=== PATIENT | female | born 1965 | race Caucasian/White ===

== ENCOUNTER 2021-05-04 19:02 | Inpatient (IN) | payer BC, MEDICARE ==
[2021-05-04] MEDS ORDERED: cefTRIAXone IN SWFI 1,000 MG/10 ML SYRINGE IVP STA (19:27)
[2021-05-04] MEDS ORDERED: ACETAMINOPHEN TAB 500 MG TAB PO STA (19:27)
--- NOTE | 2021-05-04 20:07 | ED ---
General Adult HPI - General Chief complaint: Extremity Injury, Lower Stated complaint: Left ankle pain Time Seen by Provider: 05/04/21 19:12 Source: patient, RN notes reviewed Mode of arrival: ambulatory Limitations: no limitations - History of Present Illness Initial comments: 55-year-old female presents to the emergency room for a chief complaint of left ankle pain. Patient states she has had left ankle pain for the past week or so. States it hurts when she presses on the ankle. Patient denies any injuries. Patient does states she had a blister on the great toe for the past 6 months that popped. Patient states she has not had anyone look at this and the past 6 months. Denies fevers.Patient has no other complaints at this time including s hortness of breath, chest pain, abdominal pain, nausea or vomiting, headache, or visual changes. - Related Data Allergies Allergy/AdvReac Type Severity Reaction Status Date / Time No Known Allergies Allergy Verified 05/04/21 22:26 Review of Systems ROS Statement: Those systems with pertinent positive or pertinent negative responses have been documented in the HPI. ROS Other: All systems not noted in ROS Statement are negative. Past Medical History Past Medical History: No Reported History History of Any Multi-Drug Resistant Organisms: None Reported Past Surgical History: No Surgical Hx Reported Smoking Status: Current every day smoker Past Alcohol Use History: None Reported Past Drug Use History: None Reported General Exam Limitations: no limitations General appearance: alert, in no apparent distress Head exam: Present: atraumatic Eye exam: Present: normal appearance, PERRL, EOMI ENT exam: Absent: normal exam, mucous membranes moist Neck exam: Present: normal inspection, full ROM. Absent: tenderness, meningismus Respiratory exam: Present: normal lung sounds bilaterally. Absent: respiratory distress, wheezes Cardiovascular Exam: Present: regular rate, normal rhythm, normal heart sounds Extremities exam: Present: full ROM (Range motion of the L foot and ankle), tenderness (Tenderness noted to the distal L lower leg as well as the L foot), normal capillary refill (cap refill < 2 seconds in the L lower extremity), other (Left great toe appears gangrenous. Cellulitis of the dorsal left forefoot) Course Vital Signs 05/04/21 05/04/21 05/04/21 19:04 19:27 21:09 Temperature 98.3 F 100.6 F H 97.7 F Pulse Rate 79 115 H 108 H Respiratory 16 18 18 Rate Blood Pressure 159/90 140/80 100/62 O2 Sat by Pulse 94 L 98 98 Oximetry Medical Decision Making - Medical Decision Making Vitals are stable however patient does present febrile. She has a gangrenous right great toe with cellulitis of the forefoot and pain extending into the ankle. CBC does show leukocytosis of 11.6. Lactic acid 2.2. Patient given fluids and antibiotics. Not currently requiring 30 mL/kg of fluid. Patient is diabetic as well which is undiagnosed as she does not see primary care. 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 Ultrasound results are difficult to exclude acute DVT given abnormal compressibility however no obvious thrombosis on exam. Case was discussed with Dr. Cao who does accept the patient. Requested d-dimer be added which she will follow-up on before starting blood thinners. Agrees for vascular consult. - Lab Data Result diagrams: 05/04/21 20:03 05/04/21 20:03 Lab Results 05/04/21 05/04/21 05/04/21 Range/Units 20:03 20:03 20:03 WBC 11.6 H (3.8-10.6) k/uL RBC 4.98 (3.80-5.40) m/uL Hgb 14.3 (11.4-16.0) gm/dL Hct 42.1 (34.0-46.0) % MCV 84.5 (80.0-100.0) fL MCH 28.7 (25.0-35.0) pg MCHC 34.0 (31.0-37.0) g/dL RDW 13.6 (11.5-15.5) % Plt Count 376 (150-450) k/uL MPV 7.4 Neutrophils % 64 % Lymphocytes % 29 % Monocytes % 4 % Eosinophils % 1 % Basophils % 1 % Neutrophils # 7.4 (1.3-7.7) k/uL Lymphocytes # 3.3 (1.0-4.8) k/uL Monocytes # 0.4 (0-1.0) k/uL Eosinophils # 0.2 (0-0.7) k/uL Basophils # 0.1 (0-0.2) k/uL Sodium 130 L (137-145) mmol/L Potassium 4.3 (3.5-5.1) mmol/L Chloride 93 L (98-107) mmol/L Carbon Dioxide 27 (22-30) mmol/L Anion Gap 10 mmol/L BUN 18 H (7-17) mg/dL Creatinine 0.48 L (0.52-1.04) mg/dL Est GFR (CKD-EPI)AfAm >90 (>60 ml/min/1.73 sqM) Est GFR (CKD-EPI)NonAf >90 (>60 ml/min/1.73 sqM) Glucose 311 H (74-99) mg/dL Plasma Lactic Acid Zackary 2.2 H* (0.7-2.0) mmol/L Calcium 9.6 (8.4-10.2) mg/dL Total Bilirubin 0.6 (0.2-1.3) mg/dL AST 29 (14-36) U/L ALT 25 (4-34) U/L Alkaline Phosphatase 188 H (38-126) U/L Total Protein 7.9 (6.3-8.2) g/dL Albumin 4.2 (3.5-5.0) g/dL Disposition Clinical Impression: Hyperglycemia, Cellulitis, Gangrene of toe, Fever Disposition: ADMITTED IP TO THIS HOSP Is patient prescribed a controlled substance at d/c from ED?: No Referrals: None,Stated [Primary Care Provider] - 1-2 days Time of Disposition: 22:30
[2021-05-04 20:32] LABS: ALT 25 U/L (4-34); AST 29 U/L (14-36); African American GFR (CKD) >90 (>60 ml/min/1.73 sqM); Albumin 4.2 g/dL (3.5-5.0); Alkaline Phosphatase 188 U/L (38-126); Anion Gap 10 mmol/L; Blood Urea Nitrogen 18 mg/dL (7-17); Calcium 9.6 mg/dL (8.4-10.2); Carbon Dioxide 27 mmol/L (22-30); Chloride 93 mmol/L (98-107); Glucose 311 mg/dL (74-99); Non-African American GFR(CKD) >90 (>60 ml/min/1.73 sqM); Sodium 130 mmol/L (137-145); Total Bilirubin 0.6 mg/dL (0.2-1.3); Total Protein 7.9 g/dL (6.3-8.2)
[2021-05-04 20:42] LABS: HCT 42.1 % (34.0-46.0); HGB 14.3 gm/dL (11.4-16.0); RBC 4.98 m/uL (3.80-5.40); WBC 11.6 k/uL (3.8-10.6)
[2021-05-04 20:43] LABS: Basophils # (A) 0.1 k/uL (0-0.2); Basophils % (A) 1 %; Eosinophils # (A) 0.2 k/uL (0-0.7); Eosinophils % (A) 1 %; Lymphocytes # (A) 3.3 k/uL (1.0-4.8); Lymphocytes % (A) 29 %; MCH 28.7 pg (25.0-35.0); MCV 84.5 fL (80.0-100.0); Mean Platelet Volume 7.4; Monocytes # (A) 0.4 k/uL (0-1.0); Monocytes % (A) 4 %; Neutrophils # (A) 7.4 k/uL (1.3-7.7); Neutrophils % (A) 64 %; Platelet Count 376 k/uL (150-450); RDW 13.6 % (11.5-15.5)
[2021-05-04 20:48] LABS: Potassium 4.3 mmol/L (3.5-5.1)
--- NOTE | 2021-05-04 21:23 | US ---
EXAMINATION TYPE: US venous doppler duplex LE LT DATE OF EXAM: 05/04/2021 8:36 PM COMPARISON: NONE CLINICAL HISTORY: Pain. No hx of DVT. Patient does not take blood thinners. SIDE PERFORMED: Left TECHNIQUE: The lower extremity deep venous system is examined utilizing real time linear array sonog andreia with graded compression, doppler sonography and color-flow sonography. VESSELS IMAGED: Common Femoral Vein Deep Femoral Vein Greater Saphenous Vein * Femoral Vein Popliteal Vein Small Saphenous Vein * Proximal Calf Veins (* superficial vessels) Left Leg: CFV and GSV appear to compress incompletely-possible thickened collier versus chronic internal echoes a long vessel wall. Color flow seen in all veins imaged at this time. Two hypoechoic areas with hyperechoic centers and vascularity seen within the left groin. Larger are a measures 1.9 x 2.2 x 1.4 cm. IMPRESSION: 1. It is difficult to exclude acute deep vein thrombosis of the common femoral vein (superficial thro mbosis of the great saphenous vein) due to abnormal compressibility (incomplete compression report by microfilm technician) despite the normal appearance on color flow images and non visualized thrombu s within the lumen. Clinical correlation is recommended. 2. Left inguinal prominent enlarged lymph nodes (1.4 x 1.9 x 2.2 cm) likely reactive to findings seen on the foot radiograph, refer to separate report for detail. Dr. White discussed above findings with Vincent MORRISON in addition to findings on the ankle and f oot radiographs performed on the same day @ 9:18 pm. Communication was acknowledged.
--- NOTE | 2021-05-04 21:26 | XR ---
EXAMINATION TYPE: XR ankle complete LT, XR foot complete LT DATE OF EXAM: 05/04/2021 COMPARISON: NONE HISTORY: 55 years Female. STUDY INDICATION GIVEN: gangrene of great toe, cellulitis . TECHNIQUE: Left ankle 3 views. Left foot 3 views IMPRESSION: Ankle: Normal ankle mortise. No acute fracture or dislocation. Small joint effusion mild soft tissue swellin g anterior to the ankle joint. Mild degenerative changes. Foot: There is soft tissue swelling over the distal phalanx of the first great toe. There are erosive moon es involving the proximal aspect of the distal phalanx distal aspect of the proximal phalanx. There a re lucencies in the region of the first toe interphalangeal joint. There is also mild diffuse soft ti ssue swelling the foot. Findings are concerning for soft tissue swelling, osteomyelitis and possible septic arthritis.
[2021-05-04] MEDS ORDERED: VANCOMYCIN IV PER PHARMACY 1 EACH MISC MISCELLANE PRN (21:50)
[2021-05-04] MEDS ORDERED: ONDANSETRON 4 MG/2 ML VIAL IVP PRN (22:30)
[2021-05-04] MEDS ORDERED: NALOXONE 0.4 MG/ML 1 ML VIAL IV PRN (22:30)
[2021-05-04] MEDS ORDERED: VANCOMYCIN 1,000 MG in SODIUM CHLORIDE 0.9% 250 ML IVPB ONE (23:00)
[2021-05-04] MEDS: SODIUM CHLORIDE 0.9% 1,000 ML IV SCH (23:20)
[2021-05-04 23:26] LABS: Glucose,Whole Blood 271 mg/dL (75-99)
[2021-05-05] MEDS ORDERED: ACETAMINOPHEN TAB 325 MG TAB PO PRN (01:21)
[2021-05-05] MEDS: ENOXAPARIN 60 MG/0.6 ML SYRINGE SQ SCH ×3 (01:49→21:09)
--- NOTE | 2021-05-05 01:49 | P.HPIM ---
History of Present Illness H&P Date: 05/04/21 Chief Complaint: Pain in the left ankle 55-year-old female with peripheral neuropathy Patient seems to have poor insight of her overall condition. Patient seems to be unconcerned of her left great toe gangrene situation as compared to the pain in her left ankle that has brought her in here today. She reports that she was feeling fine walked back from the kitchen after doing some chores sat down on her couch to watch TV for about 15 minutes and as she tried to get up she felt extreme pain in her leg that she couldn't walk initially, this was about 5 days ago and since then it has been getting worse for which today she decided to come in for evaluation as it became very difficult for her to stand up on her leg or even touch her ankle without experiencing pain. She denies any recent traveling or hospitalizations she denies any trauma falling or twisting her ankle. She denies any fevers or chills however she was found to be febrile when she presented. She reports a blister that she has noticed about 9 months ago over her left great toe that has popped recently it hasn't bothered her however she does admit to having some peripheral neuropathy for unknown reason that she was diagnosed with years ago. She reports that few months ago she had a right eye blurry vision that since has improved and then she adds that she's been having some runny nose and coughing for over a month Otherwise she denies any chest pain or trouble breathing denies any GI bleeding denies history of blood clots denies history of diabetes she does admit to heavy tobacco smoking In the ED she was noticed to have dry gangrene of her left great toe with swelling of the left foot and erythema extending to the ankle. Venous duplex ultrasound was done was suspicious for possible acute DVT D-dimer slightly elevated X-rays showed no acute fractures however did show soft tissue swelling suggestive of cellulitis with underlying osteomyelitis in the left foot. Review of Systems Pertinent positives as noted in HPI. All other systems were reviewed and are negative Past Medical History Additional Past Medical History / Comment(s): Peripheral neuropathy History of Any Multi-Drug Resistant Organisms: None Reported Past Surgical History: No Surgical Hx Reported Smoking Status: Current every day smoker Past Alcohol Use History: None Reported Past Drug Use History: None Reported - Past Family History Family Family Medical History: No Reported History Medications and Allergies Home Medications Medication Instructions Recorded Confirmed Type traMADol HCL [Ultram] 50 mg PO BID PRN 05/04/21 05/04/21 History Allergies Allergy/AdvReac Type Severity Reaction Status Date / Time No Known Allergies Allergy Verified 05/04/21 22:26 Physical Exam Vitals: Vital Signs Temp Pulse Resp BP Pulse Ox 05/05/21 00:15 97.8 F 92 18 104/71 98 05/04/21 23:20 97 18 135/84 97 05/04/21 21:09 97.7 F 108 H 18 100/62 98 05/04/21 19:27 100.6 F H 115 H 18 140/80 98 05/04/21 19:04 98.3 F 79 16 159/90 94 L Intake and Output 05/04/21 05/04/21 05/05/21 14:59 22:59 06:59 Other: Weight 63.049 kg Constitutional: No acute distress, conversant, pleasant Eyes: Anicteric sclerae, moist conjunctiva, Pupils equal round reactive to light ENMT: NC/AT Oropharynx clear, no erythema, or exudates Neck: Supple, FROM, no masses, or JVD No carotid bruits No thyromegaly Lungs: Clear to auscultation Clear to percussion Normal respiratory effort, no accessory muscle use Cardiovascular: Heart regular in rate and rhythm, No murmurs, gallops, or rubs No peripheral edema Abdominal: Soft Nontender, no guarding, rebound or rigidity Abdomen moving with respiration Normoactive bowel sounds No hepatomegaly, No splenomegaly No palpable mass No abdominal wall hernia noted Skin: Patient has dry gangrene of the left great toe with areas of skin sloughing proximal portion of the left great toe erythema and swelling of the left foot no tenderness to palpation left foot, warm to the touch Extremities: No digital cyanosis No clubbing Pedal pulses not palpable bilateral feet, capillary refill is immediate Radial pulses intact and symmetrical tenderness to palpation of the left calf muscle, edema of the left foot Psychiatric: Alert and oriented to person, place and time Appropriate affect Neuro Muscles Strength 4/5 in all 4 extremities Decreased sensation to light touch over the left foot Cranial nerves II-XII grossly intact Lymphatics: no palpable cervical or supraclavicular , or inguinal lymph nodes Results CBC & Chem 7: 05/04/21 20:03 05/04/21 20:03 Labs: Abnormal Lab Results - Last 24 Hours (Table) 05/04/21 05/04/21 05/04/21 Range/Units 20:03 20:03 20:03 WBC 11.6 H (3.8-10.6) k/uL D-Dimer (<0.60) mg/L FEU Sodium 130 L (137-145) mmol/L Chloride 93 L (98-107) mmol/L BUN 18 H (7-17) mg/dL Creatinine 0.48 L (0.52-1.04) mg/dL Glucose 311 H (74-99) mg/dL POC Glucose (mg/dL) (75-99) mg/dL Plasma Lactic Acid Zackary 2.2 H* (0.7-2.0) mmol/L Alkaline Phosphatase 188 H (38-126) U/L 05/04/21 05/04/21 Range/Units 23:25 23:26 WBC (3.8-10.6) k/uL D-Dimer 0.87 H (<0.60) mg/L FEU Sodium (137-145) mmol/L Chloride (98-107) mmol/L BUN (7-17) mg/dL Creatinine (0.52-1.04) mg/dL Glucose (74-99) mg/dL POC Glucose (mg/dL) 271 H (75-99) mg/dL Plasma Lactic Acid Zackary (0.7-2.0) mmol/L Alkaline Phosphatase (38-126) U/L Assessment and Plan Assessment: Sepsis secondary to underlying osteomyelitis and cellulitis of the left foot Follow-up cultures Empiric antibiotic with vancomycin and Rocephin IV fluid hydration with normal saline Monitor vital signs Tylenol for fever Pain control with opiates Consultation to vascular surgery X-rays reviewed Suspicion of diabetes mellitus with a random blood sugar higher than 200 Check A1c Insulin sliding scale Follow-up labs check lipid profile CBC and BMP in the morning Suspicion of DVT in the left lower extremity D-dimer elevated Patient initiated on Lovenox full dose subcu Venous Doppler ultrasound was inconclusive Patient is full code DVT prophylaxis currently on full dose anticoagulation due to suspicion of underlying DVT Anticipated length of stay more than 2 midnights
[2021-05-05 05:46] LABS: Basophils # (A) 0.1 k/uL (0-0.2); Basophils % (A) 1 %; Eosinophils # (A) 0.1 k/uL (0-0.7); Eosinophils % (A) 1 %; HCT 35.5 % (34.0-46.0); Lymphocytes # (A) 3.4 k/uL (1.0-4.8); Lymphocytes % (A) 33 %; MCH 28.7 pg (25.0-35.0); MCHC 33.8 g/dL (31.0-37.0); MCV 85.1 fL (80.0-100.0); Mean Platelet Volume 7.5; Monocytes # (A) 0.4 k/uL (0-1.0); Monocytes % (A) 4 %; Neutrophils # (A) 6.1 k/uL (1.3-7.7); Neutrophils % (A) 59 %; Platelet Count 318 k/uL (150-450); RBC 4.17 m/uL (3.80-5.40); RDW 13.5 % (11.5-15.5); WBC 10.3 k/uL (3.8-10.6)
[2021-05-05] MEDS: MORPHINE SULFATE 4 MG/ML SYRINGE IV PRN ×2 (05:54→13:13)
[2021-05-05] MEDS ORDERED: VANCOMYCIN 1,000 MG in SODIUM CHLORIDE 0.9% 250 ML IVPB SCH (07:00)
[2021-05-05] MEDS: SODIUM CHLORIDE 0.9% 1,000 ML IV SCH ×3 (07:18→21:09)
[2021-05-05] MEDS ORDERED: INSULIN ASPART (NovoLOG) 100 UNIT/ML VIAL SQ SCH (07:30)
[2021-05-05 08:30] LABS: Glucose,Whole Blood 256 mg/dL (75-99)
[2021-05-05] MEDS ORDERED: cefTRIAXone IN SWFI 1,000 MG/10 ML SYRINGE IVP SCH (09:00)
[2021-05-05 09:42] LABS: INR 1.01 (0.90-1.11); Prothrombin Time 11.1 sec (9.9-11.9)
[2021-05-05] MEDS: INSULIN ASPART (NovoLOG) 100 UNIT/ML VIAL SQ SCH ×4 (09:44→21:07)
--- NOTE | 2021-05-05 09:44 | P.GSCN ---
History of Present Illness Consult date: 05/05/21 Reason for Consult: Gangrene right great toe Requesting physician: Miriam Cuevas History of present illness: This 55-year-old woman states that she developed a blister about 6 months ago. The great toe became progressively worse and about a week ago it became blackened. She has very minimal pain. She is a long-standing smoker. She did not know she was a diabetic until this admission. Review of Systems All systems: negative - Constitutional Denies fever, Denies weight loss - EENT Eyes: denies blurred vision Ears, nose, mouth and throat: Denies dysphagia - Cardiovascular Denies chest pain, Denies shortness of breath - Respiratory Denies cough, Denies 7 - Gastrointestinal Reports as per HPI - Genitourinary Genitourinary: Denies dysuria, Denies hematuria - Integumentary Denies rash, Denies unusual bruising - Neurological Denies headaches, Denies syncope - Hematologic/Lymphatic Denies easy bleeding, Denies easy bruising Past Medical History Past Medical History: No Reported History Additional Past Medical History / Comment(s): Peripheral neuropathy History of Any Multi-Drug Resistant Organisms: None Reported Past Surgical History: No Surgical Hx Reported Smoking Status: Current every day smoker Past Alcohol Use History: None Reported Past Drug Use History: None Reported - Past Family History Family Family Medical History: No Reported History Medications and Allergies Home Medications Medication Instructions Recorded Confirmed Type traMADol HCL [Ultram] 50 mg PO BID PRN 05/04/21 05/04/21 History Allergies Allergy/AdvReac Type Severity Reaction Status Date / Time No Known Allergies Allergy Verified 05/04/21 22:26 Surgical - Exam Osteopathic Statement: *. No significant issues noted on an osteopathic structural exam other than those noted in the History and Physical/Consult. Vital Signs Temp Pulse Resp BP Pulse Ox 98.3 F 79 16 159/90 94 L 05/04/21 19:04 05/04/21 19:04 05/04/21 19:04 05/04/21 19:04 05/04/21 19:04 - General well developed, well nourished, no distress - Eyes normal ocular movement, no icteric - ENT no hearing loss, no congestion - Neck no masses, trachea midline - Respiratory normal respiratory effort, clear to auscultation - Abdomen Abdomen: soft, non tender, no guarding, no rigid, no rebound - Integumentary no rash, no abnormal pigmentation - Neurologic no disoriented, no combative - Psychiatric oriented to time, oriented to person, oriented to place, speech is normal, memory intact The patient has no pulses below the femoral pulses. She has a mummified left g reat toe. Results - Labs 05/05/21 05:33 05/04/21 20:03 Abnormal Lab Results - Last 24 Hours (Table) 05/04/21 05/04/21 05/04/21 Range/Units 20:03 20:03 20:03 WBC 11.6 H (3.8-10.6) k/uL D-Dimer (<0.60) mg/L FEU Sodium 130 L (137-145) mmol/L Chloride 93 L (98-107) mmol/L BUN 18 H (7-17) mg/dL Creatinine 0.48 L (0.52-1.04) mg/dL Glucose 311 H (74-99) mg/dL POC Glucose (mg/dL) (75-99) mg/dL Plasma Lactic Acid Zackary 2.2 H* (0.7-2.0) mmol/L Alkaline Phosphatase 188 H (38-126) U/L 05/04/21 05/04/21 05/05/21 Range/Units 23:25 23:26 01:00 WBC (3.8-10.6) k/uL D-Dimer 0.87 H (<0.60) mg/L FEU Sodium (137-145) mmol/L Chloride (98-107) mmol/L BUN (7-17) mg/dL Creatinine (0.52-1.04) mg/dL Glucose (74-99) mg/dL POC Glucose (mg/dL) 271 H (75-99) mg/dL Plasma Lactic Acid Zackary 2.6 H* (0.7-2.0) mmol/L Alkaline Phosphatase (38-126) U/L 05/05/21 Range/Units 08:28 WBC (3.8-10.6) k/uL D-Dimer (<0.60) mg/L FEU Sodium (137-145) mmol/L Chloride (98-107) mmol/L BUN (7-17) mg/dL Creatinine (0.52-1.04) mg/dL Glucose (74-99) mg/dL POC Glucose (mg/dL) 256 H (75-99) mg/dL Plasma Lactic Acid Zackary (0.7-2.0) mmol/L Alkaline Phosphatase (38-126) U/L Diabetes panel 05/04/21 Range/Units 20:03 Sodium 130 L (137-145) mmol/L Potassium 4.3 (3.5-5.1) mmol/L Chloride 93 L (98-107) mmol/L Carbon Dioxide 27 (22-30) mmol/L BUN 18 H (7-17) mg/dL Creatinine 0.48 L (0.52-1.04) mg/dL Glucose 311 H (74-99) mg/dL Calcium 9.6 (8.4-10.2) mg/dL AST 29 (14-36) U/L ALT 25 (4-34) U/L Alkaline Phosphatase 188 H (38-126) U/L Total Protein 7.9 (6.3-8.2) g/dL Albumin 4.2 (3.5-5.0) g/dL Calcium panel 05/04/21 Range/Units 20:03 Calcium 9.6 (8.4-10.2) mg/dL Albumin 4.2 (3.5-5.0) g/dL Pituitary panel 05/04/21 Range/Units 20:03 Sodium 130 L (137-145) mmol/L Potassium 4.3 (3.5-5.1) mmol/L Chloride 93 L (98-107) mmol/L Carbon Dioxide 27 (22-30) mmol/L BUN 18 H (7-17) mg/dL Creatinine 0.48 L (0.52-1.04) mg/dL Glucose 311 H (74-99) mg/dL Calcium 9.6 (8.4-10.2) mg/dL Adrenal panel 05/04/21 Range/Units 20:03 Sodium 130 L (137-145) mmol/L Potassium 4.3 (3.5-5.1) mmol/L Chloride 93 L (98-107) mmol/L Carbon Dioxide 27 (22-30) mmol/L BUN 18 H (7-17) mg/dL Creatinine 0.48 L (0.52-1.04) mg/dL Glucose 311 H (74-99) mg/dL Calcium 9.6 (8.4-10.2) mg/dL Total Bilirubin 0.6 (0.2-1.3) mg/dL AST 29 (14-36) U/L ALT 25 (4-34) U/L Alkaline Phosphatase 188 H (38-126) U/L Total Protein 7.9 (6.3-8.2) g/dL Albumin 4.2 (3.5-5.0) g/dL Assessment and Plan (1) Atherosclerosis of rincon arteries of left leg with ulceration of other part of foot Current Visit: Yes Status: Acute Code(s): I70.245 - ATHSCL KWIGILLINGOK ARTERIES OF LEFT LEG W ULCERATION OT PRT FOOT SNOMED Code(s): 131341078 (2) 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 I discussed both of these risk factors with her in detail. I discussed with her the need for smoking cessation. We will start with a lower extremity arterial Doppler study. If that suggest that circulation is adequate for healing we would simply proceed with great toe amputation. If it suggests significant compromise of the circulation at the distal aspect of the foot we would proceed with an angiogram. In view of the dry gangrene nature of the toe, for the time being, simple dry protective dressings are all that is necessary. The patient verbalizes an understanding of the factors that we discussed. She verbalizes in agreement with our current plan.
[2021-05-05 12:10] LABS: Glucose,Whole Blood 200 mg/dL (75-99)
[2021-05-05 12:35] LABS: Erythrocyte Sedimentation Rate 99 mm/hr (0-20)
[2021-05-05] MEDS: VANCOMYCIN 1,000 MG in SODIUM CHLORIDE 0.9% 250 ML IVPB SCH ×2 (13:14→21:09)
[2021-05-05] MEDS ORDERED: NICOTINE GUM (POLACRILEX) 2 MG GUM BUCCAL PRN (13:36)
--- NOTE | 2021-05-05 13:36 | P.PN ---
Subjective Progress Note Date: 05/05/21 Patient is a 55-year-old female with osteoarthritis, chronic low back pain, and tobacco abuse who presented secondary to left ankle pain. She underwent an x- ray of the foot which showed osteomyelitis of the great toe. She was febrile to 100.6 and had a heart rate of 1:15. Laboratory analysis showed a white blood cell count of 11.6. She was also found to have a sodium of 1:30 and a glucose of 311. Blood lactic acid was slightly elevated at 2.2. Found to have gangrene of the right great toe with sepsis. She was started on Vanco on Rocephin and arrangements were made for admission. Vascular surgery was consulted and plans are for arterial Doppler of the lower extremities. Patient seen and examined at bedside. Her left ankle pain has resolved she has been walking on it without problems. She denies any nausea, vomiting, or diarrhea. She states that her right toe first began about 6 months ago. She had been soaking with peroxide the last week large chunk of skin came off. She was smoking prior to admission but states she plans on quitting. She was not aware of a history of diabetes in the past we discussed that her blood sugar was quite elevated on arrival at that she likely has underlying diabetes but we are waiting for hemoglobin A1c. General: Ill appearing, no distress, appears older than stated age Derm: Right great toe black with visualization of fat, skin necrosis, area of erythema tracking to the right forefoot. Head: atraumatic, normocephalic, symmetric Eyes: EOMI, no lid lag, anicteric sclera Mouth: no lip lesion, mucus membranes moist Cardiovascular: S1S2 reg, no murmur, positive posterior tibial pulse bilateral, Lungs: CTA bilateral, no rhonchi, no rales , no accessory muscle use Abdominal: soft, nontender to palpation, no guarding, no appreciable organo megaly Ext: no gross muscle atrophy, no edema, no contractures Neuro: CN II-XI grossly intact, no focal neuro deficits Psych: Alert, oriented, appropriate affect Dry gangrene of the right great toe with sepsis -Vascular surgery recommendations appreciated: Arterial Dopplers today likely will need amputation early next week. - Continue with vancomycin, concerns for possible anaerobic component and will broaden Rocephin 2 Unasyn. Low possibility of pseudomonal infection but patient is likely diabetic at risk for polymicrobial infection. -Await blood cultures -Pain control -Keep toe clean and dry with 4 x 4 and Kerlix Hyperglycemia suspect diabetes mellitus type 2 -Sliding-scale insulin -Await A1c -Follow blood sugars Tobacco abuse -Cessation -Nicotine replacement Hyponatremia -Suspect secondary to insensible losses with fever in conjunction with pseudohyponatremia secondary to hyperglycemia -IV fluids -Repeat in a.m. Lactic acidosis, resolved DVT prophylaxis: lovenox Discussed with: salvatore cohen Anticipated discharge: undetermined Anticipated discharge place: undetermined A total of 45 minutes was spent on the care of this complex patient more than 50% of the time was spent in counseling and care coordination. Objective - Vital Signs Vital signs: Vital Signs Temp 98.0 F 05/05/21 07:29 Pulse 90 05/05/21 07:29 Resp 16 05/05/21 08:00 BP 110/71 05/05/21 07:29 Pulse Ox 97 05/05/21 07:29 Intake & Output 05/04/21 05/05/21 05/05/21 18:59 06:59 18:59 Weight 63.049 kg 63.049 kg Other: Voiding Method Toilet Bedside Commode - Labs CBC & Chem 7: 05/05/21 05:33 05/04/21 20:03 Labs: Abnormal Lab Results - Last 24 Hours (Table) 05/04/21 05/04/21 05/04/21 Range/Units 20:03 20:03 20:03 WBC 11.6 H (3.8-10.6) k/uL ESR (0-20) mm/hr D-Dimer (<0.60) mg/L FEU Sodium 130 L (137-145) mmol/L Chloride 93 L (98-107) mmol/L BUN 18 H (7-17) mg/dL Creatinine 0.48 L (0.52-1.04) mg/dL Glucose 311 H (74-99) mg/dL POC Glucose (mg/dL) (75-99) mg/dL Plasma Lactic Acid Zackary 2.2 H* (0.7-2.0) mmol/L Alkaline Phosphatase 188 H (38-126) U/L 05/04/21 05/04/21 05/05/21 Range/Units 23:25 23:26 01:00 WBC (3.8-10.6) k/uL ESR (0-20) mm/hr D-Dimer 0.87 H (<0.60) mg/L FEU Sodium (137-145) mmol/L Chloride (98-107) mmol/L BUN (7-17) mg/dL Creatinine (0.52-1.04) mg/dL Glucose (74-99) mg/dL POC Glucose (mg/dL) 271 H (75-99) mg/dL Plasma Lactic Acid Zackary 2.6 H* (0.7-2.0) mmol/L Alkaline Phosphatase (38-126) U/L 05/05/21 05/05/21 05/05/21 Range/Units 05:33 08:28 12:08 WBC (3.8-10.6) k/uL ESR 99 H (0-20) mm/hr D-Dimer (<0.60) mg/L FEU Sodium (137-145) mmol/L Chloride (98-107) mmol/L BUN (7-17) mg/dL Creatinine (0.52-1.04) mg/dL Glucose (74-99) mg/dL POC Glucose (mg/dL) 256 H 200 H (75-99) mg/dL Plasma Lactic Acid Zackary (0.7-2.0) mmol/L Alkaline Phosphatase (38-126) U/L
[2021-05-05 17:35] LABS: Glucose,Whole Blood 203 mg/dL (75-99)
[2021-05-05 21:01] LABS: Glucose,Whole Blood 244 mg/dL (75-99)
[2021-05-05 23:13] LABS: ALT 20 U/L (8-44); AST 19 U/L (13-35); African American GFR (CKD) 124.6 (60.0-200.0); Albumin 3.6 g/dL (3.8-4.9); Albumin/Globulin Ratio 1.25 (1.60-3.17); Alkaline Phosphatase 153 U/L (41-126); BUN/Creat Ratio 22.07 Ratio (12.00-20.00); Blood Urea Nitrogen 11.5 mg/dL (9.0-27.0); Calcium 8.7 mg/dL (8.7-10.3); Carbon Dioxide 20.9 mmol/L (20.0-27.5); Chloride 102 mmol/L (96-109); Chol/HDL Ratio 6.47 Ratio; Globulin 2.9 g/dL (1.6-3.3); Glucose 261 mg/dL (70-110); LDL Cholesterol,Calculated 148.1 mg/dL (0.0-131.0); Non-African American GFR(CKD) 107.5 (60.0-200.0); Potassium 3.9 mmol/L (3.5-5.5); Sodium 140 mmol/L (135-145); Total Protein 6.5 g/dL (6.2-8.2)
[2021-05-06] MEDS: MORPHINE SULFATE 4 MG/ML SYRINGE IV PRN ×3 (01:31→21:16)
[2021-05-06] MEDS: VANCOMYCIN 1,000 MG in SODIUM CHLORIDE 0.9% 250 ML IVPB SCH ×3 (04:01→21:10)
[2021-05-06 06:28] LABS: Glucose,Whole Blood 196 mg/dL (75-99)
[2021-05-06] MEDS: INSULIN ASPART (NovoLOG) 100 UNIT/ML VIAL SQ SCH ×4 (06:32→21:11)
[2021-05-06] MEDS: SODIUM CHLORIDE 0.9% 1,000 ML IV SCH (07:24)
[2021-05-06 07:59] LABS: HCT 31.8 % (34.0-46.0); HGB 11.2 gm/dL (11.4-16.0); MCH 29.7 pg (25.0-35.0); MCHC 35.3 g/dL (31.0-37.0); MCV 84.2 fL (80.0-100.0); Platelet Count 334 k/uL (150-450); RBC 3.78 m/uL (3.80-5.40); RDW 13.9 % (11.5-15.5); WBC 7.9 k/uL (3.8-10.6)
[2021-05-06] MEDS: ENOXAPARIN 60 MG/0.6 ML SYRINGE SQ SCH ×2 (08:03→21:11)
[2021-05-06 08:16] LABS: ALT 17 U/L (4-34); AST 17 U/L (14-36); African American GFR (CKD) >90 (>60 ml/min/1.73 sqM); Albumin 2.9 g/dL (3.5-5.0); Alkaline Phosphatase 145 U/L (38-126); Anion Gap 4 mmol/L; Blood Urea Nitrogen 11 mg/dL (7-17); Carbon Dioxide 27 mmol/L (22-30); Chloride 105 mmol/L (98-107); Glucose 192 mg/dL (74-99); Magnesium 1.8 mg/dL (1.6-2.3); Non-African American GFR(CKD) >90 (>60 ml/min/1.73 sqM); Phosphorus 3.3 mg/dL (2.5-4.5); Potassium 3.8 mmol/L (3.5-5.1); Sodium 136 mmol/L (137-145); Total Bilirubin 0.2 mg/dL (0.2-1.3); Total Protein 5.8 g/dL (6.3-8.2)
--- NOTE | 2021-05-06 09:05 | P.PN ---
Subjective Progress Note Date: 05/06/21 Principal diagnosis: Gangrene left great toe, newly diagnosed diabetes. History of current tobacco dependence The patient was seen and examined this morning sitting up in bed in no acute distress. Denies pain or shortness of breath. Denies pain to left foot, does have feeling all way down to the toes without pain, skin to left foot is warm and pink except left toe which is black. ABIs reviewed, REX on the right 0.93, on the left 0.74 Objective - Vital Signs Vital signs: Vital Signs Temp 98.0 F 05/06/21 08:21 Pulse 90 05/06/21 08:21 Resp 18 05/06/21 08:21 BP 123/80 05/06/21 08:21 Pulse Ox 98 05/06/21 08:21 Intake & Output 05/05/21 05/06/21 05/06/21 18:59 06:59 18:59 Intake Total 592 90 Balance 592 90 Weight 63.049 kg Intake: Intake, IV Titration 130 Amount Sodium Chloride 0.9% 1, 130 000 ml @ 130 mls/hr IV . Q7H42M [facility] Rx#:[id number] Oral 462 90 Other: Voiding Method Bedside Commode # Voids 1 1 - Exam CONSTITUTIONAL: Appears comfortable, cooperative, no acute distress RESPIRATORY: Lungs sounds diminished bilaterally. Respirations even, nonlabo red. Currently on room air with oxygen saturation 98%. Strong loose cough. CARDIOVASCULAR: S1, S2 present. Regular rate and rhythm. No edema present. No calf pain or tenderness noted. GASTROINTESTINAL: Abdomen soft, nontender, nondistended. Active bowel sounds present 4 quadrants. Tolerating diet. GENITOURINARY: Continues to void INTEGUMENTARY: Skin is warm and dry. Left great toe wrapped for protection NEUROLOGIC: Cranial nerves II through XII intact MUSKULOSKELETAL: Able to move all extremities, strength equal bilaterally, gait normal PSYCHIATRIC: Alert and oriented to person place and time, appropriate affect, intact judgment and insight - Allied health notes Allied health notes reviewed: nursing - Labs CBC & Chem 7: 05/06/21 06:55 05/06/21 06:55 Labs: Abnormal Lab Results - Last 24 Hours (Table) 05/05/21 05/05/21 05/05/21 Range/Units 05:33 05:33 05:33 RBC (3.80-5.40) m/uL Hgb (11.4-16.0) gm/dL Hct (34.0-46.0) % ESR 99 H (0-20) mm/hr Sodium (137-145) mmol/L Creatinine 0.5 L (0.6-1.5) mg/dL BUN/Creatinine Ratio 22.07 H (12.00-20.00) Ratio Glucose 261 H (70-110) mg/dL POC Glucose (mg/dL) (75-99) mg/dL Hemoglobin A1c 10.1 H (4.0-6.0) % Calcium (8.4-10.2) mg/dL Alkaline Phosphatase 153 H (41-126) U/L C-Reactive Protein 7.00 H (0.00-0.80) mg/dL Total Protein (6.3-8.2) g/dL Albumin 3.6 L (3.8-4.9) g/dL Albumin/Globulin Ratio 1.25 L (1.60-3.17) g/dL Triglycerides 181.00 H (0.00-149.00) mg/dL Cholesterol 218.00 H (0.00-200.00) mg/dL LDL Cholesterol, Calc 148.1 H (0.0-131.0) mg/dL HDL Cholesterol 33.70 L (40.00-60.00) mg/dL 05/05/21 05/05/21 05/05/21 Range/Units 12:08 17:34 20:59 RBC (3.80-5.40) m/uL Hgb (11.4-16.0) gm/dL Hct (34.0-46.0) % ESR (0-20) mm/hr Sodium (137-145) mmol/L Creatinine (0.6-1.5) mg/dL BUN/Creatinine Ratio (12.00-20.00) Ratio Glucose (70-110) mg/dL POC Glucose (mg/dL) 200 H 203 H 244 H (75-99) mg/dL Hemoglobin A1c (4.0-6.0) % Calcium (8.4-10.2) mg/dL Alkaline Phosphatase (41-126) U/L C-Reactive Protein (0.00-0.80) mg/dL Total Protein (6.3-8.2) g/dL Albumin (3.8-4.9) g/dL Albumin/Globulin Ratio (1.60-3.17) g/dL Triglycerides (0.00-149.00) mg/dL Cholesterol (0.00-200.00) mg/dL LDL Cholesterol, Calc (0.0-131.0) mg/dL HDL Cholesterol (40.00-60.00) mg/dL 05/06/21 05/06/21 05/06/21 Range/Units 06:26 06:55 06:55 RBC 3.78 L (3.80-5.40) m/uL Hgb 11.2 L (11.4-16.0) gm/dL Hct 31.8 L (34.0-46.0) % ESR (0-20) mm/hr Sodium 136 L (137-145) mmol/L Creatinine 0.46 L (0.6-1.5) mg/dL BUN/Creatinine Ratio (12.00-20.00) Ratio Glucose 192 H (70-110) mg/dL POC Glucose (mg/dL) 196 H (75-99) mg/dL Hemoglobin A1c (4.0-6.0) % Calcium 8.0 L (8.4-10.2) mg/dL Alkaline Phosphatase 145 H (41-126) U/L C-Reactive Protein (0.00-0.80) mg/dL Total Protein 5.8 L (6.3-8.2) g/dL Albumin 2.9 L (3.8-4.9) g/dL Albumin/Globulin Ratio (1.60-3.17) g/dL Triglycerides (0.00-149.00) mg/dL Cholesterol (0.00-200.00) mg/dL LDL Cholesterol, Calc (0.0-131.0) mg/dL HDL Cholesterol (40.00-60.00) mg/dL Microbiology - Last 24 Hours (Table) 05/04/21 20:03 Blood Culture Gram Stain - Preliminary Blood Blood Culture - Preliminary Coagulase Negative Staph 05/04/21 20:03 Blood Culture - Preliminary Blood No Growth after 24 hours 05/04/21 20:03 Blood Culture - Final Blood - Imaging and Cardiology ABIs reviewed Assessment and Plan Assessment: 1. Gangrene left great toe 2. Newly diagnosed diabetes 3. Current tobacco dependence Plan: 1. Once Dr. Noriega has had the opportunity to review the patient's ABIs he will make decision on left great toe amputation versus left foot angiogram 2. Continue simple dry protective dressing to left great toe 3. Smoking cessation counseling again offered 4. The need to control blood sugars was discussed with the patient, blood sugars currently running 192-244 which is uncontrolled 5. Medical management of other comorbidities per primary care service 6. More recommendations to follow Time with Patient: Greater than 30
[2021-05-06 09:47] VITALS: BMI 23.8
--- NOTE | 2021-05-06 10:01 | P.PN ---
Subjective Progress Note Date: 05/06/21 Principal diagnosis: left ankle pain Patient is a 55-year-old female with osteoarthritis, chronic low back pain, and tobacco abuse who presented secondary to left ankle pain. She underwent an x- ray of the foot which showed osteomyelitis of the great toe. She was febrile to 100.6 and had a heart rate of 1:15. Laboratory analysis showed a white blood cell count of 11.6. She was also found to have a sodium of 1:30 and a glucose of 311. Blood lactic acid was slightly elevated at 2.2. Found to have gangrene of the right great toe with sepsis. She was started on Vanco on Rocephin and arrangements were made for admission. Vascular surgery was consulted and arterial Doppler of the lower extremities was completed. Patient seen and examined at bedside. We discussed A1C 10 and high cholesterol. She thinks that she wants to follow with [facility] but has been unable to get a new patient appointment. Family hx of DM 2. She denies pain, no chest pain or nausea. doing well. General: Ill appearing, no distress, appears older than stated age Derm: Right great toe black with visualization of fat, skin necrosis, area of erythema tracking to the right forefoot, malodorus Head: atraumatic, normocephalic, symmetric Eyes: EOMI, no lid lag, anicteric sclera Mouth: no lip lesion, mucus membranes moist Cardiovascular: S1S2 reg, no murmur, positive posterior tibial pulse bilateral, Lungs: CTA bilateral, no rhonchi, no rales , no accessory muscle use Abdominal: soft, nontender to palpation, no guarding, no appreciable organomegaly Ext: no gross muscle atrophy, no edema, no contractures Neuro: CN II-XI grossly intact, no focal neuro deficits Psych: Alert, oriented, appropriate affect Dry gangrene of the Left great toe with sepsis -Vascular surgery recommendations appreciated: await determination of amputation vs angiogram - Continue with vancomycin, unasyn -1/2 BC with coag negative staph suspect contaminant -Pain control -Keep toe clean and dry with 4 x 4 and Kerlix - IVF completed Hyperglycemia suspect diabetes mellitus type 2 -Sliding-scale insulin - A1c 10 - add tradjenta and levemir - will need diabetic supplies to test once daily on discharge -Follow blood sugars Tobacco abuse -Cessation -Nicotine replacement Hyponatremia, improved Lactic acidosis, resolved DVT prophylaxis: lovenox Discussed with: salvatore cohen Anticipated discharge: undetermined Anticipated discharge place: undetermined A total of 35 minutes was spent on the care of this complex patient more than 50% of the time was spent in counseling and care coordination. Objective - Vital Signs Vital signs: Vital Signs Temp 98.0 F 05/06/21 08:21 Pulse 90 05/06/21 08:21 Resp 18 05/06/21 08:21 BP 123/80 05/06/21 08:21 Pulse Ox 98 05/06/21 08:21 Intake & Output 05/05/21 05/06/21 05/06/21 18:59 06:59 18:59 Intake Total 592 90 Balance 592 90 Weight 63.049 kg 63.049 kg Intake: Intake, IV Titration 130 Amount Sodium Chloride 0.9% 1, 130 000 ml @ 130 mls/hr IV . Q7H42M [facility] Rx#:[id number] Oral 462 90 Other: Voiding Method Bedside Commode # Voids 1 1 - Labs CBC & Chem 7: 05/06/21 06:55 05/06/21 06:55 Labs: Abnormal Lab Results - Last 24 Hours (Table) 05/05/21 05/05/21 05/05/21 Range/Units 05:33 05:33 05:33 RBC (3.80-5.40) m/uL Hgb (11.4-16.0) gm/dL Hct (34.0-46.0) % ESR 99 H (0-20) mm/hr Sodium (137-145) mmol/L Creatinine 0.5 L (0.6-1.5) mg/dL BUN/Creatinine Ratio 22.07 H (12.00-20.00) Ratio Glucose 261 H (70-110) mg/dL POC Glucose (mg/dL) (75-99) mg/dL Hemoglobin A1c 10.1 H (4.0-6.0) % Calcium (8.4-10.2) mg/dL Alkaline Phosphatase 153 H (41-126) U/L C-Reactive Protein 7.00 H (0.00-0.80) mg/dL Total Protein (6.3-8.2) g/dL Albumin 3.6 L (3.8-4.9) g/dL Albumin/Globulin Ratio 1.25 L (1.60-3.17) g/dL Triglycerides 181.00 H (0.00-149.00) mg/dL Cholesterol 218.00 H (0.00-200.00) mg/dL LDL Cholesterol, Calc 148.1 H (0.0-131.0) mg/dL HDL Cholesterol 33.70 L (40.00-60.00) mg/dL 05/05/21 05/05/21 05/05/21 Range/Units 12:08 17:34 20:59 RBC (3.80-5.40) m/uL Hgb (11.4-16.0) gm/dL Hct (34.0-46.0) % ESR (0-20) mm/hr Sodium (137-145) mmol/L Creatinine (0.6-1.5) mg/dL BUN/Creatinine Ratio (12.00-20.00) Ratio Glucose (70-110) mg/dL POC Glucose (mg/dL) 200 H 203 H 244 H (75-99) mg/dL Hemoglobin A1c (4.0-6.0) % Calcium (8.4-10.2) mg/dL Alkaline Phosphatase (41-126) U/L C-Reactive Protein (0.00-0.80) mg/dL Total Protein (6.3-8.2) g/dL Albumin (3.8-4.9) g/dL Albumin/Globulin Ratio (1.60-3.17) g/dL Triglycerides (0.00-149.00) mg/dL Cholesterol (0.00-200.00) mg/dL LDL Cholesterol, Calc (0.0-131.0) mg/dL HDL Cholesterol (40.00-60.00) mg/dL 05/06/21 05/06/21 05/06/21 Range/Units 06:26 06:55 06:55 RBC 3.78 L (3.80-5.40) m/uL Hgb 11.2 L (11.4-16.0) gm/dL Hct 31.8 L (34.0-46.0) % ESR (0-20) mm/hr Sodium 136 L (137-145) mmol/L Creatinine 0.46 L (0.6-1.5) mg/dL BUN/Creatinine Ratio (12.00-20.00) Ratio Glucose 192 H (70-110) mg/dL POC Glucose (mg/dL) 196 H (75-99) mg/dL Hemoglobin A1c (4.0-6.0) % Calcium 8.0 L (8.4-10.2) mg/dL Alkaline Phosphatase 145 H (41-126) U/L C-Reactive Protein (0.00-0.80) mg/dL Total Protein 5.8 L (6.3-8.2) g/dL Albumin 2.9 L (3.8-4.9) g/dL Albumin/Globulin Ratio (1.60-3.17) g/dL Triglycerides (0.00-149.00) mg/dL Cholesterol (0.00-200.00) mg/dL LDL Cholesterol, Calc (0.0-131.0) mg/dL HDL Cholesterol (40.00-60.00) mg/dL Microbiology - Last 24 Hours (Table) 05/04/21 20:03 Blood Culture Gram Stain - Preliminary Blood Blood Culture - Preliminary Coagulase Negative Staph 05/04/21 20:03 Blood Culture - Preliminary Blood No Growth after 24 hours 05/04/21 20:03 Blood Culture - Final Blood
[2021-05-06] MEDS: ATORVASTATIN 40 MG TAB PO SCH (10:19)
[2021-05-06] MEDS: LINAGLIPTIN 5 MG TABLET PO SCH (10:19)
[2021-05-06] MEDS: AMPICILLIN-SULBACTAM 3 GM in SODIUM CHLORIDE 0.9% 100 ML IVPB SCH ×3 (11:26→23:30)
[2021-05-06] MEDS ORDERED: VANCOMYCIN TROUGH DUE 1 EACH MISC MISCELLANE ONE (12:00)
[2021-05-06 12:49] LABS: Glucose,Whole Blood 193 mg/dL (75-99)
[2021-05-06] MEDS: traMADol 50 MG TAB PO PRN (12:57)
[2021-05-06 17:36] LABS: Glucose,Whole Blood 141 mg/dL (75-99)
[2021-05-06 21:04] LABS: Glucose,Whole Blood 226 mg/dL (75-99)
[2021-05-06] MEDS: INSULIN DETEMIR (LEVEMIR) 100 UNIT/ML SYR SQ SCH (21:11)
[2021-05-07] MEDS: VANCOMYCIN 1,000 MG in SODIUM CHLORIDE 0.9% 250 ML IVPB SCH ×3 (04:14→20:22)
[2021-05-07] MEDS: traMADol 50 MG TAB PO PRN (05:46)
[2021-05-07 06:24] LABS: Glucose,Whole Blood 152 mg/dL (75-99)
[2021-05-07] MEDS: INSULIN ASPART (NovoLOG) 100 UNIT/ML VIAL SQ SCH ×4 (06:26→20:29)
[2021-05-07] MEDS: AMPICILLIN-SULBACTAM 3 GM in SODIUM CHLORIDE 0.9% 100 ML IVPB SCH ×4 (06:27→23:19)
[2021-05-07] MEDS: LINAGLIPTIN 5 MG TABLET PO SCH (08:37)
[2021-05-07] MEDS: ATORVASTATIN 40 MG TAB PO SCH (08:37)
[2021-05-07] MEDS: ENOXAPARIN 60 MG/0.6 ML SYRINGE SQ SCH ×2 (08:37→20:22)
[2021-05-07 13:11] LABS: Glucose,Whole Blood 142 mg/dL (75-99)
[2021-05-07] MEDS: MORPHINE SULFATE 4 MG/ML SYRINGE IV PRN ×2 (15:43→20:22)
[2021-05-07 17:32] LABS: Glucose,Whole Blood 179 mg/dL (75-99)
--- NOTE | 2021-05-07 18:53 | P.PN ---
Subjective Progress Note Date: 05/07/21 (delayed charting seen at 1140) Principal diagnosis: left ankle pain Patient is a 55-year-old female with osteoarthritis, chronic low back pain, and tobacco abuse who presented secondary to left ankle pain. She underwent an x- ray of the foot which showed osteomyelitis of the great toe. She was febrile to 100.6 and had a heart rate of 1:15. Laboratory analysis showed a white blood cell count of 11.6. She was also found to have a sodium of 1:30 and a glucose of 311. Blood lactic acid was slightly elevated at 2.2. Found to have gangrene of the right great toe with sepsis. She was started on Vanco on Rocephin and arrangements were made for admission. Vascular surgery was consulted and arterial Doppler of the lower extremities was completed. Patient seen and examined at bedside. No chest pain, no SOB, no nausea, no vomiting. General:no toxic, no distress, appears older than stated age Derm: Right great toe black with visualization of fat, skin necrosis, area of erythema tracking to the right forefoot Head: atraumatic, normocephalic, symmetric Eyes: EOMI, no lid lag, anicteric sclera Mouth: no lip lesion, mucus membranes moist Cardiovascular: S1S2 reg, no murmur, positive posterior tibial pulse bilateral, Lungs: CTA bilateral, no rhonchi, no rales , no accessory muscle use Abdominal: soft, nontender to palpation, no guarding, no appreciable organomegaly Ext: no gross muscle atrophy, no edema, no contractures Neuro: CN II-XI grossly intact, no focal neuro deficits Psych: Alert, oriented, appropriate affect Dry gangrene of the Left great toe with sepsis -Vascular surgery recommendations appreciated: await determination of amputation vs angiogram - Continue with vancomycin, unasyn -1/2 BC with coag negative staph suspect contaminant -Pain control -Keep toe clean and dry with 4 x 4 and Kerlix - IVF completed DM 2 with hyperglycemia -Sliding-scale insulin - A1c 10 - tradjenta and levemir - will need diabetic supplies to test once daily on discharge -Follow blood sugars Tobacco abuse -Cessation -Nicotine replacement Hyponatremia, improved Lactic acidosis, resolved DVT prophylaxis: lovenox Discussed with: salvatore cohen Anticipated discharge: undetermined Anticipated discharge place: undetermined A total of 35 minutes was spent on the care of this complex patient more than 50% of the time was spent in counseling and care coordination. Objective - Vital Signs Vital signs: Vital Signs Temp 97.9 F 05/07/21 14:14 Pulse 70 05/07/21 14:14 Resp 18 05/07/21 14:14 BP 116/71 05/07/21 14:14 Pulse Ox 99 05/07/21 14:14 Intake & Output 05/06/21 05/07/21 05/07/21 18:59 06:59 18:59 Intake Total 2355 Balance 2355 Weight 63.049 kg Intake: Intake, IV Titration 855 Amount Ampicillin-Sulbactam 3 gm 100 In Sodium Chloride 0.9% 100 ml @ 200 mls/hr IVPB Q6HR [facility] Rx#:[id number] Sodium Chloride 0.9% 1, 455 000 ml @ 130 mls/hr IV . Q7H42M [facility] Rx#:[id number] Vancomycin 1,000 mg In 250 Sodium Chloride 0.9% 250 ml @ 125 mls/hr IVPB Q8H [facility] Rx#:[id number] cefTRIAXone 2 gm In 50 Sodium Chloride 0.9% 50 ml @ 100 mls/hr IVPB DAILY [facility] Rx#:[id number] Oral 1500 Other: # Voids 1 1 3 - Labs CBC & Chem 7: 05/06/21 06:55 05/06/21 06:55 Labs: Abnormal Lab Results - Last 24 Hours (Table) 05/06/21 05/07/21 05/07/21 Range/Units 21:02 06:23 13:10 POC Glucose (mg/dL) 226 H 152 H 142 H (75-99) mg/dL 05/07/21 Range/Units 17:29 POC Glucose (mg/dL) 179 H (75-99) mg/dL Microbiology - Last 24 Hours (Table) 05/04/21 20:03 Blood Culture - Preliminary Blood No Growth after 48 hours
[2021-05-07 20:18] LABS: Glucose,Whole Blood 140 mg/dL (75-99)
[2021-05-07] MEDS: INSULIN DETEMIR (LEVEMIR) 100 UNIT/ML SYR SQ SCH (20:22)
[2021-05-08] MEDS: AMPICILLIN-SULBACTAM 3 GM in SODIUM CHLORIDE 0.9% 100 ML IVPB SCH ×4 (04:51→23:13)
[2021-05-08 05:19] LABS: HCT 30.4 % (34.0-46.0); HGB 10.6 gm/dL (11.4-16.0); MCH 28.6 pg (25.0-35.0); MCHC 34.8 g/dL (31.0-37.0); MCV 82.2 fL (80.0-100.0); Mean Platelet Volume 7.4; Platelet Count 301 k/uL (150-450); RDW 13.5 % (11.5-15.5); WBC 7.4 k/uL (3.8-10.6)
[2021-05-08] MEDS: VANCOMYCIN 1,000 MG in SODIUM CHLORIDE 0.9% 250 ML IVPB SCH ×3 (05:25→20:13)
[2021-05-08] MEDS: MORPHINE SULFATE 4 MG/ML SYRINGE IV PRN ×2 (05:28→18:52)
[2021-05-08 06:23] LABS: Glucose,Whole Blood 129 mg/dL (75-99)
[2021-05-08 06:34] LABS: African American GFR (CKD) >90 (>60 ml/min/1.73 sqM); Anion Gap 5 mmol/L; Blood Urea Nitrogen 8 mg/dL (7-17); Calcium 8.6 mg/dL (8.4-10.2); Carbon Dioxide 28 mmol/L (22-30); Chloride 106 mmol/L (98-107); Glucose 124 mg/dL (74-99); Non-African American GFR(CKD) >90 (>60 ml/min/1.73 sqM); Potassium 3.4 mmol/L (3.5-5.1); Sodium 139 mmol/L (137-145)
[2021-05-08] MEDS: INSULIN ASPART (NovoLOG) 100 UNIT/ML VIAL SQ SCH ×4 (06:38→20:14)
[2021-05-08] MEDS: LINAGLIPTIN 5 MG TABLET PO SCH (09:08)
[2021-05-08] MEDS: ATORVASTATIN 40 MG TAB PO SCH (09:08)
[2021-05-08] MEDS: ENOXAPARIN 60 MG/0.6 ML SYRINGE SQ SCH (09:08)
--- NOTE | 2021-05-08 11:17 | P.GSCN ---
History of Present Illness Consult date: 05/08/21 Reason for Consult: Left Gangrene toe Requesting physician: Phil Noriega History of present illness: This 55-year-old female who presented to the emergency department with complaints of left ankle pain. She was seen and evaluated she was noted to have black left great toe. Vascular surgery was consulted for dry gangrene. The patient states he had a blister on her left great toe that started a few months back which then she started noticing her toe getting black. She had not seen anybody regarding the black toe. She denies any previous history of vascular disorder. She states it progressively has gotten worse over the last 1-2 weeks. She has a long history of smoking half a pack to 1 pack a day for the last 12- 13 years. On this admission she was diagnosed with diabetes mellitus. Patient states she hasn't had feeling in her feet for some time and was told she had neuropathy related to her lower back. She denies any fevers or chills. She was initially seen by Dr. Velez, who ordered an REX of the bilateral lower extremities. REX on the left lower extremity 0.74, right lower extremity 0.93, surgery was asked to see the patient regarding possible amputation versus revascularization. Patient had an x-ray of the left foot that showed soft tissue swelling over the distal phalanx of the first great toe. There are erosive changes involving the proximal aspect of the distal phalanx distal aspect of the proximal phalanx there are lucencies in the region of the first toe interphalangeal joint. There is also diffuse soft tissue swelling of the foot. Findings are concerning for soft tissue swelling, osteomyelitis and possible septic arthritis. Review of Systems My 14 point review systems was completed all pertinent positives and negatives as stated in the HPI. Past Medical History Past Medical History: Osteoarthritis (OA) Additional Past Medical History / Comment(s): Peripheral neuropathy, DJD lower back and neck with O-A. new Diabetes this admission History of Any Multi-Drug Resistant Organisms: None Reported Past Surgical History: Tubal Ligation Additional Past Surgical History / Comment(s): Tubal ligation 1990 Past Anesthesia/Blood Transfusion Reactions: No Reported Reaction Past Psychological History: No Psychological Hx Reported Smoking Status: Current every day smoker Past Alcohol Use History: None Reported Past Drug Use History: None Reported - Past Family History Mother Additional Family Medical History / Comment(s): during childbirth Father Family Medical History: Cancer Additional Family Medical History / Comment(s): throat cancer Family Family Medical History: No Reported History Medications and Allergies Home Medications Medication Instructions Recorded Confirmed Type traMADol HCL [Ultram] 50 mg PO BID PRN 05/04/21 05/04/21 History Allergies Allergy/AdvReac Type Severity Reaction Status Date / Time No Known Allergies Allergy Verified 05/04/21 22:26 Surgical - Exam Vital Signs Temp Pulse Resp BP Pulse Ox 98.3 F 79 16 159/90 94 L 05/04/21 19:04 05/04/21 19:04 05/04/21 19:04 05/04/21 19:04 05/04/21 19:04 General appearance: The patient is alert, oriented, in no acute distress. HET: Head is normocephalic and atraumatic. Neck: Supple without lymphadenopathy. Trachea midline. Heart: S1 S2. Regular rate and rhythm. Lungs: Clear to auscultation. Abdomen: Soft, nontender, nondistended. Extremities: Left foot with edema, erythema. Left great toe with dry gangrene. Palpable femoral, popliteal, and DP pulse with good capillary refill. Right lower extremity without any swelling, palpable DP and PT pulse. Neurologic: No focal deficits. Strength and sensation are grossly intact. Results - Labs 05/08/21 04:49 05/08/21 04:49 Abnormal Lab Results - Last 24 Hours (Table) 05/07/21 05/07/21 05/07/21 Range/Units 13:10 17:29 20:16 RBC (3.80-5.40) m/uL Hgb (11.4-16.0) gm/dL Hct (34.0-46.0) % Potassium (3.5-5.1) mmol/L Creatinine (0.52-1.04) mg/dL Glucose (74-99) mg/dL POC Glucose (mg/dL) 142 H 179 H 140 H (75-99) mg/dL 05/08/21 05/08/21 05/08/21 Range/Units 04:49 04:49 06:21 RBC 3.70 L (3.80-5.40) m/uL Hgb 10.6 L (11.4-16.0) gm/dL Hct 30.4 L (34.0-46.0) % Potassium 3.4 L (3.5-5.1) mmol/L Creatinine 0.49 L (0.52-1.04) mg/dL Glucose 124 H (74-99) mg/dL POC Glucose (mg/dL) 129 H (75-99) mg/dL Microbiology - Last 24 Hours (Table) 05/04/21 20:03 Blood Culture - Preliminary Blood No Growth after 72 hours Diabetes panel 05/08/21 Range/Units 04:49 Sodium 139 (137-145) mmol/L Potassium 3.4 L (3.5-5.1) mmol/L Chloride 106 (98-107) mmol/L Carbon Dioxide 28 (22-30) mmol/L BUN 8 (7-17) mg/dL Creatinine 0.49 L (0.52-1.04) mg/dL Glucose 124 H (74-99) mg/dL Calcium 8.6 (8.4-10.2) mg/dL Calcium panel 05/08/21 Range/Units 04:49 Calcium 8.6 (8.4-10.2) mg/dL Pituitary panel 05/08/21 Range/Units 04:49 Sodium 139 (137-145) mmol/L Potassium 3.4 L (3.5-5.1) mmol/L Chloride 106 (98-107) mmol/L Carbon Dioxide 28 (22-30) mmol/L BUN 8 (7-17) mg/dL Creatinine 0.49 L (0.52-1.04) mg/dL Glucose 124 H (74-99) mg/dL Calcium 8.6 (8.4-10.2) mg/dL Adrenal panel 05/08/21 Range/Units 04:49 Sodium 139 (137-145) mmol/L Potassium 3.4 L (3.5-5.1) mmol/L Chloride 106 (98-107) mmol/L Carbon Dioxide 28 (22-30) mmol/L BUN 8 (7-17) mg/dL Creatinine 0.49 L (0.52-1.04) mg/dL Glucose 124 H (74-99) mg/dL Calcium 8.6 (8.4-10.2) mg/dL - Imaging Comments: X-rays reviewed as stated in HPI. Assessment and Plan Assessment: 1. Dry gangrene left great toe 2. New onset diabetes mellitus 3. Tobacco abuse Plan: 1. Discussed with Dr. Cleveland, will plan for left great toe amputation tomorrow 2. Nothing by mouth after midnight 3. Procedure discussed with patient, she is agreeable to proceed 4. Smoking cessation 5. Continue with antibiotics as ordered The impression and plan of care has been dictated as directed. Dr. Cleveland I performed a history and examination of this patient, discussed the same with the dictator. I agree with the dictator's note ,documented as a scribe. Any additional findings or plans will be noted.
[2021-05-08] MEDS ORDERED: VANCOMYCIN TROUGH DUE 1 EACH MISC MISCELLANE ONE (12:00)
[2021-05-08 13:08] LABS: Glucose,Whole Blood 128 mg/dL (75-99)
--- NOTE | 2021-05-08 13:37 | P.PN ---
Subjective Progress Note Date: 05/08/21 Principal diagnosis: left ankle pain Patient is a 55-year-old female with osteoarthritis, chronic low back pain, and tobacco abuse who presented secondary to left ankle pain. She underwent an x- ray of the foot which showed osteomyelitis of the great toe. She was febrile to 100.6 and had a heart rate of 115. Laboratory analysis showed a white blood cell count of 11.6. She was also found to have a sodium of 1:30 and a glucose of 311. Blood lactic acid was slightly elevated at 2.2. Found to have gangrene of the right great toe with sepsis. She was started on Vanco on Rocephin and arrangements were made for admission. Vascular surgery was consulted and arter ial Doppler of the lower extremities was completed. She was found to have diabetes. Patient seen and examined at bedside. Doing Well. No complaints currently. No diarrhea. General:no toxic, no distress, appears older than stated age Derm: Dressing in place over left foot. Head: atraumatic, normocephalic, symmetric Eyes: EOMI, no lid lag, anicteric sclera Mouth: no lip lesion, mucus membranes moist Cardiovascular: S1S2 reg, no murmur, positive posterior tibial pulse bilateral, Lungs: CTA bilateral, no rhonchi, no rales , no accessory muscle use Abdominal: soft, nontender to palpation, no guarding, no appreciable organomegaly Ext: no gross muscle atrophy, no edema, no contractures Neuro: CN II-XI grossly intact, no focal neuro deficits Psych: Alert, oriented, appropriate affect Dry gangrene of the Left great toe with sepsis -Vascular surgery recommendations appreciated: left great toe amputation in AM - Continue with vancomycin, unasyn -1/2 BC with coag negative staph suspect contaminant -Pain control -Keep toe clean and dry with 4 x 4 and Kerlix - IVF completed DM 2 with hyperglycemia -Sliding-scale insulin - A1c 10 - tradjenta and levemir: plan home on tradject/januiva, metformin - will need diabetic supplies to test once daily on discharge- order written -Follow blood sugars Tobacco abuse -Cessation -Nicotine replacement Hyponatremia, improved Lactic acidosis, resolved DVT prophylaxis: lovenox Discussed with: salvatore cohen Anticipated discharge: [address]: home A total of 35 minutes was spent on the care of this complex patient more than 50% of the time was spent in counseling and care coordination. Objective - Vital Signs Vital signs: Vital Signs Temp 97.9 F 05/08/21 08:11 Pulse 72 05/08/21 08:11 Resp 16 05/08/21 08:11 BP 134/84 05/08/21 08:11 Pulse Ox 98 05/08/21 08:11 Intake & Output 05/07/21 05/08/21 05/08/21 18:59 06:59 18:59 Intake Total 450 Balance 450 Intake: Intake, IV Titration 450 Amount Ampicillin-Sulbactam 3 gm 200 In Sodium Chloride 0.9% 100 ml @ 200 mls/hr IVPB Q6HR [facility] Rx#:[id number] Vancomycin 1,000 mg In 250 Sodium Chloride 0.9% 250 ml @ 125 mls/hr IVPB Q8H [facility] Rx#:[id number] Other: # Voids 3 2 - Labs CBC & Chem 7: 05/08/21 04:49 05/08/21 04:49 Labs: Abnormal Lab Results - Last 24 Hours (Table) 05/07/21 05/07/21 05/08/21 Range/Units 17:29 20:16 04:49 RBC 3.70 L (3.80-5.40) m/uL Hgb 10.6 L (11.4-16.0) gm/dL Hct 30.4 L (34.0-46.0) % Potassium (3.5-5.1) mmol/L Creatinine (0.52-1.04) mg/dL Glucose (74-99) mg/dL POC Glucose (mg/dL) 179 H 140 H (75-99) mg/dL 05/08/21 05/08/21 05/08/21 Range/Units 04:49 06:21 13:07 RBC (3.80-5.40) m/uL Hgb (11.4-16.0) gm/dL Hct (34.0-46.0) % Potassium 3.4 L (3.5-5.1) mmol/L Creatinine 0.49 L (0.52-1.04) mg/dL Glucose 124 H (74-99) mg/dL POC Glucose (mg/dL) 129 H 128 H (75-99) mg/dL Microbiology - Last 24 Hours (Table) 05/04/21 20:03 Blood Culture - Preliminary Blood No Growth after 72 hours
[2021-05-08 17:39] LABS: Glucose,Whole Blood 176 mg/dL (75-99)
[2021-05-08 20:11] LABS: Glucose,Whole Blood 173 mg/dL (75-99)
[2021-05-08] MEDS: INSULIN DETEMIR (LEVEMIR) 100 UNIT/ML SYR SQ SCH (20:14)
[2021-05-09] MEDS: VANCOMYCIN 1,000 MG in SODIUM CHLORIDE 0.9% 250 ML IVPB SCH ×3 (04:08→21:09)
[2021-05-09 06:30] LABS: Glucose,Whole Blood 146 mg/dL (75-99)
[2021-05-09] MEDS: AMPICILLIN-SULBACTAM 3 GM in SODIUM CHLORIDE 0.9% 100 ML IVPB SCH ×4 (06:30→23:55)
[2021-05-09] MEDS: INSULIN ASPART (NovoLOG) 100 UNIT/ML VIAL SQ SCH ×4 (06:30→21:09)
[2021-05-09] MEDS ORDERED: ENOXAPARIN 40 MG/0.4 ML SYRINGE SQ SCH (09:00)
[2021-05-09 09:02] LABS: HCT 33.6 % (34.0-46.0); HGB 11.7 gm/dL (11.4-16.0); MCH 28.7 pg (25.0-35.0); MCHC 34.8 g/dL (31.0-37.0); MCV 82.5 fL (80.0-100.0); Mean Platelet Volume 7.3; Platelet Count 346 k/uL (150-450); RBC 4.07 m/uL (3.80-5.40); RDW 13.5 % (11.5-15.5); WBC 7.6 k/uL (3.8-10.6)
[2021-05-09 09:18] LABS: African American GFR (CKD) >90 (>60 ml/min/1.73 sqM); Anion Gap 5 mmol/L; Blood Urea Nitrogen 7 mg/dL (7-17); Calcium 8.8 mg/dL (8.4-10.2); Carbon Dioxide 30 mmol/L (22-30); Chloride 104 mmol/L (98-107); Glucose 127 mg/dL (74-99); Non-African American GFR(CKD) >90 (>60 ml/min/1.73 sqM); Potassium 3.8 mmol/L (3.5-5.1); Sodium 139 mmol/L (137-145)
--- NOTE | 2021-05-09 10:40 | P.PN ---
Subjective Progress Note Date: 05/09/21 Principal diagnosis: left ankle pain Patient is a 55-year-old female with osteoarthritis, chronic low back pain, and tobacco abuse who presented secondary to left ankle pain. She underwent an x- ray of the foot which showed osteomyelitis of the great toe. She was febrile to 100.6 and had a heart rate of 115. Laboratory analysis showed a white blood cell count of 11.6. She was also found to have a sodium of 1:30 and a glucose of 311. Blood lactic acid was slightly elevated at 2.2. Found to have gangrene of the right great toe with sepsis. She was started on Vanco on Rocephin and arrangements were made for admission. Vascular surgery was consulted and arter ial Doppler of the lower extremities was completed. She was found to have diabetes. Plan is for OR on 05/09 with amputation of the left great toe. Patient seen and examined at bedside. Doing Well. No complaints currently. No diarrhea. General:no toxic, no distress, appears older than stated age Derm: Dressing in place over left foot. Head: atraumatic, normocephalic, symmetric Eyes: EOMI, no lid lag, anicteric sclera Mouth: no lip lesion, mucus membranes moist Cardiovascular: S1S2 reg, no murmur, positive posterior tibial pulse bilateral, Lungs: CTA bilateral, no rhonchi, no rales , no accessory muscle use Abdominal: soft, nontender to palpation, no guarding, no appreciable organomega ly Ext: no gross muscle atrophy, no edema, no contractures Neuro: CN II-XI grossly intact, no focal neuro deficits Psych: Alert, oriented, appropriate affect Dry gangrene of the Left great toe with sepsis -Vascular surgery recommendations appreciated: left great toe amputation today if able - Continue with vancomycin, unasyn -1/2 BC with coag negative staph suspect contaminant -Pain control -Keep toe clean and dry with 4 x 4 and Kerlix - consult ID - IVF completed DM 2 with hyperglycemia -Sliding-scale insulin - A1c 10 - tradjenta and levemir: plan home on tradject/januiva, metformin - will need diabetic supplies to test once daily on discharge- order written -Follow blood sugars Tobacco abuse -Cessation -Nicotine replacement Hyponatremia, improved Lactic acidosis, resolved DVT prophylaxis: lovenox Discussed with: salvatore cohen Anticipated discharge: [address]: home A total of 35 minutes was spent on the care of this complex patient more than 50 % of the time was spent in counseling and care coordination. Objective - Vital Signs Vital signs: Vital Signs Temp 97.8 F 05/09/21 09:53 Pulse 77 05/09/21 09:53 Resp 16 05/09/21 09:53 BP 96/71 05/09/21 09:53 Pulse Ox 99 05/09/21 09:53 Intake & Output 05/08/21 05/09/21 05/09/21 18:59 06:59 18:59 Intake Total 250 Balance 250 Intake: Intake, IV Titration 250 Amount Vancomycin 1,000 mg In 250 Sodium Chloride 0.9% 250 ml @ 125 mls/hr IVPB Q8H [facility] Rx#:[id number] Other: # Voids 1 1 - Labs CBC & Chem 7: 05/09/21 08:34 05/09/21 08:34 Labs: Abnormal Lab Results - Last 24 Hours (Table) 05/08/21 05/08/21 05/08/21 Range/Units 13:07 17:37 20:10 Hct (34.0-46.0) % Creatinine (0.52-1.04) mg/dL Glucose (74-99) mg/dL POC Glucose (mg/dL) 128 H 176 H 173 H (75-99) mg/dL 05/09/21 05/09/21 05/09/21 Range/Units 06:28 08:34 08:34 Hct 33.6 L (34.0-46.0) % Creatinine 0.47 L (0.52-1.04) mg/dL Glucose 127 H (74-99) mg/dL POC Glucose (mg/dL) 146 H (75-99) mg/dL Microbiology - Last 24 Hours (Table) 05/04/21 20:03 Blood Culture - Preliminary Blood No Growth after 96 hours
[2021-05-09] MEDS: ATORVASTATIN 40 MG TAB PO SCH (11:56)
[2021-05-09] MEDS ORDERED: IV FLUID CONTINUATION 1,000 ML IV ONE ×2 (11:59)
[2021-05-09] MEDS ORDERED: DEXAMETHASONE SOD PHOSPHATE 4 MG/ML 1 ML VIAL IVP ONE (12:16)
[2021-05-09 12:17] LABS: Glucose,Whole Blood 127 mg/dL (75-99)
[2021-05-09] MEDS ORDERED: ONDANSETRON 4 MG/2 ML VIAL IVP ONE (12:17)
[2021-05-09] MEDS ORDERED: PHENYLEPHRINE-0.9% NACL SYG 1,000 MCG/10 ML SYRINGE ONE (12:25)
[2021-05-09] MEDS ORDERED: PROPOFOL 10 MG/ML 20 ML VIAL IV ONE (12:25)
[2021-05-09] MEDS ORDERED: MIDAZOLAM 2 MG/2 ML VIAL ONE (12:25)
[2021-05-09] MEDS ORDERED: LIDOCAINE 1% INJ 10MG/ML (20 ML MDV) ONE (12:25)
[2021-05-09] MEDS ORDERED: SODIUM CHLORIDE 0.9% 500 ML 500 ML IV ONE (12:49)
[2021-05-09 13:36] LABS: Glucose,Whole Blood 124 mg/dL (75-99)
[2021-05-09] MEDS: LINAGLIPTIN 5 MG TABLET PO SCH (15:13)
[2021-05-09] MEDS: traMADol 50 MG TAB PO PRN (15:15)
[2021-05-09 18:22] LABS: Glucose,Whole Blood 205 mg/dL (75-99)
[2021-05-09 20:29] LABS: Glucose,Whole Blood 239 mg/dL (75-99)
[2021-05-09] MEDS: INSULIN DETEMIR (LEVEMIR) 100 UNIT/ML SYR SQ SCH (21:08)
[2021-05-09] MEDS: MORPHINE SULFATE 4 MG/ML SYRINGE IV PRN (21:17)
[2021-05-10] MEDS: VANCOMYCIN 1,000 MG in SODIUM CHLORIDE 0.9% 250 ML IVPB SCH ×3 (05:05→21:11)
[2021-05-10] MEDS: AMPICILLIN-SULBACTAM 3 GM in SODIUM CHLORIDE 0.9% 100 ML IVPB SCH ×3 (06:18→18:07)
--- NOTE | 2021-05-10 06:52 | P.OP ---
Date of Procedure: 05/09/21 Preoperative Diagnosis: Left great toe gangrene with osteomyelitis Postoperative Diagnosis: Same Procedure(s) Performed: Left great toe amputation Anesthesia: CONNOR Surgeon: Trent Cleveland Estimated Blood Loss (ml): 10 Pathology: other (left great toe) Condition: stable Disposition: PACU Indications for Procedure: 55-year-old female with history of left great toe wound who was previously seen in the wound care center presented to the hospital secondary to worsening wound and exposed bone. She underwent arterial Doppler which demonstrated slight decrease in ABIs on the left but otherwise considered mild atherosclerotic and peripheral arterial disease. She presents today for amputation of the left great toe. Description of Procedure: After written and informed consent was obtained for the patient and all risks, benefits and complications were described the patient was brought to the operative suite and laid in a supine position. The area of the left foot was prepped and draped in usual sterile fashion after appropriate anesthetic was performed per the anesthesiologist. A timeout was performed in normal fashion and antibiotics were already being given. A racquet incision was then created on the lateral aspect of the great toe with a 15 blade scalpel and dissection was carried down to the metatarsal joint and around the first toe. Meticulous dissection with electrocautery was then performed and the great toe was removed at the joint. This was sent off for pathology at that time. There was no purulent drainage noted or other infected tissue except for the toe. Utilizing a rongeur the cartilaginous aspect of the metatarsal bone was then removed to allow for healing. The area was then copiously irrigated with antibiotic solution and closed once hemostatic with nylon suture in a vertical mattress fashion. The area was then cleansed and dressings were placed. The patient tolerated seizure well and was sent to PACU for recovery.
[2021-05-10 07:02] LABS: Glucose,Whole Blood 177 mg/dL (75-99)
[2021-05-10] MEDS: traMADol 50 MG TAB PO PRN ×2 (07:04→15:09)
[2021-05-10] MEDS: INSULIN ASPART (NovoLOG) 100 UNIT/ML VIAL SQ SCH ×4 (07:05→21:11)
[2021-05-10] MEDS: LINAGLIPTIN 5 MG TABLET PO SCH (08:14)
[2021-05-10] MEDS: ATORVASTATIN 40 MG TAB PO SCH (08:14)
[2021-05-10] MEDS: MORPHINE SULFATE 4 MG/ML SYRINGE IV PRN (10:13)
[2021-05-10] MEDS ORDERED: VANCOMYCIN TROUGH DUE 1 EACH MISC MISCELLANE ONE (12:00)
[2021-05-10 13:08] LABS: Glucose,Whole Blood 197 mg/dL (75-99)
[2021-05-10 13:13] LABS: HCT 32.4 % (34.0-46.0); MCH 28.8 pg (25.0-35.0); MCV 84.6 fL (80.0-100.0); Mean Platelet Volume 7.6; Platelet Count 349 k/uL (150-450); RBC 3.83 m/uL (3.80-5.40); RDW 14.1 % (11.5-15.5); WBC 10.6 k/uL (3.8-10.6)
--- NOTE | 2021-05-10 13:22 | P.PN ---
Subjective Progress Note Date: 05/10/21 Principal diagnosis: Gangrene left toe, osteomyelitis The patient seen and examined sitting up in bed. She is postop day #1 for left great toe amputation for dry gangrene and osteomyelitis. She states her pain is well controlled. Dressing is clean, dry, and intact. She has been afebrile. No Leukocytosis. Objective - Vital Signs Vital signs: Vital Signs Temp 98.0 F 05/10/21 07:38 Pulse 71 05/10/21 07:38 Resp 14 05/10/21 07:38 BP 121/73 05/10/21 08:53 Pulse Ox 98 05/10/21 07:38 Intake & Output 05/09/21 05/10/21 05/10/21 18:59 06:59 18:59 Intake Total 925 Output Total 10 Balance 915 Intake: IV 725 Oral 200 Output: Estimated Blood Loss 10 Other: Voiding Method Bedside Commode # Voids 1 1 - Exam General appearance: The patient is alert, oriented, in no acute distress. HET: Head is normocephalic and atraumatic. Pupils are equal and reactive. Oropharynx is clear without lesions. Neck: Supple without lymphadenopathy. Trachea midline. Extremities: Left foot with some pedal edema, amputation site well approximated with sutures with minimal bleeding. Good capillary refill and palpable DP pulse. Neurological: No focal deficits. Strength and sensation are grossly intact. - Labs CBC & Chem 7: 05/09/21 08:34 05/09/21 08:34 Labs: Abnormal Lab Results - Last 24 Hours (Table) 05/09/21 05/09/21 05/09/21 Range/Units 08:34 12:16 13:35 Creatinine 0.47 L (0.52-1.04) mg/dL Glucose 127 H (74-99) mg/dL POC Glucose (mg/dL) 127 H 124 H (75-99) mg/dL 05/09/21 05/09/21 05/10/21 Range/Units 18:20 20:24 07:00 Creatinine (0.52-1.04) mg/dL Glucose (74-99) mg/dL POC Glucose (mg/dL) 205 H 239 H 177 H (75-99) mg/dL Microbiology - Last 24 Hours (Table) 05/04/21 20:03 Blood Culture - Preliminary Blood No Growth after 120 hours Assessment and Plan Assessment: 1. Postop day #1 left great toe amputation 2. Gangrene left great toe and osteomyelitis 2. New onset diabetes mellitus 3. Tobacco abuse Plan: 1. Recommend smoking cessation 2. Daily dressing change with Adaptic, and nonstick adhesive and Kerlix 3. Patient is cleared for discharge from vascular surgery once otherwise medically cleared from infectious disease 4. Patient to follow-up with Dr. Cleveland in 7-10 days. The impression and plan of care has been dictated as directed. Dr. Siegel I performed a history and examination of this patient, discussed the same with the dictator. I agree with the dictator's note ,documented as a scribe. Any additional findings or plans will be noted.
[2021-05-10 13:33] LABS: ALT 32 U/L (4-34); AST 32 U/L (14-36); African American GFR (CKD) >90 (>60 ml/min/1.73 sqM); Albumin 3.3 g/dL (3.5-5.0); Alkaline Phosphatase 140 U/L (38-126); Anion Gap 9 mmol/L; Blood Urea Nitrogen 15 mg/dL (7-17); Calcium 8.7 mg/dL (8.4-10.2); Carbon Dioxide 25 mmol/L (22-30); Chloride 103 mmol/L (98-107); Glucose 193 mg/dL (74-99); Non-African American GFR(CKD) >90 (>60 ml/min/1.73 sqM); Potassium 3.8 mmol/L (3.5-5.1); Sodium 137 mmol/L (137-145); Total Bilirubin 0.3 mg/dL (0.2-1.3); Total Protein 6.4 g/dL (6.3-8.2)
--- NOTE | 2021-05-10 15:16 | P.ARTDOP ---
Arterial Doppler LOWER EXTREMITY ARTERIAL DOPPLER: DATE OF SERVICE: 05/05/2021 Reason for study: Gangrene left great toe. Doppler waveforms: Multiphasic throughout on the right with good digital waveforms. Multiphasic at the left femoral atypical at the left popliteal and below. Toe waveforms are flat line.. Pulse volume recording: []. Pressure gradients: Gradient at low thigh on the left and mild gradient below the knee on the right.. Ankle-brachial indices: Right 0.93 and left 0.74. Toe brachial indices: 0.79 on the right, [] on the left Impression: The right side shows possibly mild infrapopliteal disease. On the left we have moderate fem-pop disease. Clinical correlation and possible vascular specialty consultation a consideration..
--- NOTE | 2021-05-10 15:23 | PN ---
PROGRESS NOTE DATE OF SERVICE: 05/10/2021 REASON FOR FOLLOWUP: Left big toe gangrene infection and cellulitis. INTERVAL HISTORY: The patient is afebrile. The patient is status post left big toe amputation completed by Vascular Surgery. The patient tolerated the procedure. Pain is currently controlled. No chest pain, shortness of breath or cough. No abdominal pain or diarrhea. PHYSICAL EXAMINATION: Blood pressure 121/73 with a pulse of 71, temperature 98. She is 98% on room air. General description is a middle-aged female lying in bed in no distress. Respiratory system: Unlabored breathing, clear to auscultation anteriorly. Heart S1, S2. Regular rate and rhythm. Abdomen soft, no tenderness. Left foot is currently dressed. No obvious drainage on the dressing. LABS: Blood culture with coag-negative Staphylococcus, likely contaminant. No CBC was done today. DIAGNOSTIC IMPRESSION AND PLAN: Patient with left big toe gangrene, status post amputation. Unfortunately no OR cultures were done. Patient to continue with Unasyn and vancomycin while inpatient and then transition to oral antibiotic for a short course on discharge. Continue with supportive care. MMODL / IJN: [id number] /
[2021-05-10 18:03] LABS: Glucose,Whole Blood 179 mg/dL (75-99)
--- NOTE | 2021-05-10 18:50 | P.PN ---
Subjective Progress Note Date: 05/10/21 Hospital course: Patient is a 55-year-old female with a past medical history including type II [id number] diabetes mellitus, osteoarthritis, chronic low back pain, and tobacco abuse who presented to the hospital on 05/04/21 secondary to left ankle pain. She underwent an x-ray of the foot which showed osteomyelitis of her left great toe. Patient was also noted to be febrile with temperature of 100.6F and tachycardic with heart rate of 115. Laboratory analysis showed a white blood cell count of 11.6. She was also found to have a sodium of 130 and a glucose of 311. Blood lactic acid was slightly elevated at 2.2. Patient was diagnosed with sepsis secondary to gangrene of the her left great toe. She was started on vancomycin and Unasyn and arrangements were made for admission. Vascular surgery was consulted and arterial Doppler of the lower extremities was completed. Patient underwent amputation of left great toe yesterday with Dr. Karen yepez. Physical examination: Patient seen and examined at bedside. She reports postoperative pain is managed. Postsurgical Dressing to left foot remains clean, dry and intact to left foot and was changed this morning by vascular surgeon. Patient denies any postoperative nausea, vomiting, or any other complaints at this time. General:no toxic, no distress, appears older than stated age Derm: Postsurgical Dressing in place over left foot. Head: atraumatic, normocephalic, symmetric Eyes: EOMI, no lid lag, anicteric sclera Mouth: no lip lesion, mucus membranes moist Cardiovascular: S1S2 reg, no murmur, positive posterior tibial pulse bilateral, Lungs: CTA bilateral, no rhonchi, no rales , no accessory muscle use Abdominal: soft, nontender to palpation, no guarding, no appreciable organomegaly Ext: no gross muscle atrophy, no edema, no contractures Neuro: CN II-XI grossly intact, no focal neuro deficits Psych: Alert, oriented, appropriate affect Assessment and plan of care: Dry gangrene of the Left great toe with sepsis -Vascular surgery recommendations appreciated: left great toe amputation completed 05/09/21 -Continue with vancomycin, unasyn -1 out of 2 blood cultures were positive for coag negative staph, suspect contaminant -Pain control -Wound care and dressing changes -Infectious disease following - IVF completed Type II [id number]-[id number] diabetes mellitus with hyperglycemia -Glycemic protocol with Sliding-scale insulin - A1c 10% -Tradjenta and levemir: plan home on discharging home on tradject/januiva, metformin -Will need diabetic supplies to test once daily on discharge- order written -Follow blood sugars Tobacco abuse -Continue to encourage smoking Cessation -Nicotine replacement Hyponatremia, resolved Lactic acidosis, resolved DVT prophylaxis: lovenox Discussed with: salvatore cohen Anticipated discharge: Possibly tomorrow Anticipated discharge place: Home with home care A total of 40 minutes was spent on the care of this complex patient more than 50% of the time was spent in counseling and care coordination. Objective - Vital Signs Vital signs: Vital Signs Temp 98.0 F 05/10/21 07:38 Pulse 71 05/10/21 07:38 Resp 14 05/10/21 07:38 BP 121/73 05/10/21 08:53 Pulse Ox 98 05/10/21 07:38 Intake & Output 05/09/21 05/10/21 05/10/21 18:59 06:59 18:59 Intake Total 925 Output Total 10 Balance 915 Intake: IV 725 Oral 200 Output: Estimated Blood Loss 10 Other: Voiding Method Bedside Commode # Voids 1 1 - Labs CBC & Chem 7: 05/10/21 12:57 05/10/21 12:57 Labs: Abnormal Lab Results - Last 24 Hours (Table) 05/09/21 05/09/21 05/09/21 Range/Units 08:34 08:34 12:16 Hct 33.6 L (34.0-46.0) % Creatinine 0.47 L (0.52-1.04) mg/dL Glucose 127 H (74-99) mg/dL POC Glucose (mg/dL) 127 H (75-99) mg/dL 05/09/21 05/09/21 05/09/21 Range/Units 13:35 18:20 20:24 Hct (34.0-46.0) % Creatinine (0.52-1.04) mg/dL Glucose (74-99) mg/dL POC Glucose (mg/dL) 124 H 205 H 239 H (75-99) mg/dL 05/10/21 Range/Units 07:00 Hct (34.0-46.0) % Creatinine (0.52-1.04) mg/dL Glucose (74-99) mg/dL POC Glucose (mg/dL) 177 H (75-99) mg/dL Microbiology - Last 24 Hours (Table) 05/04/21 20:03 Blood Culture - Preliminary Blood No Growth after 120 hours
[2021-05-10 21:09] LABS: Glucose,Whole Blood 208 mg/dL (75-99)
[2021-05-10] MEDS: INSULIN DETEMIR (LEVEMIR) 100 UNIT/ML SYR SQ SCH (21:12)
[2021-05-11] MEDS: AMPICILLIN-SULBACTAM 3 GM in SODIUM CHLORIDE 0.9% 100 ML IVPB SCH ×3 (00:46→12:34)
[2021-05-11] MEDS: VANCOMYCIN 1,000 MG in SODIUM CHLORIDE 0.9% 250 ML IVPB SCH ×2 (05:40→14:41)
[2021-05-11 06:48] LABS: Glucose,Whole Blood 147 mg/dL (75-99)
[2021-05-11] MEDS: INSULIN ASPART (NovoLOG) 100 UNIT/ML VIAL SQ SCH ×2 (06:52→12:57)
[2021-05-11 08:06] VITALS: RESP 18
[2021-05-11] MEDS: ATORVASTATIN 40 MG TAB PO SCH (09:17)
[2021-05-11] MEDS: LINAGLIPTIN 5 MG TABLET PO SCH (09:17)
[2021-05-11] MEDS: traMADol 50 MG TAB PO PRN (09:20)
--- NOTE | 2021-05-11 10:23 | P.PN ---
Subjective Progress Note Date: 05/11/21 Patient feels okay no chest pain no shortness of breath Constitutional: No acute distress, conversant, pleasant Eyes: Anicteric sclerae, moist conjunctiva, no lid-lag PERRLA ENMT: NC/AT Oropharynx clear, no erythema, exudates Neck: Supple, FROM, no masses, or JVD No carotid bruits No thyromegaly Lungs: Clear to auscultation Clear to percussion Normal respiratory effort, no accessory muscle use Cardiovascular: Heart regular in rate and rhythm, No murmurs, gallops, or rubs No peripheral edema Abdominal: Soft Nontender, no guarding, rebound or rigidity Abdomen moving with respiration Normoactive bowel sounds No hepatomegaly, No splenomegaly No palpable mass No abdominal wall hernia noted Skin: Normal temperature, tone, texture, turgor No induration No subcutaneous nodules No rash, lesions No ulcers Extremities: No digital cyanosis No clubbing Pedal pulses intact and symmetrical Radial pulses intact and symmetrical Normal gait and station No calf tenderness Psychiatric:Alert and oriented to person, place and time Appropriate affect Intact judgement Neuro: Muscles Strength 5/5 in all 4 extremities Sensation to light touch grossly present throughout Cranial nerves II-XII grossly intact No focal sensory deficits Dry gangrene of the Left great toe with sepsis -Vascular surgery recommendations appreciated: left great toe amputation completed 05/09/21 -Continue with vancomycin, unasyn -1 out of 2 blood cultures were positive for coag negative staph, suspect contam inant -Pain control -Wound care and dressing changes -Infectious disease following - IVF completed Type II dth-gajvbpn-mpnrchvxg diabetes mellitus with hyperglycemia -Glycemic protocol with Sliding-scale insulin - A1c 10% -Aristeo and levemir: plan home on discharging home on tradject/john mars etformin -Will need diabetic supplies to test once daily on discharge- order written -Follow blood sugars Tobacco abuse -Continue to encourage smoking Cessation -Nicotine replacement Hyponatremia, resolved Lactic acidosis, resolved DVT prophylaxis: lovenox Discussed with: salvatore cohen Anticipated discharge: Possibly tomorrow Anticipated discharge place: Home with home care A total of 40 minutes was spent on the care of this complex patient more than 50% of the time was spent in counseling and care coordination. Patient feels okay no chest pain no shortness of breath We'll continue current antibiotics pending final cultures continue to observe overnight Objective - Vital Signs Vital signs: Vital Signs Temp 97.8 F 05/11/21 08:00 Pulse 73 05/11/21 08:00 Resp 18 05/11/21 08:00 BP 129/80 05/11/21 08:00 Pulse Ox 95 05/11/21 08:00 Intake & Output 05/10/21 05/11/21 05/11/21 18:59 06:59 18:59 Intake Total 1130 Balance 1130 Weight 63.049 kg Intake: Intake, IV Titration 350 Amount Ampicillin-Sulbactam 3 gm 100 In Sodium Chloride 0.9% 100 ml @ 200 mls/hr IVPB Q6HR BETSY Rx#:[id number] Vancomycin 1,000 mg In 250 Sodium Chloride 0.9% 250 ml @ 125 mls/hr IVPB Q8H BETSY Rx#:[id number] Oral 780 Other: # Voids 2 - Labs CBC & Chem 7: 05/10/21 12:57 05/10/21 12:57 Labs: Abnormal Lab Results - Last 24 Hours (Table) 05/10/21 05/10/21 05/10/21 Range/Units 12:57 12:57 13:07 Hgb 11.0 L (11.4-16.0) gm/dL Hct 32.4 L (34.0-46.0) % Glucose 193 H (74-99) mg/dL POC Glucose (mg/dL) 197 H (75-99) mg/dL Alkaline Phosphatase 140 H (38-126) U/L Albumin 3.3 L (3.5-5.0) g/dL 05/10/21 05/10/21 05/11/21 Range/Units 18:01 21:07 06:46 Hgb (11.4-16.0) gm/dL Hct (34.0-46.0) % Glucose (74-99) mg/dL POC Glucose (mg/dL) 179 H 208 H 147 H (75-99) mg/dL Alkaline Phosphatase (38-126) U/L Albumin (3.5-5.0) g/dL Microbiology - Last 24 Hours (Table) 05/04/21 20:03 Blood Culture - Final Blood No Growth after 144 hours
[2021-05-11 12:52] LABS: Glucose,Whole Blood 131 mg/dL (75-99)
--- NOTE | 2021-05-11 13:46 | P.PN ---
Subjective Progress Note Date: 05/11/21 Principal diagnosis: Gangrene left toe, osteomyelitis The patient seen and examined sitting up in bed. She is postop day #2 for left great toe amputation for dry gangrene and osteomyelitis. She states her pain is well controlled. She has been afebrile. She's been up and ambulating and instructed on the heel pressure only on that left foot. She has had just a small amount of bleeding from the amputation site. Objective - Vital Signs Vital signs: Vital Signs Temp 97.8 F 05/11/21 08:00 Pulse 73 05/11/21 08:00 Resp 18 05/11/21 08:00 BP 129/80 05/11/21 08:00 Pulse Ox 95 05/11/21 08:00 Intake & Output 05/10/21 05/11/21 05/11/21 18:59 06:59 18:59 Intake Total 1130 Balance 1130 Weight 63.049 kg Intake: Intake, IV Titration 350 Amount Ampicillin-Sulbactam 3 gm 100 In Sodium Chloride 0.9% 100 ml @ 200 mls/hr IVPB Q6HR BETSY Rx#:[id number] Vancomycin 1,000 mg In 250 Sodium Chloride 0.9% 250 ml @ 125 mls/hr IVPB Q8H BETSY Rx#:[id number] Oral 780 Other: # Voids 2 - Exam General appearance: The patient is alert, oriented, in no acute distress. HET: Head is normocephalic and atraumatic. Pupils are equal and reactive. Oropharynx is clear without lesions. Neck: Supple without lymphadenopathy. Trachea midline. Extremities: Left foot with some pedal edema, amputation site well approximated with sutures well approximated. Good capillary refill. Neurological: No focal deficits. Strength and sensation are grossly intact. - Labs CBC & Chem 7: 05/10/21 12:57 05/10/21 12:57 Labs: Abnormal Lab Results - Last 24 Hours (Table) 05/10/21 05/10/21 05/10/21 Range/Units 12:57 12:57 13:07 Hgb 11.0 L (11.4-16.0) gm/dL Hct 32.4 L (34.0-46.0) % Glucose 193 H (74-99) mg/dL POC Glucose (mg/dL) 197 H (75-99) mg/dL Alkaline Phosphatase 140 H (38-126) U/L Albumin 3.3 L (3.5-5.0) g/dL 05/10/21 05/10/21 05/11/21 Range/Units 18:01 21:07 06:46 Hgb (11.4-16.0) gm/dL Hct (34.0-46.0) % Glucose (74-99) mg/dL POC Glucose (mg/dL) 179 H 208 H 147 H (75-99) mg/dL Alkaline Phosphatase (38-126) U/L Albumin (3.5-5.0) g/dL Microbiology - Last 24 Hours (Table) 05/04/21 20:03 Blood Culture - Final Blood No Growth after 144 hours Assessment and Plan Assessment: 1. Postop day #2 left great toe amputation 2. Gangrene left great toe and osteomyelitis 2. New onset diabetes mellitus 3. Tobacco abuse Plan: 1. Recommend smoking cessation 2. Daily dressing change with Adaptic, and nonstick adhesive and Kerlix 3. Patient is cleared for discharge from vascular surgery once otherwise medically cleared from infectious disease 4. Patient to follow-up with Dr. Cleveland in 7-10 days. The impression and plan of care has been dictated as directed. Dr. Ren I performed a history and examination of this patient, discussed the same with the dictator. I agree with the dictator's note ,documented as a scribe. Any additional findings or plans will be noted.
--- NOTE | 2021-05-11 14:37 | P.DS ---
Providers Date of admission: 05/05/21 00:00 Attending physician: Miriam Cuevas MD Consults: 05/05/21 01:27 Consult Physician Routine Consulting Provider: Phil Noriega Consult Reason/Comments: left foot gangrene with osteomyelitis Do you want consulting provider notified?: Yes, Notify in am 05/08/21 08:12 Consult Physician Routine Consulting Provider: Trent Cleveland Consult Reason/Comments: left great toe revascularization Do you want consulting provider notified?: Already Contacted 05/09/21 10:40 Consult Physician Routine Consulting Provider: Carley Bray Consult Reason/Comments: left great toe dry gangrene Do you want consulting provider notified?: Yes Primary care physician: Stated None Hospital Course: Patient feels okay no chest pain no shortness of breath Constitutional: No acute distress, conversant, pleasant Eyes: Anicteric sclerae, moist conjunctiva, no lid-lag PERRLA ENMT: NC/AT Oropharynx clear, no erythema, exudates Neck: Supple, FROM, no masses, or JVD No carotid bruits No thyromegaly Lungs: Clear to auscultation Clear to percussion Normal respiratory effort, no accessory muscle use Cardiovascular: Heart regular in rate and rhythm, No murmurs, gallops, or rubs No peripheral edema Abdominal: Soft Nontender, no guarding, rebound or rigidity Abdomen moving with respiration Normoactive bowel sounds No hepatomegaly, No splenomegaly No palpable mass No abdominal wall hernia noted Skin: Normal temperature, tone, texture, turgor No induration No subcutaneous nodules No rash, lesions No ulcers Extremities: No digital cyanosis No clubbing Pedal pulses intact and symmetrical Radial pulses intact and symmetrical Normal gait and station No calf tenderness Psychiatric:Alert and oriented to person, place and time Appropriate affect Intact judgement Neuro: Muscles Strength 5/5 in all 4 extremities Sensation to light touch grossly present throughout Cranial nerves II-XII grossly intact No focal sensory deficits Dry gangrene of the Left great toe with sepsis - Type II fpv-[id number] diabetes mellitus with hyperglycemia -Glycemic protocol with Sliding-scale insulin - A1c 10% -Tradjenta and levemir: plan home on discharging home on tradject/januiva, metformin -Will need diabetic supplies to test once daily on discharge- order written -Follow blood sugars Tobacco abuse -Continue to encourage smoking Cessation -Nicotine replacement Hyponatremia, resolved Lactic acidosis, resolved DVT prophylaxis: lovenox Discussed with: salvatore cohen Anticipated discharge: Possibly tomorrow Anticipated discharge place: Home with home care A total of 40 minutes was spent on the care of this complex patient more than 50% of the time was spent in counseling and care coordination. Patient feels okay no chest pain no shortness of breath Patient underwent on patient of the left great toe feeling much better today no chest pain no shortness of breath since clear to be discharged from infectious disease and vascular to be discharged home on Augmentin Constitutional: No acute distress, conversant, pleasant Eyes: Anicteric sclerae, moist conjunctiva, no lid-lag PERRLA ENMT: NC/AT Oropharynx clear, no erythema, exudates Neck: Supple, FROM, no masses, or JVD No carotid bruits No thyromegaly Lungs: Clear to auscultation Clear to percussion Normal respiratory effort, no accessory muscle use Cardiovascular: Heart regular in rate and rhythm, No murmurs, gallops, or rubs No peripheral edema Abdominal: Soft Nontender, no guarding, rebound or rigidity Abdomen moving with respiration Normoactive bowel sounds No hepatomegaly, No splenomegaly No palpable mass No abdominal wall hernia noted Skin: Normal temperature, tone, texture, turgor No induration No subcutaneous nodules No rash, lesions No ulcers Extremities: No digital cyanosis No clubbing Pedal pulses intact and symmetrical Radial pulses intact and symmetrical Normal gait and station No calf tenderness Psychiatric:Alert and oriented to person, place and time Appropriate affect Intact judgement Neuro: Muscles Strength 5/5 in all 4 extremities Sensation to light touch grossly present throughout Cranial nerves II-XII grossly intact No focal sensory deficits Discharge plan Dry gangrene of the left great toe status post amputation Diabetes Patient follow-up with vascular and infectious disease Plan - Discharge Summary New Discharge Prescriptions: New Amoxicillin/Potassium Clav [Augmentin 875-125 Tablet] 1 tab PO Q12HR 1 Days #14 tab No Action traMADol HCL [Ultram] 50 mg PO BID PRN PRN Reason: Pain Discharge Medication List traMADol HCL [Ultram] 50 mg PO BID PRN 05/04/21 [History] Amoxicillin/Potassium Clav [Augmentin 875-125 Tablet] 1 tab PO Q12HR 1 Days #14 tab 05/11/21 [Rx] Follow up Appointment(s)/Referral(s): Trent Cleveland DO [STAFF PHYSICIAN] - 05/16/21 1:45 pm (Please arrive to appointment at 1:30 pm) [facility], [NON-STAFF] - 1-2 Days Liv Richardson NPC [REFERRING] - 1-2 Days Patient Instructions/Handouts: How to Stop Smoking (DC) Activity/Diet/Wound Care/Special Instructions: Glucometer ordered through [employer] and they can be contacted at [phone]. Daily dressing change with adaptic, nonstick dressing and kerlix Discharge Disposition: HOME WITH HOME HEALTH SERVICES
[2021-05-11 14:39] VITALS: BP 162/79; PULSE 70; TEMP 98.2
--- NOTE | 2021-05-11 15:18 | PN ---
PROGRESS NOTE DATE OF SERVICE: 05/11/2021 REASON FOR FOLLOWUP: Left big toe gangrene. INTERVAL COURSE: The patient is afebrile. The patient is currently breathing comfortably. The patient denies any chest pain, shortness of breath or cough. No abdominal pain or any worsening pain to the left big right operation site. PHYSICAL EXAMINATION: Blood pressure 129/80 with a pulse of 73, temperature is 97.8. She is 95% on room air. General the patient is a middle-aged female lying in bed in no distress. Respiratory system: Unlabored breathing, clear to auscultation anteriorly. Heart S1, S2. Regular rate and rhythm. Abdomen soft, no tenderness. Left big toe ( ) wound is currently dressed. Per the patient when the dressing was changed this morning, the wound is looking clean. There was minimal drainage on the dressing. LABS: No cultures were done. Blood culture with coag-negative staph likely contaminant. DIAGNOSTIC IMPRESSION AND PLAN: Patient with left big toe gangrene status post amputation with dry gangrene. No significant cellulitis. Patient did not have any fever or any elevated white count. Will recommend short course of oral Augmentin on discharge and close outpatient followup. MMODL / IJN: [id number] /
[2021-05-12] MEDS ORDERED: VANCOMYCIN TROUGH DUE 1 EACH MISC MISCELLANE ONE (12:00)
== END 2021-05-11 18:01 | disposition home health service (06) | DRG 854 ==
LOC: EC 19:02 → 5NMEDONC 05-05 → 6NMEDSUR 05-05 05:17 → 6PED 05-05 17:36
PROVIDERS: ADMIT Internal Medicine; ATTEND Internal Medicine
PROC: 0Y6Q0Z0 Detachment at Left 1st Toe, Complete, Open Approach (ICD-10-PCS; principal; 2021-05-09 12:20)
DX: A41.9 Sepsis, unspecified organism (principal); E11.52 Type 2 diabetes mellitus with diabetic peripheral angiopathy with gangrene; E87.1 Hypo-osmolality and hyponatremia; E87.2 Acidosis; I70.262 Atherosclerosis of native arteries of extremities with gangrene, left leg; M86.9 Osteomyelitis, unspecified; Z20.822 Contact with and (suspected) exposure to COVID-19; E11.621 Type 2 diabetes mellitus with foot ulcer; E11.65 Type 2 diabetes mellitus with hyperglycemia; E11.69 Type 2 diabetes mellitus with other specified complication; F17.200 Nicotine dependence, unspecified, uncomplicated; Z71.6 Tobacco abuse counseling; G62.9 Polyneuropathy, unspecified; G89.29 Other chronic pain; E11.628 Type 2 diabetes mellitus with other skin complications; L03.032 Cellulitis of left toe; Z79.4 Long term (current) use of insulin; Z83.3 Family history of diabetes mellitus; Z80.8 Family history of malignant neoplasm of other organs or systems; M19.071 Primary osteoarthritis, right ankle and foot; S90.423A Blister (nonthermal), unspecified great toe, initial encounter; L97.524 Non-pressure chronic ulcer of other part of left foot with necrosis of bone
CPT/HCPCS: 36415; 80048; 80053; 80061; 80202; 83036; 83605; 83735; 84100; 85025; 85027; 85379; 85610; 85652; 86140; 87040; 87635; 88305; 93923; 96374; 99285

== ENCOUNTER 2023-07-10 05:47 | Day surgery (SDC) | payer BC, MEDICARE ==
[2023-07-10] MEDS ORDERED: SODIUM CHLORIDE 0.9% 1,000 ML in EMPTY BAG 1 BAG IV SCH (06:09)
[2023-07-10] MEDS ORDERED: ALPRAZolam 0.5 MG TAB PO PRN (06:09)
[2023-07-10] MEDS ORDERED: NITROGLYCERIN SL TABS 0.4 MG TAB SUBLINGUAL PRN (06:09)
[2023-07-10] MEDS ORDERED: ALPRAZolam 0.25 MG TAB PO PRN (06:09)
[2023-07-10] MEDS: SODIUM CHLORIDE 0.9% 1,000 ML IV ONE (06:16)
[2023-07-10 06:45] LABS: Glucose,Whole Blood 173 mg/dL (70-110)
[2023-07-10] MEDS ORDERED: ASPIRIN 325 MG TAB PO ONE (07:00)
[2023-07-10 07:06] VITALS: RESP 16; TEMP 98
[2023-07-10] MEDS ORDERED: fentaNYL (PF) 50 MCG/ML 2 ML AMP ONE (07:43)
[2023-07-10] MEDS ORDERED: VERAPAMIL 2.5 MG/ML 2 ML AMP ONE (07:43)
[2023-07-10] MEDS ORDERED: HEPARIN SODIUM 1,000 UN/ML (10ML VL) ONE (07:43)
[2023-07-10] MEDS ORDERED: LIDOCAINE 1% INJ 10MG/ML (20 ML MDV) ONE (07:44)
[2023-07-10] MEDS: MIDAZOLAM 2 MG/2 ML VIAL IVP ONE (07:46)
[2023-07-10] MEDS: LIDOCAINE 1% INJ 10MG/ML (20 ML MDV) SQ ONE (07:46)
[2023-07-10] MEDS: fentaNYL (PF) 50 MCG/ML 2 ML AMP IVP ONE (07:46)
[2023-07-10] MEDS: VERAPAMIL SYRINGE (5 MG/10 ML) INTRAARTER ONE (07:49)
[2023-07-10] MEDS: HEPARIN SODIUM 1,000 UN/ML (10ML VL) IVP ONE (07:51)
[2023-07-10] MEDS: IOPAMIDOL-370 100ML BTL INJ ONE (08:09)
[2023-07-10] MEDS ORDERED: RX INFO: IV CONTRAST WAS GIVEN 1 EACH MISC MISCELLANE PRN (08:49)
--- NOTE | 2023-07-10 08:58 | CC ---
CARDIAC CATHETERIZATION REPORT INDICATIONS: Ischemic cardiomyopathy. This is a 57-year-old lady, who presented to us because of an abnormal EKG, underwent workup in the form of an echocardiogram, stress test, carotid duplex study, and peripheral arterial study, and was found to have evidence of prior inferior wall myocardial infarction with an ejection fraction of 35%. She also has severe carotid stenosis involving left internal carotid artery and evidence of peripheral arterial disease. She was advised to undergo cardiac catheterization first, and then, pursue the other workup. PROCEDURE NOTE: After obtaining informed consent, left heart catheterization and coronary angiogram were performed via the right radial artery using standard August catheters. The patient tolerated the procedure well without any obvious immediate complications, received moderate conscious sedation. Total sedation time was 20 minutes. A TR band was used for hemostasis. The right radial artery access was obtained using Seldinger technique. A 6-St Lucian sheath was placed. Catheters and wires were floated into the ascending aorta under fluoroscopic guidance. The patient received verapamil and heparin per protocol. 3000 units of heparin was given. FINDINGS: 1. Hemodynamics: Left ventricular end-diastolic pressure is 8 mm to 9 mm. There is no significant gradient across the aortic valve. 2. Left ventriculogram: Left ventriculogram is not performed. 3. Angiographic data: a.Right coronary artery is a large dominant vessel. There is a long segment of narrowing involving the proximal right coronary artery, which at its worst seems to be 60% to 70% stenosed. Left main coronary artery is calcified, but is free of significant stenosis. Divides into left anterior descending coronary artery and circumflex coronary artery. Circumflex coronary artery shows 80% to 90% stenosis distally. Mid LAD shows a focal 70% to 80% stenosis. CONCLUSION: 1. Severe three-vessel coronary artery disease. 2. Ischemic cardiomyopathy. PLAN: The patient is a diabetic, has cardiomyopathy and three-vessel coronary artery disease, and would benefit from surgical revascularization based on the guidelines. I am going to refer the patient to Dr. Aguero, the cardiothoracic surgeon. I will also obtain a CT angiogram of the carotid arteries on Saturday, and if she has critical carotid stenosis, we might have to stent it prior to surgery. MMODL / IJN: [id number] /
[2023-07-10] MEDS ORDERED: SODIUM CHLORIDE 0.9% 1,000 ML IV SCH (09:00)
--- NOTE | 2023-07-10 17:22 | CA ---
Transthoracic Echo Report Name: Alejandro Vaughan Age: 57 Gender: F : 1965 Exam Date: 07/10/2023 13:40 Exam Location: [facility] Ht (in): 64 Wt (lb): 140 Ordering Physician: Albin Cabrera Attending/Referring Phys: Rick NÚÑEZ [employer] Shanna Shannon RDCS Procedure CPT: Indications: evalute valves and LV function pre cardiac surgery Cardiac Hx: Technical Quality: Fair Contrast 1: Total Dose (mL): Contrast 2: Total Dose (mL): MEASUREMENTS (Male / Female) Normal Values 2D ECHO LV Diastolic Diameter PLAX 4.1 cm 4.2 - 5.9 / 3.9 - 5.3 cm LV Systolic Diameter PLAX 3.0 cm IVS Diastolic Thickness 1.1 cm 0.6 - 1.0 / 0.6 - 0.9 cm LVPW Diastolic Thickness 0.9 cm 0.6 - 1.0 / 0.6 - 0.9 cm LV Relative Wall Thickness 0.5 RV Internal Dim ED PLAX 2.3 cm LA Volume 29.2 cm??? 18 - 58 / 22 - 52 cm??? LA Volume Index 17.2 cm???/m??? 16 - 28 cm???/m??? M-MODE Aortic Root Diameter MM 2.1 cm LA Systolic Diameter MM 3.4 cm LA Ao Ratio MM 1.6 DOPPLER AV Peak Velocity 112.5 cm/s AV Peak Gradient 5.1 mmHg AV Mean Velocity 80.9 cm/s AV Mean Gradient 2.8 mmHg AV Velocity Time Integral 24.0 cm LVOT Peak Velocity 57.0 cm/s LVOT Peak Gradient 1.3 mmHg LVOT Velocity Time Integral 10.8 cm MV Area PHT 4.0 cm??? Mitral E Point Velocity 100.6 cm/s Mitral A Point Velocity 54.3 cm/s Mitral E to A Ratio 1.9 MV Deceleration Time 191.2 ms MV E' Velocity 8.1 cm/s Mitral E to MV E' Ratio 12.4 TR Peak Velocity 203.2 cm/s TR Peak Gradient 16.5 mmHg Right Ventricular Systolic Press 21.5 mmHg FINDINGS Left Ventricle Mildly increased septal wall thickness. Left ventricular cavity size normal. Hypokinetic lateral wall. Hypokinetic inferior wall. Left ventricular ejection fraction is estimated at 35-40 %. Right Ventricle Normal right ventricular size and function. Right ventricular systolic pressure within normal limits. Right Atrium Normal right atrial size. Left Atrium Normal left atrial size. Mitral Valve Structurally normal mitral valve. No mitral stenosis, regurgitation or prolapse. Aortic Valve No aortic valve stenosis or regurgitation. Tricuspid Valve Structurally normal tricuspid valve. Mild tricuspid regurgitation. Pulmonic Valve Structurally normal pulmonic valve. Pericardium No pericardial effusion. Aorta Normal size aortic root and proximal ascending aorta. CONCLUSIONS Left ventricular ejection fraction is estimated at 35-40 %. Akinetic inferior and inferolateral wall Normal right ventricular size and function. No significant valvular dysfunction No pericardial effusion No prior echo to compare with in database Previewed by: Dr Tomás Raymond (Electronically Signed) Final Date: 10 July 2023 17:21
[2023-07-10 18:23] VITALS: BP 148/72; PULSE 76
== END 2023-07-10 14:00 | disposition home or self-care (01) ==
LOC: CATHCVL 05:47
PROVIDERS: ATTEND Internal Medicine Cardiovascular Disease
DX: I08.1 Rheumatic disorders of both mitral and tricuspid valves (principal); I25.5 Ischemic cardiomyopathy; I25.2 Old myocardial infarction; I25.10 Atherosclerotic heart disease of native coronary artery without angina pectoris; E11.51 Type 2 diabetes mellitus with diabetic peripheral angiopathy without gangrene; I73.9 Peripheral vascular disease, unspecified; I65.22 Occlusion and stenosis of left carotid artery; E78.5 Hyperlipidemia, unspecified; F12.90 Cannabis use, unspecified, uncomplicated; M19.90 Unspecified osteoarthritis, unspecified site; Z79.899 Other long term (current) drug therapy; Z88.8 Allergy status to other drugs, medicaments and biological substances; Z79.82 Long term (current) use of aspirin
CPT/HCPCS: 93306; 93458; C1769; C1894; J2250; J2001; J3010; J1644; Q9967

== ENCOUNTER → 2023-07-11 | Outpatient (CLI) | payer BC ==
[2023-07-11 15:28] LABS: Blood Urea Nitrogen 14.8 mg/dL (9.0-27.0); Chloride 101 mmol/L (96-109); Potassium 4.7 mmol/L (3.5-5.5); Sodium 138 mmol/L (135-145)
== END | disposition home or self-care (01) ==
LOC: LABWHC1 09:58
PROVIDERS: ATTEND Internal Medicine Cardiovascular Disease
DX: E11.51 Type 2 diabetes mellitus with diabetic peripheral angiopathy without gangrene (principal); R94.31 Abnormal electrocardiogram [ECG] [EKG]
CPT/HCPCS: 36415; 80051; 82565; 84520

== ENCOUNTER → 2023-07-12 | Outpatient (CLI) | payer BC ==
--- NOTE | 2023-07-12 16:14 | CT ---
EXAMINATION TYPE: CT angio neck DATE OF EXAM: 07/12/2023 COMPARISON: None HISTORY: 57-year-old female left sided carotid stenosis TECHNIQUE: Contiguous axial scanning of the neck performed with IV Contrast, patient injected with 65 mL of Isovue 370. Coronal and sagittal reconstructions performed. 3-D reconstructions generated on a dedicated independent workstation. CT DLP: 228.2 mGycm Automated exposure control for dose reduction was used. FINDINGS: Underlying moderate to advanced emphysema in the visualized lower lungs. Left subclavian artery shows a 1.8 cm segment of occlusion 7 mm beyond its origin. Correlate for any potential symptoms of subclavian steal on the left. The right vertebral artery slightly more dominant. Both vertebral arteries otherwise patent throughou t their course. There is conventional arch vessel branching anatomy but with moderate to severe focal stenosis brachi ocephalic artery, axial image 31. The right common carotid artery is patent. Mild atherosclerotic calcification at the carotid bulb with only mild, 15% proximal right ICA stenosi s by NASCET criteria. The remainder of the right ICA is patent. The left common carotid artery is patent. Moderate atherosclerotic calcification and plaque left carotid bifurcation. This results in a mild stenosis at the origin of the ICA. However, more severe plaque upper left angel tid bulb resulting in a severe, 70% focal stenosis by NASCET criteria. IMPRESSION: 1. MODERATE TO SEVERE FOCAL STENOSIS BRACHIOCEPHALIC ARTERY. 2. A NEARLY 2 CM SEGMENT OF OCCLUSION PROXIMAL LEFT SUBCLAVIAN ARTERY. CORRELATE FOR ANY POTENTIAL SY MPTOMS OF SUBCLAVIAN STEAL ON THE LEFT. 3. PROMINENT ATHEROSCLEROTIC CHANGES AT THE LEFT CAROTID BIFURCATION. THIS RESULTS IN A MILD, LESS TH AN 50% STENOSIS AT THE LEFT ICA ORIGIN BUT WITH A MORE SEVERE, 70% STENOSIS IN THE UPPER CAROTID BULB . 4. MODERATE TO ADVANCED EMPHYSEMA IN THE VISUALIZED UPPER LUNGS.
== END | disposition home or self-care (01) ==
LOC: RADCTMAIN 13:24
PROVIDERS: ATTEND Internal Medicine Cardiovascular Disease
DX: I65.22 Occlusion and stenosis of left carotid artery (principal); I70.8 Atherosclerosis of other arteries; J43.9 Emphysema, unspecified
CPT/HCPCS: 70498; Q9967

== ENCOUNTER → 2023-07-26 | Outpatient (CLI) | payer BC ==
--- NOTE | 2023-07-26 11:22 | CT ---
Exam: CT Chest without contrast. Date: 07/26/2023. Comparison: None History: Operative evaluation. Technique: CT examination of the chest was performed without contrast. Coronal and sagittal reformats were performed. CT dose lowering techniques were used, to include: automated exposure control, adjus tment for patient size, and/or use of iterative reconstruction. FINDINGS: Mediastinum and Camila: There is no axillary, mediastinal or hilar lymphadenopathy. Pleural and Pericardial spaces: There are no pleural or pericardial effusions. Upper Abdomen: Multiple calcified granulomas are seen in the spleen. Cardiovascular: There is mild vascular calcification within the thoracic aorta without evidence of an eurysmal dilation. There is some mild calcification along the aortic root and aortic valve. Moderate cortical calcium is seen within the left anterior descending. Lung Parenchyma and Airways: There is severe diffuse centrilobular emphysema. 0.6 mm nodule in the ri ght middle lobe on series 4 image 44. No additional pulmonary nodules are seen. Bones: No fracture or aggressive osseous lesion. IMPRESSION: 1. Vascular calcification as above. 2. Severe emphysema. 3. Small right middle lobe pulmonary nodule. Follow-up in one year is recommended.
--- NOTE | 2023-07-26 16:05 | XR ---
EXAMINATION TYPE: XR chest 2V DATE OF EXAM: 07/26/2023 COMPARISON: None HISTORY: 57-year-old female I 25.10, CAD, presurgical evaluation TECHNIQUE: Frontal and lateral views FINDINGS: The cardiomediastinal silhouette, aorta, and pulmonary vasculature are within normal limits. Hyperinf lation. No consolidation or pleural effusion. IMPRESSION: COPD. No acute cardiopulmonary process.
--- NOTE | 2023-07-27 07:48 | US ---
EXAMINATION TYPE: US vein mapping BILAT DATE OF EXAM: 07/26/2023 10:06 AM COMPARISON: NONE CLINICAL INDICATION: Female, 57 years old with history of I25.10 ATHSCL HEART DISEASE OF [place]; Pres urgical evaluation SIDE PERFORMED: Bilateral TECHNIQUE: Lower extremity saphenous vein is examined and measured utilizing real time linear array sonography. Patient History: Smoker: Yes Heart Disease: Yes Previous DVT: No Vascular Surgery: No Discoloration: No Hypertension: No Diabetes: Yes Paralysis: No Varicosities: No Edema: No DUPLEX FINDINGS: Greater Saphenous: Color flow seen Lesser Saphenous: Color flow seen Measurements in mm: Right Greater Saphenous: Groin: 6.7 x 7.4 mm High Thigh: 3.8 x 4.4 mm Mid Thigh: 4.0 x 4.7 mm Above Knee: 4.7 x 4.9 mm Knee: 4.1 x 4.4 mm Below Knee: 3.5 x 4.7 mm Mid Calf: 2.7 x 3.0 mm At Ankle: 2.4 x 2.5 mm Right Lesser Saphenous: Knee: mm Below Knee: 2.0 x 2.0 mm Mid Calf: 2.3 x 2.6 mm At Ankle: 2.1 x 2.5 mm Left Greater Saphenous: Groin: 6.6 x 8.2 mm High Thigh: 3.7 x 4.7 mm Mid Thigh: 4.4 x 5.6 mm Above Knee: 3.8 x 5.1 mm Knee: 4.2 x 4.5 mm Below Knee: 3.9 x 4.3 mm Mid Calf: 2.6 x 2.6 mm At Ankle: 2.5 x 3.1 mm Left Lesser Saphenous: Knee: 1.9 x 2.1 mm Below Knee: Unable to follow mm Mid Calf: Unable to follow mm At Ankle: Unable to follow mm IMPRESSION: 1. Bilateral GSV and LSV measurements listed above. 2. Performing surgeon to determine viability as conduit.
--- NOTE | 2023-07-27 07:49 | US ---
EXAMINATION TYPE: Pre-Operative Non-Invasive Evaluation of the hand for Potential Radial Artery Robin brian, Measurements only DATE OF EXAM: 07/26/2023 10:19 AM CLINICAL INDICATION: Female, 57 years old with history of I25.10 ATHSCL HEART DISEASE OF [place]; [place]ce nt [place]; Presurgical evaluation SIDE PERFORMED: Left TECHNIQUE: Radial artery is measured utilizing real time linear array sonography. Dominant hand: Right Duplex Findings: Radial Artery: Color flow seen Measurements in mm, transverse view: Left Radial: mm Proximal: 2.2 x 1.6 mm Mid: 2.4 x 2.4 mm Distal: 2.5 x 2.6 mm IMPRESSION: 1. Left radial artery measurements listed above. 2. Performing surgeon to determine viability as conduit.
--- NOTE | 2023-07-27 13:34 | US ---
EXAMINATION TYPE: US arterial LE single level DATE OF EXAM: 07/26/2023 9:45 AM CLINICAL INDICATION: Female, 57 years old with history of I25.10 ATHSCL HEART DISEASE OF [place]; Rece nt [place]; Presurgical evaluation; Left big toe removed History of: Smoker: Yes Hypertension: No Diabetic: Yes Hyperlipidemia: Yes TIA/CVA: No Previous Vascular Surgery: No CAD: Yes IN: Yes Vascular Ulcers: No Claudication: Yes Gangrene: No Doppler Waveforms: Right: Monophasic Left: Monophasic Pulse Volume Recording: NA Pressure Gradients: NA Right Brachial Pressure: 80 Left Brachial Pressure: 68 Ankle-Brachial Indices: Right: 1.13 Left: 1.03 Toe Brachial Indices: Right: 0.91 Left: Not able to obtain IMPRESSION: Ankle-brachial indices within normal limits on the bilaterally.
== END | disposition home or self-care (01) ==
LOC: RADUSWWP 09:03
PROVIDERS: ATTEND Surgery
DX: Z01.818 Encounter for other preprocedural examination (principal); I25.10 Atherosclerotic heart disease of native coronary artery without angina pectoris; J43.9 Emphysema, unspecified; R91.1 Solitary pulmonary nodule; I25.2 Old myocardial infarction
CPT/HCPCS: 71046; 71250; 93922; 93970

== ENCOUNTER → 2023-07-29 | Outpatient (CLI) | payer BC ==
[2023-07-29 10:52] LABS: INR 0.9 (<1.2); Partial Thromboplastin Time 26.9 sec (22.0-30.0)
[2023-07-29 14:57] LABS: Basophils # (A) 0.05 X 10*3/uL (0.00-0.10); Basophils % (A) 0.6 %; Eosinophils # (A) 0.37 X 10*3/uL (0.04-0.35); Eosinophils % (A) 4.2 %; HCT 39.9 % (37.2-46.3); HGB 12.9 g/dL (12.0-15.0); Lymphocytes # (A) 2.68 X 10*3/uL (0.90-5.00); Lymphocytes % (A) 30.3 %; MCH 27.8 pg (27.0-32.0); MCHC 32.3 g/dL (32.0-37.0); Mean Platelet Volume 10.6 FL (9.5-12.2); Monocytes # (A) 0.41 X 10*3/uL (0.20-1.00); Monocytes % (A) 4.6 %; NRBC Per 100 WBC 0 X 10*3/uL (0.00-0.01); Platelet Count 240 X 10*3/uL (140-440); RBC 4.64 X 10*6/uL (4.10-5.20); RDW 14.3 % (11.5-14.5); WBC 8.84 X 10*3/uL (4.50-10.00)
[2023-07-29 15:34] LABS: Appearance,Urine Turbid (Clear); Bilirubin,Urine Negative (Negative); Blood,Urine Negative (Negative); Color,Urine Dark Yellow (Yellow); Ketones,Urine Trace (Negative); Nitrite,Urine Negative (Negative); Specific Gravity,Urine 1.027 (1.001-1.030); Urobilinogen,Urine 0.2 E.U./DL
[2023-07-29 15:40] LABS: ALT 15 U/L (8-44); AST 16 U/L (13-35); Albumin 4.6 g/dL (3.8-4.9); Albumin/Globulin Ratio 1.59 Ratio (1.60-3.17); Alkaline Phosphatase 104 U/L (41-126); BUN/Creat Ratio 31.43 Ratio (12.00-20.00); Calcium 10.1 mg/dL (8.7-10.3); Carbon Dioxide 23.6 mmol/L (21.6-31.8); Chloride 102 mmol/L (96-109); Chol/HDL Ratio 3.72 Ratio; Globulin 2.9 g/dL (1.6-3.3); Glucose 135 mg/dL (70-110); LDL Cholesterol,Calculated 108.2 mg/dL (0.0-131.0); Potassium 4.3 mmol/L (3.5-5.5); Sodium 138 mmol/L (135-145); Total Bilirubin 0.2 mg/dL (0.3-1.2); Total Protein 7.5 g/dL (6.2-8.2)
[2023-07-29 16:25] LABS: Bacteria,Urine 3+ (None Seen); Calcium Oxalate Crystals,Urine Present (None Seen)
== END | disposition home or self-care (01) ==
LOC: LABWHC1 09:30
PROVIDERS: ATTEND Thoracic Surgery (Cardiothoracic Vascular Surgery)
DX: I25.10 Atherosclerotic heart disease of native coronary artery without angina pectoris (principal)
CPT/HCPCS: 36415; 80053; 80061; 81001; 85025; 85610; 85730; 87070

== ENCOUNTER 2023-08-07 05:49 | Day surgery (SDC) | payer BC ==
[2023-08-07] MEDS ORDERED: ALPRAZolam 0.25 MG TAB PO PRN (06:09)
[2023-08-07] MEDS ORDERED: ASPIRIN 325 MG TAB PO PRN (06:09)
[2023-08-07 06:53] LABS: Glucose,Whole Blood 132 mg/dL (70-110)
[2023-08-07] MEDS: SODIUM CHLORIDE 0.9% 1,000 ML in EMPTY BAG 1 BAG IV ONE (06:58)
[2023-08-07] MEDS ORDERED: LIDOCAINE 1% INJ 10MG/ML (20 ML MDV) ONE ×2 (07:24→09:24)
[2023-08-07] MEDS: MIDAZOLAM 2 MG/2 ML VIAL IVP ONE (08:09)
[2023-08-07] MEDS: LIDOCAINE 1% INJ 10MG/ML (20 ML MDV) SQ ONE (08:18)
[2023-08-07] MEDS ORDERED: CLOPIDOGREL 75 MG TAB ONE (08:24)
[2023-08-07] MEDS ORDERED: HEPARIN SODIUM 1,000 UN/ML (10ML VL) ONE (08:26)
[2023-08-07] MEDS: HEPARIN SODIUM 1,000 UN/ML (10ML VL) IV ONE (08:29)
[2023-08-07] MEDS: CLOPIDOGREL 75 MG TAB PO ONE (08:32)
[2023-08-07] MEDS: HYDROmorphone 0.5 MG/0.5 ML SYRINGE IVP ONE (09:11)
[2023-08-07] MEDS: IOPAMIDOL-370 100ML BTL INJ ONE (09:48)
[2023-08-07] MEDS ORDERED: NALOXONE 0.4 MG/ML 1 ML VIAL IVP PRN (09:53)
--- NOTE | 2023-08-07 10:26 | PTCA ---
PERCUTANEOUSTRANS CORORONARY ANGIOGRAPHY PERFORMING PHYSICIAN: Tomas Montero MD. PROCEDURES PERFORMED: 1. Successful stenting of occluded left subclavian using 6.0 x 39 mm balloon expandable stent and reduction of stenosis from 100% to 0%. 2. Left subclavian angiogram and aortic arch angiogram. 3. Intravascular ultrasound of the left subclavian artery. 4. Selective right common femoral artery angiogram and ultrasound-guided access of the right common femoral artery. INDICATIONS: This is a 57-year-old female patient, who was diagnosed recently with severe triple- vessel coronary artery disease and going to undergo open-heart using a ALVAREZ and she was found to have occluded left subclavian. APPROACH: Right common femoral artery. COMPLICATIONS: None. LEVEL OF SEDATION: Moderate, with sedation length of 92 minutes. PROCEDURE DESCRIPTION: After obtaining informed consent, the patient was brought to the cardiac laborer [facility]. The right common femoral artery was cannulated using micropuncture technique. Under ultrasound guidance, the micropuncture wire passed easily. Then, I placed a 6-[place]ah[place] 11 cm sheath at the femoral artery. After that, subsequently, I did an aortic arch angiogram using 6-[place]ah[place]i pigtail catheter. That revealed occluded left subclavian by the ostium. After that, I did exchange my short sheath into long sheath and that was 70 cm sheath using 0.035 stiff Glidewire. After that, I was able to cross the lesion in the left subclavian artery using 0.035 wire, but I felt I was in subintimal space. That was documented using intravascular imaging. After that, I was able to cross again using 0.035 wire and I did intravascular ultrasound again and that showed that I was in the true lumen. I did balloon angioplasty using 5 mm balloon before I deployed 6.0 x 39 mm stent, where the stent was positioned under fluoroscopy. After that, I deployed 6.0 x 39 mm stent, where the stent was positioned under fluoroscopic guidance and deployed under fluoroscopic guidance. Then, I flared the ostium. Final angiogram showed good angiographic results. I did exchange my long sheath into short sheath using 0.035 stiff Glidewire before I did selective right common femoral artery angiogram. The procedure was completed with no complication. POSTPROCEDURE MANAGEMENT: 1. Dual anti-platelet therapy. 2. Risk factor modifications. 3. Follow up with Dr. Cisneros. MMODL / IJN: [id number] /
[2023-08-07] MEDS: ONDANSETRON 4 MG/2 ML VIAL IVP PRN (11:10)
[2023-08-07] MEDS: ALBUTEROL NEBULIZED 2.5 MG/3 ML INHALATION SCH (12:59)
[2023-08-07 13:14] VITALS: BMI 24.1
[2023-08-07 14:18] VITALS: RESP 16
[2023-08-07] MEDS: traMADol 50 MG TAB PO PRN (20:27)
[2023-08-07] MEDS: GABAPENTIN 300 MG CAP PO PRN (20:27)
[2023-08-07] MEDS: INSULIN DETEMIR (LEVEMIR) 100 UNIT/ML SYR SQ SCH (20:27)
[2023-08-08] MEDS: SYMBICORT 160-4.5 MCG INHALER INHALATION SCH (07:33)
[2023-08-08] MEDS: IPRATROPIUM 0.5 MG/2.5 ML NEBU INHALATION SCH (07:43)
[2023-08-08] MEDS: ASPIRIN 81 MG PO SCH (08:47)
[2023-08-08] MEDS: CLOPIDOGREL 75 MG TAB PO SCH (08:48)
[2023-08-08] MEDS: METOPROLOL SUCCINATE (ER) 25 MG TAB.ER.24H PO SCH (08:48)
[2023-08-08] MEDS: ISOSORBIDE MONONITRATE ER 30 MG TAB.ER.24H PO SCH (08:48)
[2023-08-08] MEDS: LOSARTAN 25 MG TAB PO SCH (08:48)
[2023-08-08 09:21] LABS: Basophils % (A) 0 %; Eosinophils # (A) 0.3 k/uL (0-0.7); Eosinophils % (A) 4 %; HGB 11.2 gm/dL (11.4-16.0); Lymphocytes # (A) 3.1 k/uL (1.0-4.8); Lymphocytes % (A) 39 %; MCH 29.2 pg (25.0-35.0); MCHC 33.1 g/dL (31.0-37.0); MCV 88.3 fL (80.0-100.0); Mean Platelet Volume 7.3; Monocytes # (A) 0.3 k/uL (0-1.0); Monocytes % (A) 4 %; Neutrophils # (A) 4.1 k/uL (1.3-7.7); Neutrophils % (A) 51 %; Platelet Count 200 k/uL (150-450); RBC 3.85 m/uL (3.80-5.40); RDW 14.5 % (11.5-15.5); WBC 8.1 k/uL (3.8-10.6)
[2023-08-08 09:22] LABS: African American GFR (CKD) >90 (>60 ml/min/1.73 sqM); Anion Gap 7 mmol/L; Blood Urea Nitrogen 13 mg/dL (7-17); Calcium 8.9 mg/dL (8.4-10.2); Carbon Dioxide 27 mmol/L (22-30); Chloride 105 mmol/L (98-107); Glucose 174 mg/dL (74-99); Non-African American GFR(CKD) >90 (>60 ml/min/1.73 sqM); Potassium 4.2 mmol/L (3.5-5.1); Sodium 139 mmol/L (137-145)
[2023-08-08 11:04] VITALS: BP 106/51; PULSE 96; TEMP 97.4
--- NOTE | 2023-08-09 07:55 | P.DS ---
Providers Attending physician: Tomas Montero Primary care physician: [facility] Course: The patient is a pleasant 57-year-old female patient who underwent successful stenting of the left subclavian with an excellent angiographic results and with no complication from right groin approach. The patient was seen and evaluated the following day. She was completely asymptomatic. The right groin is soft and nontender with no bruises. The left radial pulse was palpable. From a ca rdiovascular standpoint of view, the patient is going to be discharged home on dual antiplatelet therapy and she will be seen by Dr. Pastor in the office. Dr. Aguero is aware and he was updated that the patient will be scheduled to undergo an open heart surgery in the next few weeks after stopping dual antiplatelet therapy for a week. Plan - Discharge Summary Discharge Rx Participant: No New Discharge Prescriptions: New Clopidogrel [Plavix] 75 mg PO DAILY #90 tab Continue traMADol HCL [Ultram] 50 mg PO BID PRN PRN Reason: Pain Metoprolol Succinate (ER) [Toprol XL] 25 mg PO DAILY Gabapentin 600 mg PO TID PRN PRN Reason: neuropathy Insulin Detemir (Levemir) [Levemir] 16 unit SQ HS Vit D3 (Un) 50 mcg PO DAILY Isosorbide Mononitrate ER [Imdur] 30 mg PO DAILY Losartan [Cozaar] 25 mg PO DAILY metFORMIN HCL 1,000 mg PO BID #0 Tirzepatide [Mounjaro] 5 mg SQ PICKETT Evolocumab [Repatha Sureclick] 140 mg SQ Q14D Aspirin [Adult Low Dose Aspirin EC] 81 mg PO DAILY Albuterol Inhaler [Ventolin Hfa Inhaler] 2 puff INHALATION TID Fluticasone/Umeclidin/Vilanter [Trelegy Ellipta 200-62.5-25] 1 puff INHALATION DAILY Discharge Medication List traMADol HCL [Ultram] 50 mg PO BID PRN 05/04/21 [History] Aspirin [Adult Low Dose Aspirin EC] 81 mg PO DAILY 07/05/23 [History] Evolocumab [Repatha Sureclick] 140 mg SQ Q14D 07/05/23 [History] Gabapentin 600 mg PO TID PRN 07/05/23 [History] Insulin Detemir (Levemir) [Levemir] 16 unit SQ HS 07/05/23 [History] Isosorbide Mononitrate ER [Imdur] 30 mg PO DAILY 07/05/23 [History] Metoprolol Succinate (ER) [Toprol XL] 25 mg PO DAILY 07/05/23 [History] Tirzepatide [Mounjaro] 5 mg SQ PICKETT 07/05/23 [History] Vit D3 (Un) 50 mcg PO DAILY 07/05/23 [History] Albuterol Inhaler [Ventolin Hfa Inhaler] 2 puff INHALATION TID 08/05/23 [History] Fluticasone/Umeclidin/Vilanter [Trelegy Ellipta 200-62.5-25] 1 puff INHALATION DAILY 08/05/23 [History] Losartan [Cozaar] 25 mg PO DAILY 08/05/23 [History] Clopidogrel [Plavix] 75 mg PO DAILY #90 tab 08/08/23 [Rx] metFORMIN HCL 1,000 mg PO BID #0 08/08/23 [Rx] Follow up Appointment(s)/Referral(s): Zeke Cisneros MD [STAFF PHYSICIAN] - 08/19/23 2:15 pm Patient Instructions/Handouts: After Radial Heart Catheterization (GEN) Activity/Diet/Wound Care/Special Instructions: *NO LIFTING, PUSHING, OR PULLING ANYTHING OVER 5 POUNDS FOR 5 DAYS *NO DRIVING FOR 3 DAYS *YOU CAN REMOVE YOUR DRESSING TOMORROW BUT DO NOT SUBMERSE YOUR PUNCTURE SITE IN WATER FOR A FEW DAYS TO PREVENT INFECTION - SO NO TUB BATHS, POOLS, HOT TUBS, DISHES...ETC *ANY SIGNS OF BLEEDING (HARDNESS, SWELLING, OR EXCESSIVE BRUISING) HOLD DIRECT PRESSURE ON YOUR PUNCTURE SITE AND COME TO THE NEAREST EMERGENCY ROOM TO GET YOUR PUNCTURE SITE LOOKED AT - DO NOT DRIVE YOURSELF! EITHER CALL EMS OR HAVE SOMEONE DRIVE YOU! Discharge Disposition: HOME SELF-CARE
[2023-08-11] MEDS ORDERED: NON FORMULARY DRUG (Tirzepatide [Mounjaro] 5 MG/0.5 ML Pen.Injctr) SQ SCH (09:00)
[2023-08-21] MEDS ORDERED: NON FORMULARY DRUG (Evolocumab [Repatha Sureclick] 140 MG/ML Each) SQ SCH (09:00)
== END 2023-08-08 11:07 | disposition home or self-care (01) ==
LOC: CATHCVL 05:49 → 3SCARD 09:50 → CATHCVL 08-08 11:07
PROVIDERS: ATTEND Internal Medicine Interventional Cardiology
DX: I25.10 Atherosclerotic heart disease of native coronary artery without angina pectoris (principal); E11.9 Type 2 diabetes mellitus without complications; Z82.49 Family history of ischemic heart disease and other diseases of the circulatory system; I65.23 Occlusion and stenosis of bilateral carotid arteries; I25.5 Ischemic cardiomyopathy; I73.9 Peripheral vascular disease, unspecified; Z79.899 Other long term (current) drug therapy; Z79.82 Long term (current) use of aspirin
CPT/HCPCS: 94640 ×3; 37236; 37252; 80048; 85025; C1769 ×6; C1887 ×2; C1894 ×2; C1725; C1876; C1753; J2250; J2405; J2001; J1644; J1170; Q9967

== ENCOUNTER → 2023-10-03 | Outpatient (CLI) | payer BC ==
[2023-10-03 11:42] LABS: INR 0.9 (<1.2); Partial Thromboplastin Time 25.9 sec (22.0-30.0); Prothrombin Time 9.8 sec (10.0-12.5)
[2023-10-03 15:36] LABS: HCT 40.2 % (37.2-46.3); HGB 12.7 g/dL (12.0-15.0); MCHC 31.6 g/dL (32.0-37.0); MCV 88.7 FL (80.0-97.0); Mean Platelet Volume 10.2 FL (9.5-12.2); NRBC Per 100 WBC 0 X 10*3/uL (0.00-0.01); Platelet Count 264 X 10*3/uL (140-440); RBC 4.53 X 10*6/uL (4.10-5.20); RDW 14.3 % (11.5-14.5)
[2023-10-03 15:38] LABS: Appearance,Urine Clear (Clear); Bilirubin,Urine Negative (Negative); Blood,Urine Negative (Negative); Color,Urine Yellow (Yellow); Ketones,Urine Trace (Negative); Nitrite,Urine Negative (Negative); PH, Urine 5.5; Specific Gravity,Urine 1.025 (1.001-1.030)
[2023-10-03 15:51] LABS: Bacteria,Urine None Seen (None Seen)
[2023-10-03 17:42] LABS: Hepatitis A Antibody IgM Nonreactive (Nonreactive); Hepatitis B Core IgM Nonreactive (Nonreactive); Hepatitis B Surface Antigen Nonreactive (Nonreactive); Hepatitis C IgG Antibody Nonreactive (Nonreactive)
[2023-10-03 17:43] LABS: ALT 16 U/L (8-44); AST 18 U/L (13-35); Albumin 4.5 g/dL (3.8-4.9); Albumin/Globulin Ratio 1.55 Ratio (1.60-3.17); Alkaline Phosphatase 108 U/L (41-126); BUN/Creat Ratio 19.83 Ratio (12.00-20.00); Blood Urea Nitrogen 11.9 mg/dL (9.0-27.0); Calcium 9.8 mg/dL (8.7-10.3); Carbon Dioxide 25.9 mmol/L (21.6-31.8); Chloride 100 mmol/L (96-109); Globulin 2.9 g/dL (1.6-3.3); Glucose 209 mg/dL (70-110); Magnesium 1.8 mg/dL (1.5-2.4); Potassium 4.8 mmol/L (3.5-5.5); Sodium 141 mmol/L (135-145); Total Bilirubin <0.2 mg/dL (0.3-1.2); Total Protein 7.4 g/dL (6.2-8.2)
== END | disposition home or self-care (01) ==
LOC: LABWHC1 10:16
PROVIDERS: ATTEND Surgery
DX: I25.10 Atherosclerotic heart disease of native coronary artery without angina pectoris (principal); I49.8 Other specified cardiac arrhythmias; R94.31 Abnormal electrocardiogram [ECG] [EKG]
CPT/HCPCS: 36415; 80053; 80074; 81001; 83036; 83735; 84443; 85027; 85610; 85730; 86850; 86900; 86901; 86920; 87086; 93005

== ENCOUNTER 2023-10-11 05:37 | Inpatient (IN) | payer BC, MEDICARE ==
--- NOTE | 2023-10-10 15:07 | P.PN ---
Progress Note - Text Progress Note Date: 10/03/23 5 meter walk test was completed 10/03/23: #1 7.35 sec #2 7.10 sec #3 6.84 sec Patient tolerated well. STS risk score calculated and discussed with the patient.
[~2023-10-11 05:37] MED LIST: ALBUMIN HUMAN 25% 50 ML IV ONE; ALBUMIN HUMAN 5% 500 ML IVPB ONE; ASPIRIN 325 MG TAB PO ONE; CALCIUM CHLORIDE 100 MG/ML 10 ML SYRINGE IV ONE; CLEVIDIPINE BUTYRATE 25 MG in EMPTY BAG 1 BAG IV ONE; ELECTROLYTE-A SOLUTION 1,000 ML with POTASSIUM CHLORIDE 100 MEQ, MAGNESIUM SULFATE 16 M... IV ONE; ELECTROLYTE-A SOLUTION 1,000 ML with POTASSIUM CHLORIDE 40 MEQ, MAGNESIUM SULFATE 16 ME... IV ONE; HEPARIN SODIUM 1,000 UN/ML (10ML VL) IV ONE; HEPARIN SODIUM,PORCINE (1 ML) 5,000 UNIT in SODIUM CHLORIDE 0.9% 500 ML 500 ML IV ONE; INSULIN REGULAR 100 UNIT in SODIUM CHLORIDE 0.9% 100 ML IV ONE; LACTATED RINGERS 1,000 ML IV ONE; MAGNESIUM SULFATE 16.24 MEQ in EMPTY SYRINGE 1 SYR IV ONE; MANNITOL 25% 12.5 GM/50 ML VIAL IV ONE; NITROGLYCERIN SL TABS 0.4 MG TAB SUBLINGUAL ONE; NITROGLYCERIN-D5W PMX 25 MG/250 ML BTL IV ONE; NITROGLYCERIN-D5W PMX 50 MG in DEXTROSE/WATER 1 250ML.BAG IV ONE; NOREPINEPHRINE 4 MG in SODIUM CHLORIDE 0.9% 250 ML IV ONE; PAPAVERINE 360 MG in SODIUM CHLORIDE 0.9% 90 ML IV ONE; PHENYLEPHRINE 10 MG/ML VIAL IV ONE; PHENYLEPHRINE 40 MG in SODIUM CHLORIDE 0.9% 250 ML IV ONE; PROTAMINE SULFATE 10 MG/ML 25 ML VIAL IV ONE; PROTAMINE SULFATE 250 MG in EMPTY BAG 1 BAG IV ONE; SODIUM BICARB 8.4% 50 ML SYR (1 MEQ/ML) IV ONE; SODIUM CHLORIDE 0.9% 1,000 ML IV ONE; TRANEXAMIC ACID 2,000 MG in SODIUM CHLORIDE 0.9% 80 ML IV ONE; ceFAZolin 1,000 MG in SODIUM CHLORIDE 0.9% IRRIGATIO 1,000 ML IRRIGATION ONE; propofoL 1,000 MG/100 ML VIAL IV ONE
[2023-10-11 06:14] LABS: Glucose,Whole Blood 237 mg/dL (70-110)
[2023-10-11] MEDS: LACTATED RINGERS 1,000 ML IV ONE (06:17)
[2023-10-11] MEDS: METOPROLOL TARTRATE 12.5 MG TAB PO ONE (06:28)
[2023-10-11] MEDS: ATORVASTATIN 10 MG TAB PO ONE (06:28)
[2023-10-11] MEDS: CHLORHEXIDINE GLUCONATE 15 ML CUP MUCOUS MEM ONE (06:30)
[2023-10-11] MEDS ORDERED: LIDOCAINE 2% SYG (PF) 100 MG/5 ML ONE (07:43)
[2023-10-11] MEDS ORDERED: HEPARIN SODIUM,PORCINE 5,000 UNIT/ML 1 ML VIAL ONE (07:43)
[2023-10-11] MEDS ORDERED: fentaNYL (PF) 50 MCG/ML 50 ML VIAL ONE (07:43)
[2023-10-11] MEDS ORDERED: SUCCINYLCHOLINE CHLORIDE 200 MG/10 ML VIAL IV ONE (07:43)
[2023-10-11] MEDS ORDERED: PROTAMINE SULFATE 10 MG/ML 5 ML VIAL ONE (07:43)
[2023-10-11] MEDS ORDERED: ELECTROLYTE-R (PH 7.4) 1,000 ML IV.SOLN IV ONE (07:43)
[2023-10-11] MEDS ORDERED: SODIUM CHLORIDE 0.9% IRRIG 1,000 ML BTL IRRIGATION ONE (07:43)
[2023-10-11] MEDS ORDERED: TRANEXAMIC 1,000 MG/100ML-NACL PREMIX BAG ONE (07:43)
[2023-10-11] MEDS ORDERED: MIDAZOLAM HCL 10 MG/10 ML VIAL ONE (07:43)
[2023-10-11] MEDS ORDERED: HEPARIN SODIUM,PORCINE 10,000 UNIT/ML 1 ML VIAL ONE (07:43)
[2023-10-11] MEDS ORDERED: VECURONIUM 10 MG VIAL IV ONE (07:43)
[2023-10-11] MEDS ORDERED: ePHEDrine 50 MG/ML 1 ML VIAL ONE (07:43)
[2023-10-11] MEDS ORDERED: PROPOFOL 10 MG/ML 20 ML VIAL IV ONE (07:43)
--- NOTE | 2023-10-11 07:51 | P.ANPRN ---
Procedure Note - Anesthesia - Invasive Line Right Arterial Line Time Out Performed: Yes Date of Procedure: 10/11/23 Time of Procedure: 07:15 Location of Patient: PreOp Preparation: Sterile Prep, Sterile Dressing Arterial Line Location: Radial Ultrasound Used: Yes Purpose - Visualization and Identification of Vasculature: Yes Image Stored and Saved: Yes Narrative: Invasive line placement per sterile protocol utilized.
--- NOTE | 2023-10-11 07:52 | P.ANPRN ---
Procedure Note - Anesthesia - Invasive Line Right Central Line Time Out Performed: Yes Date of Procedure: 10/11/23 Time of Procedure: 07:25 Location of Patient: PreOp Preparation: Sterile Prep, Sterile Dressing Central Line Location: Internal Jugular [place] Ajit Line Location: Internal Jugular Ultrasound Used: Yes Purpose - Visualization and Identification of Vasculature: Yes Image Stored and Saved: Yes (guidwire traced and confirmed in R IJ; Sheath traced and confirmed in R IJ) Narrative: Invasive line placement per sterile protocol utilized.
[2023-10-11 08:31] LABS: ABG Base Excess -0.2 mmol/L; ABG Glucose Whole Blood 195 mg/dL (75-99); ABG HCO3 25 mmol/L (21-25); ABG Hematocrit 33 % (34.0-46.0); ABG Ionized Calcium 4.8 mg/dL (4.5-5.3); ABG Oxygen Saturation 97.5 % (94-97); ABG PCO2 43 mmHg (35-45); ABG PH 7.38 (7.35-7.45); ABG PO2 360 mmHg (83-108); ABG Potassium Whole Blood 4.7 mmol/L (3.4-4.5); ABG Sodium Whole Blood 139 mmol/L (135-146); Allen Test Performed? Yes
[2023-10-11] MEDS: DILTIAZEM 125 MG in SODIUM CHLORIDE 0.9% 100 ML IV SCH ×2 (08:59→15:17)
[2023-10-11] MEDS: SODIUM CHLORIDE 0.9% 500 ML 500 ML with HEPARIN SODIUM,PORCINE (1 ML) 5,000 UNIT IV ONE (08:59)
[2023-10-11] MEDS: PAPAVERINE 360 MG in SODIUM CHLORIDE 0.9% 90 ML IV ONE (09:00)
[2023-10-11] MEDS: ceFAZolin 1,000 MG in SODIUM CHLORIDE 0.9% 1,000 ML IRRIGATION ONE (09:00)
[2023-10-11 09:34] LABS: ABG Base Excess -3.2 mmol/L; ABG Glucose Whole Blood 160 mg/dL (75-99); ABG HCO3 24 mmol/L (21-25); ABG Hematocrit 33 % (34.0-46.0); ABG Ionized Calcium 4.9 mg/dL (4.5-5.3); ABG Lactic Acid Whole Blood 1.9 mmol/L (0.5-1.6); ABG Oxygen Saturation 97.4 % (94-97); ABG PCO2 52 mmHg (35-45); ABG PH 7.28 (7.35-7.45); ABG PO2 222 mmHg (83-108); ABG Potassium Whole Blood 3.7 mmol/L (3.4-4.5); ABG Sodium Whole Blood 141 mmol/L (135-146); Allen Test Performed? Yes
[2023-10-11 11:53] LABS: ABG Base Excess -0.1 mmol/L; ABG Glucose Whole Blood 135 mg/dL (75-99); ABG HCO3 25 mmol/L (21-25); ABG Ionized Calcium 3.9 mg/dL (4.5-5.3); ABG Oxygen Saturation 99.3 % (94-97); ABG PCO2 45 mmHg (35-45); ABG PH 7.36 (7.35-7.45); ABG PO2 316 mmHg (83-108); ABG Potassium Whole Blood 4.2 mmol/L (3.4-4.5); ABG Sodium Whole Blood 141 mmol/L (135-146); Allen Test Performed? Yes
[2023-10-11 11:58] LABS: ABG Lactic Acid Whole Blood 2.3 mmol/L (0.5-1.6)
[2023-10-11 12:09] LABS: ABG Hematocrit 22 % (34.0-46.0); ABG Lactic Acid Whole Blood 2.5 mmol/L (0.5-1.6)
[2023-10-11 12:32] LABS: ABG Base Excess -1.3 mmol/L; ABG Glucose Whole Blood 145 mg/dL (75-99); ABG HCO3 25 mmol/L (21-25); ABG Ionized Calcium 3.9 mg/dL (4.5-5.3); ABG Oxygen Saturation 98.6 % (94-97); ABG PCO2 51 mmHg (35-45); ABG PO2 237 mmHg (83-108); ABG Potassium Whole Blood 4.4 mmol/L (3.4-4.5); ABG Sodium Whole Blood 143 mmol/L (135-146); Allen Test Performed? Yes
[2023-10-11 13:43] LABS: ABG Hematocrit 20 % (34.0-46.0); ABG Lactic Acid Whole Blood 2.4 mmol/L (0.5-1.6)
[2023-10-11] MEDS ORDERED: IPRATROPIUM-ALBUTEROL 3 ML NEB INHALATION PRN (14:58)
[2023-10-11] MEDS ORDERED: Potassium Replacement Protocol 1 EACH MISC MISCELLANE PRN (14:58)
[2023-10-11] MEDS ORDERED: traMADol 50 MG TAB PO PRN (14:58)
[2023-10-11] MEDS ORDERED: hydrALAZINE HCL 20 MG/ML 1 ML VIAL IVP PRN (14:58)
[2023-10-11] MEDS ORDERED: BENZOCAINE/MENTHOL LOZENG 1 EACH LOZENGE MUCOUS MEM PRN (14:58)
[2023-10-11] MEDS ORDERED: DEXTROSE 50% SYRINGE 50 ML IVP PRN ×2 (14:58)
[2023-10-11] MEDS ORDERED: METOCLOPRAMIDE 5 MG/ML 2 ML VIAL IVP PRN (14:58)
[2023-10-11] MEDS ORDERED: Magnesium Replacement Protocol 1 EACH MISC MISCELLANE PRN (14:58)
[2023-10-11] MEDS ORDERED: DEXTROSE 5% IN WATER 100 ML with AMIODARONE 150 MG IV PRN (14:58)
[2023-10-11] MEDS ORDERED: ONDANSETRON 4 MG/2 ML VIAL IVP PRN (14:58)
[2023-10-11 15:01] LABS: Glucose,Whole Blood 110 mg/dL (70-110)
[2023-10-11] MEDS: LACTATED RINGERS 1,000 ML IV SCH (15:13)
[2023-10-11] MEDS: NITROGLYCERIN-D5W PMX 50 MG in DEXTROSE/WATER 1 250ML.BAG IV SCH (15:16)
[2023-10-11 15:20] LABS: INR 1.2 (<1.2); Ionized Calcium 4.2 mg/dL (4.5-5.3); Partial Thromboplastin Time 26.9 sec (22.0-30.0); Prothrombin Time 12.7 sec (10.0-12.5)
[2023-10-11 15:27] LABS: Basophils % (A) 0 %; Eosinophils # (A) 0.1 k/uL (0-0.7); Eosinophils % (A) 1 %; HCT 25.9 % (34.0-46.0); Lymphocytes # (A) 1.3 k/uL (1.0-4.8); Lymphocytes % (A) 24 %; MCH 28.5 pg (25.0-35.0); MCHC 32.6 g/dL (31.0-37.0); MCV 87.5 fL (80.0-100.0); Mean Platelet Volume 7.2; Monocytes # (A) 0.2 k/uL (0-1.0); Monocytes % (A) 4 %; Neutrophils # (A) 3.7 k/uL (1.3-7.7); Neutrophils % (A) 70 %; Platelet Count 101 k/uL (150-450); RBC 2.96 m/uL (3.80-5.40); RDW 14.5 % (11.5-15.5); WBC 5.3 k/uL (3.8-10.6)
[2023-10-11 15:28] LABS: HGB 8.4 gm/dL (11.4-16.0)
[2023-10-11 15:30] LABS: ABG Base Excess -1.5 mmol/L; ABG HCO3 26 mmol/L (21-25); ABG Oxygen Saturation 99.4 % (94-97); ABG PCO2 56 mmHg (35-45); ABG PH 7.26 (7.35-7.45); ABG PO2 >400 mmHg (83-108); ABG TCO2 27 mmol/L (19-24)
[2023-10-11 15:30] LABS: ALT 16 U/L (4-34); AST 46 U/L (14-36); African American GFR (CKD) >90 (>60 ml/min/1.73 sqM); Alkaline Phosphatase 51 U/L (38-126); Anion Gap 3 mmol/L; Blood Urea Nitrogen 12 mg/dL (7-17); Calcium 6.7 mg/dL (8.4-10.2); Carbon Dioxide 25 mmol/L (22-30); Chloride 114 mmol/L (98-107); Glucose 103 mg/dL (74-99); Magnesium 2.6 mg/dL (1.6-2.3); Non-African American GFR(CKD) >90 (>60 ml/min/1.73 sqM); Sodium 142 mmol/L (137-145); Total Bilirubin 0.7 mg/dL (0.2-1.3); Total Protein 4.9 g/dL (6.3-8.2)
[2023-10-11] MEDS ORDERED: AMIODARONE 360 MG in DEXTROSE 5% IN WATER 200 ML IV ONE (15:30)
[2023-10-11 15:32] LABS: Allen Test Performed? no
[2023-10-11 15:35] LABS: Potassium 4.6 mmol/L (3.5-5.1)
--- NOTE | 2023-10-11 15:45 | XR ---
EXAMINATION TYPE: XR chest 1V portable DATE OF EXAM: 10/11/2023 COMPARISON: 07/26/2023 INDICATION: Postop cardiac surgery TECHNIQUE: Single frontal view of the chest is obtained. FINDINGS: The heart size is normal. The pulmonary vasculature is normal. There is increased lung markings in the left lung. Left chest tube is present. Right-sided chest tube is present directed towards the apex. No pneumothorax is present. Endotracheal tube tip is 3.3 cm above the cam. Nasogastric tube transverses the thorax tip at the gastroesophageal junction. This should be advanced 10 to 15 cm for better positioning. There is a right central venous catheter present, tip is in the main pulmonary artery region. Sternot henrik wires are in the midline. Mediastinal tube is present. Epicardial lead is evident. IMPRESSION: 1. Mild diffuse increased lung markings left lung. Correlate for atelectasis. 2. Lines and catheters discussed above. 3. Nasogastric tube should be advanced 10 to 15 cm for better positioning.
[2023-10-11] MEDS: WATER IV ONE (15:52)
[2023-10-11] MEDS: DEXTROSE ISO OSM IV ONE (15:52)
[2023-10-11] MEDS: DEXTROSE IV ONE (15:52)
[2023-10-11] MEDS: AMIODARONE IV ONE (15:52)
[2023-10-11 16:03] LABS: Glucose,Whole Blood 153 mg/dL (70-110)
--- NOTE | 2023-10-11 16:04 | P.CNPUL ---
History of Present Illness Consult date: 10/11/23 Chief complaint: CABG History of present illness: This is a 57-year-old female patient underwent four-vessel bypass surgery and the patient underwent ALAVREZ to diagonal, right radial to LAD, saphenous vein graft to OM and RCA. The patient is currently postop, intubated on mechanical ventilator in the intensive care unit. She is on propofol which is running at 20 mcg/kg/min. She is adequately sedated for now. The patient is on a mechanical ventilator assist-control mode with a tidal volume of 400, rate of 14, FiO2 was 100% with a PEEP of 5. Show a pH of 7.26 with a pCO2 of 56 and pO2 of more than 400. FiO2 was dropped down to 40% and the patient's rate is brought up to 24. She is hemodynamically stable. She is chronic and pulmonary artery pressure of 33/20 and her cardiac output is had 4.4 with an index of 2.4. She is currently on amiodarone drip running at 1 mg/min and she is also on nitroglycerin drip at 5 mcg/min. No other inotropes at this point. Urine output is in order 45 cc an hour. The patient has 2 mediastinal chest tubes, and right in the left lower chest tube. Output from the left lower chest tube is 0. Output from the mediastinal chest tubes is 50 and output from the right pleural chest tube is 0. No evidence of any air leak. Chest x-ray that was done postop showed adequate positioning of the lines and tubes. The NG tube was advanced. No evidence of any pneumothorax. All of the chest tubes are in good location. Blood work showed a hemoglobin of 8.4, normal coagulation profile, BUN 12 with a creatinine of 0.36 and a sodium level of 142, the calcium level was at 6.7 and the patient was given IV calcium. LFTs are normal. Blood sugars are adequate at 145. The patient is currently on sliding scale insulin coverage. Her current temperature is 35.8 and the patient is receiving external warming. In terms of her history, the patient is known to have coronary artery disease. 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 She did have a dry gangrene of the left great toe with secondary sepsis earlier hospitalization that was amputated. She also has had a previous history of left subclavian stenosis requiring stenting. She is a chronic smoker and she is also known to have COPD. Her preoperative LV function was an ejection fraction of 35 to 40%. She did have segmental wall motion abnormalities related to her underlying coronary artery disease. Review of Systems ROS unobtainable: due to endotracheal tube Past Medical History Past Medical History: Coronary Artery Disease (CAD), COPD, Diabetes Mellitus, Hyperlipidemia, Hypertension, Myocardial Infarction (MO), Osteoarthritis (OA) Additional Past Medical History / Comment(s): Peripheral neuropathy, DJD lower back and neck,MO per EKG,lt subclavian blockage,pt states "has blockage in heart,neck, and legs",tendonitis left foot,covid infection 2022 Last Myocardial Infarction Date:: unk History of Any Multi-Drug Resistant Organisms: None Reported Past Surgical History: Heart Catheterization, Orthopedic Surgery, Tubal Ligation Additional Past Surgical History / Comment(s): 2020 left great toe amputation, cataract antonio, stenting left subclavian,rt femoral angiogram Past Anesthesia/Blood Transfusion Reactions: No Reported Reaction Additional Past Anesthesia/Blood Transfusion Reaction / Comment(s): no hx blood transfusion Smoking Status: Former smoker - Past Family History Mother Additional Family Medical History / Comment(s): during childbirth Father Family Medical History: Cancer Additional Family Medical History / Comment(s): throat cancer Family Family Medical History: No Reported History Medications and Allergies Home Medications Medication Instructions Recorded Confirmed Type traMADol HCL [Ultram] 50 mg PO BID PRN 05/04/21 10/11/23 History Aspirin [Adult Low Dose Aspirin EC] 81 mg PO DAILY 07/05/23 10/11/23 History Cholecalciferol [Vitamin D3 (25 50 mcg PO DAILY #0 07/05/23 10/11/23 History Mcg = 1000 Iu)] Evolocumab [Repatha Sureclick] 140 mg SQ Q14D 07/05/23 10/11/23 History Gabapentin 600 mg PO BID 07/05/23 10/11/23 History Insulin Detemir (Levemir) [Levemir] 16 unit SQ HS 07/05/23 10/11/23 History Isosorbide Mononitrate ER [Imdur] 30 mg PO DAILY 07/05/23 10/11/23 History Metoprolol Succinate (ER) [Toprol 25 mg PO DAILY 07/05/23 10/11/23 History XL] Tirzepatide [Mounjaro] 5 mg SQ PICKETT 07/05/23 10/11/23 History Albuterol Inhaler [Ventolin Hfa 2 puff INHALATION BID 08/05/23 10/11/23 History Inhaler] Fluticasone/Umeclidin/Vilanter 1 puff INHALATION DAILY 08/05/23 10/11/23 History [Trelegy Ellipta 200-62.5-25] Losartan [Cozaar] 25 mg PO DAILY 08/05/23 10/11/23 History Clopidogrel [Plavix] 75 mg PO DAILY #90 tab 08/08/23 10/11/23 Rx metFORMIN HCL 1,000 mg PO BID #0 08/08/23 10/11/23 Rx Allergies Allergy/AdvReac Type Severity Reaction Status Date / Time bee venom protein (honey bee) Allergy Swelling Verified 10/08/23 08:25 Pvrpavt-NOQ-TvU Reductase Allergy calfs feel Verified 10/08/23 08:25 Inhibitor heavy and ache Physical Exam Vitals: Vital Signs Temp Pulse Resp BP BP Pulse Ox FiO2 10/11/23 15:32 40 10/11/23 14:54 100 10/11/23 14:53 100 10/11/23 06:15 96.9 F L 99 16 127/69 126/76 98 Intake and Output 10/11/23 10/11/23 10/11/23 06:59 14:59 22:59 Intake Total 200 314 Output Total 1300 Balance 200 -986 Intake: IV 200 4 Blood Product 310 Rc As-1 Unit 310 [id number] Output: Urine 700 Estimated Blood Loss 600 Other: Weight 68.8 kg General appearance the patient is calm and comfortable, no acute respiratory distress, currently sedated intubated on mechanical ventilator. Orogastric and orotracheal tube are both in place. Head exam was generally normal. There was no scleral icterus or corneal arcus. Mucous membranes were moist. Neck was supple and without jugular venous distension, thyromegaly, or carotid bruits. Carotids were easily palpable bilaterally. There was no adenopathy. The patient has a right IJ Con[place]-Ajit catheter in place. Cardiac exam revealed the PMI to be normally situated and sized. The rhythm was regular and no extrasystoles were noted during several minutes of auscultation. The first and second heart sounds were normal and physiologic splitting of the second heart sound was noted. There were no murmurs, rubs, clicks, or gallops. Thoracotomy scar is dry clean and intact and the patient has a right pleural, left pleural and 2 mediastinal chest tubes. Lungs were clear to auscultation and percussion, and with normal diaphragmatic excursion. No wheezes or rales were noted. Abdominal exam revealed normal bowel sounds. The abdomen was soft, non-tender, and without masses, organomegaly, or appreciable enlargement of the abdominal aorta. Examination of the extremities revealed easily palpable radial, femoral and pedal pulses. There was no cyanosis, clubbing or edema. Examination of the skin revealed no evidence of significant rashes, suspicious appearing nevi or other concerning lesions. Neurologically the patient is sedated. Results - Laboratory Findings CBC and BMP: 10/11/23 14:58 10/11/23 14:58 ABG ABG pH 7.26 (7.35-7.45) L 10/11/23 15:28 ABG pCO2 56 mmHg (35-45) H 10/11/23 15:28 ABG pO2 >400 mmHg (83-108) H 10/11/23 15:28 ABG O2 Saturation 99.4 % (94-97) H 10/11/23 15:28 PT/INR, D-dimer PT 12.7 sec (10.0-12.5) H 10/11/23 14:58 INR 1.2 (<1.2) H 10/11/23 14:58 Abnormal lab findings: Abnormal Labs 10/03/23 10/11/23 10/11/23 10:30 06:13 08:32 RBC Hgb Hct Plt Count PT INR ABG pH ABG pCO2 ABG pO2 360 H ABG HCO3 ABG Total CO2 ABG O2 Saturation 97.5 H ABG Hematocrit 33 L ABG Potassium 4.7 H ABG Ionized Calcium ABG Glucose 195 H ABG Lactic Acid 2.3 H* Hemoglobin 10.8 L Chloride Creatinine Glucose POC Glucose (mg/dL) 237 H Calcium Ionized Calcium Lisa Magnesium AST Total Protein Albumin Arterial Blood Potassium 4.7 H Arterial Blood Glucose 195 H Crossmatch See Detail 10/11/23 10/11/23 10/11/23 09:35 11:52 12:32 RBC Hgb Hct Plt Count PT INR ABG pH 7.28 L 7.30 L ABG pCO2 52 H 51 H ABG pO2 222 H 316 H 237 H ABG HCO3 ABG Total CO2 ABG O2 Saturation 97.4 H 99.3 H 98.6 H ABG Hematocrit 33 L 22 L 20 L* ABG Potassium ABG Ionized Calcium 3.9 L 3.9 L ABG Glucose 160 H 135 H 145 H ABG Lactic Acid 1.9 H 2.5 H* 2.4 H* Hemoglobin 10.6 L 7.0 L* 6.6 L* Chloride Creatinine Glucose POC Glucose (mg/dL) Calcium Ionized Calcium Lisa Magnesium AST Total Protein Albumin Arterial Blood Potassium Arterial Blood Glucose 160 H 135 H 145 H Crossmatch 10/11/23 10/11/23 10/11/23 14:58 14:58 14:58 RBC 2.96 L Hgb 8.4 L D Hct 25.9 L Plt Count 101 L PT 12.7 H INR 1.2 H ABG pH ABG pCO2 ABG pO2 ABG HCO3 ABG Total CO2 ABG O2 Saturation ABG Hematocrit ABG Potassium ABG Ionized Calcium ABG Glucose ABG Lactic Acid Hemoglobin Chloride 114 H Creatinine 0.36 L Glucose 103 H POC Glucose (mg/dL) Calcium 6.7 L Ionized Calcium Lisa 4.2 L Magnesium 2.6 H AST 46 H Total Protein 4.9 L Albumin 3.0 L Arterial Blood Potassium Arterial Blood Glucose Crossmatch 10/11/23 15:28 RBC Hgb Hct Plt Count PT INR ABG pH 7.26 L ABG pCO2 56 H ABG pO2 >400 H ABG HCO3 26 H ABG Total CO2 27 H ABG O2 Saturation 99.4 H ABG Hematocrit ABG Potassium ABG Ionized Calcium ABG Glucose ABG Lactic Acid Hemoglobin Chloride Creatinine Glucose POC Glucose (mg/dL) Calcium Ionized Calcium Lisa Magnesium AST Total Protein Albumin Arterial Blood Potassium Arterial Blood Glucose Crossmatch - Diagnostic Findings Chest x-ray: image reviewed Assessment and Plan Plan: Multivessel coronary artery disease and the patient underwent four-vessel bypass surgery, and elective surgery and the patient is currently postop day #0. Intubated on mechanical ventilator. Hemodynamically stable. Currently on nitroglycerin drip. She is also on amiodarone drip. Cardiac rhythm is sinus. Hemodynamically stable. Adequate urine output. The patient has adequate cardiac output and index. Postthoracotomy, currently intubated on mechanical ventilator the patient has a right pleural left pleural and mediastinal chest tubes with minimal output CHF with impaired LV function with a preop left ventricle ejection fraction of 35 to 40% along with segmental wall motion abnormalities. Diabetes mellitus type 2 Diabetic neuropathy Diabetic gangrenous toe with previous amputation of the great toe on the right COPD, maintained on Trelegy Ellipta on outpatient basis Hypertension History of subclavian stenosis, post stenting Degenerative arthritis Previous history of COVID-19 infection back in 2022, recovered Plan Clinically and hemodynamically stable. Chest x-ray was reviewed. Blood gas was reviewed. Necessary ventilator changes were done Will keep the nitroglycerin drip for now Continue amiodarone drip FiO2 has been weaned down to 40% and output from the chest tubes are minimal Anticipate extubation within the next few hours based on the level or progress. Sliding scale insulin coverage Adequate hemodynamics Will follow
[2023-10-11] MEDS: INSULIN REGULAR 100 UNIT in SODIUM CHLORIDE 0.9% 100 ML IV SCH (16:06)
[2023-10-11] MEDS: CALCIUM GLUCONATE IN NACL 1 GM in SALINE 1 100ML.BAG IVPB ONE (16:20)
--- NOTE | 2023-10-11 16:29 | P.ANPRN ---
Procedure Note - Anesthesia - AFSHAN Intraop Pre Bypass AFSHAN Intraop - Anesthesia Indication: CABG x 3 Date of Procedure: 10/11/23 Pre-operative Diagnosis: Coronary Artery Disease, Ischemic Cardiomyopathy Post-operative Diagnosis: Coronary Artery Disease, Ischemic Cardiomyopathy Surgeon: Harry Aguero Left Ventricle: Left Ventricular Hypertrophy with reduced systolic function of 40% Ejection Fraction: Other (40%) Regional Wall Motion Abnormalities: Other (RCA distrubution appeared hypokenetic. LCx was mildly Hypokinetic) Left Ventricle Hypertrophy: Yes R. Ventricle Function: Normal Anatomy: Trileaflet Aortic Stenosis: None Aortic Regurgitation: None Mitral Stenosis: None Mitral Regurgitation: None Tricuspid Stenosis: None Tricuspid Regurgitation: None Pulmonic Stenosis: None Pulmonic Regurgitation: None R. Atrial PFO: No (negative bubble study ) Left Atrium: TED was negative for thrombus L. Atrial Dilation: Yes (moderately dilated ) Aortic Dissection: No Aortic Calcification: Mild Plural Effusion: None - AFSHAN Intraop Post Bypass AFSHAN Intraop Post Bypass Procedure Performed: Myocardial Revascularization Ejection Fraction: Other (Improved 45-50%) Regional Wall Motion Abnormalities: Other (Significantly improved RCA/Posterior and septal wall and lateral wall myocardial contractility) R. Ventricle Function: Normal Aortic Valve: Unchanged Mitral Valve: Unchanged Tricuspid: Unchanged Pulmonic: Unchanged Aortic Dissection: No
[2023-10-11 17:04] LABS: Glucose,Whole Blood 176 mg/dL (70-110)
[2023-10-11] MEDS: IPRATROPIUM-ALBUTEROL 3 ML NEB INHALATION SCH (17:15)
[2023-10-11] MEDS: traMADol 50 MG TAB PO PRN (17:31)
[2023-10-11] MEDS: HEPARIN SODIUM,PORCINE 5,000 UNIT/ML 1 ML VIAL SQ SCH (17:43)
[2023-10-11] MEDS: DEXMEDETOMIDINE/0.9% NACL(PMX) 400 MCG in EMPTY BAG 1 BAG IV SCH (18:04)
--- NOTE | 2023-10-11 18:15 | P.CRDCN ---
History of Present Illness Consult date: 10/11/23 History of present illness: History of Present Illness: The patient is a 57-year-old female who is seen post CABG. She is followed on a regular basis by Dr. Cisneros and underwent cardiac catheterization that revealed a severely impaired low ventricle systolic function and her echocardiogram preoperatively showed an ejection fraction of 35 to 40%. She was also found to have left subclavian stenosis and underwent stenting of that vessel by Dr. Montero. She received a ALVAREZ to the diagonal, right radial to the LAD and SVG to the OM and RCA. The follow-up AFSHAN postoperatively showed an improvement in the systolic function. She is intubated and sedated, on no vasopressors and in sinus mechanism with good urinary output and no significant drainage from her mediastinal or chest tube. She has a history of peripheral neuropathy and diabetes with prior toe amputation. Her current risk factors are positive for hypertension, hyperlipidemia and diabetes mellitus. Medications: As outpatient aspirin, metformin 1 g twice a day, metoprolol succinate 25 mg daily, losartan 25 mg daily, isosorbide mononitrate 30 mg daily, insulin, Repatha, Mounjaro. Review of Systems: Could not be obtained, the patient is intubated and sedated Physical Examination: 57-year-old female, intubated and sedated, [place]-Ajit noted,Blood pressure 121/60, Heart rate 80 Head: Normocephalic. Eyes: Sclerae nonicteric. Neck: Good carotid upstroke, no bruit, no jugular venous distention. [place]-Ajit in place Lungs: Clear to auscultation anteriorly. Heart: Regular rate and rhythm, S1-S2, no S3, no rub. No murmur. Abdomen: Soft , positive bowel sounds no organomegaly. Extremities: No edema, intact distal pulses. Labs: Hemoglobin 8.4, potassium 4.6, BUN 12, creatinine 0.36. Chest x-ray with mild atelectasis but no pneumothorax EKG: Pending Impression: 1. Status post CABG, stable 2. Known history of ischemic cardiomyopathy preoperatively with some improvement coming off pump 3. History of diabetes 4. History of hyperlipidemia on Repatha 5. History of peripheral disease status post stenting of the left subclavian 6. History of hypertension 7. History of neuropathy and amputation of the toe Plan: 1. Continue routine postoperative care 2. Wean and extubate when awake 3. Reinitiate beta-franky if blood pressure stable losartan 4. Reinitiate Plavix and Repatha 5. Depending on her progress further recommendations will be made, thank you for this consult we will follow with you Past Medical History Past Medical History: Coronary Artery Disease (CAD), COPD, Diabetes Mellitus, Hyperlipidemia, Hypertension, Myocardial Infarction (MS), Osteoarthritis (OA) Additional Past Medical History / Comment(s): Peripheral neuropathy, DJD lower back and neck,MS per EKG,lt subclavian blockage,pt states "has blockage in heart,neck, and legs",tendonitis left foot,covid infection 2022 Last Myocardial Infarction Date:: unk History of Any Multi-Drug Resistant Organisms: None Reported Past Surgical History: Heart Catheterization, Orthopedic Surgery, Tubal Ligation Additional Past Surgical History / Comment(s): 2020 left great toe amputation, cataract antonio, stenting left subclavian,rt femoral angiogram Past Anesthesia/Blood Transfusion Reactions: No Reported Reaction Additional Past Anesthesia/Blood Transfusion Reaction / Comment(s): no hx blood transfusion Smoking Status: Former smoker - Past Family History Mother Additional Family Medical History / Comment(s): during childbirth Father Family Medical History: Cancer Additional Family Medical History / Comment(s): throat cancer Family Family Medical History: No Reported History Medications and Allergies Home Medications Medication Instructions Recorded Confirmed Type traMADol HCL [Ultram] 50 mg PO BID PRN 05/04/21 10/11/23 History Aspirin [Adult Low Dose Aspirin EC] 81 mg PO DAILY 07/05/23 10/11/23 History Cholecalciferol [Vitamin D3 (25 50 mcg PO DAILY #0 07/05/23 10/11/23 History Mcg = 1000 Iu)] Evolocumab [Repatha Sureclick] 140 mg SQ Q14D 07/05/23 10/11/23 History Gabapentin 600 mg PO BID 07/05/23 10/11/23 History Insulin Detemir (Levemir) [Levemir] 16 unit SQ HS 07/05/23 10/11/23 History Isosorbide Mononitrate ER [Imdur] 30 mg PO DAILY 07/05/23 10/11/23 History Metoprolol Succinate (ER) [Toprol 25 mg PO DAILY 07/05/23 10/11/23 History XL] Tirzepatide [Mounjaro] 5 mg SQ PICKETT 07/05/23 10/11/23 History Albuterol Inhaler [Ventolin Hfa 2 puff INHALATION BID 08/05/23 10/11/23 History Inhaler] Fluticasone/Umeclidin/Vilanter 1 puff INHALATION DAILY 08/05/23 10/11/23 History [Trelegy Ellipta 200-62.5-25] Losartan [Cozaar] 25 mg PO DAILY 08/05/23 10/11/23 History Clopidogrel [Plavix] 75 mg PO DAILY #90 tab 08/08/23 10/11/23 Rx metFORMIN HCL 1,000 mg PO BID #0 08/08/23 10/11/23 Rx Allergies Allergy/AdvReac Type Severity Reaction Status Date / Time bee venom protein (honey bee) Allergy Swelling Verified 10/08/23 08:25 [id number] Reductase Allergy calfs feel Verified 10/08/23 08:25 Inhibitor heavy and ache Physical Exam Vitals: Vital Signs Temp Pulse Pulse Resp BP BP Pulse Ox 10/11/23 18:00 10/11/23 17:30 90 10/11/23 17:16 88 10/11/23 17:15 88 24 100 10/11/23 17:00 98.1 F 89 24 100 10/11/23 16:45 89 24 100 10/11/23 16:30 98.1 F 88 24 100 10/11/23 16:20 89 24 100 10/11/23 16:10 91 24 100 10/11/23 16:00 97.2 F L 91 24 100 10/11/23 15:50 94 24 100 10/11/23 15:40 93 24 100 10/11/23 15:32 10/11/23 15:30 97.2 F L 91 24 100 10/11/23 15:20 91 24 10/11/23 15:10 92 24 10/11/23 15:00 92 17 100 10/11/23 14:54 10/11/23 14:53 10/11/23 14:50 17 10/11/23 06:15 96.9 F L 99 16 127/69 126/76 98 FiO2 10/11/23 18:00 40 10/11/23 17:30 10/11/23 17:16 10/11/23 17:15 10/11/23 17:00 10/11/23 16:45 10/11/23 16:30 10/11/23 16:20 10/11/23 16:10 10/11/23 16:00 40 10/11/23 15:50 10/11/23 15:40 10/11/23 15:32 40 10/11/23 15:30 40 10/11/23 15:20 10/11/23 15:10 10/11/23 15:00 60 10/11/23 14:54 100 10/11/23 14:53 100 10/11/23 14:50 10/11/23 06:15 Intake and Output 10/11/23 10/11/23 10/11/23 06:59 14:59 22:59 Intake Total 200 314 263.238 Output Total 1300 523 Balance 200 986 -259.762 Intake: IV 200 4 237 Calcium Gluconate in NaCl 100 1 gm In Saline 1 100ml. bag @ 100 mls/hr IVPB ONCE ONE Rx#:[id number] Co/CI 60 Pressure Bags 27 ceFAZolin 2 gm In Sodium 50 Chloride 0.9% 50 ml @ 100 mls/hr IVPB Q8HR [facility] Rx# :[id number] Intake, IV Titration 26.238 Amount Diltiazem 125 mg In 4.5 Sodium Chloride 0.9% 100 ml @ 5 MG/HR 5 mls/hr IV .Q24H [facility] Rx#:[id number] Insulin Regular 100 unit 1.717 In Sodium Chloride 0.9% 100 ml @ Per Protocol IV .Q0M [facility] Rx#:[id number] propofoL 1,000 mg In 20.021 Empty Bag 1 bag @ Titrate IV .Q0M [facility] Rx#: [id number] Blood Product 310 Rc As-1 Unit 310 [id number] Output: Chest Tube Drainage 128 Chest Tube Left 9 Mediastinal Chest Tube x2 119 Urine 700 395 Estimated Blood Loss 600 Other: Weight 68.8 kg ABP, PAP, CO, CI - Last 8 Hours Arterial Blood Pressure 121/67 Arterial Blood Pressure 126/63 Arterial Blood Pressure 120/66 Arterial Blood Pressure 109/60 Arterial Blood Pressure 110/61 Arterial Blood Pressure 113/64 Arterial Blood Pressure 101/58 Arterial Blood Pressure 95/53 Arterial Blood Pressure 99/55 Arterial Blood Pressure 100/55 Arterial Blood Pressure 107/58 Pulmonary Artery Pressure 36/22 Pulmonary Artery Pressure 36/22 Pulmonary Artery Pressure 36/22 Pulmonary Artery Pressure 34/21 Pulmonary Artery Pressure 34/21 Pulmonary Artery Pressure 32/21 Pulmonary Artery Pressure 32/20 Pulmonary Artery Pressure 32/20 Pulmonary Artery Pressure 35/23 Pulmonary Artery Pressure 32/22 Pulmonary Artery Pressure 35/20 Pulmonary Artery Pressure 38/22 Pulmonary Artery Pressure 35/13 Cardiac Output 3.4 Cardiac Output 3.4 Cardiac Output 3.4 Cardiac Output 4.1 Cardiac Output 3.7 Cardiac Index 2 Cardiac Index 2 Cardiac Index 2.0 Cardiac Index 2.4 Cardiac Index 2.2 Results 10/11/23 14:58 10/11/23 14:58 Cardiac Enzymes 10/11/23 Range/Units 14:58 AST 46 H (14-36) U/L Coagulation 10/11/23 Range/Units 14:58 PT 12.7 H (10.0-12.5) sec APTT 26.9 (22.0-30.0) sec CBC 10/11/23 Range/Units 14:58 WBC 5.3 (3.8-10.6) k/uL RBC 2.96 L (3.80-5.40) m/uL Hgb 8.4 L D (11.4-16.0) gm/dL Hct 25.9 L (34.0-46.0) % Plt Count 101 L (150-450) k/uL Comprehensive Metabolic Panel 10/11/23 Range/Units 14:58 Sodium 142 (137-145) mmol/L Potassium 4.6 (3.5-5.1) mmol/L Chloride 114 H (98-107) mmol/L Carbon Dioxide 25 (22-30) mmol/L BUN 12 (7-17) mg/dL Creatinine 0.36 L (0.52-1.04) mg/dL Glucose 103 H (74-99) mg/dL Calcium 6.7 L (8.4-10.2) mg/dL AST 46 H (14-36) U/L ALT 16 (4-34) U/L Alkaline Phosphatase 51 (38-126) U/L Total Protein 4.9 L (6.3-8.2) g/dL Albumin 3.0 L (3.5-5.0) g/dL Current Medications Generic Name Dose Route Start Last Admin Trade Name Freq PRN Reason Stop Dose Admin Albuterol/Ipratropium 3 ml 10/11/23 14:58 Ipratropium-Albuterol 3 Ml Neb INHALATION RT-Q2H PRN Shortness Of Breath Or Wheezing Albuterol/Ipratropium 3 ml 10/11/23 16:00 10/11/23 17:15 Ipratropium-Albuterol 3 Ml Neb INHALATION 10/11/23 20:48 3 ml RT-Q4H [facility] Administration Albuterol/Ipratropium 3 ml 10/12/23 08:00 Ipratropium-Albuterol 3 Ml Neb INHALATION RT-QID [facility] Aspirin 325 mg 10/12/23 09:00 Aspirin 325 Mg Tab PO DAILY [facility] Atorvastatin Calcium 20 mg 10/12/23 21:00 Atorvastatin 40 Mg Tab PO HS [facility] Benzocaine/Menthol 1 each 10/11/23 14:58 Benzocaine/Menthol Lozeng 1 Each Lozenge MUCOUS MEM Q2H PRN Sore Throat Bisacodyl 10 mg 10/12/23 09:00 Bisacodyl 10 Mg Supp RECTAL DAILY PRN Constipation Budesonide/Formoterol Fumarate 2 puff 10/12/23 08:00 Symbicort 160-4.5 Mcg Inhaler INHALATION RT-BID [facility] Cholecalciferol 50 mcg 10/12/23 09:00 Cholecalciferol 25 Mcg (1000 Iu) Tablet PO DAILY [facility] Clopidogrel Bisulfate 75 mg 10/12/23 09:00 Clopidogrel 75 Mg Tab PO DAILY [facility] Dextrose/Water 25 ml 10/11/23 14:58 Dextrose 50% Syringe 50 Ml IVP PER PROTOCOL PRN Hypoglycemia Protocol Dextrose/Water 50 ml 10/11/23 14:58 Dextrose 50% Syringe 50 Ml IVP PER PROTOCOL PRN Hypoglycemia Protocol Heparin Sodium (Porcine) 5,000 unit 10/11/23 16:00 10/11/23 17:43 Heparin Sodium,Porcine 5,000 Unit/Ml 1 Ml Vial SQ Not Given Q8HR [facility] Hydralazine HCl 10 mg 10/11/23 14:58 Hydralazine Hcl 20 Mg/Ml 1 Ml Vial IVP Q1H PRN Blood Pressure - High Amiodarone HCl 450 mg/ 250 mls @ 16.667 mls/hr 10/11/23 21:30 Dextrose/Water IV 10/12/23 15:29 .Q15H [facility] Protocol 0.5 MG/MIN Amiodarone HCl 150 mg/ 103 mls @ 618 mls/hr 10/11/23 14:58 Dextrose/Water IV .Q10M PRN A.FIB/FLUTTER Albumin Human 250 ml/ IV 250 mls @ 250 mls/hr 10/11/23 14:58 Solution IVPB 10/13/23 14:59 Q1HR PRN For Volume Protocol Acetaminophen 1,000 mg/ IV 100 mls @ 400 mls/hr 10/11/23 18:00 Solution IVPB 10/12/23 00:14 Q6HR [facility] Clevidipine 25 mg/ IV Solution 50 mls @ 2 mls/hr 10/11/23 14:58 IV .Q24H [facility] Protocol 1 MG/HR Nitroglycerin/Dextrose 50 mg/ 250 mls @ 1.5 mls/hr 10/11/23 14:58 10/11/23 15:16 IV Solution IV 5 mcg/min .Q24H [facility] 1.5 mls/hr Administration 5 MCG/MIN Lactated Ringer's 1,000 mls @ 50 mls/hr 10/11/23 14:58 10/11/23 15:13 Lactated Ringers IV 50 mls/hr .Q20H [facility] Administration Propofol 1,000 mg/ IV Solution 100 mls @ 0 mls/hr 10/11/23 14:58 10/11/23 18:00 IV 0 mcg/kg/min .Q0M [facility] 0 mls/hr Titration Protocol Titrate Dexmedetomidine HCl 400 mcg/ 100 mls @ 0 mls/hr 10/11/23 14:58 10/11/23 18:04 IV Solution IV 10/12/23 14:59 0.2 mcg/kg/hr .Q0M [facility] 3.44 mls/hr Administration Protocol Titrate Cefazolin Sodium 2 gm/ Sodium 50 mls @ 100 mls/hr 10/11/23 16:00 10/11/23 16:13 Chloride IVPB 10/12/23 08:29 100 mls/hr Q8HR [facility] Administration Protocol Insulin Human Regular 100 unit 101 mls @ 0 mls/hr 10/11/23 15:30 10/11/23 17:14 / Sodium Chloride IV 2.5 units/hr .Q0M [facility] 2.525 mls/hr Titration Protocol Per Protocol AMIODARONE IN DEXTROSE,ISO-OSM 200 mls @ 33.333 mls/hr 10/11/23 15:30 10/11/23 15:52 360 mg/ IV Solution IV 10/11/23 21:29 1 mg/min .Q6H ONE 33.333 mls/hr Administration Protocol 1 MG/MIN Magnesium Hydroxide 2,400 mg 10/12/23 09:00 Magnesium Hydroxide 2,400 Mg/30 Ml Cup PO BID PRN Constipation Metoclopramide HCl 10 mg 10/11/23 14:58 Metoclopramide 5 Mg/Ml 2 Ml Vial IVP Q4H PRN Nausea And Vomiting Metoprolol Tartrate 12.5 mg 10/12/23 09:00 Metoprolol Tartrate 12.5 Mg Tab PO BID [facility] Miscellaneous Information 1 each 10/11/23 14:58 Potassium Replacement Protocol 1 Each Misc MISCELLANE DAILY PRN Per Protocol Protocol Miscellaneous Information 1 each 10/11/23 14:58 Magnesium Replacement Protocol 1 Each Misc MISCELLANE DAILY PRN Per Protocol Protocol Non-Formulary Medication 140 mg 10/12/23 09:00 Evolocumab [Repatha Sureclick] SQ Q14D [facility] Ondansetron HCl 4 mg 10/11/23 14:58 Ondansetron 4 Mg/2 Ml Vial IVP Q6HR PRN Nausea And Vomiting Pantoprazole Sodium 40 mg 10/12/23 09:00 Pantoprazole 40 Mg/10 Ml Vial IVP DAILY [facility] Senna/Docusate Sodium 2 each 10/12/23 21:00 Sennosides-Docusate Sodium 1 Each Tab PO HS [facility] Sodium Chloride 10 ml 10/11/23 21:00 Sodium Chloride 0.9% Flush 10 Ml Syringe IV BID [facility] Tramadol HCl 50 mg 10/11/23 14:58 Tramadol 50 Mg Tab PO Q4HR PRN Moderate Pain (Scale 4 to 6) Tramadol HCl 100 mg 10/11/23 14:58 10/11/23 17:31 Tramadol 50 Mg Tab PO 100 mg QID PRN Administration Severe Pain (Scale 7 to 10) Intake and Output 10/11/23 10/11/23 10/11/23 06:59 14:59 22:59 Intake Total 200 314 263.238 Output Total 1300 523 Balance 200 -986 -259.762 Intake: IV 200 4 237 Calcium Gluconate in NaCl 100 1 gm In Saline 1 100ml. bag @ 100 mls/hr IVPB ONCE ONE Rx#:[id number] Co/CI 60 Pressure Bags 27 ceFAZolin 2 gm In Sodium 50 Chloride 0.9% 50 ml @ 100 mls/hr IVPB Q8HR [facility] Rx# :[id number] Intake, IV Titration 26.238 Amount Diltiazem 125 mg In 4.5 Sodium Chloride 0.9% 100 ml @ 5 MG/HR 5 mls/hr IV .Q24H [facility] Rx#:[id number] Insulin Regular 100 unit 1.717 In Sodium Chloride 0.9% 100 ml @ Per Protocol IV .Q0M [facility] Rx#:[id number] propofoL 1,000 mg In 20.021 Empty Bag 1 bag @ Titrate IV .Q0M [facility] Rx#: [id number] Blood Product 310 Rc As-1 Unit 310 [id number] Output: Chest Tube Drainage 128 Chest Tube Left 9 Mediastinal Chest Tube x2 119 Urine 700 395 Estimated Blood Loss 600 Other: Weight 68.8 kg 10/11/23 14:58 10/11/23 14:58
[2023-10-11 18:19] LABS: Glucose,Whole Blood 232 mg/dL (70-110)
[2023-10-11 18:30] LABS: Basophils % (A) 0 %; Eosinophils # (A) 0.1 k/uL (0-0.7); Eosinophils % (A) 1 %; HCT 29.6 % (34.0-46.0); HGB 9.6 gm/dL (11.4-16.0); Lymphocytes # (A) 1.2 k/uL (1.0-4.8); Lymphocytes % (A) 15 %; MCH 29.1 pg (25.0-35.0); MCHC 32.4 g/dL (31.0-37.0); MCV 89.8 fL (80.0-100.0); Mean Platelet Volume 8.4; Monocytes # (A) 0.3 k/uL (0-1.0); Monocytes % (A) 4 %; Neutrophils # (A) 6.1 k/uL (1.3-7.7); Neutrophils % (A) 79 %; Platelet Count 118 k/uL (150-450); RBC 3.29 m/uL (3.80-5.40); RDW 14.7 % (11.5-15.5); WBC 7.7 k/uL (3.8-10.6)
--- NOTE | 2023-10-11 18:34 | P.CONS ---
History of Present Illness - Reason for Consult Consult date: 10/11/23 Medical management Requesting physician: Harry Aguero - Chief Complaint Coronary bypass - History of Present Illness This is a 57-year-old patient, follows with Dr. Dewitt. Chronic medical conditions include COPD, diabetes, hyperlipidemia, hypertension, osteoarthritis, peripheral neuropathy, subclavian blockage, prior COVID infection in 2022 left great toe amputation. August 07, 2023: Underwent cardiac catheterization by Dr. Montero. Underwent stenting of occluded subclavian with stent. Also has known severe triple-vessel coronary artery disease. Today patient underwent coronary bypass. Four-vessel. LA clip. Postprocedure in the ICU. Intubated. FiO2 40 and PEEP of 5. Patient has 3 mediastinal 1 left and 1 right chest tube. Drips include Precedex 0.4 mics, IV amiodarone, insulin drip at 2.5. Units an hour. Patient sedated Review of systems: Patient intubated Social history: Patient stopped smoking in 2020. . Physical examination: VITAL SIGNS: 98.1, 89, 24, 121 x 67, 100% on ventilator GENERAL: BMI 26, laying in bed intubated. EYES: Pupils equal. Conjunctiva tamika l. HEENT: External appearance of nose and ears normal, oral cavity grossly normal. Endotracheal tube NECK: JVD unable to assess; masses not palpable. HEART: First and second heart sounds are normal; no edema. LUNGS: Respiratory rate increased, decreased breath sounds. ABDOMEN: Soft, nontender, liver spleen not palpable, no masses palpable. The catheter PSYCH: Unable to assess l. MUSCULOSKELETAL:No Clubbing/cyanosis;muscles-grossly intact NEUROLOGICAL: Cranial nerves grossly intact; no facial asymmetry, power and sensation grossly intact. LYMPHATICS: No lymph nodes palpable in the axilla and neck INVESTIGATIONS, reviewed in the clinical context: October 11, 2023: White count 5.3 hemoglobin 8.4 platelets 101 sodium 142 potassium 4.6 BUN 12 creatinine 0.36 albumin 3.0 October 03, 2023: White count 6.7 hemoglobin 12.7 platelets 264 sodium 141 po tassium 4.8 creatinine 0.6 Chest x-ray film personally reviewed by me-no infiltrate. ET tube. Telemetry: Sinus rhythm Assessment plan: -Four-vessel coronary bypass. Left atrial clip. By Dr. Harry Aguero -Acute postprocedure blood loss anemia expected from surgery Hemoglobin down to 8.4 -Dilutional thrombocytopenia Follow platelets -Diabetes mellitus type 2, chronically on insulin Currently on insulin drip. Switch to oral hypoglycemic when patient able to tolerate diet -COPD in a previous smoker DuoNeb. Symbicort. -Essential hypertension Follow blood pressure closely. Lopressor 12.5 twice daily. -Hyperlipidemia On Repatha -Primary osteoarthritis Pain medications as needed -Peripheral neuropathy likely secondary to diabetes Neurontin No family at the bedside. Thank you Dr. Aguero Past Medical History Past Medical History: Coronary Artery Disease (CAD), COPD, Diabetes Mellitus, Hyperlipidemia, Hypertension, Myocardial Infarction (TX), Osteoarthritis (OA) Additional Past Medical History / Comment(s): Peripheral neuropathy, DJD lower back and neck,TX per EKG,lt subclavian blockage,pt states "has blockage in heart,neck, and legs",tendonitis left foot,covid infection 2022 Last Myocardial Infarction Date:: unk History of Any Multi-Drug Resistant Organisms: None Reported Past Surgical History: Heart Catheterization, Orthopedic Surgery, Tubal Ligation Additional Past Surgical History / Comment(s): 2020 left great toe amputation, cataract antonio, stenting left subclavian,rt femoral angiogram Past Anesthesia/Blood Transfusion Reactions: No Reported Reaction Additional Past Anesthesia/Blood Transfusion Reaction / Comm: no hx blood transfusion Smoking Status: Former smoker - Past Family History Mother Additional Family Medical History / Comment(s): during childbirth Father Family Medical History: Cancer Additional Family Medical History / Comment(s): throat cancer Family Family Medical History: No Reported History Medications and Allergies Home Medications Medication Instructions Recorded Confirmed Type traMADol HCL [Ultram] 50 mg PO BID PRN 05/04/21 10/11/23 History Aspirin [Adult Low Dose Aspirin EC] 81 mg PO DAILY 07/05/23 10/11/23 History Cholecalciferol [Vitamin D3 (25 50 mcg PO DAILY #0 07/05/23 10/11/23 History Mcg = 1000 Iu)] Evolocumab [Repatha Sureclick] 140 mg SQ Q14D 07/05/23 10/11/23 History Gabapentin 600 mg PO BID 07/05/23 10/11/23 History Insulin Detemir (Levemir) [Levemir] 16 unit SQ HS 07/05/23 10/11/23 History Isosorbide Mononitrate ER [Imdur] 30 mg PO DAILY 07/05/23 10/11/23 History Metoprolol Succinate (ER) [Toprol 25 mg PO DAILY 07/05/23 10/11/23 History XL] Tirzepatide [Mounjaro] 5 mg SQ PICKETT 07/05/23 10/11/23 History Albuterol Inhaler [Ventolin Hfa 2 puff INHALATION BID 08/05/23 10/11/23 History Inhaler] Fluticasone/Umeclidin/Vilanter 1 puff INHALATION DAILY 08/05/23 10/11/23 History [Tarunlelien Ellipta 200-62.5-25] Losartan [Cozaar] 25 mg PO DAILY 08/05/23 10/11/23 History Clopidogrel [Plavix] 75 mg PO DAILY #90 tab 08/08/23 10/11/23 Rx metFORMIN HCL 1,000 mg PO BID #0 08/08/23 10/11/23 Rx Allergies Allergy/AdvReac Type Severity Reaction Status Date / Time bee venom protein (honey bee) Allergy Swelling Verified 10/08/23 08:25 [id number]-HkU Reductase Allergy calfs feel Verified 10/08/23 08:25 Inhibitor heavy and ache Physical Exam Vitals: Vital Signs Temp Pulse Pulse Resp BP BP Pulse Ox 10/11/23 18:00 10/11/23 17:30 90 10/11/23 17:16 88 10/11/23 17:15 88 24 100 10/11/23 17:00 98.1 F 89 24 100 10/11/23 16:45 89 24 100 10/11/23 16:30 98.1 F 88 24 100 10/11/23 16:20 89 24 100 10/11/23 16:10 91 24 100 10/11/23 16:00 97.2 F L 91 24 100 10/11/23 15:50 94 24 100 10/11/23 15:40 93 24 100 10/11/23 15:32 10/11/23 15:30 97.2 F L 91 24 100 10/11/23 15:20 91 24 10/11/23 15:10 92 24 10/11/23 15:00 92 17 100 10/11/23 14:54 10/11/23 14:53 10/11/23 14:50 17 10/11/23 06:15 96.9 F L 99 16 127/69 126/76 98 FiO2 10/11/23 18:00 40 10/11/23 17:30 10/11/23 17:16 10/11/23 17:15 10/11/23 17:00 10/11/23 16:45 10/11/23 16:30 10/11/23 16:20 10/11/23 16:10 10/11/23 16:00 40 10/11/23 15:50 10/11/23 15:40 10/11/23 15:32 40 10/11/23 15:30 40 10/11/23 15:20 10/11/23 15:10 10/11/23 15:00 60 10/11/23 14:54 100 10/11/23 14:53 100 10/11/23 14:50 10/11/23 06:15 Intake and Output 10/11/23 10/11/23 10/11/23 06:59 14:59 22:59 Intake Total 200 314 263.639 Output Total 1300 523 Balance 200 -986 -259.361 Intake: IV 200 4 237 Calcium Gluconate in NaCl 100 1 gm In Saline 1 100ml. bag @ 100 mls/hr IVPB ONCE ONE Rx#:[id number] Co/CI 60 Pressure Bags 27 ceFAZolin 2 gm In Sodium 50 Chloride 0.9% 50 ml @ 100 mls/hr IVPB Q8HR BETSY Rx# :[id number] Intake, IV Titration 26.639 Amount Dexmedetomidine/0.9% NaCl 0.401 (Pmx) 400 mcg In Empty Bag 1 bag @ Titrate IV . Q0M BETSY Rx#:[id number] Diltiazem 125 mg In 4.5 Sodium Chloride 0.9% 100 ml @ 5 MG/HR 5 mls/hr IV .Q24H BETSY Rx#:[id number] Insulin Regular 100 unit 1.717 In Sodium Chloride 0.9% 100 ml @ Per Protocol IV .Q0M BETSY Rx#:[id number] propofoL 1,000 mg In 20.021 Empty Bag 1 bag @ Titrate IV .Q0M BETSY Rx#: [id number] Blood Product 310 Rc As-1 Unit 310 [id number] Output: Chest Tube Drainage 128 Chest Tube Left 9 Mediastinal Chest Tube x2 119 Urine 700 395 Estimated Blood Loss 600 Other: Weight 68.8 kg ABP, PAP, CO, CI - Last 8 Hours Arterial Blood Pressure 121/67 Arterial Blood Pressure 126/63 Arterial Blood Pressure 120/66 Arterial Blood Pressure 109/60 Arterial Blood Pressure 110/61 Arterial Blood Pressure 113/64 Arterial Blood Pressure 101/58 Arterial Blood Pressure 95/53 Arterial Blood Pressure 99/55 Arterial Blood Pressure 100/55 Arterial Blood Pressure 107/58 Pulmonary Artery Pressure 36/22 Pulmonary Artery Pressure 36/22 Pulmonary Artery Pressure 36/22 Pulmonary Artery Pressure 34/21 Pulmonary Artery Pressure 34/21 Pulmonary Artery Pressure 32/21 Pulmonary Artery Pressure 32/20 Pulmonary Artery Pressure 32/20 Pulmonary Artery Pressure 35/23 Pulmonary Artery Pressure 32/22 Pulmonary Artery Pressure 35/20 Pulmonary Artery Pressure 38/22 Pulmonary Artery Pressure 35/13 Cardiac Output 3.4 Cardiac Output 3.4 Cardiac Output 3.4 Cardiac Output 4.1 Cardiac Output 3.7 Cardiac Index 2 Cardiac Index 2 Cardiac Index 2.0 Cardiac Index 2.4 Cardiac Index 2.2 Results CBC & Chem 7: 10/11/23 14:58 10/11/23 14:58 Labs: Abnormal Lab Results - Last 24 Hours (Table) 10/03/23 10/11/23 10/11/23 Range/Units 10:30 06:13 08:32 RBC (3.80-5.40) m/uL Hgb (11.4-16.0) gm/dL Hct (34.0-46.0) % Plt Count (150-450) k/uL PT (10.0-12.5) sec INR (<1.2) ABG pH (7.35-7.45) ABG pCO2 (35-45) mmHg ABG pO2 360 H (83-108) mmHg ABG HCO3 (21-25) mmol/L ABG Total CO2 (19-24) mmol/L ABG O2 Saturation 97.5 H (94-97) % ABG Hematocrit 33 L (34.0-46.0) % ABG Potassium 4.7 H (3.4-4.5) mmol/L ABG Ionized Calcium (4.5-5.3) mg/dL ABG Glucose 195 H (75-99) mg/dL ABG Lactic Acid 2.3 H* (0.5-1.6) mmol/L Hemoglobin 10.8 L (11.4-16.0) gm/dL Chloride (98-107) mmol/L Creatinine (0.52-1.04) mg/dL Glucose (74-99) mg/dL POC Glucose (mg/dL) 237 H (70-110) mg/dL Calcium (8.4-10.2) mg/dL Ionized Calcium Lisa (4.5-5.3) mg/dL Magnesium (1.6-2.3) mg/dL AST (14-36) U/L Total Protein (6.3-8.2) g/dL Albumin (3.5-5.0) g/dL Arterial Blood Potassium 4.7 H (3.4-4.5) mmol/L Arterial Blood Glucose 195 H (75-99) mg/dL Crossmatch See Detail 10/11/23 10/11/23 10/11/23 Range/Units 09:35 11:52 12:32 RBC (3.80-5.40) m/uL Hgb (11.4-16.0) gm/dL Hct (34.0-46.0) % Plt Count (150-450) k/uL PT (10.0-12.5) sec INR (<1.2) ABG pH 7.28 L 7.30 L (7.35-7.45) ABG pCO2 52 H 51 H (35-45) mmHg ABG pO2 222 H 316 H 237 H (83-108) mmHg ABG HCO3 (21-25) mmol/L ABG Total CO2 (19-24) mmol/L ABG O2 Saturation 97.4 H 99.3 H 98.6 H (94-97) % ABG Hematocrit 33 L 22 L 20 L* (34.0-46.0) % ABG Potassium (3.4-4.5) mmol/L ABG Ionized Calcium 3.9 L 3.9 L (4.5-5.3) mg/dL ABG Glucose 160 H 135 H 145 H (75-99) mg/dL ABG Lactic Acid 1.9 H 2.5 H* 2.4 H* (0.5-1.6) mmol/L Hemoglobin 10.6 L 7.0 L* 6.6 L* (11.4-16.0) gm/dL Chloride (98-107) mmol/L Creatinine (0.52-1.04) mg/dL Glucose (74-99) mg/dL POC Glucose (mg/dL) (70-110) mg/dL Calcium (8.4-10.2) mg/dL Ionized Calcium Lisa (4.5-5.3) mg/dL Magnesium (1.6-2.3) mg/dL AST (14-36) U/L Total Protein (6.3-8.2) g/dL Albumin (3.5-5.0) g/dL Arterial Blood Potassium (3.4-4.5) mmol/L Arterial Blood Glucose 160 H 135 H 145 H (75-99) mg/dL Crossmatch 10/11/23 10/11/23 10/11/23 Range/Units 14:58 14:58 14:58 RBC 2.96 L (3.80-5.40) m/uL Hgb 8.4 L D (11.4-16.0) gm/dL Hct 25.9 L (34.0-46.0) % Plt Count 101 L (150-450) k/uL PT 12.7 H (10.0-12.5) sec INR 1.2 H (<1.2) ABG pH (7.35-7.45) ABG pCO2 (35-45) mmHg ABG pO2 (83-108) mmHg ABG HCO3 (21-25) mmol/L ABG Total CO2 (19-24) mmol/L ABG O2 Saturation (94-97) % ABG Hematocrit (34.0-46.0) % ABG Potassium (3.4-4.5) mmol/L ABG Ionized Calcium (4.5-5.3) mg/dL ABG Glucose (75-99) mg/dL ABG Lactic Acid (0.5-1.6) mmol/L Hemoglobin (11.4-16.0) gm/dL Chloride 114 H (98-107) mmol/L Creatinine 0.36 L (0.52-1.04) mg/dL Glucose 103 H (74-99) mg/dL POC Glucose (mg/dL) (70-110) mg/dL Calcium 6.7 L (8.4-10.2) mg/dL Ionized Calcium Lisa 4.2 L (4.5-5.3) mg/dL Magnesium 2.6 H (1.6-2.3) mg/dL AST 46 H (14-36) U/L Total Protein 4.9 L (6.3-8.2) g/dL Albumin 3.0 L (3.5-5.0) g/dL Arterial Blood Potassium (3.4-4.5) mmol/L Arterial Blood Glucose (75-99) mg/dL Crossmatch 10/11/23 10/11/23 10/11/23 Range/Units 15:28 16:02 17:02 RBC (3.80-5.40) m/uL Hgb (11.4-16.0) gm/dL Hct (34.0-46.0) % Plt Count (150-450) k/uL PT (10.0-12.5) sec INR (<1.2) ABG pH 7.26 L (7.35-7.45) ABG pCO2 56 H (35-45) mmHg ABG pO2 >400 H (83-108) mmHg ABG HCO3 26 H (21-25) mmol/L ABG Total CO2 27 H (19-24) mmol/L ABG O2 Saturation 99.4 H (94-97) % ABG Hematocrit (34.0-46.0) % ABG Potassium (3.4-4.5) mmol/L ABG Ionized Calcium (4.5-5.3) mg/dL ABG Glucose (75-99) mg/dL ABG Lactic Acid (0.5-1.6) mmol/L Hemoglobin (11.4-16.0) gm/dL Chloride (98-107) mmol/L Creatinine (0.52-1.04) mg/dL Glucose (74-99) mg/dL POC Glucose (mg/dL) 153 H 176 H (70-110) mg/dL Calcium (8.4-10.2) mg/dL Ionized Calcium Lisa (4.5-5.3) mg/dL Magnesium (1.6-2.3) mg/dL AST (14-36) U/L Total Protein (6.3-8.2) g/dL Albumin (3.5-5.0) g/dL Arterial Blood Potassium (3.4-4.5) mmol/L Arterial Blood Glucose (75-99) mg/dL Crossmatch 10/11/23 Range/Units 18:09 RBC (3.80-5.40) m/uL Hgb (11.4-16.0) gm/dL Hct (34.0-46.0) % Plt Count (150-450) k/uL PT (10.0-12.5) sec INR (<1.2) ABG pH (7.35-7.45) ABG pCO2 (35-45) mmHg ABG pO2 (83-108) mmHg ABG HCO3 (21-25) mmol/L ABG Total CO2 (19-24) mmol/L ABG O2 Saturation (94-97) % ABG Hematocrit (34.0-46.0) % ABG Potassium (3.4-4.5) mmol/L ABG Ionized Calcium (4.5-5.3) mg/dL ABG Glucose (75-99) mg/dL ABG Lactic Acid (0.5-1.6) mmol/L Hemoglobin (11.4-16.0) gm/dL Chloride (98-107) mmol/L Creatinine (0.52-1.04) mg/dL Glucose (74-99) mg/dL POC Glucose (mg/dL) 232 H (70-110) mg/dL Calcium (8.4-10.2) mg/dL Ionized Calcium Lisa (4.5-5.3) mg/dL Magnesium (1.6-2.3) mg/dL AST (14-36) U/L Total Protein (6.3-8.2) g/dL Albumin (3.5-5.0) g/dL Arterial Blood Potassium (3.4-4.5) mmol/L Arterial Blood Glucose (75-99) mg/dL Crossmatch
[2023-10-11 18:37] LABS: ABG Base Excess -3.6 mmol/L; ABG HCO3 23 mmol/L (21-25); ABG Oxygen Saturation 97.9 % (94-97); ABG PCO2 48 mmHg (35-45); ABG PH 7.29 (7.35-7.45); ABG PO2 99 mmHg (83-108); ABG TCO2 25 mmol/L (19-24)
[2023-10-11 18:38] LABS: Allen Test Performed? no
[2023-10-11] MEDS: ACETAMINOPHEN IV (For NPO) 1,000 MG in EMPTY BAG 1 BAG IVPB SCH (19:11)
[2023-10-11 19:25] LABS: Glucose,Whole Blood 198 mg/dL (70-110)
[2023-10-11] MEDS: ALBUMIN HUMAN 5% 250 ML in EMPTY BAG 1 BAG IVPB PRN (19:32)
[2023-10-11 20:09] LABS: Glucose,Whole Blood 195 mg/dL (70-110)
[2023-10-11 21:08] LABS: Glucose,Whole Blood 187 mg/dL (70-110)
[2023-10-11 21:16] LABS: Basophils % (A) 0 %; Eosinophils # (A) 0.1 k/uL (0-0.7); Eosinophils % (A) 1 %; HCT 25.5 % (34.0-46.0); HGB 8.9 gm/dL (11.4-16.0); Lymphocytes # (A) 0.7 k/uL (1.0-4.8); Lymphocytes % (A) 11 %; MCH 30.5 pg (25.0-35.0); MCHC 34.8 g/dL (31.0-37.0); MCV 87.7 fL (80.0-100.0); Mean Platelet Volume 8.1; Monocytes # (A) 0.3 k/uL (0-1.0); Monocytes % (A) 4 %; Neutrophils # (A) 5.5 k/uL (1.3-7.7); Neutrophils % (A) 83 %; Platelet Count 116 k/uL (150-450); RDW 14.7 % (11.5-15.5); WBC 6.7 k/uL (3.8-10.6)
[2023-10-11] MEDS ORDERED: MUPIROCIN 2% OINT 22 GM TUBE NASAL ONE (21:30)
[2023-10-11] MEDS: CLEVIDIPINE BUTYRATE 25 MG in EMPTY BAG 1 BAG IV SCH (21:59)
[2023-10-11 22:19] LABS: Glucose,Whole Blood 171 mg/dL (70-110)
[2023-10-11] MEDS: AMIODARONE 450 MG in DEXTROSE 5% IN WATER 250 ML IV SCH (22:20)
[2023-10-11] MEDS: KETOROLAC 15 MG/ML 1 ML VIAL IVP SCH (22:34)
[2023-10-11 23:01] LABS: Glucose,Whole Blood 155 mg/dL (70-110)
--- NOTE | 2023-10-11 23:27 | OP ---
OPERATIVE REPORT DATE OF SERVICE : 10/11/2023 PREOPERATIVE DIAGNOSIS: Coronary artery disease. POSTOPERATIVE DIAGNOSIS: Coronary artery disease. PROCEDURE PERFORMED: 1. Coronary artery bypass grafting x4 vessels (left internal mammary artery to diagonal artery, radial artery to left anterior descending artery, saphenous vein graft to obtuse marginal artery, saphenous vein graft to right coronary artery). 2. Endoscopic harvest of left radial artery. 3. Endoscopic harvest of right greater saphenous vein. 4. Ligation of left atrial appendage using 50 mm atrial clip. 5. Epiaortic ultrasound. 6. Transesophageal echocardiogram. 7. Graft flow measurements using [employer] information technology system. ADDITIONAL RAILCAR MECHANIC: Albin Cabrera NP ANESTHESIA: General. SPECIMEN: None. COMPLICATION: None. INDICATION: The patient is a 57-year-old female with a history of multiple medical problems including osteoarthritis, diabetes mellitus, degenerative disk disease, myocardial infarction, and a previous history of tobacco use, who was found to have an abnormal stress test. Cardiac catheterization revealed multivessel coronary artery disease. A coronary artery bypass was recommended. The risks as part of her preoperative workup, a CT scan of the chest was performed which revealed stenosis on the origin of the left subclavian artery. For that reason, she underwent placement of a subclavian stent by the cardiology service prior to presenting for her heart surgery. The risks, benefits, alternatives of procedure were discussed with the patient. All of her questions were answered. Consent obtained was obtained. FINDINGS: The left internal mammary artery was a very small vessel. It did not have brisk flow. The saphenous vein was good conduit. The radial artery was good conduit. The LAD was deep within the myocardial fat and heavily diseased. It measured 1.3 mm. The diagonal artery measured 1.3 mm. The obtuse marginal artery measured 1.3 mm. The distal right coronary artery measured 1.3 mm. PROCEDURE IN DETAIL: The patient was taken to the operating room and placed supine on the operating table. After the induction of general anesthesia, she was prepped and draped in the usual sterile fashion. Preoperative transesophageal echocardiogram confirmed an ejection fraction of about 35% to 40% with no significant valvular pathology. There was no clot noted within the left atrial appendage. A median sternotomy was performed. The left internal mammary artery was palpated and had a weak pulse. It was taken down in standard fashion taking care to clip all branches. It was transected distally revealing weak flow. Despite injecting with papaverine intraluminally and outside the vessel, it never really perked up and did accept a [address] way to its origin. Simultaneously, the radial artery was harvested in the left upper extremity using endoscopic technique. In addition, greater saphenous vein was harvested from the right lower extremity using endoscopic technique. All branches were tied. A pericardial cradle was created. The ascending aorta was palpated. There was no significant calcific plaque noted. Epiaortic ultrasound was then performed on the ascending aorta. Again, no calcific plaque or atheromatous disease was identified. An arterial cannula was placed in the distal ascending aorta. Venous cannula was placed through the right atrial appendage directed into the IVC. Both antegrade and retrograde catheters were placed as well. The patient was then placed on cardiopulmonary bypass with good decompression of heart. The aortic cross-clamp was applied. Cold blood potassium cardioplegia was delivered in both antegrade and retrograde fashion to achieve arrest of the heart. Of note, cardioplegia was delivered every 15-20 minutes while the patient remained under crossclamp. I began by identifying the left atrial appendage. A 35 mm AtriClip was placed across its base to ensure ligation. Next, attention was turned to the inferior wall. The PDA was identified and dissected free. It was extremely small in diameter, not amenable for bypass. The distal right coronary artery was then dissected free. It contained diffuse disease, but a soft spot amenable for bypass noted. A small arteriotomy was created. This vessel accepted a 1.0 mm probe. Using saphenous vein in reverse fashion, an end-to-side anastomosis created. This was performed using running 7-0 Prolene suture. The graft was hemostatic and had great flow. Next, attention was turned to the lateral wall. The distal obtuse marginal artery branches were identified, dissected free. They were extremely small in diameter, not amenable for bypass. The most proximal branch had palpable disease near its origin. The OM1 had palpable calcific disease proximally. A relative soft spot was noted in its mid region. A small arteriotomy was created. Using saphenous vein in a reverse fashion, an end-to-side anastomosis was created. This was performed using running 7-0 Prolene suture. The graft was hemostatic and had great flow. Next, attention was turned to the anterior wall. The diagonal artery was identified and dissected free. It appeared to be amenable for bypass. The remainder of the anterior wall was covered completely with fat. The left anterior descending artery surfaced at the apex and here the vessel was extremely small in diameter. I dissected the diagonal artery back to its origin. The LAD was identified deep within the fat and proximal location. This dissection was extremely challenging. The LAD was dissected free. It contained diffuse calcific disease. A small arteriotomy was created. I chose to use a radial artery instead of the left internal mammary artery for this target since the ALVAREZ did not have brisk flow. Using the radial artery, an end-to-side anastomosis created. This was performed using running 7-0 Prolene suture. The graft was hemostatic and had great flow. Finally, a small arteriotomy was created in the diagonal artery. This vessel accepted a 1.0 mm probe. Using the left internal mammary artery, an end-to-side anastomosis was created. This was performed using running 8-0 Prolene suture. The graft was hemostatic. The mammary pedicle was then tacked on the anterior surface of the heart. Attention was then turned to the proximal anastomoses. These were performed in an end- to-side fashion using running 6-0 Prolene suture. 1 L of warm blood was delivered in retrograde fashion. Both lidocaine and magnesium were administered as well. The aortic cross-clamp was removed. The vein grafts were de-aired in the standard fashion. Distal anastomoses were inspected and appeared to be hemostatic. The surface of the heart where the LAD dissection occurred was raw and had diffuse oozing. Temporary atrial and ventricular pacing wires were placed and brought through the skin. The patient was then weaned off cardiopulmonary bypass. She without difficulty. Followup transesophageal echocardiogram confirmed improvement in the left ventricular ejection fraction with all collier moving well. There was no valvular pathology. The graft flow measurements were performed using the [employer] system. All grafts had good flow noted. Protamine was administered. There were no adverse reactions. The remaining cannulas were then removed. The mediastinum was copiously irrigated with warm saline solution. Again, all surgical sites were inspected, appeared to be hemostatic. Soft tissue was reapproximated over the ascending aorta as well as the majority of heart. Chest tubes were placed in both the left and right pleural spaces as well as the mediastinum. A Hussain drain was placed directly behind the heart. Of note, both lungs were extremely emphysematous in nature. Attention was then turned to closure of the sternum. This was performed using the [place] cable system. The cables were placed in a [id number] fashion. At the completion of closure, the sternum was well aligned. The remainder of the wound was closed in multiple layers. Sterile dressing was applied. The patient appeared to tolerate the procedure well. No immediate complications. She returned to the ICU in critical condition. TRACI / ANTWANN: [id number] /
[2023-10-12 00:04] LABS: Glucose,Whole Blood 156 mg/dL (70-110)
[2023-10-12 00:56] LABS: Glucose,Whole Blood 145 mg/dL (70-110)
[2023-10-12 01:05] LABS: ABG Base Excess -1.7 mmol/L; ABG HCO3 23 mmol/L (21-25); ABG Oxygen Saturation 97.4 % (94-97); ABG PCO2 39 mmHg (35-45); ABG PH 7.39 (7.35-7.45); ABG PO2 103 mmHg (83-108); ABG TCO2 25 mmol/L (19-24); Allen Test Performed? Yes
[2023-10-12 01:20] LABS: Glucose,Whole Blood 150 mg/dL (70-110)
[2023-10-12 02:02] LABS: Glucose,Whole Blood 144 mg/dL (70-110)
--- NOTE | 2023-10-12 02:19 | XR ---
EXAM: XR Chest, 1 View CLINICAL HISTORY: ITS.REASON XR Reason: possible aspiration TECHNIQUE: Frontal view of the chest. COMPARISON: No relevant prior studies available. IMPRESSION: Prominent interstitial markings. Bibasilar opacities
[2023-10-12 03:00] LABS: Glucose,Whole Blood 116 mg/dL (70-110)
[2023-10-12 04:03] LABS: Glucose,Whole Blood 123 mg/dL (70-110)
[2023-10-12 04:18] LABS: Basophils % (A) 0 %; Eosinophils % (A) 0 %; HCT 26.3 % (34.0-46.0); HGB 8.5 gm/dL (11.4-16.0); Lymphocytes # (A) 1.3 k/uL (1.0-4.8); Lymphocytes % (A) 17 %; MCH 27.9 pg (25.0-35.0); MCHC 32.4 g/dL (31.0-37.0); MCV 86.2 fL (80.0-100.0); Mean Platelet Volume 8.1; Monocytes # (A) 0.4 k/uL (0-1.0); Monocytes % (A) 5 %; Neutrophils # (A) 5.9 k/uL (1.3-7.7); Neutrophils % (A) 77 %; Platelet Count 129 k/uL (150-450); RBC 3.05 m/uL (3.80-5.40); RDW 14.7 % (11.5-15.5); WBC 7.7 k/uL (3.8-10.6)
[2023-10-12 04:33] LABS: Ionized Calcium 4.4 mg/dL (4.5-5.3)
[2023-10-12 04:41] LABS: ALT 17 U/L (4-34); AST 52 U/L (14-36); African American GFR (CKD) >90 (>60 ml/min/1.73 sqM); Albumin 3.4 g/dL (3.5-5.0); Alkaline Phosphatase 54 U/L (38-126); Anion Gap 5 mmol/L; Blood Urea Nitrogen 14 mg/dL (7-17); Calcium 7.5 mg/dL (8.4-10.2); Carbon Dioxide 25 mmol/L (22-30); Chloride 109 mmol/L (98-107); Glucose 110 mg/dL (74-99); Magnesium 2.2 mg/dL (1.6-2.3); Non-African American GFR(CKD) >90 (>60 ml/min/1.73 sqM); Sodium 139 mmol/L (137-145); Total Bilirubin 0.3 mg/dL (0.2-1.3); Total Protein 5.3 g/dL (6.3-8.2)
[2023-10-12 05:04] LABS: Glucose,Whole Blood 104 mg/dL (70-110)
[2023-10-12 06:27] LABS: Glucose,Whole Blood 185 mg/dL (70-110)
[2023-10-12] MEDS ORDERED: ACETAMINOPHEN TAB 325 MG TAB PO PRN (06:28)
[2023-10-12] MEDS ORDERED: methocarbamoL 500 MG TAB PO PRN (07:06)
[2023-10-12] MEDS ORDERED: fentaNYL (PF) 50 MCG/ML 2 ML AMP IVP PRN (07:06)
[2023-10-12 07:09] LABS: Glucose,Whole Blood 180 mg/dL (70-110)
--- NOTE | 2023-10-12 07:55 | P.PN ---
Subjective Progress Note Date: 10/12/23 Principal diagnosis: Coronary artery disease. Previous medical history of myocardial infarction, ischemic cardiomyopathy/heart failure with reduced ejection fraction, hypertension, hyperlipidemia, diabetes mellitus with peripheral neuropathy and right great toe amputation, peripheral arterial disease with recent left subclavian stent, left internal carotid artery stenosis, osteoarthritis, previous tobacco dependence, moderate COPD, COVID in 2022 POD #1 coronary artery bypass grafting x 4 vessels, left internal mammary artery to the diagonal artery, radial artery to the left anterior descending artery, reverse saphenous vein graft to the obtuse marginal artery, reverse saphenous vein graft to the right coronary artery, endoscopic harvest of the left radial artery and right greater saphenous vein, ligation of the left atrial appendage using a 35 mm AtriClip, epiaortic ultrasound, intraoperative transesophageal echocardiogram, graft flow measurements using the Symphony system Postoperative acute blood loss anemia and thrombocytopenia, expected given hemodilution and cardiopulmonary bypass pump The patient was seen and examined this morning sitting up in recliner in the intensive care unit in no acute distress. Currently in sinus rhythm, hemodynamically stable on no inotropes or pressors. She is currently on IV nitro for vessel spasm prophylaxis as well as IV amiodarone for atrial fibrillation prophylaxis. Does complain of expected postoperative chest d iscomfort, especially with taking a deep breath and coughing. Currently on 2 L nasal cannula with oxygen saturation in the high 90s. Patient did have an episode last night lasting approximately 5 minutes where she went completely unresponsive to verbal stimuli, was staring off into space. Vital signs remained stable, chest x-ray/labs/ABG were ordered and there was no evidence of significant abnormality. Patient returned to baseline without any intervention. States that she has never had an episode like this before, has no history of seizures or stroke, although she does have known left carotid stenosis which is being watched by vascular surgery with no planned intervention in the near f uture. Labs/chest x-ray reviewed. Right internal jugular [place]/Cordis, right radial arterial line, mediastinal/left/right chest tubes present. No other new concerns. Objective - Vital Signs Vital signs: Vital Signs Temp 98 F 10/12/23 00:00 Pulse 96 10/12/23 07:00 Resp 19 10/12/23 07:00 BP 107/73 10/11/23 22:30 Pulse Ox 97 10/12/23 07:00 FiO2 40 10/11/23 18:45 Intake & Output 10/11/23 10/12/23 10/12/23 18:59 06:59 18:59 Intake Total 531.238 7688.804 79 Output Total 1987 1039 25 Balance -1374.826 315.804 54 Weight 74.1 kg Intake: IV 270 858 79 ACETAMINOPHEN IV (For NPO 100 0 ) 1,000 mg In Empty Bag 1 bag @ 400 mls/hr IVPB Q6HR BETSY Rx#:[id number] Calcium Gluconate in NaCl 100 1 gm In Saline 1 100ml. bag @ 100 mls/hr IVPB ONCE ONE Rx#:[id number] Co/CI 80 200 20 Lactated Ringers 1,000 ml 400 50 @ 20 mls/hr IV .Q24H BETSY Rx#:[id number] Pressure Bags 36 108 9 ceFAZolin 2 gm In Sodium 50 50 0 Chloride 0.9% 50 ml @ 100 mls/hr IVPB Q8HR BETSY Rx# :[id number] Intake, IV Titration 32.174 496.804 Amount Albumin Human 5% 250 ml 250 In Empty Bag 1 bag @ 250 mls/hr IVPB Q1HR PRN Rx#: [id number] Dexmedetomidine/0.9% NaCl 3.411 5.47 (Pmx) 400 mcg In Empty Bag 1 bag @ Titrate IV . Q0M BETSY Rx#:[id number] Diltiazem 125 mg In 4.5 Sodium Chloride 0.9% 100 ml @ 5 MG/HR 5 mls/hr IV .Q24H BETSY Rx#:[id number] Insulin Regular 100 unit 4.242 41.334 In Sodium Chloride 0.9% 100 ml @ Per Protocol IV .Q0M BETSY Rx#:[id number] Lactated Ringers 1,000 ml 200 @ 20 mls/hr IV .Q24H BETSY Rx#:[id number] propofoL 1,000 mg In 20.021 Empty Bag 1 bag @ Titrate IV .Q0M BETSY Rx#: [id number] Blood Product 310 Rc As-1 Unit 310 [id number] Output: Chest Tube Drainage 202 469 0 Chest Tube Left 30 80 0 Chest Tube Right 23 87 0 Mediastinal Chest Tube x2 149 302 0 Urine 1185 570 25 Estimated Blood Loss 600 ABP, PAP, CO, CI - Last Documented Arterial Blood Pressure 96/51 Pulmonary Artery Pressure 29/10 Cardiac Output 4.3 Cardiac Index 2.5 - Exam CONSTITUTIONAL: Appears comfortable, cooperative, no acute distress RESPIRATORY: Lungs sounds diminished bilaterally. Respirations even, nonlabored. Currently on 2 L nasal cannula with oxygen saturation 98%. Barely able to achieve 500 mL on incentive spirometry. Strong productive cough. CARDIOVASCULAR: S1, S2 present. Regular rate and rhythm, sinus rhythm on telemetry. Sternum stable. Palpable peripheral pulses bilaterally. No edema present. No calf pain or tenderness noted. Heart hugger in place with patient demonstrating appropriate use. Antiembolism stockings, SCDs present. GASTROINTESTINAL: Abdomen soft, nontender, nondistended. Hypoactive bowel sounds present 4 quadrants. Tolerating minimal clear liquids. Positive itching, denies flatus GENITOURINARY: Siegel present draining clear, yellow urine. Output overnight 30-50 mL per hour INTEGUMENTARY: Skin is warm and dry with evidence of good perfusion. Anterior chest incision well approximated and covered with dry intact dressing. Left radial artery harvest site as well as right lower extremity EVH site well approximated without redness or drainage. NEUROLOGIC: Cranial nerves II through XII intact MUSKULOSKELETAL: Able to move all extremities, strength equal bilaterally PSYCHIATRIC: Alert and oriented to person place and time, appropriate affect, intact judgment and insight INVASIVE LINES AND TUBES: Mediastinal/left/right pleural chest tubes present and connected to wall suction, no air leaks present. Mediastinal tube with 220 mL serosanguineous drainage overnight, 400 mL since surgery. Left pleural chest tube with 20 mL serosanguineous drainage overnight, 120 mL since surgery. Right pleural chest tube with 60 mL serosanguineous drainage overnight, 110 mL since surgery. A/V epicardial pacemaker wires present, connected to generator, generator off. Right internal jugular [place]/Cordis, right radial arterial line present. Last CO/CI 3.7/2.2, PA 32/13, CVP 5. - Allied health notes Allied health notes reviewed: nursing - Labs CBC & Chem 7: 10/12/23 04:01 10/12/23 04:01 Labs: Abnormal Lab Results - Last 24 Hours (Table) 10/03/23 10/11/23 10/11/23 Range/Units 10:30 08:32 09:35 RBC (3.80-5.40) m/uL Hgb (11.4-16.0) gm/dL Hct (34.0-46.0) % Plt Count (150-450) k/uL Lymphocytes # (1.0-4.8) k/uL PT (10.0-12.5) sec INR (<1.2) ABG pH 7.28 L (7.35-7.45) ABG pCO2 52 H (35-45) mmHg ABG pO2 360 H 222 H (83-108) mmHg ABG HCO3 (21-25) mmol/L ABG Total CO2 (19-24) mmol/L ABG O2 Saturation 97.5 H 97.4 H (94-97) % ABG Hematocrit 33 L 33 L (34.0-46.0) % ABG Potassium 4.7 H (3.4-4.5) mmol/L ABG Ionized Calcium (4.5-5.3) mg/dL ABG Glucose 195 H 160 H (75-99) mg/dL ABG Lactic Acid 2.3 H* 1.9 H (0.5-1.6) mmol/L Hemoglobin 10.8 L 10.6 L (11.4-16.0) gm/dL Chloride (98-107) mmol/L Creatinine (0.52-1.04) mg/dL Glucose (74-99) mg/dL POC Glucose (mg/dL) (70-110) mg/dL Calcium (8.4-10.2) mg/dL Ionized Calcium Lisa (4.5-5.3) mg/dL Magnesium (1.6-2.3) mg/dL AST (14-36) U/L Total Protein (6.3-8.2) g/dL Albumin (3.5-5.0) g/dL Arterial Blood Potassium 4.7 H (3.4-4.5) mmol/L Arterial Blood Glucose 195 H 160 H (75-99) mg/dL Crossmatch See Detail 10/11/23 10/11/23 10/11/23 Range/Units 11:52 12:32 14:58 RBC 2.96 L (3.80-5.40) m/uL Hgb 8.4 L D (11.4-16.0) gm/dL Hct 25.9 L (34.0-46.0) % Plt Count 101 L (150-450) k/uL Lymphocytes # (1.0-4.8) k/uL PT (10.0-12.5) sec INR (<1.2) ABG pH 7.30 L (7.35-7.45) ABG pCO2 51 H (35-45) mmHg ABG pO2 316 H 237 H (83-108) mmHg ABG HCO3 (21-25) mmol/L ABG Total CO2 (19-24) mmol/L ABG O2 Saturation 99.3 H 98.6 H (94-97) % ABG Hematocrit 22 L 20 L* (34.0-46.0) % ABG Potassium (3.4-4.5) mmol/L ABG Ionized Calcium 3.9 L 3.9 L (4.5-5.3) mg/dL ABG Glucose 135 H 145 H (75-99) mg/dL ABG Lactic Acid 2.5 H* 2.4 H* (0.5-1.6) mmol/L Hemoglobin 7.0 L* 6.6 L* (11.4-16.0) gm/dL Chloride (98-107) mmol/L Creatinine (0.52-1.04) mg/dL Glucose (74-99) mg/dL POC Glucose (mg/dL) (70-110) mg/dL Calcium (8.4-10.2) mg/dL Ionized Calcium Lsia (4.5-5.3) mg/dL Magnesium (1.6-2.3) mg/dL AST (14-36) U/L Total Protein (6.3-8.2) g/dL Albumin (3.5-5.0) g/dL Arterial Blood Potassium (3.4-4.5) mmol/L Arterial Blood Glucose 135 H 145 H (75-99) mg/dL Crossmatch 10/11/23 10/11/23 10/11/23 Range/Units 14:58 14:58 15:28 RBC (3.80-5.40) m/uL Hgb (11.4-16.0) gm/dL Hct (34.0-46.0) % Plt Count (150-450) k/uL Lymphocytes # (1.0-4.8) k/uL PT 12.7 H (10.0-12.5) sec INR 1.2 H (<1.2) ABG pH 7.26 L (7.35-7.45) ABG pCO2 56 H (35-45) mmHg ABG pO2 >400 H (83-108) mmHg ABG HCO3 26 H (21-25) mmol/L ABG Total CO2 27 H (19-24) mmol/L ABG O2 Saturation 99.4 H (94-97) % ABG Hematocrit (34.0-46.0) % ABG Potassium (3.4-4.5) mmol/L ABG Ionized Calcium (4.5-5.3) mg/dL ABG Glucose (75-99) mg/dL ABG Lactic Acid (0.5-1.6) mmol/L Hemoglobin (11.4-16.0) gm/dL Chloride 114 H (98-107) mmol/L Creatinine 0.36 L (0.52-1.04) mg/dL Glucose 103 H (74-99) mg/dL POC Glucose (mg/dL) (70-110) mg/dL Calcium 6.7 L (8.4-10.2) mg/dL Ionized Calcium Lisa 4.2 L (4.5-5.3) mg/dL Magnesium 2.6 H (1.6-2.3) mg/dL AST 46 H (14-36) U/L Total Protein 4.9 L (6.3-8.2) g/dL Albumin 3.0 L (3.5-5.0) g/dL Arterial Blood Potassium (3.4-4.5) mmol/L Arterial Blood Glucose (75-99) mg/dL Crossmatch 10/11/23 10/11/23 10/11/23 Range/Units 16:02 17:02 17:48 RBC 3.29 L (3.80-5.40) m/uL Hgb 9.6 L (11.4-16.0) gm/dL Hct 29.6 L (34.0-46.0) % Plt Count 118 L (150-450) k/uL Lymphocytes # (1.0-4.8) k/uL PT (10.0-12.5) sec INR (<1.2) ABG pH (7.35-7.45) ABG pCO2 (35-45) mmHg ABG pO2 (83-108) mmHg ABG HCO3 (21-25) mmol/L ABG Total CO2 (19-24) mmol/L ABG O2 Saturation (94-97) % ABG Hematocrit (34.0-46.0) % ABG Potassium (3.4-4.5) mmol/L ABG Ionized Calcium (4.5-5.3) mg/dL ABG Glucose (75-99) mg/dL ABG Lactic Acid (0.5-1.6) mmol/L Hemoglobin (11.4-16.0) gm/dL Chloride (98-107) mmol/L Creatinine (0.52-1.04) mg/dL Glucose (74-99) mg/dL POC Glucose (mg/dL) 153 H 176 H (70-110) mg/dL Calcium (8.4-10.2) mg/dL Ionized Calcium Lisa (4.5-5.3) mg/dL Magnesium (1.6-2.3) mg/dL AST (14-36) U/L Total Protein (6.3-8.2) g/dL Albumin (3.5-5.0) g/dL Arterial Blood Potassium (3.4-4.5) mmol/L Arterial Blood Glucose (75-99) mg/dL Crossmatch 10/11/23 10/11/23 10/11/23 Range/Units 18:09 18:35 19:22 RBC (3.80-5.40) m/uL Hgb (11.4-16.0) gm/dL Hct (34.0-46.0) % Plt Count (150-450) k/uL Lymphocytes # (1.0-4.8) k/uL PT (10.0-12.5) sec INR (<1.2) ABG pH 7.29 L (7.35-7.45) ABG pCO2 48 H (35-45) mmHg ABG pO2 (83-108) mmHg ABG HCO3 (21-25) mmol/L ABG Total CO2 25 H (19-24) mmol/L ABG O2 Saturation 97.9 H (94-97) % ABG Hematocrit (34.0-46.0) % ABG Potassium (3.4-4.5) mmol/L ABG Ionized Calcium (4.5-5.3) mg/dL ABG Glucose (75-99) mg/dL ABG Lactic Acid (0.5-1.6) mmol/L Hemoglobin (11.4-16.0) gm/dL Chloride (98-107) mmol/L Creatinine (0.52-1.04) mg/dL Glucose (74-99) mg/dL POC Glucose (mg/dL) 232 H 198 H (70-110) mg/dL Calcium (8.4-10.2) mg/dL Ionized Calcium Lisa (4.5-5.3) mg/dL Magnesium (1.6-2.3) mg/dL AST (14-36) U/L Total Protein (6.3-8.2) g/dL Albumin (3.5-5.0) g/dL Arterial Blood Potassium (3.4-4.5) mmol/L Arterial Blood Glucose (75-99) mg/dL Crossmatch 10/11/23 10/11/23 10/11/23 Range/Units 20:08 21:05 21:07 RBC 2.90 L (3.80-5.40) m/uL Hgb 8.9 L (11.4-16.0) gm/dL Hct 25.5 L (34.0-46.0) % Plt Count 116 L (150-450) k/uL Lymphocytes # 0.7 L (1.0-4.8) k/uL PT (10.0-12.5) sec INR (<1.2) ABG pH (7.35-7.45) ABG pCO2 (35-45) mmHg ABG pO2 (83-108) mmHg ABG HCO3 (21-25) mmol/L ABG Total CO2 (19-24) mmol/L ABG O2 Saturation (94-97) % ABG Hematocrit (34.0-46.0) % ABG Potassium (3.4-4.5) mmol/L ABG Ionized Calcium (4.5-5.3) mg/dL ABG Glucose (75-99) mg/dL ABG Lactic Acid (0.5-1.6) mmol/L Hemoglobin (11.4-16.0) gm/dL Chloride (98-107) mmol/L Creatinine (0.52-1.04) mg/dL Glucose (74-99) mg/dL POC Glucose (mg/dL) 195 H 187 H (70-110) mg/dL Calcium (8.4-10.2) mg/dL Ionized Calcium Lisa (4.5-5.3) mg/dL Magnesium (1.6-2.3) mg/dL AST (14-36) U/L Total Protein (6.3-8.2) g/dL Albumin (3.5-5.0) g/dL Arterial Blood Potassium (3.4-4.5) mmol/L Arterial Blood Glucose (75-99) mg/dL Crossmatch 10/11/23 10/11/23 10/12/23 Range/Units 22:18 22:59 00:02 RBC (3.80-5.40) m/uL Hgb (11.4-16.0) gm/dL Hct (34.0-46.0) % Plt Count (150-450) k/uL Lymphocytes # (1.0-4.8) k/uL PT (10.0-12.5) sec INR (<1.2) ABG pH (7.35-7.45) ABG pCO2 (35-45) mmHg ABG pO2 (83-108) mmHg ABG HCO3 (21-25) mmol/L ABG Total CO2 (19-24) mmol/L ABG O2 Saturation (94-97) % ABG Hematocrit (34.0-46.0) % ABG Potassium (3.4-4.5) mmol/L ABG Ionized Calcium (4.5-5.3) mg/dL ABG Glucose (75-99) mg/dL ABG Lactic Acid (0.5-1.6) mmol/L Hemoglobin (11.4-16.0) gm/dL Chloride (98-107) mmol/L Creatinine (0.52-1.04) mg/dL Glucose (74-99) mg/dL POC Glucose (mg/dL) 171 H 155 H 156 H (70-110) mg/dL Calcium (8.4-10.2) mg/dL Ionized Calcium Lisa (4.5-5.3) mg/dL Magnesium (1.6-2.3) mg/dL AST (14-36) U/L Total Protein (6.3-8.2) g/dL Albumin (3.5-5.0) g/dL Arterial Blood Potassium (3.4-4.5) mmol/L Arterial Blood Glucose (75-99) mg/dL Crossmatch 10/12/23 10/12/23 10/12/23 Range/Units 00:55 01:03 01:16 RBC (3.80-5.40) m/uL Hgb (11.4-16.0) gm/dL Hct (34.0-46.0) % Plt Count (150-450) k/uL Lymphocytes # (1.0-4.8) k/uL PT (10.0-12.5) sec INR (<1.2) ABG pH (7.35-7.45) ABG pCO2 (35-45) mmHg ABG pO2 (83-108) mmHg ABG HCO3 (21-25) mmol/L ABG Total CO2 25 H (19-24) mmol/L ABG O2 Saturation 97.4 H (94-97) % ABG Hematocrit (34.0-46.0) % ABG Potassium (3.4-4.5) mmol/L ABG Ionized Calcium (4.5-5.3) mg/dL ABG Glucose (75-99) mg/dL ABG Lactic Acid (0.5-1.6) mmol/L Hemoglobin (11.4-16.0) gm/dL Chloride (98-107) mmol/L Creatinine (0.52-1.04) mg/dL Glucose (74-99) mg/dL POC Glucose (mg/dL) 145 H 150 H (70-110) mg/dL Calcium (8.4-10.2) mg/dL Ionized Calcium Lisa (4.5-5.3) mg/dL Magnesium (1.6-2.3) mg/dL AST (14-36) U/L Total Protein (6.3-8.2) g/dL Albumin (3.5-5.0) g/dL Arterial Blood Potassium (3.4-4.5) mmol/L Arterial Blood Glucose (75-99) mg/dL Crossmatch 10/12/23 10/12/23 10/12/23 Range/Units 02:00 02:58 04:00 RBC (3.80-5.40) m/uL Hgb (11.4-16.0) gm/dL Hct (34.0-46.0) % Plt Count (150-450) k/uL Lymphocytes # (1.0-4.8) k/uL PT (10.0-12.5) sec INR (<1.2) ABG pH (7.35-7.45) ABG pCO2 (35-45) mmHg ABG pO2 (83-108) mmHg ABG HCO3 (21-25) mmol/L ABG Total CO2 (19-24) mmol/L ABG O2 Saturation (94-97) % ABG Hematocrit (34.0-46.0) % ABG Potassium (3.4-4.5) mmol/L ABG Ionized Calcium (4.5-5.3) mg/dL ABG Glucose (75-99) mg/dL ABG Lactic Acid (0.5-1.6) mmol/L Hemoglobin (11.4-16.0) gm/dL Chloride (98-107) mmol/L Creatinine (0.52-1.04) mg/dL Glucose (74-99) mg/dL POC Glucose (mg/dL) 144 H 116 H 123 H (70-110) mg/dL Calcium (8.4-10.2) mg/dL Ionized Calcium Lisa (4.5-5.3) mg/dL Magnesium (1.6-2.3) mg/dL AST (14-36) U/L Total Protein (6.3-8.2) g/dL Albumin (3.5-5.0) g/dL Arterial Blood Potassium (3.4-4.5) mmol/L Arterial Blood Glucose (75-99) mg/dL Crossmatch 10/12/23 10/12/23 10/12/23 Range/Units 04:01 04:01 06:26 RBC 3.05 L (3.80-5.40) m/uL Hgb 8.5 L (11.4-16.0) gm/dL Hct 26.3 L (34.0-46.0) % Plt Count 129 L (150-450) k/uL Lymphocytes # (1.0-4.8) k/uL PT (10.0-12.5) sec INR (<1.2) ABG pH (7.35-7.45) ABG pCO2 (35-45) mmHg ABG pO2 (83-108) mmHg ABG HCO3 (21-25) mmol/L ABG Total CO2 (19-24) mmol/L ABG O2 Saturation (94-97) % ABG Hematocrit (34.0-46.0) % ABG Potassium (3.4-4.5) mmol/L ABG Ionized Calcium (4.5-5.3) mg/dL ABG Glucose (75-99) mg/dL ABG Lactic Acid (0.5-1.6) mmol/L Hemoglobin (11.4-16.0) gm/dL Chloride 109 H (98-107) mmol/L Creatinine 0.38 L (0.52-1.04) mg/dL Glucose 110 H (74-99) mg/dL POC Glucose (mg/dL) 185 H (70-110) mg/dL Calcium 7.5 L (8.4-10.2) mg/dL Ionized Calcium Lisa 4.4 L (4.5-5.3) mg/dL Magnesium (1.6-2.3) mg/dL AST 52 H (14-36) U/L Total Protein 5.3 L (6.3-8.2) g/dL Albumin 3.4 L (3.5-5.0) g/dL Arterial Blood Potassium (3.4-4.5) mmol/L Arterial Blood Glucose (75-99) mg/dL Crossmatch 10/12/23 Range/Units 07:08 RBC (3.80-5.40) m/uL Hgb (11.4-16.0) gm/dL Hct (34.0-46.0) % Plt Count (150-450) k/uL Lymphocytes # (1.0-4.8) k/uL PT (10.0-12.5) sec INR (<1.2) ABG pH (7.35-7.45) ABG pCO2 (35-45) mmHg ABG pO2 (83-108) mmHg ABG HCO3 (21-25) mmol/L ABG Total CO2 (19-24) mmol/L ABG O2 Saturation (94-97) % ABG Hematocrit (34.0-46.0) % ABG Potassium (3.4-4.5) mmol/L ABG Ionized Calcium (4.5-5.3) mg/dL ABG Glucose (75-99) mg/dL ABG Lactic Acid (0.5-1.6) mmol/L Hemoglobin (11.4-16.0) gm/dL Chloride (98-107) mmol/L Creatinine (0.52-1.04) mg/dL Glucose (74-99) mg/dL POC Glucose (mg/dL) 180 H (70-110) mg/dL Calcium (8.4-10.2) mg/dL Ionized Calcium Lisa (4.5-5.3) mg/dL Magnesium (1.6-2.3) mg/dL AST (14-36) U/L Total Protein (6.3-8.2) g/dL Albumin (3.5-5.0) g/dL Arterial Blood Potassium (3.4-4.5) mmol/L Arterial Blood Glucose (75-99) mg/dL Crossmatch - Imaging and Cardiology Chest x-ray: report reviewed, image reviewed Assessment and Plan Assessment: Coronary artery disease with previous myocardial infarction, status post four- vessel CABG Ischemic cardiomyopathy/heart failure with reduced ejection fraction, EF 35-40% preop, improved postoperative Hypertension Hyperlipidemia, treated with Repatha, cholesterol 200, LDL 108, triglycerides 190 Diabetes mellitus with peripheral neuropathy and right great toe amputation, hemoglobin A1c 8.3% Peripheral arterial disease with recent left subclavian stent Left internal carotid artery stenosis, left ICA 80-99% on carotid duplex, 50-70% on neck CTA, being followed by vascular surgery in the outpatient setting Osteoarthritis Previous tobacco dependence Moderate COPD, COVID in 2022 Postoperative acute blood loss anemia and thrombocytopenia, expected Plan: Continue to maximize medical therapy with aspirin, low-dose statin (as long as she is able to tolerate), Plavix, beta-franky. Will increase beta-franky therapy as tolerated Continue amiodarone for A-fib prophylaxis, will transition to oral, patient has had no atrial fibrillation up to this point Will add low-dose calcium channel franky for radial artery spasm prophylaxis with hold parameters in place Wean O2 as tolerated. Encourage incentive spirometry use 10 times every hour while awake, bronchodilators per pulmonology Will monitor daily labs and x-rays. Electrolyte replacement per protocol Increase activity, ambulate as tolerated. PT/OT/cardiac rehab consulted GI/DVT prophylaxis Daily weights Insulin management per internal medicine, patient should remain on continuous IV insulin for 48 hours, then may transition to subcutaneous per protocol Pain control per current medication regimen. Oral medications changed, IV medication added for breakthrough pain Discontinue [place], connect [place] to continuous CVP monitoring Continue chest tubes for another 24 hours, monitor and record output Continue Siegel catheter for another 24 hours, continue to monitor and record strict accurate intake and output Monitor for further episode of unresponsiveness. No brain CT or neuro consult needed at this point More recommendations to follow as patient progresses
[2023-10-12 08:06] LABS: Glucose,Whole Blood 157 mg/dL (70-110)
[2023-10-12] MEDS: ASPIRIN 325 MG TAB PO SCH (08:10)
[2023-10-12] MEDS: PANTOPRAZOLE 40 MG/10 ML VIAL IVP SCH (08:10)
[2023-10-12] MEDS: CLOPIDOGREL 75 MG TAB PO SCH (08:11)
[2023-10-12] MEDS: CHOLECALCIFEROL 25 MCG (1000 IU) TABLET PO SCH (08:11)
[2023-10-12] MEDS: AMIODARONE 200 MG TAB PO SCH (08:11)
[2023-10-12] MEDS: NON FORMULARY DRUG (Evolocumab [Repatha Sureclick] 140 MG/ML Each) SQ SCH (08:32)
--- NOTE | 2023-10-12 08:38 | P.PN ---
Subjective Progress Note Date: 10/12/23 PROGRESS NOTE The patient is a 57-year-old female who is seen post CABG. She is followed on a regular basis by Dr. Cisneros and underwent cardiac catheterization that revealed a severely impaired low ventricle systolic function and her echocardiogram preoperatively showed an ejection fraction of 35 to 40%. She was also found to have left subclavian stenosis and underwent stenting of that vessel by Dr. Montero. She received a ALVAREZ to the diagonal, right radial to the LAD and SVG to the OM and RCA. The follow-up AFSHAN postoperatively showed an improvement in the systolic function. She is intubated and sedated, on no vasopressors and in sinus mechanism with good urinary output and no significant drainage from her mediastinal or chest tube. She has a history of peripheral neuropathy and diabetes with prior toe amputation. Her current risk factors are positive for hypertension, hyperlipidemia and diabetes mellitus. October 11: The patient is extubated, sitting up in the chair, in sinus mechanism. Hemo dynamically stable with no arrhythmia and no vasopressor. She had an episode of unresponsiveness yesterday lasting for about 5 minutes that subsequently resolved. She has a known history of carotid obstructive disease that has been managed conservatively. She feels better today. She denies any dizziness or palpitation. She has no nausea. Her urinary output is stable. Medications: Amlodipine 2.5 mg daily, amiodarone 400 mg twice a day, atorvastatin 20 mg daily, Plavix 75 mg daily, metoprolol tartrate 12.5 mg twice a day PHYSICAL EXAMINATION: Blood pressure 100/58 heart rate 96 LUNGS: Clear to auscultation HEART: Regular rate and rhythm, S1, S2. No S3. Systolic ejection murmur ABDOMEN: Soft, nontender, no organomegaly EXTREMETIES: No edema LAB: Potassium 4.0, BUN 14, creatinine 0.38, hemoglobin 8.5 IMPRESSION: 1. Status post CABG, stable 2. History of peripheral vascular disease 3. Ischemic cardiomyopathy 4. An episode of unresponsiveness, etiology unclear, resolved 5. Hyperlipidemia intolerant to statin on Repatha PLAN: 1. Continue present therapy 2. Increase physical activity 3. Incentive spirometry 4. Observe closely for any recurrent episodes of unresponsiveness Objective - Vital Signs Vital signs: Vital Signs Temp 98 F 10/12/23 00:00 Pulse 96 10/12/23 07:00 Resp 19 05/04/24 07:00 BP 107/73 10/11/23 22:30 Pulse Ox 97 10/12/23 07:00 FiO2 40 10/11/23 18:45 Intake & Output 10/11/23 10/12/23 10/12/23 18:59 06:59 18:59 Intake Total 881.618 5396.804 114.121 Output Total 1987 1039 25 Balance -1374.826 315.804 89.121 Weight 74.1 kg Intake: IV 270 858 79 ACETAMINOPHEN IV (For NPO 100 0 ) 1,000 mg In Empty Bag 1 bag @ 400 mls/hr IVPB Q6HR [facility]SY Rx#:[id number] Calcium Gluconate in NaCl 100 1 gm In Saline 1 100ml. bag @ 100 mls/hr IVPB ONCE ONE Rx#:[id number] Co/CI 80 200 20 Lactated Ringers 1,000 ml 400 50 @ 20 mls/hr IV .Q24H [facility]SY Rx#:[id number] Pressure Bags 36 108 9 ceFAZolin 2 gm In Sodium 50 50 0 Chloride 0.9% 50 ml @ 100 mls/hr IVPB Q8HR [facility] Rx# :[id number] Intake, IV Titration 32.174 496.804 35.121 Amount Albumin Human 5% 250 ml 250 In Empty Bag 1 bag @ 250 mls/hr IVPB Q1HR PRN Rx#: [id number] Dexmedetomidine/0.9% NaCl 3.411 5.47 (Pmx) 400 mcg In Empty Bag 1 bag @ Titrate IV . Q0M [facility] Rx#:[id number] Diltiazem 125 mg In 4.5 Sodium Chloride 0.9% 100 ml @ 5 MG/HR 5 mls/hr IV .Q24H EBTSY Rx#:[id number] Insulin Regular 100 unit 4.242 41.334 10.521 In Sodium Chloride 0.9% 100 ml @ Per Protocol IV .Q0M [facility]SY Rx#:[id number] Lactated Ringers 1,000 ml 200 @ 20 mls/hr IV .Q24H [facility] Rx#:[id number] Nitroglycerin-D5w Pmx 50 24.6 mg In Dextrose/Water 1 250ml.bag @ 5 MCG/MIN 1.5 mls/hr IV .Q24H [facility]SY Rx#: [id number] propofoL 1,000 mg In 20.021 Empty Bag 1 bag @ Titrate IV .Q0M [facility] Rx#: [id number] Blood Product 310 Rc As-1 Unit 310 [id number] Output: Chest Tube Drainage 202 469 0 Chest Tube Left 30 80 0 Chest Tube Right 23 87 0 Mediastinal Chest Tube x2 149 302 0 Urine 1185 570 25 Estimated Blood Loss 600 ABP, PAP, CO, CI - Last Documented Arterial Blood Pressure 96/51 Pulmonary Artery Pressure 29/10 Cardiac Output 4.3 Cardiac Index 2.5 - Labs CBC & Chem 7: 10/12/23 04:01 10/12/23 04:01 Labs: Abnormal Lab Results - Last 24 Hours (Table) 10/03/23 10/11/23 10/11/23 Range/Units 10:30 08:32 09:35 RBC (3.80-5.40) m/uL Hgb (11.4-16.0) gm/dL Hct (34.0-46.0) % Plt Count (150-450) k/uL Lymphocytes # (1.0-4.8) k/uL PT (10.0-12.5) sec INR (<1.2) ABG pH 7.28 L (7.35-7.45) ABG pCO2 52 H (35-45) mmHg ABG pO2 360 H 222 H (83-108) mmHg ABG HCO3 (21-25) mmol/L ABG Total CO2 (19-24) mmol/L ABG O2 Saturation 97.5 H 97.4 H (94-97) % ABG Hematocrit 33 L 33 L (34.0-46.0) % ABG Potassium 4.7 H (3.4-4.5) mmol/L ABG Ionized Calcium (4.5-5.3) mg/dL ABG Glucose 195 H 160 H (75-99) mg/dL ABG Lactic Acid 2.3 H* 1.9 H (0.5-1.6) mmol/L Hemoglobin 10.8 L 10.6 L (11.4-16.0) gm/dL Chloride (98-107) mmol/L Creatinine (0.52-1.04) mg/dL Glucose (74-99) mg/dL POC Glucose (mg/dL) (70-110) mg/dL Calcium (8.4-10.2) mg/dL Ionized Calcium Lisa (4.5-5.3) mg/dL Magnesium (1.6-2.3) mg/dL AST (14-36) U/L Total Protein (6.3-8.2) g/dL Albumin (3.5-5.0) g/dL Arterial Blood Potassium 4.7 H (3.4-4.5) mmol/L Arterial Blood Glucose 195 H 160 H (75-99) mg/dL Crossmatch See Detail 10/11/23 10/11/23 10/11/23 Range/Units 11:52 12:32 14:58 RBC 2.96 L (3.80-5.40) m/uL Hgb 8.4 L D (11.4-16.0) gm/dL Hct 25.9 L (34.0-46.0) % Plt Count 101 L (150-450) k/uL Lymphocytes # (1.0-4.8) k/uL PT (10.0-12.5) sec INR (<1.2) ABG pH 7.30 L (7.35-7.45) ABG pCO2 51 H (35-45) mmHg ABG pO2 316 H 237 H (83-108) mmHg ABG HCO3 (21-25) mmol/L ABG Total CO2 (19-24) mmol/L ABG O2 Saturation 99.3 H 98.6 H (94-97) % ABG Hematocrit 22 L 20 L* (34.0-46.0) % ABG Potassium (3.4-4.5) mmol/L ABG Ionized Calcium 3.9 L 3.9 L (4.5-5.3) mg/dL ABG Glucose 135 H 145 H (75-99) mg/dL ABG Lactic Acid 2.5 H* 2.4 H* (0.5-1.6) mmol/L Hemoglobin 7.0 L* 6.6 L* (11.4-16.0) gm/dL Chloride (98-107) mmol/L Creatinine (0.52-1.04) mg/dL Glucose (74-99) mg/dL POC Glucose (mg/dL) (70-110) mg/dL Calcium (8.4-10.2) mg/dL Ionized Calcium Lisa (4.5-5.3) mg/dL Magnesium (1.6-2.3) mg/dL AST (14-36) U/L Total Protein (6.3-8.2) g/dL Albumin (3.5-5.0) g/dL Arterial Blood Potassium (3.4-4.5) mmol/L Arterial Blood Glucose 135 H 145 H (75-99) mg/dL Crossmatch 10/11/23 10/11/23 10/11/23 Range/Units 14:58 14:58 15:28 RBC (3.80-5.40) m/uL Hgb (11.4-16.0) gm/dL Hct (34.0-46.0) % Plt Count (150-450) k/uL Lymphocytes # (1.0-4.8) k/uL PT 12.7 H (10.0-12.5) sec INR 1.2 H (<1.2) ABG pH 7.26 L (7.35-7.45) ABG pCO2 56 H (35-45) mmHg ABG pO2 >400 H (83-108) mmHg ABG HCO3 26 H (21-25) mmol/L ABG Total CO2 27 H (19-24) mmol/L ABG O2 Saturation 99.4 H (94-97) % ABG Hematocrit (34.0-46.0) % ABG Potassium (3.4-4.5) mmol/L ABG Ionized Calcium (4.5-5.3) mg/dL ABG Glucose (75-99) mg/dL ABG Lactic Acid (0.5-1.6) mmol/L Hemoglobin (11.4-16.0) gm/dL Chloride 114 H (98-107) mmol/L Creatinine 0.36 L (0.52-1.04) mg/dL Glucose 103 H (74-99) mg/dL POC Glucose (mg/dL) (70-110) mg/dL Calcium 6.7 L (8.4-10.2) mg/dL Ionized Calcium Lisa 4.2 L (4.5-5.3) mg/dL Magnesium 2.6 H (1.6-2.3) mg/dL AST 46 H (14-36) U/L Total Protein 4.9 L (6.3-8.2) g/dL Albumin 3.0 L (3.5-5.0) g/dL Arterial Blood Potassium (3.4-4.5) mmol/L Arterial Blood Glucose (75-99) mg/dL Crossmatch 10/11/23 10/11/23 10/11/23 Range/Units 16:02 17:02 17:48 RBC 3.29 L (3.80-5.40) m/uL Hgb 9.6 L (11.4-16.0) gm/dL Hct 29.6 L (34.0-46.0) % Plt Count 118 L (150-450) k/uL Lymphocytes # (1.0-4.8) k/uL PT (10.0-12.5) sec INR (<1.2) ABG pH (7.35-7.45) ABG pCO2 (35-45) mmHg ABG pO2 (83-108) mmHg ABG HCO3 (21-25) mmol/L ABG Total CO2 (19-24) mmol/L ABG O2 Saturation (94-97) % ABG Hematocrit (34.0-46.0) % ABG Potassium (3.4-4.5) mmol/L ABG Ionized Calcium (4.5-5.3) mg/dL ABG Glucose (75-99) mg/dL ABG Lactic Acid (0.5-1.6) mmol/L Hemoglobin (11.4-16.0) gm/dL Chloride (98-107) mmol/L Creatinine (0.52-1.04) mg/dL Glucose (74-99) mg/dL POC Glucose (mg/dL) 153 H 176 H (70-110) mg/dL Calcium (8.4-10.2) mg/dL Ionized Calcium Lisa (4.5-5.3) mg/dL Magnesium (1.6-2.3) mg/dL AST (14-36) U/L Total Protein (6.3-8.2) g/dL Albumin (3.5-5.0) g/dL Arterial Blood Potassium (3.4-4.5) mmol/L Arterial Blood Glucose (75-99) mg/dL Crossmatch 10/11/23 10/11/23 10/11/23 Range/Units 18:09 18:35 19:22 RBC (3.80-5.40) m/uL Hgb (11.4-16.0) gm/dL Hct (34.0-46.0) % Plt Count (150-450) k/uL Lymphocytes # (1.0-4.8) k/uL PT (10.0-12.5) sec INR (<1.2) ABG pH 7.29 L (7.35-7.45) ABG pCO2 48 H (35-45) mmHg ABG pO2 (83-108) mmHg ABG HCO3 (21-25) mmol/L ABG Total CO2 25 H (19-24) mmol/L ABG O2 Saturation 97.9 H (94-97) % ABG Hematocrit (34.0-46.0) % ABG Potassium (3.4-4.5) mmol/L ABG Ionized Calcium (4.5-5.3) mg/dL ABG Glucose (75-99) mg/dL ABG Lactic Acid (0.5-1.6) mmol/L Hemoglobin (11.4-16.0) gm/dL Chloride (98-107) mmol/L Creatinine (0.52-1.04) mg/dL Glucose (74-99) mg/dL POC Glucose (mg/dL) 232 H 198 H (70-110) mg/dL Calcium (8.4-10.2) mg/dL Ionized Calcium Lisa (4.5-5.3) mg/dL Magnesium (1.6-2.3) mg/dL AST (14-36) U/L Total Protein (6.3-8.2) g/dL Albumin (3.5-5.0) g/dL Arterial Blood Potassium (3.4-4.5) mmol/L Arterial Blood Glucose (75-99) mg/dL Crossmatch 10/11/23 10/11/23 10/11/23 Range/Units 20:08 21:05 21:07 RBC 2.90 L (3.80-5.40) m/uL Hgb 8.9 L (11.4-16.0) gm/dL Hct 25.5 L (34.0-46.0) % Plt Count 116 L (150-450) k/uL Lymphocytes # 0.7 L (1.0-4.8) k/uL PT (10.0-12.5) sec INR (<1.2) ABG pH (7.35-7.45) ABG pCO2 (35-45) mmHg ABG pO2 (83-108) mmHg ABG HCO3 (21-25) mmol/L ABG Total CO2 (19-24) mmol/L ABG O2 Saturation (94-97) % ABG Hematocrit (34.0-46.0) % ABG Potassium (3.4-4.5) mmol/L ABG Ionized Calcium (4.5-5.3) mg/dL ABG Glucose (75-99) mg/dL ABG Lactic Acid (0.5-1.6) mmol/L Hemoglobin (11.4-16.0) gm/dL Chloride (98-107) mmol/L Creatinine (0.52-1.04) mg/dL Glucose (74-99) mg/dL POC Glucose (mg/dL) 195 H 187 H (70-110) mg/dL Calcium (8.4-10.2) mg/dL Ionized Calcium Lisa (4.5-5.3) mg/dL Magnesium (1.6-2.3) mg/dL AST (14-36) U/L Total Protein (6.3-8.2) g/dL Albumin (3.5-5.0) g/dL Arterial Blood Potassium (3.4-4.5) mmol/L Arterial Blood Glucose (75-99) mg/dL Crossmatch 10/11/23 10/11/23 10/12/23 Range/Units 22:18 22:59 00:02 RBC (3.80-5.40) m/uL Hgb (11.4-16.0) gm/dL Hct (34.0-46.0) % Plt Count (150-450) k/uL Lymphocytes # (1.0-4.8) k/uL PT (10.0-12.5) sec INR (<1.2) ABG pH (7.35-7.45) ABG pCO2 (35-45) mmHg ABG pO2 (83-108) mmHg ABG HCO3 (21-25) mmol/L ABG Total CO2 (19-24) mmol/L ABG O2 Saturation (94-97) % ABG Hematocrit (34.0-46.0) % ABG Potassium (3.4-4.5) mmol/L ABG Ionized Calcium (4.5-5.3) mg/dL ABG Glucose (75-99) mg/dL ABG Lactic Acid (0.5-1.6) mmol/L Hemoglobin (11.4-16.0) gm/dL Chloride (98-107) mmol/L Creatinine (0.52-1.04) mg/dL Glucose (74-99) mg/dL POC Glucose (mg/dL) 171 H 155 H 156 H (70-110) mg/dL Calcium (8.4-10.2) mg/dL Ionized Calcium Lisa (4.5-5.3) mg/dL Magnesium (1.6-2.3) mg/dL AST (14-36) U/L Total Protein (6.3-8.2) g/dL Albumin (3.5-5.0) g/dL Arterial Blood Potassium (3.4-4.5) mmol/L Arterial Blood Glucose (75-99) mg/dL Crossmatch 10/12/23 10/12/23 10/12/23 Range/Units 00:55 01:03 01:16 RBC (3.80-5.40) m/uL Hgb (11.4-16.0) gm/dL Hct (34.0-46.0) % Plt Count (150-450) k/uL Lymphocytes # (1.0-4.8) k/uL PT (10.0-12.5) sec INR (<1.2) ABG pH (7.35-7.45) ABG pCO2 (35-45) mmHg ABG pO2 (83-108) mmHg ABG HCO3 (21-25) mmol/L ABG Total CO2 25 H (19-24) mmol/L ABG O2 Saturation 97.4 H (94-97) % ABG Hematocrit (34.0-46.0) % ABG Potassium (3.4-4.5) mmol/L ABG Ionized Calcium (4.5-5.3) mg/dL ABG Glucose (75-99) mg/dL ABG Lactic Acid (0.5-1.6) mmol/L Hemoglobin (11.4-16.0) gm/dL Chloride (98-107) mmol/L Creatinine (0.52-1.04) mg/dL Glucose (74-99) mg/dL POC Glucose (mg/dL) 145 H 150 H (70-110) mg/dL Calcium (8.4-10.2) mg/dL Ionized Calcium Lisa (4.5-5.3) mg/dL Magnesium (1.6-2.3) mg/dL AST (14-36) U/L Total Protein (6.3-8.2) g/dL Albumin (3.5-5.0) g/dL Arterial Blood Potassium (3.4-4.5) mmol/L Arterial Blood Glucose (75-99) mg/dL Crossmatch 10/12/23 10/12/23 10/12/23 Range/Units 02:00 02:58 04:00 RBC (3.80-5.40) m/uL Hgb (11.4-16.0) gm/dL Hct (34.0-46.0) % Plt Count (150-450) k/uL Lymphocytes # (1.0-4.8) k/uL PT (10.0-12.5) sec INR (<1.2) ABG pH (7.35-7.45) ABG pCO2 (35-45) mmHg ABG pO2 (83-108) mmHg ABG HCO3 (21-25) mmol/L ABG Total CO2 (19-24) mmol/L ABG O2 Saturation (94-97) % ABG Hematocrit (34.0-46.0) % ABG Potassium (3.4-4.5) mmol/L ABG Ionized Calcium (4.5-5.3) mg/dL ABG Glucose (75-99) mg/dL ABG Lactic Acid (0.5-1.6) mmol/L Hemoglobin (11.4-16.0) gm/dL Chloride (98-107) mmol/L Creatinine (0.52-1.04) mg/dL Glucose (74-99) mg/dL POC Glucose (mg/dL) 144 H 116 H 123 H (70-110) mg/dL Calcium (8.4-10.2) mg/dL Ionized Calcium Lisa (4.5-5.3) mg/dL Magnesium (1.6-2.3) mg/dL AST (14-36) U/L Total Protein (6.3-8.2) g/dL Albumin (3.5-5.0) g/dL Arterial Blood Potassium (3.4-4.5) mmol/L Arterial Blood Glucose (75-99) mg/dL Crossmatch 10/12/23 10/12/23 10/12/23 Range/Units 04:01 04:01 06:26 RBC 3.05 L (3.80-5.40) m/uL Hgb 8.5 L (11.4-16.0) gm/dL Hct 26.3 L (34.0-46.0) % Plt Count 129 L (150-450) k/uL Lymphocytes # (1.0-4.8) k/uL PT (10.0-12.5) sec INR (<1.2) ABG pH (7.35-7.45) ABG pCO2 (35-45) mmHg ABG pO2 (83-108) mmHg ABG HCO3 (21-25) mmol/L ABG Total CO2 (19-24) mmol/L ABG O2 Saturation (94-97) % ABG Hematocrit (34.0-46.0) % ABG Potassium (3.4-4.5) mmol/L ABG Ionized Calcium (4.5-5.3) mg/dL ABG Glucose (75-99) mg/dL ABG Lactic Acid (0.5-1.6) mmol/L Hemoglobin (11.4-16.0) gm/dL Chloride 109 H (98-107) mmol/L Creatinine 0.38 L (0.52-1.04) mg/dL Glucose 110 H (74-99) mg/dL POC Glucose (mg/dL) 185 H (70-110) mg/dL Calcium 7.5 L (8.4-10.2) mg/dL Ionized Calcium Lisa 4.4 L (4.5-5.3) mg/dL Magnesium (1.6-2.3) mg/dL AST 52 H (14-36) U/L Total Protein 5.3 L (6.3-8.2) g/dL Albumin 3.4 L (3.5-5.0) g/dL Arterial Blood Potassium (3.4-4.5) mmol/L Arterial Blood Glucose (75-99) mg/dL Crossmatch 10/12/23 10/12/23 Range/Units 07:08 08:04 RBC (3.80-5.40) m/uL Hgb (11.4-16.0) gm/dL Hct (34.0-46.0) % Plt Count (150-450) k/uL Lymphocytes # (1.0-4.8) k/uL PT (10.0-12.5) sec INR (<1.2) ABG pH (7.35-7.45) ABG pCO2 (35-45) mmHg ABG pO2 (83-108) mmHg ABG HCO3 (21-25) mmol/L ABG Total CO2 (19-24) mmol/L ABG O2 Saturation (94-97) % ABG Hematocrit (34.0-46.0) % ABG Potassium (3.4-4.5) mmol/L ABG Ionized Calcium (4.5-5.3) mg/dL ABG Glucose (75-99) mg/dL ABG Lactic Acid (0.5-1.6) mmol/L Hemoglobin (11.4-16.0) gm/dL Chloride (98-107) mmol/L Creatinine (0.52-1.04) mg/dL Glucose (74-99) mg/dL POC Glucose (mg/dL) 180 H 157 H (70-110) mg/dL Calcium (8.4-10.2) mg/dL Ionized Calcium Lisa (4.5-5.3) mg/dL Magnesium (1.6-2.3) mg/dL AST (14-36) U/L Total Protein (6.3-8.2) g/dL Albumin (3.5-5.0) g/dL Arterial Blood Potassium (3.4-4.5) mmol/L Arterial Blood Glucose (75-99) mg/dL Crossmatch
[2023-10-12] MEDS ORDERED: bisacodyL 10 MG SUPP RECTAL PRN (09:00)
[2023-10-12] MEDS: IPRATROPIUM-ALBUTEROL 3 ML NEB INHALATION SCH (09:48)
[2023-10-12] MEDS: SYMBICORT 160-4.5 MCG INHALER INHALATION SCH (09:48)
[2023-10-12 09:57] LABS: Glucose,Whole Blood 119 mg/dL (70-110)
[2023-10-12 11:16] LABS: Glucose,Whole Blood 134 mg/dL (70-110)
[2023-10-12 12:11] LABS: Glucose,Whole Blood 130 mg/dL (70-110)
[2023-10-12] MEDS: MIDODRINE 5 MG TAB PO SCH ×2 (12:14→17:06)
[2023-10-12 13:07] VITALS: BMI 28.0
--- NOTE | 2023-10-12 13:22 | P.PN ---
Subjective Progress Note Date: 10/12/23 This is a 57-year-old female patient underwent four-vessel bypass surgery and the patient underwent ALVAREZ to diagonal, right radial to LAD, saphenous vein graft to OM and RCA. The patient is currently postop, intubated on mechanical ventilator in the intensive care unit. She is on propofol which is running at 20 mcg/kg/min. She is adequately sedated for now. The patient is on a mechanical ventilator assist-control mode with a tidal volume of 400, rate of 14, FiO2 was 100% with a PEEP of 5. Show a pH of 7.26 with a pCO2 of 56 and pO2 of more than 400. FiO2 was dropped down to 40% and the patient's rate is brought up to 24. She is hemodynamically stable. She is chronic and pulmonary artery pressure of 33/20 and her cardiac output is had 4.4 with an index of 2.4. She is currently on amiodarone drip running at 1 mg/min and she is also on nitroglycerin drip at 5 mcg/min. No other inotropes at this point. Urine output is in order 45 cc an hour. The patient has 2 mediastinal chest tubes, and right in the left lower chest tube. Output from the left lower chest tube is 0. Output from the mediastinal chest tubes is 50 and output from the right pleural chest tube is 0. No evidence of any air leak. Chest x-ray that was done postop showed adequate positioning of the lines and tubes. The NG tube was advanced. No evidence of any pneumothorax. All of the chest tubes are in good location. Blood work showed a hemoglobin of 8.4, normal coagulation profile, BUN 12 with a creatinine of 0.36 and a sodium level of 142, the calcium level was at 6.7 and the patient was given IV calcium. LFTs are normal. Blood sugars are adequate at 145. The patient is currently on sliding scale insulin coverage. Her current temperature is 35.8 and the patient is receiving external warming. In terms of her history, the patient is known to have coronary artery disease. 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 She did have a dry gangrene of the left great toe with secondary sepsis earlier hospitalization that was ampu tated. She also has had a previous history of left subclavian stenosis requiring stenting. She is a chronic smoker and she is also known to have COPD. Her preoperative LV function was an ejection fraction of 35 to 40%. She did have segmental wall motion abnormalities related to her underlying coronary artery disease. On 10/12/2023, patient is being seen for a follow-up. The patient is currently postop day #1. The patient was weaned off the mechanical ventilator and the patient was extubated without any major difficulties. This morning, the patient is on 2 L of oxygen by nasal cannula. Chest x-ray findings are essentially stable with consistent with postoperative changes. The patient is using incentive spirometer pulling approximately 500 cc. Cardiac output is 4.4 with an index of 2.6. The patient has a PA pressures of 34/13. The mediastinal chest tube is produced 450 cc overnight in the right lower has produced 110 in the left lower leg produced 10. The patient remains on insulin drip at 2.5 units an hour. The patient was treated with amiodarone drip and this will be switched to oral. Cardiac rhythm remains sinus. Blood work from today shows a WBC count of 7.7 with a hemoglobin 8.5 and a platelet count of 129. Rest of the electrolytes stable. BUN is at 14 with a creatinine of 0.8 and a sodium levels at 139 with a potassium level of 4. LFTs are normal. The patient is currently in normal sinus rhythm. She is ambulating. Objective - Vital Signs Vital signs: Vital Signs Temp 98.1 F 10/12/23 08:00 Pulse 99 10/12/23 10:00 Resp 24 10/12/23 10:00 BP 107/73 10/12/23 08:00 Pulse Ox 98 10/12/23 10:00 FiO2 40 10/11/23 18:45 Intake & Output 10/11/23 10/12/23 10/12/23 18:59 06:59 18:59 Intake Total 034.823 3624.804 357.070 Output Total 1987 1039 158 Balance -1374.826 315.804 199.070 Weight 74.1 kg Intake: IV 270 858 317 ACETAMINOPHEN IV (For NPO 100 0 ) 1,000 mg In Empty Bag 1 bag @ 400 mls/hr IVPB Q6HR [facility] Rx#:[id number] Calcium Gluconate in NaCl 100 1 gm In Saline 1 100ml. bag @ 100 mls/hr IVPB ONCE ONE Rx#:[id number] Co/CI 80 200 40 Lactated Ringers 1,000 ml 400 200 @ 20 mls/hr IV .Q24H [facility] Rx#:[id number] Pressure Bags 36 108 27 ceFAZolin 2 gm In Sodium 50 50 50 Chloride 0.9% 50 ml @ 100 mls/hr IVPB Q8HR [facility] Rx# :[id number] Intake, IV Titration 32.174 496.804 40.070 Amount Albumin Human 5% 250 ml 250 In Empty Bag 1 bag @ 250 mls/hr IVPB Q1HR [facility] Rx#: [id number] Dexmedetomidine/0.9% NaCl 3.411 5.47 (Pmx) 400 mcg In Empty Bag 1 bag @ Titrate IV . Q0M [facility] Rx#:[id number] Diltiazem 125 mg In 4.5 Sodium Chloride 0.9% 100 ml @ 5 MG/HR 5 mls/hr IV .Q24H [facility] Rx#:[id number] Insulin Regular 100 unit 4.242 41.334 15.470 In Sodium Chloride 0.9% 100 ml @ Per Protocol IV .Q0M [facility] Rx#:[id number] Lactated Ringers 1,000 ml 200 @ 20 mls/hr IV .Q24H [facility] Rx#:[id number] Nitroglycerin-D5w Pmx 50 24.6 mg In Dextrose/Water 1 250ml.bag @ 5 MCG/MIN 1.5 mls/hr IV .Q24H [facility] Rx#: [id number] propofoL 1,000 mg In 20.021 Empty Bag 1 bag @ Titrate IV .Q0M [facility] Rx#: [id number] Blood Product 310 Rc As-1 Unit 310 [id number] Output: Chest Tube Drainage 202 469 78 Chest Tube Left 30 80 10 Chest Tube Right 23 87 18 Mediastinal Chest Tube x2 149 302 50 Urine 1185 570 80 Estimated Blood Loss 600 ABP, PAP, CO, CI - Last Documented Arterial Blood Pressure 86/53 Pulmonary Artery Pressure 37/20 Cardiac Output 4.4 Cardiac Index 2.6 - Exam General appearance the patient is calm and comfortable, extubated to 2 L of oxygen by nasal cannula the patient is sitting up on a chair Head exam was generally normal. There was no scleral icterus or corneal arcus. Mucous membranes were moist. Neck was supple and without jugular venous distension, thyromegaly, or carotid bruits. Carotids were easily palpable bilaterally. There was no adenopathy. The patient has a right IJ [place]-Ajit catheter in place. Cardiac exam revealed the PMI to be normally situated and sized. The rhythm was regular and no extrasystoles were noted during several minutes of auscultation. The first and second heart sounds were normal and physiologic splitting of the second heart sound was noted. There were no murmurs, rubs, clicks, or gallops. Thoracotomy scar is dry clean and intact and the patient has a right pleural, left pleural and 2 mediastinal chest tubes. Lungs were clear to auscultation and percussion, and with normal diaphragmatic excursion. No wheezes or rales were noted. Abdominal exam revealed normal bowel sounds. The abdomen was soft, non-tender, and without masses, organomegaly, or appreciable enlargement of the abdominal aorta. Examination of the extremities revealed easily palpable radial, femoral and pedal pulses. There was no cyanosis, clubbing or edema. Examination of the skin revealed no evidence of significant rashes, suspicious appearing nevi or other concerning lesions. Neurologically the patient awake and alert and no focal neurological deficits. - Labs CBC & Chem 7: 10/12/23 04:01 10/12/23 04:01 Labs: Abnormal Lab Results - Last 24 Hours (Table) 10/03/23 10/11/23 10/11/23 Range/Units 10:30 08:32 09:35 RBC (3.80-5.40) m/uL Hgb (11.4-16.0) gm/dL Hct (34.0-46.0) % Plt Count (150-450) k/uL Lymphocytes # (1.0-4.8) k/uL PT (10.0-12.5) sec INR (<1.2) ABG pH 7.28 L (7.35-7.45) ABG pCO2 52 H (35-45) mmHg ABG pO2 360 H 222 H (83-108) mmHg ABG HCO3 (21-25) mmol/L ABG Total CO2 (19-24) mmol/L ABG O2 Saturation 97.5 H 97.4 H (94-97) % ABG Hematocrit 33 L 33 L (34.0-46.0) % ABG Potassium 4.7 H (3.4-4.5) mmol/L ABG Ionized Calcium (4.5-5.3) mg/dL ABG Glucose 195 H 160 H (75-99) mg/dL ABG Lactic Acid 2.3 H* 1.9 H (0.5-1.6) mmol/L Hemoglobin 10.8 L 10.6 L (11.4-16.0) gm/dL Chloride (98-107) mmol/L Creatinine (0.52-1.04) mg/dL Glucose (74-99) mg/dL POC Glucose (mg/dL) (70-110) mg/dL Calcium (8.4-10.2) mg/dL Ionized Calcium Lisa (4.5-5.3) mg/dL Magnesium (1.6-2.3) mg/dL AST (14-36) U/L Total Protein (6.3-8.2) g/dL Albumin (3.5-5.0) g/dL Arterial Blood Potassium 4.7 H (3.4-4.5) mmol/L Arterial Blood Glucose 195 H 160 H (75-99) mg/dL Crossmatch See Detail 10/11/23 10/11/23 10/11/23 Range/Units 11:52 12:32 14:58 RBC 2.96 L (3.80-5.40) m/uL Hgb 8.4 L D (11.4-16.0) gm/dL Hct 25.9 L (34.0-46.0) % Plt Count 101 L (150-450) k/uL Lymphocytes # (1.0-4.8) k/uL PT (10.0-12.5) sec INR (<1.2) ABG pH 7.30 L (7.35-7.45) ABG pCO2 51 H (35-45) mmHg ABG pO2 316 H 237 H (83-108) mmHg ABG HCO3 (21-25) mmol/L ABG Total CO2 (19-24) mmol/L ABG O2 Saturation 99.3 H 98.6 H (94-97) % ABG Hematocrit 22 L 20 L* (34.0-46.0) % ABG Potassium (3.4-4.5) mmol/L ABG Ionized Calcium 3.9 L 3.9 L (4.5-5.3) mg/dL ABG Glucose 135 H 145 H (75-99) mg/dL ABG Lactic Acid 2.5 H* 2.4 H* (0.5-1.6) mmol/L Hemoglobin 7.0 L* 6.6 L* (11.4-16.0) gm/dL Chloride (98-107) mmol/L Creatinine (0.52-1.04) mg/dL Glucose (74-99) mg/dL POC Glucose (mg/dL) (70-110) mg/dL Calcium (8.4-10.2) mg/dL Ionized Calcium Lisa (4.5-5.3) mg/dL Magnesium (1.6-2.3) mg/dL AST (14-36) U/L Total Protein (6.3-8.2) g/dL Albumin (3.5-5.0) g/dL Arterial Blood Potassium (3.4-4.5) mmol/L Arterial Blood Glucose 135 H 145 H (75-99) mg/dL Crossmatch 10/11/23 10/11/23 10/11/23 Range/Units 14:58 14:58 15:28 RBC (3.80-5.40) m/uL Hgb (11.4-16.0) gm/dL Hct (34.0-46.0) % Plt Count (150-450) k/uL Lymphocytes # (1.0-4.8) k/uL PT 12.7 H (10.0-12.5) sec INR 1.2 H (<1.2) ABG pH 7.26 L (7.35-7.45) ABG pCO2 56 H (35-45) mmHg ABG pO2 >400 H (83-108) mmHg ABG HCO3 26 H (21-25) mmol/L ABG Total CO2 27 H (19-24) mmol/L ABG O2 Saturation 99.4 H (94-97) % ABG Hematocrit (34.0-46.0) % ABG Potassium (3.4-4.5) mmol/L ABG Ionized Calcium (4.5-5.3) mg/dL ABG Glucose (75-99) mg/dL ABG Lactic Acid (0.5-1.6) mmol/L Hemoglobin (11.4-16.0) gm/dL Chloride 114 H (98-107) mmol/L Creatinine 0.36 L (0.52-1.04) mg/dL Glucose 103 H (74-99) mg/dL POC Glucose (mg/dL) (70-110) mg/dL Calcium 6.7 L (8.4-10.2) mg/dL Ionized Calcium Lisa 4.2 L (4.5-5.3) mg/dL Magnesium 2.6 H (1.6-2.3) mg/dL AST 46 H (14-36) U/L Total Protein 4.9 L (6.3-8.2) g/dL Albumin 3.0 L (3.5-5.0) g/dL Arterial Blood Potassium (3.4-4.5) mmol/L Arterial Blood Glucose (75-99) mg/dL Crossmatch 10/11/23 10/11/23 10/11/23 Range/Units 16:02 17:02 17:48 RBC 3.29 L (3.80-5.40) m/uL Hgb 9.6 L (11.4-16.0) gm/dL Hct 29.6 L (34.0-46.0) % Plt Count 118 L (150-450) k/uL Lymphocytes # (1.0-4.8) k/uL PT (10.0-12.5) sec INR (<1.2) ABG pH (7.35-7.45) ABG pCO2 (35-45) mmHg ABG pO2 (83-108) mmHg ABG HCO3 (21-25) mmol/L ABG Total CO2 (19-24) mmol/L ABG O2 Saturation (94-97) % ABG Hematocrit (34.0-46.0) % ABG Potassium (3.4-4.5) mmol/L ABG Ionized Calcium (4.5-5.3) mg/dL ABG Glucose (75-99) mg/dL ABG Lactic Acid (0.5-1.6) mmol/L Hemoglobin (11.4-16.0) gm/dL Chloride (98-107) mmol/L Creatinine (0.52-1.04) mg/dL Glucose (74-99) mg/dL POC Glucose (mg/dL) 153 H 176 H (70-110) mg/dL Calcium (8.4-10.2) mg/dL Ionized Calcium Lisa (4.5-5.3) mg/dL Magnesium (1.6-2.3) mg/dL AST (14-36) U/L Total Protein (6.3-8.2) g/dL Albumin (3.5-5.0) g/dL Arterial Blood Potassium (3.4-4.5) mmol/L Arterial Blood Glucose (75-99) mg/dL Crossmatch 10/11/23 10/11/23 10/11/23 Range/Units 18:09 18:35 19:22 RBC (3.80-5.40) m/uL Hgb (11.4-16.0) gm/dL Hct (34.0-46.0) % Plt Count (150-450) k/uL Lymphocytes # (1.0-4.8) k/uL PT (10.0-12.5) sec INR (<1.2) ABG pH 7.29 L (7.35-7.45) ABG pCO2 48 H (35-45) mmHg ABG pO2 (83-108) mmHg ABG HCO3 (21-25) mmol/L ABG Total CO2 25 H (19-24) mmol/L ABG O2 Saturation 97.9 H (94-97) % ABG Hematocrit (34.0-46.0) % ABG Potassium (3.4-4.5) mmol/L ABG Ionized Calcium (4.5-5.3) mg/dL ABG Glucose (75-99) mg/dL ABG Lactic Acid (0.5-1.6) mmol/L Hemoglobin (11.4-16.0) gm/dL Chloride (98-107) mmol/L Creatinine (0.52-1.04) mg/dL Glucose (74-99) mg/dL POC Glucose (mg/dL) 232 H 198 H (70-110) mg/dL Calcium (8.4-10.2) mg/dL Ionized Calcium Lisa (4.5-5.3) mg/dL Magnesium (1.6-2.3) mg/dL AST (14-36) U/L Total Protein (6.3-8.2) g/dL Albumin (3.5-5.0) g/dL Arterial Blood Potassium (3.4-4.5) mmol/L Arterial Blood Glucose (75-99) mg/dL Crossmatch 10/11/23 10/11/23 10/11/23 Range/Units 20:08 21:05 21:07 RBC 2.90 L (3.80-5.40) m/uL Hgb 8.9 L (11.4-16.0) gm/dL Hct 25.5 L (34.0-46.0) % Plt Count 116 L (150-450) k/uL Lymphocytes # 0.7 L (1.0-4.8) k/uL PT (10.0-12.5) sec INR (<1.2) ABG pH (7.35-7.45) ABG pCO2 (35-45) mmHg ABG pO2 (83-108) mmHg ABG HCO3 (21-25) mmol/L ABG Total CO2 (19-24) mmol/L ABG O2 Saturation (94-97) % ABG Hematocrit (34.0-46.0) % ABG Potassium (3.4-4.5) mmol/L ABG Ionized Calcium (4.5-5.3) mg/dL ABG Glucose (75-99) mg/dL ABG Lactic Acid (0.5-1.6) mmol/L Hemoglobin (11.4-16.0) gm/dL Chloride (98-107) mmol/L Creatinine (0.52-1.04) mg/dL Glucose (74-99) mg/dL POC Glucose (mg/dL) 195 H 187 H (70-110) mg/dL Calcium (8.4-10.2) mg/dL Ionized Calcium Lisa (4.5-5.3) mg/dL Magnesium (1.6-2.3) mg/dL AST (14-36) U/L Total Protein (6.3-8.2) g/dL Albumin (3.5-5.0) g/dL Arterial Blood Potassium (3.4-4.5) mmol/L Arterial Blood Glucose (75-99) mg/dL Crossmatch 10/11/23 10/11/23 10/12/23 Range/Units 22:18 22:59 00:02 RBC (3.80-5.40) m/uL Hgb (11.4-16.0) gm/dL Hct (34.0-46.0) % Plt Count (150-450) k/uL Lymphocytes # (1.0-4.8) k/uL PT (10.0-12.5) sec INR (<1.2) ABG pH (7.35-7.45) ABG pCO2 (35-45) mmHg ABG pO2 (83-108) mmHg ABG HCO3 (21-25) mmol/L ABG Total CO2 (19-24) mmol/L ABG O2 Saturation (94-97) % ABG Hematocrit (34.0-46.0) % ABG Potassium (3.4-4.5) mmol/L ABG Ionized Calcium (4.5-5.3) mg/dL ABG Glucose (75-99) mg/dL ABG Lactic Acid (0.5-1.6) mmol/L Hemoglobin (11.4-16.0) gm/dL Chloride (98-107) mmol/L Creatinine (0.52-1.04) mg/dL Glucose (74-99) mg/dL POC Glucose (mg/dL) 171 H 155 H 156 H (70-110) mg/dL Calcium (8.4-10.2) mg/dL Ionized Calcium Lisa (4.5-5.3) mg/dL Magnesium (1.6-2.3) mg/dL AST (14-36) U/L Total Protein (6.3-8.2) g/dL Albumin (3.5-5.0) g/dL Arterial Blood Potassium (3.4-4.5) mmol/L Arterial Blood Glucose (75-99) mg/dL Crossmatch 10/12/23 10/12/23 10/12/23 Range/Units 00:55 01:03 01:16 RBC (3.80-5.40) m/uL Hgb (11.4-16.0) gm/dL Hct (34.0-46.0) % Plt Count (150-450) k/uL Lymphocytes # (1.0-4.8) k/uL PT (10.0-12.5) sec INR (<1.2) ABG pH (7.35-7.45) ABG pCO2 (35-45) mmHg ABG pO2 (83-108) mmHg ABG HCO3 (21-25) mmol/L ABG Total CO2 25 H (19-24) mmol/L ABG O2 Saturation 97.4 H (94-97) % ABG Hematocrit (34.0-46.0) % ABG Potassium (3.4-4.5) mmol/L ABG Ionized Calcium (4.5-5.3) mg/dL ABG Glucose (75-99) mg/dL ABG Lactic Acid (0.5-1.6) mmol/L Hemoglobin (11.4-16.0) gm/dL Chloride (98-107) mmol/L Creatinine (0.52-1.04) mg/dL Glucose (74-99) mg/dL POC Glucose (mg/dL) 145 H 150 H (70-110) mg/dL Calcium (8.4-10.2) mg/dL Ionized Calcium Lisa (4.5-5.3) mg/dL Magnesium (1.6-2.3) mg/dL AST (14-36) U/L Total Protein (6.3-8.2) g/dL Albumin (3.5-5.0) g/dL Arterial Blood Potassium (3.4-4.5) mmol/L Arterial Blood Glucose (75-99) mg/dL Crossmatch 10/12/23 10/12/23 10/12/23 Range/Units 02:00 02:58 04:00 RBC (3.80-5.40) m/uL Hgb (11.4-16.0) gm/dL Hct (34.0-46.0) % Plt Count (150-450) k/uL Lymphocytes # (1.0-4.8) k/uL PT (10.0-12.5) sec INR (<1.2) ABG pH (7.35-7.45) ABG pCO2 (35-45) mmHg ABG pO2 (83-108) mmHg ABG HCO3 (21-25) mmol/L ABG Total CO2 (19-24) mmol/L ABG O2 Saturation (94-97) % ABG Hematocrit (34.0-46.0) % ABG Potassium (3.4-4.5) mmol/L ABG Ionized Calcium (4.5-5.3) mg/dL ABG Glucose (75-99) mg/dL ABG Lactic Acid (0.5-1.6) mmol/L Hemoglobin (11.4-16.0) gm/dL Chloride (98-107) mmol/L Creatinine (0.52-1.04) mg/dL Glucose (74-99) mg/dL POC Glucose (mg/dL) 144 H 116 H 123 H (70-110) mg/dL Calcium (8.4-10.2) mg/dL Ionized Calcium Lisa (4.5-5.3) mg/dL Magnesium (1.6-2.3) mg/dL AST (14-36) U/L Total Protein (6.3-8.2) g/dL Albumin (3.5-5.0) g/dL Arterial Blood Potassium (3.4-4.5) mmol/L Arterial Blood Glucose (75-99) mg/dL Crossmatch 10/12/23 10/12/23 10/12/23 Range/Units 04:01 04:01 06:26 RBC 3.05 L (3.80-5.40) m/uL Hgb 8.5 L (11.4-16.0) gm/dL Hct 26.3 L (34.0-46.0) % Plt Count 129 L (150-450) k/uL Lymphocytes # (1.0-4.8) k/uL PT (10.0-12.5) sec INR (<1.2) ABG pH (7.35-7.45) ABG pCO2 (35-45) mmHg ABG pO2 (83-108) mmHg ABG HCO3 (21-25) mmol/L ABG Total CO2 (19-24) mmol/L ABG O2 Saturation (94-97) % ABG Hematocrit (34.0-46.0) % ABG Potassium (3.4-4.5) mmol/L ABG Ionized Calcium (4.5-5.3) mg/dL ABG Glucose (75-99) mg/dL ABG Lactic Acid (0.5-1.6) mmol/L Hemoglobin (11.4-16.0) gm/dL Chloride 109 H (98-107) mmol/L Creatinine 0.38 L (0.52-1.04) mg/dL Glucose 110 H (74-99) mg/dL POC Glucose (mg/dL) 185 H (70-110) mg/dL Calcium 7.5 L (8.4-10.2) mg/dL Ionized Calcium Lisa 4.4 L (4.5-5.3) mg/dL Magnesium (1.6-2.3) mg/dL AST 52 H (14-36) U/L Total Protein 5.3 L (6.3-8.2) g/dL Albumin 3.4 L (3.5-5.0) g/dL Arterial Blood Potassium (3.4-4.5) mmol/L Arterial Blood Glucose (75-99) mg/dL Crossmatch 10/12/23 10/12/23 10/12/23 Range/Units 07:08 08:04 09:56 RBC (3.80-5.40) m/uL Hgb (11.4-16.0) gm/dL Hct (34.0-46.0) % Plt Count (150-450) k/uL Lymphocytes # (1.0-4.8) k/uL PT (10.0-12.5) sec INR (<1.2) ABG pH (7.35-7.45) ABG pCO2 (35-45) mmHg ABG pO2 (83-108) mmHg ABG HCO3 (21-25) mmol/L ABG Total CO2 (19-24) mmol/L ABG O2 Saturation (94-97) % ABG Hematocrit (34.0-46.0) % ABG Potassium (3.4-4.5) mmol/L ABG Ionized Calcium (4.5-5.3) mg/dL ABG Glucose (75-99) mg/dL ABG Lactic Acid (0.5-1.6) mmol/L Hemoglobin (11.4-16.0) gm/dL Chloride (98-107) mmol/L Creatinine (0.52-1.04) mg/dL Glucose (74-99) mg/dL POC Glucose (mg/dL) 180 H 157 H 119 H (70-110) mg/dL Calcium (8.4-10.2) mg/dL Ionized Calcium Lisa (4.5-5.3) mg/dL Magnesium (1.6-2.3) mg/dL AST (14-36) U/L Total Protein (6.3-8.2) g/dL Albumin (3.5-5.0) g/dL Arterial Blood Potassium (3.4-4.5) mmol/L Arterial Blood Glucose (75-99) mg/dL Crossmatch Assessment and Plan Plan: Multivessel coronary artery disease and the patient underwent four-vessel bypass surgery, and elective surgery and the patient is currently postop day # 1. Hemodynamically stable, cardiac rhythm is sinus Postthoracotomy, currently extubated to 2 L of oxygen by nasal cannula, has a ri ght pleural left pleural and mediastinal chest tubes with minimal output CHF with impaired LV function with a preop left ventricle ejection fraction of 35 to 40% along with segmental wall motion abnormalities. 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 Continue using the incentive spirometer and remove the [place]-Ajit catheter Hemodynamically stable and clinically stable and the patient is ambulating Discontinue the amiodarone drip and switch this patient to oral amiodarone FiO2 has been weaned down to 40% and output from the chest tubes are minimal Anticipate extubation within the next few hours based on the level or progress. Continue insulin drip Aspirin Plavix and metoprolol has been initiated Will follow
[2023-10-12 13:48] LABS: Glucose,Whole Blood 154 mg/dL (70-110)
--- NOTE | 2023-10-12 14:16 | P.PN ---
Subjective Progress Note Date: 10/12/23 This is a 57-year-old patient, follows with Dr. Dewitt. Chronic medical conditions include COPD, diabetes, hyperlipidemia, hypertension, osteoarthritis, peripheral neuropathy, subclavian blockage, prior COVID infection in 2022 left great toe amputation. August 07, 2023: Underwent cardiac catheterization by Dr. Montero. Underwent stenting of occluded subclavian with stent. Also has known severe triple-vessel coronary artery disease. Today patient underwent coronary bypass. Four-vessel. LA clip. Postprocedure in the ICU. Intubated. FiO2 40 and PEEP of 5. Patient has 3 mediastinal 1 left and 1 right chest tube. Drips include Precedex 0.4 mics, IV amiodarone, insulin drip at 2.5. Units an hour. Patient sedated 10/11. Patient seen and examined. Currently sitting upright in the chair, chest tubes are in place. REVIEW OF SYSTEMS: CONSTITUTIONAL: No fever, no malaise,. CARDIOVASCULAR: No chest pain, no palpitations, no syncope. PULMONARY: No shortness of breath, no cough, GASTROINTESTINAL: No diarrhea, no nausea, no vomiting, no abdominal pain. NEUROLOGICAL: No headaches, no weakness, PHYSICAL EXAMINATION: GENERAL: The patient is alert and oriented x3, not in any acute distress. Well developed, well nourished. HEENT: Pupils are round and equally reacting to light. EOMI. No scleral icterus. No conjunctival pallor. Normocephalic, atraumatic. No pharyngeal erythema. No thyromegaly. CARDIOVASCULAR: S1 and S2 present. No murmurs, rubs, or gallops. PULMONARY: Diminished breath sound the bases bilaterally, sternotomy surgical incision seen, bilateral chest tube seen ABDOMEN: Soft, nontender, nondistended, normoactive bowel sounds. No palpable o rganomegaly. MUSCULOSKELETAL: No joint swelling or deformity. EXTREMITIES: No cyanosis, clubbing, or pedal edema. NEUROLOGICAL: Gross neurological examination did not reveal any focal deficits. SKIN: No rashes. Assessment and plan Multivessel coronary artery disease status post four-vessel bypass surgery Post thoracotomy, currently extubated to 2 L of oxygen by nasal cannula CHF with impaired LV function with a preop left ventricle ejection fraction of 35 to 40% along with segmental wall motion abnormalities. 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 Continue same treatment. Continue with symptomatic treatment. Resume home medication. Monitor labs and vitals. DVT and GI prophylaxis. Further recommendations as per clinical course of the patient Dictation was produced using [employer] dictation software. please excuse any grammatical, word or spelling errors. Objective - Vital Signs Vital signs: Vital Signs Temp 98.1 F 10/12/23 08:00 Pulse 90 10/12/23 13:41 Resp 21 10/12/23 13:00 BP 99/61 10/12/23 13:00 Pulse Ox 96 10/12/23 13:00 FiO2 40 10/11/23 18:45 Intake & Output 10/11/23 10/12/23 10/12/23 18:59 06:59 18:59 Intake Total 053.646 8256.804 746.029 Output Total 1987 1039 323 Balance -1374.826 315.804 423.029 Weight 74.1 kg 74.1 kg Intake: IV 270 858 455 ACETAMINOPHEN IV (For NPO 100 0 ) 1,000 mg In Empty Bag 1 bag @ 400 mls/hr IVPB Q6HR BETSY Rx#:[id number] Calcium Gluconate in NaCl 100 1 gm In Saline 1 100ml. bag @ 100 mls/hr IVPB ONCE ONE Rx#:[id number] Co/CI 80 200 40 Lactated Ringers 1,000 ml 400 320 @ 20 mls/hr IV .Q24H BETSY Rx#:[id number] Pressure Bags 36 108 45 ceFAZolin 2 gm In Sodium 50 50 50 Chloride 0.9% 50 ml @ 100 mls/hr IVPB Q8HR BETSY Rx# :[id number] Intake, IV Titration 32.174 496.804 51.029 Amount Albumin Human 5% 250 ml 250 In Empty Bag 1 bag @ 250 mls/hr IVPB Q1HR PRN Rx#: [id number] Dexmedetomidine/0.9% NaCl 3.411 5.47 (Pmx) 400 mcg In Empty Bag 1 bag @ Titrate IV . Q0M BETSY Rx#:[id number] Diltiazem 125 mg In 4.5 Sodium Chloride 0.9% 100 ml @ 5 MG/HR 5 mls/hr IV .Q24H BETSY Rx#:[id number] Insulin Regular 100 unit 4.242 41.334 26.429 In Sodium Chloride 0.9% 100 ml @ Per Protocol IV .Q0M BETSY Rx#:[id number] Lactated Ringers 1,000 ml 200 @ 20 mls/hr IV .Q24H BETSY Rx#:[id number] Nitroglycerin-D5w Pmx 50 24.6 mg In Dextrose/Water 1 250ml.bag @ 5 MCG/MIN 1.5 mls/hr IV .Q24H BETSY Rx#: [id number] propofoL 1,000 mg In 20.021 Empty Bag 1 bag @ Titrate IV .Q0M BETSY Rx#: [id number] Oral 240 Blood Product 310 Rc As-1 Unit 310 [id number] Output: Chest Tube Drainage 202 469 168 Chest Tube Left 30 80 20 Chest Tube Right 23 87 38 Mediastinal Chest Tube x2 149 302 110 Urine 1185 570 155 Estimated Blood Loss 600 Other: Voiding Method Indwelling Catheter ABP, PAP, CO, CI - Last Documented Arterial Blood Pressure 83/48 Pulmonary Artery Pressure 41/41 Cardiac Output 4.4 Cardiac Index 2.6 - Labs CBC & Chem 7: 10/12/23 04:01 10/12/23 04:01 Labs: Abnormal Lab Results - Last 24 Hours (Table) 10/03/23 10/11/23 10/11/23 Range/Units 10:30 14:58 14:58 RBC 2.96 L (3.80-5.40) m/uL Hgb 8.4 L D (11.4-16.0) gm/dL Hct 25.9 L (34.0-46.0) % Plt Count 101 L (150-450) k/uL Lymphocytes # (1.0-4.8) k/uL PT 12.7 H (10.0-12.5) sec INR 1.2 H (<1.2) ABG pH (7.35-7.45) ABG pCO2 (35-45) mmHg ABG pO2 (83-108) mmHg ABG HCO3 (21-25) mmol/L ABG Total CO2 (19-24) mmol/L ABG O2 Saturation (94-97) % Chloride (98-107) mmol/L Creatinine (0.52-1.04) mg/dL Glucose (74-99) mg/dL POC Glucose (mg/dL) (70-110) mg/dL Calcium (8.4-10.2) mg/dL Ionized Calcium Lisa (4.5-5.3) mg/dL Magnesium (1.6-2.3) mg/dL AST (14-36) U/L Total Protein (6.3-8.2) g/dL Albumin (3.5-5.0) g/dL Crossmatch See Detail 10/11/23 10/11/23 10/11/23 Range/Units 14:58 15:28 16:02 RBC (3.80-5.40) m/uL Hgb (11.4-16.0) gm/dL Hct (34.0-46.0) % Plt Count (150-450) k/uL Lymphocytes # (1.0-4.8) k/uL PT (10.0-12.5) sec INR (<1.2) ABG pH 7.26 L (7.35-7.45) ABG pCO2 56 H (35-45) mmHg ABG pO2 >400 H (83-108) mmHg ABG HCO3 26 H (21-25) mmol/L ABG Total CO2 27 H (19-24) mmol/L ABG O2 Saturation 99.4 H (94-97) % Chloride 114 H (98-107) mmol/L Creatinine 0.36 L (0.52-1.04) mg/dL Glucose 103 H (74-99) mg/dL POC Glucose (mg/dL) 153 H (70-110) mg/dL Calcium 6.7 L (8.4-10.2) mg/dL Ionized Calcium Lisa 4.2 L (4.5-5.3) mg/dL Magnesium 2.6 H (1.6-2.3) mg/dL AST 46 H (14-36) U/L Total Protein 4.9 L (6.3-8.2) g/dL Albumin 3.0 L (3.5-5.0) g/dL Crossmatch 10/11/23 10/11/23 10/11/23 Range/Units 17:02 17:48 18:09 RBC 3.29 L (3.80-5.40) m/uL Hgb 9.6 L (11.4-16.0) gm/dL Hct 29.6 L (34.0-46.0) % Plt Count 118 L (150-450) k/uL Lymphocytes # (1.0-4.8) k/uL PT (10.0-12.5) sec INR (<1.2) ABG pH (7.35-7.45) ABG pCO2 (35-45) mmHg ABG pO2 (83-108) mmHg ABG HCO3 (21-25) mmol/L ABG Total CO2 (19-24) mmol/L ABG O2 Saturation (94-97) % Chloride (98-107) mmol/L Creatinine (0.52-1.04) mg/dL Glucose (74-99) mg/dL POC Glucose (mg/dL) 176 H 232 H (70-110) mg/dL Calcium (8.4-10.2) mg/dL Ionized Calcium Lisa (4.5-5.3) mg/dL Magnesium (1.6-2.3) mg/dL AST (14-36) U/L Total Protein (6.3-8.2) g/dL Albumin (3.5-5.0) g/dL Crossmatch 10/11/23 10/11/23 10/11/23 Range/Units 18:35 19:22 20:08 RBC (3.80-5.40) m/uL Hgb (11.4-16.0) gm/dL Hct (34.0-46.0) % Plt Count (150-450) k/uL Lymphocytes # (1.0-4.8) k/uL PT (10.0-12.5) sec INR (<1.2) ABG pH 7.29 L (7.35-7.45) ABG pCO2 48 H (35-45) mmHg ABG pO2 (83-108) mmHg ABG HCO3 (21-25) mmol/L ABG Total CO2 25 H (19-24) mmol/L ABG O2 Saturation 97.9 H (94-97) % Chloride (98-107) mmol/L Creatinine (0.52-1.04) mg/dL Glucose (74-99) mg/dL POC Glucose (mg/dL) 198 H 195 H (70-110) mg/dL Calcium (8.4-10.2) mg/dL Ionized Calcium Lisa (4.5-5.3) mg/dL Magnesium (1.6-2.3) mg/dL AST (14-36) U/L Total Protein (6.3-8.2) g/dL Albumin (3.5-5.0) g/dL Crossmatch 10/11/23 10/11/23 10/11/23 Range/Units 21:05 21:07 22:18 RBC 2.90 L (3.80-5.40) m/uL Hgb 8.9 L (11.4-16.0) gm/dL Hct 25.5 L (34.0-46.0) % Plt Count 116 L (150-450) k/uL Lymphocytes # 0.7 L (1.0-4.8) k/uL PT (10.0-12.5) sec INR (<1.2) ABG pH (7.35-7.45) ABG pCO2 (35-45) mmHg ABG pO2 (83-108) mmHg ABG HCO3 (21-25) mmol/L ABG Total CO2 (19-24) mmol/L ABG O2 Saturation (94-97) % Chloride (98-107) mmol/L Creatinine (0.52-1.04) mg/dL Glucose (74-99) mg/dL POC Glucose (mg/dL) 187 H 171 H (70-110) mg/dL Calcium (8.4-10.2) mg/dL Ionized Calcium Lisa (4.5-5.3) mg/dL Magnesium (1.6-2.3) mg/dL AST (14-36) U/L Total Protein (6.3-8.2) g/dL Albumin (3.5-5.0) g/dL Crossmatch 10/11/23 10/12/23 10/12/23 Range/Units 22:59 00:02 00:55 RBC (3.80-5.40) m/uL Hgb (11.4-16.0) gm/dL Hct (34.0-46.0) % Plt Count (150-450) k/uL Lymphocytes # (1.0-4.8) k/uL PT (10.0-12.5) sec INR (<1.2) ABG pH (7.35-7.45) ABG pCO2 (35-45) mmHg ABG pO2 (83-108) mmHg ABG HCO3 (21-25) mmol/L ABG Total CO2 (19-24) mmol/L ABG O2 Saturation (94-97) % Chloride (98-107) mmol/L Creatinine (0.52-1.04) mg/dL Glucose (74-99) mg/dL POC Glucose (mg/dL) 155 H 156 H 145 H (70-110) mg/dL Calcium (8.4-10.2) mg/dL Ionized Calcium Lisa (4.5-5.3) mg/dL Magnesium (1.6-2.3) mg/dL AST (14-36) U/L Total Protein (6.3-8.2) g/dL Albumin (3.5-5.0) g/dL Crossmatch 10/12/23 10/12/23 10/12/23 Range/Units 01:03 01:16 02:00 RBC (3.80-5.40) m/uL Hgb (11.4-16.0) gm/dL Hct (34.0-46.0) % Plt Count (150-450) k/uL Lymphocytes # (1.0-4.8) k/uL PT (10.0-12.5) sec INR (<1.2) ABG pH (7.35-7.45) ABG pCO2 (35-45) mmHg ABG pO2 (83-108) mmHg ABG HCO3 (21-25) mmol/L ABG Total CO2 25 H (19-24) mmol/L ABG O2 Saturation 97.4 H (94-97) % Chloride (98-107) mmol/L Creatinine (0.52-1.04) mg/dL Glucose (74-99) mg/dL POC Glucose (mg/dL) 150 H 144 H (70-110) mg/dL Calcium (8.4-10.2) mg/dL Ionized Calcium Lisa (4.5-5.3) mg/dL Magnesium (1.6-2.3) mg/dL AST (14-36) U/L Total Protein (6.3-8.2) g/dL Albumin (3.5-5.0) g/dL Crossmatch 10/12/23 10/12/23 10/12/23 Range/Units 02:58 04:00 04:01 RBC 3.05 L (3.80-5.40) m/uL Hgb 8.5 L (11.4-16.0) gm/dL Hct 26.3 L (34.0-46.0) % Plt Count 129 L (150-450) k/uL Lymphocytes # (1.0-4.8) k/uL PT (10.0-12.5) sec INR (<1.2) ABG pH (7.35-7.45) ABG pCO2 (35-45) mmHg ABG pO2 (83-108) mmHg ABG HCO3 (21-25) mmol/L ABG Total CO2 (19-24) mmol/L ABG O2 Saturation (94-97) % Chloride (98-107) mmol/L Creatinine (0.52-1.04) mg/dL Glucose (74-99) mg/dL POC Glucose (mg/dL) 116 H 123 H (70-110) mg/dL Calcium (8.4-10.2) mg/dL Ionized Calcium Lisa (4.5-5.3) mg/dL Magnesium (1.6-2.3) mg/dL AST (14-36) U/L Total Protein (6.3-8.2) g/dL Albumin (3.5-5.0) g/dL Crossmatch 10/12/23 10/12/23 10/12/23 Range/Units 04:01 06:26 07:08 RBC (3.80-5.40) m/uL Hgb (11.4-16.0) gm/dL Hct (34.0-46.0) % Plt Count (150-450) k/uL Lymphocytes # (1.0-4.8) k/uL PT (10.0-12.5) sec INR (<1.2) ABG pH (7.35-7.45) ABG pCO2 (35-45) mmHg ABG pO2 (83-108) mmHg ABG HCO3 (21-25) mmol/L ABG Total CO2 (19-24) mmol/L ABG O2 Saturation (94-97) % Chloride 109 H (98-107) mmol/L Creatinine 0.38 L (0.52-1.04) mg/dL Glucose 110 H (74-99) mg/dL POC Glucose (mg/dL) 185 H 180 H (70-110) mg/dL Calcium 7.5 L (8.4-10.2) mg/dL Ionized Calcium Lisa 4.4 L (4.5-5.3) mg/dL Magnesium (1.6-2.3) mg/dL AST 52 H (14-36) U/L Total Protein 5.3 L (6.3-8.2) g/dL Albumin 3.4 L (3.5-5.0) g/dL Crossmatch 10/12/23 10/12/23 10/12/23 Range/Units 08:04 09:56 11:15 RBC (3.80-5.40) m/uL Hgb (11.4-16.0) gm/dL Hct (34.0-46.0) % Plt Count (150-450) k/uL Lymphocytes # (1.0-4.8) k/uL PT (10.0-12.5) sec INR (<1.2) ABG pH (7.35-7.45) ABG pCO2 (35-45) mmHg ABG pO2 (83-108) mmHg ABG HCO3 (21-25) mmol/L ABG Total CO2 (19-24) mmol/L ABG O2 Saturation (94-97) % Chloride (98-107) mmol/L Creatinine (0.52-1.04) mg/dL Glucose (74-99) mg/dL POC Glucose (mg/dL) 157 H 119 H 134 H (70-110) mg/dL Calcium (8.4-10.2) mg/dL Ionized Calcium Lisa (4.5-5.3) mg/dL Magnesium (1.6-2.3) mg/dL AST (14-36) U/L Total Protein (6.3-8.2) g/dL Albumin (3.5-5.0) g/dL Crossmatch 10/12/23 10/12/23 Range/Units 12:09 13:47 RBC (3.80-5.40) m/uL Hgb (11.4-16.0) gm/dL Hct (34.0-46.0) % Plt Count (150-450) k/uL Lymphocytes # (1.0-4.8) k/uL PT (10.0-12.5) sec INR (<1.2) ABG pH (7.35-7.45) ABG pCO2 (35-45) mmHg ABG pO2 (83-108) mmHg ABG HCO3 (21-25) mmol/L ABG Total CO2 (19-24) mmol/L ABG O2 Saturation (94-97) % Chloride (98-107) mmol/L Creatinine (0.52-1.04) mg/dL Glucose (74-99) mg/dL POC Glucose (mg/dL) 130 H 154 H (70-110) mg/dL Calcium (8.4-10.2) mg/dL Ionized Calcium Lisa (4.5-5.3) mg/dL Magnesium (1.6-2.3) mg/dL AST (14-36) U/L Total Protein (6.3-8.2) g/dL Albumin (3.5-5.0) g/dL Crossmatch
[2023-10-12 14:56] LABS: Glucose,Whole Blood 159 mg/dL (70-110)
[2023-10-12] MEDS: MIDODRINE 5 MG TAB PO ONE (14:57)
[2023-10-12 15:06] LABS: HCT 24.5 % (34.0-46.0); HGB 8.1 gm/dL (11.4-16.0); MCH 28.9 pg (25.0-35.0); MCHC 33.1 g/dL (31.0-37.0); MCV 87.4 fL (80.0-100.0); Mean Platelet Volume 9.1; Platelet Count 107 k/uL (150-450); RDW 14.7 % (11.5-15.5); WBC 7.7 k/uL (3.8-10.6)
[2023-10-12] MEDS: VASOPRESSIN 20 UNIT in SODIUM CHLORIDE 0.9% 50 ML IV SCH (15:44)
[2023-10-12 16:45] LABS: Glucose,Whole Blood 141 mg/dL (70-110)
[2023-10-12] MEDS: METOPROLOL TARTRATE 12.5 MG TAB PO SCH (16:52)
[2023-10-12 18:05] LABS: Allen Test Performed? Yes
[2023-10-12] MEDS: amLODIPine 2.5 MG TAB PO SCH (18:09)
[2023-10-12 18:10] LABS: Glucose,Whole Blood 141 mg/dL (70-110)
[2023-10-12 18:27] LABS: ABG Base Excess -1.3 mmol/L; ABG Glucose Whole Blood 139 mg/dL (75-99); ABG HCO3 25 mmol/L (21-25); ABG Oxygen Saturation 99.2 % (94-97); ABG PCO2 51 mmHg (35-45); ABG PO2 >420 mmHg (83-108); ABG Potassium Whole Blood 4.6 mmol/L (3.4-4.5); ABG Sodium Whole Blood 143 mmol/L (135-146)
[2023-10-12 18:28] LABS: ABG Hematocrit 19 % (34.0-46.0); ABG Lactic Acid Whole Blood 2.2 mmol/L (0.5-1.6)
[2023-10-12 19:00] LABS: Glucose,Whole Blood 141 mg/dL (70-110)
[2023-10-12] MEDS: ALBUMIN HUMAN 25% 50 ML in EMPTY BAG 1 BAG IVPB ONE (19:08)
[2023-10-12] MEDS: ATORVASTATIN 40 MG TAB PO SCH (19:51)
[2023-10-12] MEDS: SENNOSIDES-DOCUSATE SODIUM 1 EACH TAB PO SCH (19:51)
[2023-10-12 19:58] LABS: Glucose,Whole Blood 115 mg/dL (70-110)
[2023-10-12 21:09] LABS: Glucose,Whole Blood 126 mg/dL (70-110)
[2023-10-12 22:12] LABS: Glucose,Whole Blood 125 mg/dL (70-110)
[2023-10-12 23:52] LABS: Glucose,Whole Blood 130 mg/dL (70-110)
[2023-10-13 02:02] LABS: Glucose,Whole Blood 108 mg/dL (70-110)
[2023-10-13 04:05] LABS: Glucose,Whole Blood 173 mg/dL (70-110)
[2023-10-13 04:14] LABS: Basophils % (A) 0 %; Eosinophils # (A) 0.1 k/uL (0-0.7); Eosinophils % (A) 1 %; HCT 23.6 % (34.0-46.0); HGB 7.7 gm/dL (11.4-16.0); Lymphocytes # (A) 1.8 k/uL (1.0-4.8); Lymphocytes % (A) 24 %; MCH 28.3 pg (25.0-35.0); MCHC 32.7 g/dL (31.0-37.0); MCV 86.7 fL (80.0-100.0); Mean Platelet Volume 9.4; Monocytes # (A) 0.3 k/uL (0-1.0); Monocytes % (A) 4 %; Neutrophils # (A) 5.4 k/uL (1.3-7.7); Neutrophils % (A) 70 %; Platelet Count 110 k/uL (150-450); RBC 2.72 m/uL (3.80-5.40); WBC 7.8 k/uL (3.8-10.6)
[2023-10-13 04:24] LABS: Ionized Calcium 4.4 mg/dL (4.5-5.3)
[2023-10-13 04:33] LABS: ALT 25 U/L (4-34); AST 58 U/L (14-36); African American GFR (CKD) >90 (>60 ml/min/1.73 sqM); Albumin 3.6 g/dL (3.5-5.0); Alkaline Phosphatase 61 U/L (38-126); Anion Gap 8 mmol/L; Blood Urea Nitrogen 18 mg/dL (7-17); Calcium 7.7 mg/dL (8.4-10.2); Carbon Dioxide 22 mmol/L (22-30); Chloride 107 mmol/L (98-107); Glucose 152 mg/dL (74-99); Non-African American GFR(CKD) >90 (>60 ml/min/1.73 sqM); Potassium 4.1 mmol/L (3.5-5.1); Sodium 137 mmol/L (137-145); Total Bilirubin 0.5 mg/dL (0.2-1.3); Total Protein 5.5 g/dL (6.3-8.2)
[2023-10-13 05:54] LABS: Glucose,Whole Blood 143 mg/dL (70-110)
[2023-10-13] MEDS: PANTOPRAZOLE 40 MG TABLET PO SCH (06:00)
--- NOTE | 2023-10-13 06:35 | XR ---
EXAMINATION TYPE: XR chest 1V portable DATE OF EXAM: 10/13/2023 COMPARISON: 10/12/2023 HISTORY: Postcardiac surgery TECHNIQUE: Single frontal view of the chest is obtained. FINDINGS: There has been median sternotomy. There are bilateral chest tubes unchanged in position and no pneumothorax. The heart size is normal. There is no pleural effusion. There are persistent mild prominent interstitial markings likely reflecting mild vascular congestion. IMPRESSION: 1. No change in the bilateral chest tubes with no pneumothorax or large pleural effusion. 2. No change in the prominent interstitial opacities likely reflecting mild vascular congestion.
[2023-10-13 06:51] LABS: Glucose,Whole Blood 107 mg/dL (70-110)
--- NOTE | 2023-10-13 08:05 | P.PN ---
Subjective Progress Note Date: 10/13/23 Principal diagnosis: Coronary artery disease. Previous medical history of myocardial infarction, ischemic cardiomyopathy/heart failure with reduced ejection fraction, hypertension, hyperlipidemia, diabetes mellitus with peripheral neuropathy and right great toe amputation, peripheral arterial disease with recent left subclavian stent, left internal carotid artery stenosis, osteoarthritis, previous tobacco dependence, moderate COPD, COVID in 2022 POD #2 coronary artery bypass grafting x 4 vessels, left internal mammary artery to the diagonal artery, radial artery to the left anterior descending artery, reverse saphenous vein graft to the obtuse marginal artery, reverse saphenous vein graft to the right coronary artery, endoscopic harvest of the left radial artery and right greater saphenous vein, ligation of the left atrial appendage using a 35 mm AtriClip, epiaortic ultrasound, intraoperative transesophageal echocardiogram, graft flow measurements using the [employer] system Postoperative acute blood loss anemia and thrombocytopenia, expected given hemodilution and cardiopulmonary bypass pump The patient was seen and examined this morning sitting up in recliner in the intensive care unit in no acute distress. Currently in sinus rhythm, blood pressure remains soft, midodrine started yesterday, last night IV vasopressin was also initiated. Does complain of expected postoperative chest discomfort, especially with taking a deep breath and coughing, better with change in pain medication. Currently on room air with oxygen saturation in the mid 90s. Patisue graf did have an episode again last night lasting approximately 3-5 minutes where she went unresponsive to verbal stimuli, was staring off into space, became hypertensive/tachycardic/diaphoretic. Patient again returned to baseline without any intervention. States that she has never had an episode like this before, has no history of seizures or stroke, although she does have known left carotid stenosis which is being watched by vascular surgery with no planned intervention in the near future. Labs/chest x-ray reviewed. Right internal jugular cordis, right radial arterial line, mediastinal/left/right chest tubes present. No other new concerns. Objective - Vital Signs Vital signs: Vital Signs Temp 98 F 10/13/23 00:00 Pulse 80 10/13/23 07:00 Resp 13 10/13/23 07:00 BP 98/59 10/13/23 06:15 Pulse Ox 93 L 10/13/23 07:00 FiO2 40 10/11/23 18:45 Intake & Output 10/12/23 10/13/23 10/13/23 18:59 06:59 18:59 Intake Total 1818.687 596.399 Output Total 536 541 Balance 1282.687 55.399 Weight 74.1 kg 75.4 kg Intake: IV 1145 518 ACETAMINOPHEN IV (For NPO 0 ) 1,000 mg In Empty Bag 1 bag @ 400 mls/hr IVPB Q6HR BETSY Rx#:[id number] Albumin Human 25% 50 ml 50 In Empty Bag 1 bag @ 50 mls/hr IVPB ONCE ONE Rx#: [id number] Albumin Human 5% 250 ml 500 In Empty Bag 1 bag @ 250 mls/hr IVPB Q1HR PRN Rx#: [id number] Co/CI 40 Lactated Ringers 1,000 ml 480 390 @ 20 mls/hr IV .Q24H BETSY Rx#:[id number] Pressure Bags 75 78 ceFAZolin 2 gm In Sodium 50 Chloride 0.9% 50 ml @ 100 mls/hr IVPB Q8HR BETSY Rx# :[id number] Intake, IV Titration 313.687 78.399 Amount Amiodarone 450 mg In 250 Dextrose 5% in Water 250 ml @ 0.5 MG/MIN 16.667 mls/hr IV .Q15H BETSY Rx#: [id number] Insulin Regular 100 unit 39.087 38.389 In Sodium Chloride 0.9% 100 ml @ Per Protocol IV .Q0M BETSY Rx#:[id number] Nitroglycerin-D5w Pmx 50 24.6 mg In Dextrose/Water 1 250ml.bag @ 5 MCG/MIN 1.5 mls/hr IV .Q24H BETSY Rx#: [id number] Vasopressin 20 unit In 40.010 Sodium Chloride 0.9% 50 ml @ 0.04 UNITS/MIN 6.12 mls/hr IV .Q8H20M BETSY Rx# :[id number] Oral 360 Output: Chest Tube Drainage 268 326 Chest Tube Left 30 26 Chest Tube Right 58 140 Mediastinal Chest Tube x2 180 160 Urine 268 215 Other: Voiding Method Indwelling Catheter Indwelling Catheter ABP, PAP, CO, CI - Last Documented Arterial Blood Pressure 96/50 Pulmonary Artery Pressure 41/41 Cardiac Output 4.4 Cardiac Index 2.6 - Exam CONSTITUTIONAL: Appears comfortable, cooperative, no acute distress RESPIRATORY: Lungs sounds diminished bilaterally. Respirations even, nonlabored. Currently on room air with oxygen saturation 93%. Able to achieve 1000 mL on incentive spirometry. Strong productive cough. CARDIOVASCULAR: S1, S2 present. Regular rate and rhythm, sinus rhythm on telemetry. Sternum stable. Palpable peripheral pulses bilaterally. No edema present. No calf pain or tenderness noted. Heart hugger in place with patient demonstrating appropriate use. Antiembolism stockings, SCDs present. GASTROINTESTINAL: Abdomen soft, nontender, nondistended. Active bowel sounds present 4 quadrants. Tolerating diet. Positive belching, denies flatus GENITOURINARY: Siegel present draining clear, yellow urine. Output overnight 15-25 mL per hour, 468 mL in the last 24 hours INTEGUMENTARY: Skin is warm and dry with evidence of good perfusion. Anterior chest incision well approximated and covered with dry intact dressing. Left radial artery harvest site as well as right lower extremity EVH site well approximated without redness or drainage. NEUROLOGIC: Cranial nerves II through XII intact MUSKULOSKELETAL: Able to move all extremities, strength equal bilaterally PSYCHIATRIC: Alert and oriented to person place and time, appropriate affect, intact judgment and insight INVASIVE LINES AND TUBES: Mediastinal/left/right pleural chest tubes present and connected to wall suction, no air leaks present. Mediastinal tube with 90 mL serosanguineous drainage overnight, 350 mL in the last 24 hours. Left pleura l chest tube with 10 mL serosanguineous drainage overnight, 40 mL in the last 24 hours. Right pleural chest tube with 120 mL serosanguineous drainage overnight, 190 mL in the last 24 hours. A/V epicardial pacemaker wires present, connected to generator, generator off. Right internal jugular cordis, right radial arterial line present - Allied health notes Allied health notes reviewed: nursing - Labs CBC & Chem 7: 10/13/23 04:06 10/13/23 04:06 Labs: Abnormal Lab Results - Last 24 Hours (Table) 10/11/23 10/12/23 10/12/23 Range/Units 13:03 08:04 09:56 RBC (3.80-5.40) m/uL Hgb (11.4-16.0) gm/dL Hct (34.0-46.0) % Plt Count (150-450) k/uL ABG pH 7.30 L (7.35-7.45) ABG pCO2 51 H (35-45) mmHg ABG pO2 >420 H (83-108) mmHg ABG O2 Saturation 99.2 H (94-97) % ABG Hematocrit 19 L* (34.0-46.0) % ABG Potassium 4.6 H (3.4-4.5) mmol/L ABG Ionized Calcium 4.0 L (4.5-5.3) mg/dL ABG Glucose 139 H (75-99) mg/dL ABG Lactic Acid 2.2 H* (0.5-1.6) mmol/L Hemoglobin 6.3 L* (11.4-16.0) gm/dL BUN (7-17) mg/dL Creatinine (0.52-1.04) mg/dL Glucose (74-99) mg/dL POC Glucose (mg/dL) 157 H 119 H (70-110) mg/dL Calcium (8.4-10.2) mg/dL Ionized Calcium Lisa (4.5-5.3) mg/dL AST (14-36) U/L Total Protein (6.3-8.2) g/dL Arterial Blood Potassium 4.6 H (3.4-4.5) mmol/L Arterial Blood Glucose 139 H (75-99) mg/dL 10/12/23 10/12/23 10/12/23 Range/Units 11:15 12:09 13:47 RBC (3.80-5.40) m/uL Hgb (11.4-16.0) gm/dL Hct (34.0-46.0) % Plt Count (150-450) k/uL ABG pH (7.35-7.45) ABG pCO2 (35-45) mmHg ABG pO2 (83-108) mmHg ABG O2 Saturation (94-97) % ABG Hematocrit (34.0-46.0) % ABG Potassium (3.4-4.5) mmol/L ABG Ionized Calcium (4.5-5.3) mg/dL ABG Glucose (75-99) mg/dL ABG Lactic Acid (0.5-1.6) mmol/L Hemoglobin (11.4-16.0) gm/dL BUN (7-17) mg/dL Creatinine (0.52-1.04) mg/dL Glucose (74-99) mg/dL POC Glucose (mg/dL) 134 H 130 H 154 H (70-110) mg/dL Calcium (8.4-10.2) mg/dL Ionized Calcium Lisa (4.5-5.3) mg/dL AST (14-36) U/L Total Protein (6.3-8.2) g/dL Arterial Blood Potassium (3.4-4.5) mmol/L Arterial Blood Glucose (75-99) mg/dL 10/12/23 10/12/23 10/12/23 Range/Units 14:50 14:54 16:43 RBC 2.80 L (3.80-5.40) m/uL Hgb 8.1 L (11.4-16.0) gm/dL Hct 24.5 L (34.0-46.0) % Plt Count 107 L (150-450) k/uL ABG pH (7.35-7.45) ABG pCO2 (35-45) mmHg ABG pO2 (83-108) mmHg ABG O2 Saturation (94-97) % ABG Hematocrit (34.0-46.0) % ABG Potassium (3.4-4.5) mmol/L ABG Ionized Calcium (4.5-5.3) mg/dL ABG Glucose (75-99) mg/dL ABG Lactic Acid (0.5-1.6) mmol/L Hemoglobin (11.4-16.0) gm/dL BUN (7-17) mg/dL Creatinine (0.52-1.04) mg/dL Glucose (74-99) mg/dL POC Glucose (mg/dL) 159 H 141 H (70-110) mg/dL Calcium (8.4-10.2) mg/dL Ionized Calcium Lisa (4.5-5.3) mg/dL AST (14-36) U/L Total Protein (6.3-8.2) g/dL Arterial Blood Potassium (3.4-4.5) mmol/L Arterial Blood Glucose (75-99) mg/dL 10/12/23 10/12/23 10/12/23 Range/Units 18:08 18:59 19:57 RBC (3.80-5.40) m/uL Hgb (11.4-16.0) gm/dL Hct (34.0-46.0) % Plt Count (150-450) k/uL ABG pH (7.35-7.45) ABG pCO2 (35-45) mmHg ABG pO2 (83-108) mmHg ABG O2 Saturation (94-97) % ABG Hematocrit (34.0-46.0) % ABG Potassium (3.4-4.5) mmol/L ABG Ionized Calcium (4.5-5.3) mg/dL ABG Glucose (75-99) mg/dL ABG Lactic Acid (0.5-1.6) mmol/L Hemoglobin (11.4-16.0) gm/dL BUN (7-17) mg/dL Creatinine (0.52-1.04) mg/dL Glucose (74-99) mg/dL POC Glucose (mg/dL) 141 H 141 H 115 H (70-110) mg/dL Calcium (8.4-10.2) mg/dL Ionized Calcium Lisa (4.5-5.3) mg/dL AST (14-36) U/L Total Protein (6.3-8.2) g/dL Arterial Blood Potassium (3.4-4.5) mmol/L Arterial Blood Glucose (75-99) mg/dL 10/12/23 10/12/23 10/12/23 Range/Units 21:07 22:11 23:51 RBC (3.80-5.40) m/uL Hgb (11.4-16.0) gm/dL Hct (34.0-46.0) % Plt Count (150-450) k/uL ABG pH (7.35-7.45) ABG pCO2 (35-45) mmHg ABG pO2 (83-108) mmHg ABG O2 Saturation (94-97) % ABG Hematocrit (34.0-46.0) % ABG Potassium (3.4-4.5) mmol/L ABG Ionized Calcium (4.5-5.3) mg/dL ABG Glucose (75-99) mg/dL ABG Lactic Acid (0.5-1.6) mmol/L Hemoglobin (11.4-16.0) gm/dL BUN (7-17) mg/dL Creatinine (0.52-1.04) mg/dL Glucose (74-99) mg/dL POC Glucose (mg/dL) 126 H 125 H 130 H (70-110) mg/dL Calcium (8.4-10.2) mg/dL Ionized Calcium Lisa (4.5-5.3) mg/dL AST (14-36) U/L Total Protein (6.3-8.2) g/dL Arterial Blood Potassium (3.4-4.5) mmol/L Arterial Blood Glucose (75-99) mg/dL 10/13/23 10/13/23 10/13/23 Range/Units 04:03 04:06 04:06 RBC 2.72 L (3.80-5.40) m/uL Hgb 7.7 L (11.4-16.0) gm/dL Hct 23.6 L (34.0-46.0) % Plt Count 110 L (150-450) k/uL ABG pH (7.35-7.45) ABG pCO2 (35-45) mmHg ABG pO2 (83-108) mmHg ABG O2 Saturation (94-97) % ABG Hematocrit (34.0-46.0) % ABG Potassium (3.4-4.5) mmol/L ABG Ionized Calcium (4.5-5.3) mg/dL ABG Glucose (75-99) mg/dL ABG Lactic Acid (0.5-1.6) mmol/L Hemoglobin (11.4-16.0) gm/dL BUN 18 H (7-17) mg/dL Creatinine 0.39 L (0.52-1.04) mg/dL Glucose 152 H (74-99) mg/dL POC Glucose (mg/dL) 173 H (70-110) mg/dL Calcium 7.7 L (8.4-10.2) mg/dL Ionized Calcium Lisa 4.4 L (4.5-5.3) mg/dL AST 58 H (14-36) U/L Total Protein 5.5 L (6.3-8.2) g/dL Arterial Blood Potassium (3.4-4.5) mmol/L Arterial Blood Glucose (75-99) mg/dL 10/13/23 Range/Units 05:52 RBC (3.80-5.40) m/uL Hgb (11.4-16.0) gm/dL Hct (34.0-46.0) % Plt Count (150-450) k/uL ABG pH (7.35-7.45) ABG pCO2 (35-45) mmHg ABG pO2 (83-108) mmHg ABG O2 Saturation (94-97) % ABG Hematocrit (34.0-46.0) % ABG Potassium (3.4-4.5) mmol/L ABG Ionized Calcium (4.5-5.3) mg/dL ABG Glucose (75-99) mg/dL ABG Lactic Acid (0.5-1.6) mmol/L Hemoglobin (11.4-16.0) gm/dL BUN (7-17) mg/dL Creatinine (0.52-1.04) mg/dL Glucose (74-99) mg/dL POC Glucose (mg/dL) 143 H (70-110) mg/dL Calcium (8.4-10.2) mg/dL Ionized Calcium Lisa (4.5-5.3) mg/dL AST (14-36) U/L Total Protein (6.3-8.2) g/dL Arterial Blood Potassium (3.4-4.5) mmol/L Arterial Blood Glucose (75-99) mg/dL - Imaging and Cardiology Chest x-ray: report reviewed, image reviewed Assessment and Plan Assessment: Coronary artery disease with previous myocardial infarction, status post four- vessel CABG Ischemic cardiomyopathy/heart failure with reduced ejection fraction, EF 35-40% preop, improved postoperative Hypertension Hyperlipidemia, treated with Repatha, cholesterol 200, LDL 108, triglycerides 190 Diabetes mellitus with peripheral neuropathy and right great toe amputation, hemoglobin A1c 8.3% Peripheral arterial disease with recent left subclavian stent Left internal carotid artery stenosis, left ICA 80-99% on carotid duplex, 50-70% on neck CTA, being followed by vascular surgery in the outpatient setting Osteoarthritis Previous tobacco dependence Moderate COPD, COVID in 2022 Postoperative acute blood loss anemia and thrombocytopenia, expected Plan: Continue to maximize medical therapy with aspirin, low-dose statin (as long as she is able to tolerate), Plavix, beta-franky. Will increase beta-franky therapy as tolerated Continue amiodarone for A-fib prophylaxis, will decrease to 200 mg twice daily, patient has had no atrial fibrillation up to this point Will add low-dose calcium channel franky for radial artery spasm prophylaxis with hold parameters in place Midodrine and vaso added for blood pressure support, wean vaso as tolerated Encourage incentive spirometry use 10 times every hour while awake, bronchodilators per pulmonology Will monitor daily labs and x-rays. Electrolyte replacement per protocol. Will give 1 unit packed red blood cells followed by 20 mg IV push Lasix today Increase activity, ambulate as tolerated. PT/OT/cardiac rehab consulted GI/DVT prophylaxis Daily weights Insulin management per internal medicine Pain control per current medication regimen Continue Cordis for another 24 hours Will discontinue left pleural chest tube, continue mediastinal and right chest tubes for another 24 hours, monitor and record output Continue Siegel catheter for another 24 hours, continue to monitor and record strict accurate intake and output Monitor for further episode of unresponsiveness. No brain CT or neuro consult needed at this point More recommendations to follow as patient progresses
[2023-10-13] MEDS ORDERED: DEXTROSE 50% SYRINGE 50 ML IVP PRN ×2 (08:47)
[2023-10-13] MEDS: AMIODARONE 200 MG TAB PO SCH (09:14)
[2023-10-13] MEDS ORDERED: FUROSEMIDE 10 MG/ML 10 ML VIAL IV STA (09:59)
[2023-10-13] MEDS: FUROSEMIDE 10 MG/ML 2 ML VIAL IV ONE (11:13)
[2023-10-13 11:21] LABS: Glucose,Whole Blood 244 mg/dL (70-110)
[2023-10-13] MEDS: INSULIN ASPART (NovoLOG) 100 UNIT/ML VIAL SQ SCH (11:25)
--- NOTE | 2023-10-13 11:57 | P.PN ---
Subjective Progress Note Date: 10/13/23 This is a 57-year-old female patient underwent four-vessel bypass surgery and the patient underwent ALVAREZ to diagonal, right radial to LAD, saphenous vein graft to OM and RCA. The patient is currently postop, intubated on mechanical ventilator in the intensive care unit. She is on propofol which is running at 20 mcg/kg/min. She is adequately sedated for now. The patient is on a mechanical ventilator assist-control mode with a tidal volume of 400, rate of 14, FiO2 was 100% with a PEEP of 5. Show a pH of 7.26 with a pCO2 of 56 and pO2 of more than 400. FiO2 was dropped down to 40% and the patient's rate is brought up to 24. She is hemodynamically stable. She is chronic and pulmonary artery pressure of 33/20 and her cardiac output is had 4.4 with an index of 2.4. She is currently on amiodarone drip running at 1 mg/min and she is also on nitroglycerin drip at 5 mcg/min. No other inotropes at this point. Urine output is in order 45 cc an hour. The patient has 2 mediastinal chest tubes, and right in the left lower chest tube. Output from the left lower chest tube is 0. Output from the mediastinal chest tubes is 50 and output from the right pleural chest tube is 0. No evidence of any air leak. Chest x-ray that was done postop showed adequate positioning of the lines and tubes. The NG tube was advanced. No evidence of any pneumothorax. All of the chest tubes are in good location. Blood work showed a hemoglobin of 8.4, normal coagulation profile, BUN 12 with a creatinine of 0.36 and a sodium level of 142, the calcium level was at 6.7 and the patient was given IV calcium. LFTs are normal. Blood sugars are adequate at 145. The patient is currently on sliding scale insulin coverage. Her current temperature is 35.8 and the patient is receiving external warming. In terms of her history, the patient is known to have coronary artery disease. 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 She did have a dry gangrene of the left great toe with secondary sepsis earlier hospitalization that was ampu tated. She also has had a previous history of left subclavian stenosis requiring stenting. She is a chronic smoker and she is also known to have COPD. Her preoperative LV function was an ejection fraction of 35 to 40%. She did have segmental wall motion abnormalities related to her underlying coronary artery disease. On 10/12/2023, patient is being seen for a follow-up. The patient is currently postop day #1. The patient was weaned off the mechanical ventilator and the patient was extubated without any major difficulties. This morning, the patient is on 2 L of oxygen by nasal cannula. Chest x-ray findings are essentially stable with consistent with postoperative changes. The patient is using incentive spirometer pulling approximately 500 cc. Cardiac output is 4.4 with an index of 2.6. The patient has a PA pressures of 34/13. The mediastinal chest tube is produced 450 cc overnight in the right lower has produced 110 in the left lower leg produced 10. The patient remains on insulin drip at 2.5 units an hour. The patient was treated with amiodarone drip and this will be switched to oral. Cardiac rhythm remains sinus. Blood work from today shows a WBC count of 7.7 with a hemoglobin 8.5 and a platelet count of 129. Rest of the electrolytes stable. BUN is at 14 with a creatinine of 0.8 and a sodium levels at 139 with a potassium level of 4. LFTs are normal. The patient is currently in normal sinus rhythm. She is ambulating. 10/13/2023, patient is being seen for a follow-up. Events from yesterday were noted. Noted the patient an episode where she had a brief right-sided weakness and another episode where she she briefly became absent. Suspect TIA in this pa tient note that the patient has a 70% carotid stenosis on the left at the level of the bulb. Meanwhile, the patient is postop day #2. The patient is doing well. No specific complaints. She has been in normal sinus rhythm. She is currently on 2 L of oxygen by nasal cannula. Chest x-ray showing some postsurgical changes some increased interstitial markings bilaterally. Left- sided chest tube has been removed. The mediastinal chest tube x 2 and right upper chest tubes are still in place. She is using incentive spirometer. She was given a dose of Lasix by the cardiothoracic team. No other complaints otherwise. Neurologically intact at this point in time. She is awake and alert. She is on aspirin. She is on Plavix. She was also started on metoprolol 12.5 mg p.o. twice a day. Insulin drip has been discontinued and the patient is currently on sliding scale insulin coverage. Objective - Vital Signs Vital signs: Vital Signs Temp 98.1 F 10/13/23 08:00 Pulse 86 10/13/23 09:00 Resp 20 10/13/23 09:00 BP 105/60 10/13/23 08:45 Pulse Ox 89 L 10/13/23 09:00 FiO2 40 10/11/23 18:45 Intake & Output 10/12/23 10/13/23 10/13/23 18:59 06:59 18:59 Intake Total 1818.687 596.399 192 Output Total 536 541 75 Balance 1282.687 55.399 117 Weight 74.1 kg 75.4 kg Intake: IV 1145 518 72 ACETAMINOPHEN IV (For NPO 0 ) 1,000 mg In Empty Bag 1 bag @ 400 mls/hr IVPB Q6HR BETSY Rx#:[id number] Albumin Human 25% 50 ml 50 In Empty Bag 1 bag @ 50 mls/hr IVPB ONCE ONE Rx#: [id number] Albumin Human 5% 250 ml 500 In Empty Bag 1 bag @ 250 mls/hr IVPB Q1HR PRN Rx#: [id number] Co/CI 40 Lactated Ringers 1,000 ml 480 390 60 @ 20 mls/hr IV .Q24H BETSY Rx#:[id number] Pressure Bags 75 78 12 ceFAZolin 2 gm In Sodium 50 Chloride 0.9% 50 ml @ 100 mls/hr IVPB Q8HR BETSY Rx# :[id number] Intake, IV Titration 313.687 78.399 Amount Amiodarone 450 mg In 250 Dextrose 5% in Water 250 ml @ 0.5 MG/MIN 16.667 mls/hr IV .Q15H BETSY Rx#: [id number] Insulin Regular 100 unit 39.087 38.389 In Sodium Chloride 0.9% 100 ml @ Per Protocol IV .Q0M BETSY Rx#:[id number] Nitroglycerin-D5w Pmx 50 24.6 mg In Dextrose/Water 1 250ml.bag @ 5 MCG/MIN 1.5 mls/hr IV .Q24H BETSY Rx#: [id number] Vasopressin 20 unit In 40.010 Sodium Chloride 0.9% 50 ml @ 0.04 UNITS/MIN 6.12 mls/hr IV .Q8H20M [facility] Rx# :[id number] Oral 360 120 Blood Product 0 Unit 0 Output: Chest Tube Drainage 268 326 50 Chest Tube Left 30 26 10 Chest Tube Right 58 140 20 Mediastinal Chest Tube x2 180 160 20 Urine 268 215 25 Other: Voiding Method Indwelling Catheter Indwelling Catheter ABP, PAP, CO, CI - Last Documented Arterial Blood Pressure 117/59 Pulmonary Artery Pressure 41/41 Cardiac Output 4.4 Cardiac Index 2.6 - Exam CONSTITUTIONAL: Appears comfortable, cooperative, no acute distress RESPIRATORY: Lungs sounds diminished bilaterally. Respirations even, nonlabored. Currently on room air with oxygen saturation 93%. Able to achieve 1000 mL on incentive spirometry. Strong productive cough. CARDIOVASCULAR: S1, S2 present. Regular rate and rhythm, sinus rhythm on telemetry. Sternum stable. Palpable peripheral pulses bilaterally. No edema present. No calf pain or tenderness noted. Heart hugger in place with patient demonstrating appropriate use. Antiembolism stockings, SCDs present. GASTROINTESTINAL: Abdomen soft, nontender, nondistended. Active bowel sounds present 4 quadrants. Tolerating diet. Positive belching, denies flatus GENITOURINARY: Siegel present draining clear, yellow urine. Output overnight 15-25 mL per hour, 468 mL in the last 24 hours INTEGUMENTARY: Skin is warm and dry with evidence of good perfusion. Anterior chest incision well approximated and covered with dry intact dressing. Left radial artery harvest site as well as right lower extremity EVH site well approximated without redness or drainage. NEUROLOGIC: Cranial nerves II through XII intact MUSKULOSKELETAL: Able to move all extremities, strength equal bilaterally PSYCHIATRIC: Alert and oriented to person place and time, appropriate affect, intact judgment and insight INVASIVE LINES AND TUBES: Mediastinal/left/right pleural chest tubes present and connected to wall suction, no air leaks present. Mediastinal tube with 90 mL serosanguineous drainage overnight, 350 mL in the last 24 hours. Left pleural chest tube with 10 mL serosanguineous drainage overnight, 40 mL in the last 24 hours. Right pleural chest tube with 120 mL serosanguineous drainage overnight, 190 mL in the last 24 hours. A/V epicardial pacemaker wires present, connected to generator, generator off. Right internal jugular cordis, right radial arterial line present - Labs CBC & Chem 7: 10/13/23 04:06 10/13/23 04:06 Labs: Abnormal Lab Results - Last 24 Hours (Table) 10/03/23 10/11/23 10/12/23 Range/Units 10:30 13:03 11:15 RBC (3.80-5.40) m/uL Hgb (11.4-16.0) gm/dL Hct (34.0-46.0) % Plt Count (150-450) k/uL ABG pH 7.30 L (7.35-7.45) ABG pCO2 51 H (35-45) mmHg ABG pO2 >420 H (83-108) mmHg ABG O2 Saturation 99.2 H (94-97) % ABG Hematocrit 19 L* (34.0-46.0) % ABG Potassium 4.6 H (3.4-4.5) mmol/L ABG Ionized Calcium 4.0 L (4.5-5.3) mg/dL ABG Glucose 139 H (75-99) mg/dL ABG Lactic Acid 2.2 H* (0.5-1.6) mmol/L Hemoglobin 6.3 L* (11.4-16.0) gm/dL BUN (7-17) mg/dL Creatinine (0.52-1.04) mg/dL Glucose (74-99) mg/dL POC Glucose (mg/dL) 134 H (70-110) mg/dL Calcium (8.4-10.2) mg/dL Ionized Calcium Lisa (4.5-5.3) mg/dL AST (14-36) U/L Total Protein (6.3-8.2) g/dL Arterial Blood Potassium 4.6 H (3.4-4.5) mmol/L Arterial Blood Glucose 139 H (75-99) mg/dL Crossmatch See Detail 10/12/23 10/12/23 10/12/23 Range/Units 12:09 13:47 14:50 RBC 2.80 L (3.80-5.40) m/uL Hgb 8.1 L (11.4-16.0) gm/dL Hct 24.5 L (34.0-46.0) % Plt Count 107 L (150-450) k/uL ABG pH (7.35-7.45) ABG pCO2 (35-45) mmHg ABG pO2 (83-108) mmHg ABG O2 Saturation (94-97) % ABG Hematocrit (34.0-46.0) % ABG Potassium (3.4-4.5) mmol/L ABG Ionized Calcium (4.5-5.3) mg/dL ABG Glucose (75-99) mg/dL ABG Lactic Acid (0.5-1.6) mmol/L Hemoglobin (11.4-16.0) gm/dL BUN (7-17) mg/dL Creatinine (0.52-1.04) mg/dL Glucose (74-99) mg/dL POC Glucose (mg/dL) 130 H 154 H (70-110) mg/dL Calcium (8.4-10.2) mg/dL Ionized Calcium Lisa (4.5-5.3) mg/dL AST (14-36) U/L Total Protein (6.3-8.2) g/dL Arterial Blood Potassium (3.4-4.5) mmol/L Arterial Blood Glucose (75-99) mg/dL Crossmatch 10/12/23 10/12/23 10/12/23 Range/Units 14:54 16:43 18:08 RBC (3.80-5.40) m/uL Hgb (11.4-16.0) gm/dL Hct (34.0-46.0) % Plt Count (150-450) k/uL ABG pH (7.35-7.45) ABG pCO2 (35-45) mmHg ABG pO2 (83-108) mmHg ABG O2 Saturation (94-97) % ABG Hematocrit (34.0-46.0) % ABG Potassium (3.4-4.5) mmol/L ABG Ionized Calcium (4.5-5.3) mg/dL ABG Glucose (75-99) mg/dL ABG Lactic Acid (0.5-1.6) mmol/L Hemoglobin (11.4-16.0) gm/dL BUN (7-17) mg/dL Creatinine (0.52-1.04) mg/dL Glucose (74-99) mg/dL POC Glucose (mg/dL) 159 H 141 H 141 H (70-110) mg/dL Calcium (8.4-10.2) mg/dL Ionized Calcium Lisa (4.5-5.3) mg/dL AST (14-36) U/L Total Protein (6.3-8.2) g/dL Arterial Blood Potassium (3.4-4.5) mmol/L Arterial Blood Glucose (75-99) mg/dL Crossmatch 10/12/23 10/12/23 10/12/23 Range/Units 18:59 19:57 21:07 RBC (3.80-5.40) m/uL Hgb (11.4-16.0) gm/dL Hct (34.0-46.0) % Plt Count (150-450) k/uL ABG pH (7.35-7.45) ABG pCO2 (35-45) mmHg ABG pO2 (83-108) mmHg ABG O2 Saturation (94-97) % ABG Hematocrit (34.0-46.0) % ABG Potassium (3.4-4.5) mmol/L ABG Ionized Calcium (4.5-5.3) mg/dL ABG Glucose (75-99) mg/dL ABG Lactic Acid (0.5-1.6) mmol/L Hemoglobin (11.4-16.0) gm/dL BUN (7-17) mg/dL Creatinine (0.52-1.04) mg/dL Glucose (74-99) mg/dL POC Glucose (mg/dL) 141 H 115 H 126 H (70-110) mg/dL Calcium (8.4-10.2) mg/dL Ionized Calcium Lisa (4.5-5.3) mg/dL AST (14-36) U/L Total Protein (6.3-8.2) g/dL Arterial Blood Potassium (3.4-4.5) mmol/L Arterial Blood Glucose (75-99) mg/dL Crossmatch 10/12/23 10/12/23 10/13/23 Range/Units 22:11 23:51 04:03 RBC (3.80-5.40) m/uL Hgb (11.4-16.0) gm/dL Hct (34.0-46.0) % Plt Count (150-450) k/uL ABG pH (7.35-7.45) ABG pCO2 (35-45) mmHg ABG pO2 (83-108) mmHg ABG O2 Saturation (94-97) % ABG Hematocrit (34.0-46.0) % ABG Potassium (3.4-4.5) mmol/L ABG Ionized Calcium (4.5-5.3) mg/dL ABG Glucose (75-99) mg/dL ABG Lactic Acid (0.5-1.6) mmol/L Hemoglobin (11.4-16.0) gm/dL BUN (7-17) mg/dL Creatinine (0.52-1.04) mg/dL Glucose (74-99) mg/dL POC Glucose (mg/dL) 125 H 130 H 173 H (70-110) mg/dL Calcium (8.4-10.2) mg/dL Ionized Calcium Lisa (4.5-5.3) mg/dL AST (14-36) U/L Total Protein (6.3-8.2) g/dL Arterial Blood Potassium (3.4-4.5) mmol/L Arterial Blood Glucose (75-99) mg/dL Crossmatch 10/13/23 10/13/23 10/13/23 Range/Units 04:06 04:06 05:52 RBC 2.72 L (3.80-5.40) m/uL Hgb 7.7 L (11.4-16.0) gm/dL Hct 23.6 L (34.0-46.0) % Plt Count 110 L (150-450) k/uL ABG pH (7.35-7.45) ABG pCO2 (35-45) mmHg ABG pO2 (83-108) mmHg ABG O2 Saturation (94-97) % ABG Hematocrit (34.0-46.0) % ABG Potassium (3.4-4.5) mmol/L ABG Ionized Calcium (4.5-5.3) mg/dL ABG Glucose (75-99) mg/dL ABG Lactic Acid (0.5-1.6) mmol/L Hemoglobin (11.4-16.0) gm/dL BUN 18 H (7-17) mg/dL Creatinine 0.39 L (0.52-1.04) mg/dL Glucose 152 H (74-99) mg/dL POC Glucose (mg/dL) 143 H (70-110) mg/dL Calcium 7.7 L (8.4-10.2) mg/dL Ionized Calcium Lisa 4.4 L (4.5-5.3) mg/dL AST 58 H (14-36) U/L Total Protein 5.5 L (6.3-8.2) g/dL Arterial Blood Potassium (3.4-4.5) mmol/L Arterial Blood Glucose (75-99) mg/dL Crossmatch Assessment and Plan Plan: Multivessel coronary artery disease and the patient underwent four-vessel bypass surgery, and elective surgery and the patient is currently postop day # 2. Hemodynamically stable, cardiac rhythm is sinus Postthoracotomy, currently extubated to 2 L of oxygen by nasal cannula, has a right pleural and mediastinal chest tubes are in place. Left lower chest tube has been removed. Episode of right upper extremity weakness and absence. Doubt seizure. Suspect TIA specially with her 70% left carotid bulb stenosis. Currently on aspirin and Plavix. Neurologically intact at this point in time. CHF with impaired LV function with a preop left ventricle ejection fraction of 35 to 40% along with segmental wall motion abnormalities. Diabetes mellitus type 2, currently on insulin/scale coverage and insulin drip has been discontinued Diabetic neuropathy Diabetic gangrenous toe with previous amputation of the great toe on the right COPD, maintained on Trelegy Ellipta on outpatient basis Hypertension History of subclavian stenosis, post stenting Degenerative arthritis Previous history of COVID-19 infection back in 2022, recovered Plan Clinically and hemodynamically stable. Left-sided chest that was minimal. Based on that approach is to worsen in place Hemodynamically stable and clinically stable and the patient is ambulating Discontinue the amiodarone drip and switch this patient to oral amiodarone Continue aspirin and Plavix Continue metoprolol 12.5 mg twice a day Currently on 2 L of oxygen by nasal cannula Incentive spirometer IV Lasix Anticipate extubation within the next few hours based on the level or progress. Increase mobility Will follow
[2023-10-13] MEDS: INSULIN DETEMIR (LEVEMIR) 100 UNIT/ML SYR SQ STA (12:54)
--- NOTE | 2023-10-13 13:12 | P.CNNES ---
History of Present Illness Consult date: 10/13/23 Requesting physician: Anna Downing Reason for Consult: periods of unresponsiveness History of Present Illness: Patient is a 57-year-old left-handed female with history of diabetes, hyperlipidemia, ex tobacco use, coronary artery disease came for elective coronary artery bypass grafting x 4 vessel disease. Patient underwent surgery on 10/11/2023. Patient was brought to the ICU. 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 She was tachycardic, diaphoretic, pupils equal and reacting and unresponsive to painful stimuli. Blood pressure 156/84 heart rate 120. Breathing was shallow. Satur ation 94%. Nursing staff contacted the cardiothoracic surgeon, who recommended chest x-ray and watch patient's blood pressure, not to let it get too low. By 1:09 AM, patient was coming back around and responding to questions appropriately. There was a short time patient's pupils were unequal and patient was unable to squeeze right hand or move right foot. That has since resolved. Patient's ABG was pH 7.38, pCO2 39, pO2 103. Patient had a second episode last night at 9 PM. Patient again became unresponsive, no response to painful stimulus, pupils were equal and reacting. As it progressed, patient's right side was weaker than left and there was confusion for about 10 minutes after that episode. It was also noted that patient's left foot twitched the entire time and similar twitching in the left hand. Her blood pressure this time was 175/84 heart rate 106 and patient became diaphoretic and just stared into space and would not respond at all. Patient's blood test shows normal WBC, hemoglobin 7.7 platelets 110. Electrolytes are normal, renal functions normal. AST 58, ALT 25. Recent chest x-ray showed no changes in the bilateral chest tubes with no pneumothorax or large pleural effusion. No change in the prominent interstitial opacities likely reflecting mild vascular congestion. Patient has history of diabetes since 2000. Also has hyperlipidemia. No history of hypertension. No previous history of seizures, strokes or TIA. Patient has smoked 2 packs/day since age 13, quit in 2000. Patient has developed emphysema stage II. Patient's 2D echo from 07/10/2023 showed mildly increased septal wall thickness, hypokinetic lateral wall and inferior wall with EF of 35 to 40%. Normal left atrial size. Normal right ventricular size and function. CTA of head and neck from 07/12/2023 revealed moderate to severe focal stenosis brachiocephalic artery. Nearly 2 cm segment of occlusion proximal left subclavian artery. Correlate for any potential symptoms of subclavian steal on the left. Prominent atherosclerotic changes at the left carotid bifurcation. This results in a mild, less than 50% stenosis of the left ICA origin but with more severe 70% stenosis of the left upper carotid bulb. Patient had undergone stenting in the left vertebral artery afterwards. Patient was taking aspirin 81 mg and Plavix 75 mg daily prior to arrival. This has been continued. Review of Systems Constitutional: Denies chills (hot and cold today, no fever), Denies fever Eyes: denies blurred vision, denies diplopia, denies pain, denies loss of vision Ears: deny: decreased hearing, ear discharge Ears, nose, mouth and throat: Denies headache, Denies sore throat, Denies vertigo Cardiovascular: Reports chest pain, Reports shortness of breath, Denies lightheadedness Respiratory: Reports cough, Reports excessive sputum Gastrointestinal: Denies abdominal pain, Denies diarrhea, Denies nausea, Denies vomiting Genitourinary: Denies dysuria, Denies hematuria, Denies urge incontinence Integumentary: Denies pruritus, Denies rash Neurological: Reports as per HPI Psychiatric: Denies anxiety, Denies depression Past Medical History Past Medical History: Coronary Artery Disease (CAD), COPD, Diabetes Mellitus, Hyperlipidemia, Hypertension, Myocardial Infarction (TN), Osteoarthritis (OA) Additional Past Medical History / Comment(s): Peripheral neuropathy, DJD lower back and neck,TN per EKG,lt subclavian blockage,pt states "has blockage in heart,neck, and legs",tendonitis left foot,covid infection 2022 Last Myocardial Infarction Date:: unk History of Any Multi-Drug Resistant Organisms: None Reported Past Surgical History: Heart Catheterization, Orthopedic Surgery, Tubal Ligation Additional Past Surgical History / Comment(s): 2020 left great toe amputation, cataract antonio, stenting left subclavian,rt femoral angiogram Past Anesthesia/Blood Transfusion Reactions: No Reported Reaction Additional Past Anesthesia/Blood Transfusion Reaction / Comment(s): no hx blood transfusion Smoking Status: Former smoker - Past Family History Mother Additional Family Medical History / Comment(s): during childbirth Father Family Medical History: Cancer Additional Family Medical History / Comment(s): throat cancer Family Family Medical History: No Reported History Medications and Allergies Home Medications Medication Instructions Recorded Confirmed Type traMADol HCL [Ultram] 50 mg PO BID PRN 05/04/21 10/11/23 History Aspirin [Adult Low Dose Aspirin EC] 81 mg PO DAILY 07/05/23 10/11/23 History Cholecalciferol [Vitamin D3 (25 50 mcg PO DAILY #0 07/05/23 10/11/23 History Mcg = 1000 Iu)] Evolocumab [Repatha Sureclick] 140 mg SQ Q14D 07/05/23 10/11/23 History Gabapentin 600 mg PO BID 07/05/23 10/11/23 History Insulin Detemir (Levemir) [Levemir] 16 unit SQ HS 07/05/23 10/11/23 History Isosorbide Mononitrate ER [Imdur] 30 mg PO DAILY 07/05/23 10/11/23 History Metoprolol Succinate (ER) [Toprol 25 mg PO DAILY 07/05/23 10/11/23 History XL] Tirzepatide [Mounjaro] 5 mg SQ PICKETT 07/05/23 10/11/23 History Albuterol Inhaler [Ventolin Hfa 2 puff INHALATION BID 08/05/23 10/11/23 History Inhaler] Fluticasone/Umeclidin/Vilanter 1 puff INHALATION DAILY 08/05/23 10/11/23 History [Trelegy Ellipta 200-62.5-25] Losartan [Cozaar] 25 mg PO DAILY 08/05/23 10/11/23 History Clopidogrel [Plavix] 75 mg PO DAILY #90 tab 08/08/23 10/11/23 Rx metFORMIN HCL 1,000 mg PO BID #0 08/08/23 10/11/23 Rx Allergies Allergy/AdvReac Type Severity Reaction Status Date / Time bee venom protein (honey bee) Allergy Swelling Verified 10/08/23 08:25 [id number] Reductase Allergy calfs feel Verified 10/08/23 08:25 Inhibitor heavy and ache Physical Examination - Vital Signs Vital Signs: Vital Signs Temp Pulse Resp BP Pulse Ox 10/13/23 10:15 80 86 L 10/13/23 10:09 98.5 F 80 16 103/53 93 L 10/13/23 10:00 88 16 120/76 88 L 10/13/23 09:49 98.5 F 87 12 105/60 92 L 10/13/23 09:45 83 91 L 10/13/23 09:30 86 23 87 L 10/13/23 09:15 89 120/76 90 L 10/13/23 09:00 86 20 89 L 10/13/23 08:45 87 12 105/60 92 L 10/13/23 08:30 82 88 L 10/13/23 08:15 76 20 105/60 100 10/13/23 08:08 77 20 89 L 10/13/23 08:00 98.1 F 80 18 88 L 10/13/23 07:45 82 18 91 L 10/13/23 07:30 81 20 90 L 10/13/23 07:15 85 97/78 94 L 10/13/23 07:00 80 13 93 L 10/13/23 06:45 78 15 93 L 10/13/23 06:30 79 13 93 L 10/13/23 06:15 80 14 98/59 92 L 10/13/23 06:00 86 11 L 93 L 10/13/23 05:45 85 10 L 93 L 10/13/23 05:44 89 16 94 L 10/13/23 05:15 92 23 100/57 92 L 10/13/23 04:45 80 20 93 L 10/13/23 04:30 79 17 94 L 10/13/23 04:15 87 25 H 101/63 94 L 10/13/23 04:00 81 17 94 L 10/13/23 03:45 80 18 94 L 10/13/23 03:30 80 18 93 L 10/13/23 03:15 81 18 97/63 95 05 03:00 81 16 97 10/13/23 02:45 81 18 96 10/13/23 02:30 80 20 96 10/13/23 02:15 78 17 94/67 96 05 02:00 82 18 96 10/13/23 01:45 78 16 96 10/13/23 01:30 77 16 95 10/31 01:15 77 17 100/66 95 10/13/23 01:00 77 15 95 10/13/23 00:45 77 15 96 10/13/23 00:30 78 16 96 10/13/23 00:15 80 18 95 10/13/23 00:10 79 18 104/63 95 10/13/23 00:00 98 F 82 17 95 10/12/23 23:45 85 18 95 10/12/23 23:30 85 21 97 10/12/23 23:15 86 19 96 10/12/23 23:00 85 16 95 10/12/23 22:50 87 19 94 L 10/12/23 22:40 85 17 90 L 10/12/23 22:30 86 19 88 L 10/12/23 22:20 85 17 90 L 10/12/23 22:10 86 18 116/71 92 L 10/12/23 22:00 88 17 101/71 92 L 10/12/23 21:50 85 18 91 L 10/12/23 21:40 86 15 91 L 10/12/23 21:30 89 14 91 L 10/12/23 21:20 101 H 17 92 L 10/12/23 21:10 106 H 28 H 95 10/12/23 21:04 94 10/12/23 21:00 81 17 100 10/12/23 20:50 90 23 89 L 10/12/23 20:49 90 10/12/23 20:30 84 19 108/67 90 L 10/12/23 20:00 98.1 F 94 17 92 L 10/12/23 19:30 88 17 102/68 90 L 10/12/23 19:00 86 18 93 L 10/12/23 18:45 86 17 92 L 10/12/23 18:15 94 15 107/67 92 L 10/12/23 18:00 90 21 92 L 10/12/23 17:45 98 93 L 10/12/23 17:30 92 18 92 L 10/12/23 17:15 93 15 98/74 94 L 10/12/23 17:00 102 H 11 L 93 L 10/12/23 16:45 103 H 20 92 L 10/12/23 16:30 90 19 95 10/12/23 16:22 89 10/12/23 16:15 89 13 91/70 94 L 10/12/23 16:13 86 10/12/23 16:00 98.1 F 85 18 92 L 10/12/23 15:45 93 13 92 L 10/12/23 15:30 87 12 92 L 10/12/23 15:15 92 21 83/55 93 L 10/12/23 15:00 90 10 L 92 L 10/12/23 14:45 92 10 L 88/59 92 L 10/12/23 14:30 89 16 103/78 93 L 10/12/23 14:15 103/78 94 L 10/12/23 14:00 98 11 L 93 L 10/12/23 13:45 90 18 99 10/12/23 13:41 90 10/12/23 13:33 86 10/12/23 13:30 84 13 96 10/12/23 13:15 84 15 91/67 96 10/12/23 13:00 85 21 99/61 96 10/12/23 12:00 89 26 H 96 10/12/23 11:30 94 23 110/69 96 10/12/23 11:00 102 H 29 H 88/77 96 Intake and Output 10/12/23 10/13/23 10/13/23 22:59 06:59 14:59 Intake Total 1022.217 346.893 253.806 Output Total 299 390 115 Balance 723.217 -43.107 138.806 Intake: IV 588 324 108 Albumin Human 25% 50 ml 50 In Empty Bag 1 bag @ 50 mls/hr IVPB ONCE ONE Rx#: [id number] Albumin Human 5% 250 ml 250 In Empty Bag 1 bag @ 250 mls/hr IVPB Q1HR PRN Rx#: [id number] Lactated Ringers 1,000 ml 240 270 90 @ 20 mls/hr IV .Q24H [facility] Rx#:[id number] Pressure Bags 48 54 18 Intake, IV Titration 314.217 22.893 25.806 Amount Amiodarone 450 mg In 250 Dextrose 5% in Water 250 ml @ 0.5 MG/MIN 16.667 mls/hr IV .Q15H [facility] Rx#: [id number] Insulin Regular 100 unit 25.048 22.052 In Sodium Chloride 0.9% 100 ml @ Per Protocol IV .Q0M [facility] Rx#:[id number] Vasopressin 20 unit In 39.169 0.841 25.806 Sodium Chloride 0.9% 50 ml @ 0.04 UNITS/MIN 6.12 mls/hr IV .Q8H20M [facility] Rx# :[id number] Oral 120 120 Blood Product 0 Unit 0 Output: Chest Tube Drainage 166 220 70 Chest Tube Left 26 10 10 Chest Tube Right 30 120 30 Mediastinal Chest Tube x2 110 90 30 Urine 133 170 45 Other: Voiding Method Indwelling Catheter Indwelling Catheter Indwelling Catheter Weight 75.4 kg ABP, PAP, CO, CI - Last 8 Hours Arterial Blood Pressure 114/62 Arterial Blood Pressure 115/57 Arterial Blood Pressure 121/57 Arterial Blood Pressure 123/58 Arterial Blood Pressure 104/54 Arterial Blood Pressure 117/59 Arterial Blood Pressure 101/50 Arterial Blood Pressure 106/53 Arterial Blood Pressure 95/56 Arterial Blood Pressure 113/60 Arterial Blood Pressure 90/47 Arterial Blood Pressure 110/56 Arterial Blood Pressure 103/52 Arterial Blood Pressure 96/50 Arterial Blood Pressure 93/50 Arterial Blood Pressure 97/51 Arterial Blood Pressure 89/49 Arterial Blood Pressure 80/42 Arterial Blood Pressure 105/61 Arterial Blood Pressure 94/56 Arterial Blood Pressure 91/53 Arterial Blood Pressure 85/54 Arterial Blood Pressure 85/51 Arterial Blood Pressure 91/52 Arterial Blood Pressure 96/54 Arterial Blood Pressure 98/53 Arterial Blood Pressure 114/62 Arterial Blood Pressure 95/53 Patient is a middle aged female, in no acute distress. Patient is alert awake oriented to time place and person. Speech and language functions are normal. Patient can name and repeat very well. No aphasia or dysarthria. Attention, concentration and fund of knowledge is adequate. On cranial nerve examination, pupils are equal, round and reacting to light, visual soto are full on confrontation, with no neglect on double simultaneous stimulation. Extraocular muscles are intact with no nystagmus. Face is symmetric, tongue protrudes to the midline. Palatal elevation and sensation normal, hearing and shoulder shrug normal, facial sensation normal. On muscle strength testing, there is no pronator drift and the strength is normal in arms and legs distally and proximally. Upper extremities not checked to the max strength because of recent chest surgery. Deep tendon reflexes are symmetric, 1+ in the arms and plantars are flat. Sensory to touch is equal with no neglect on double simultaneous stimulation. Cerebellar function showed no ataxia for [id number] testing. Tone and bulk of muscles normal. Gait deferred.. On general examination, there is no carotid bruit or murmur, S1-S2 audible. Chest is clear on consultation. Abdomen is soft nontender. No organomegaly, bowel sounds present. Peripheral pulses are present. No peripheral edema. Results - Laboratory Findings CBC and BMP: 10/13/23 04:06 10/13/23 04:06 Abnormal Lab Findings: Abnormal Labs 10/03/23 10/11/23 10/11/23 10:30 06:13 08:32 RBC Hgb Hct Plt Count Lymphocytes # PT INR ABG pH ABG pCO2 ABG pO2 360 H ABG HCO3 ABG Total CO2 ABG O2 Saturation 97.5 H ABG Hematocrit 33 L ABG Potassium 4.7 H ABG Ionized Calcium ABG Glucose 195 H ABG Lactic Acid 2.3 H* Hemoglobin 10.8 L Chloride BUN Creatinine Glucose POC Glucose (mg/dL) 237 H Calcium Ionized Calcium Lisa Magnesium AST Total Protein Albumin Arterial Blood Potassium 4.7 H Arterial Blood Glucose 195 H Crossmatch See Detail 10/11/23 10/11/23 10/11/23 09:35 11:52 12:32 RBC Hgb Hct Plt Count Lymphocytes # PT INR ABG pH 7.28 L 7.30 L ABG pCO2 52 H 51 H ABG pO2 222 H 316 H 237 H ABG HCO3 ABG Total CO2 ABG O2 Saturation 97.4 H 99.3 H 98.6 H ABG Hematocrit 33 L 22 L 20 L* ABG Potassium ABG Ionized Calcium 3.9 L 3.9 L ABG Glucose 160 H 135 H 145 H ABG Lactic Acid 1.9 H 2.5 H* 2.4 H* Hemoglobin 10.6 L 7.0 L* 6.6 L* Chloride BUN Creatinine Glucose POC Glucose (mg/dL) Calcium Ionized Calcium Lisa Magnesium AST Total Protein Albumin Arterial Blood Potassium Arterial Blood Glucose 160 H 135 H 145 H Crossmatch 10/11/23 10/11/23 10/11/23 13:03 14:58 14:58 RBC 2.96 L Hgb 8.4 L D Hct 25.9 L Plt Count 101 L Lymphocytes # PT 12.7 H INR 1.2 H ABG pH 7.30 L ABG pCO2 51 H ABG pO2 >420 H ABG HCO3 ABG Total CO2 ABG O2 Saturation 99.2 H ABG Hematocrit 19 L* ABG Potassium 4.6 H ABG Ionized Calcium 4.0 L ABG Glucose 139 H ABG Lactic Acid 2.2 H* Hemoglobin 6.3 L* Chloride BUN Creatinine Glucose POC Glucose (mg/dL) Calcium Ionized Calcium Lisa Magnesium AST Total Protein Albumin Arterial Blood Potassium 4.6 H Arterial Blood Glucose 139 H Crossmatch 10/11/23 10/11/23 10/11/23 14:58 15:28 16:02 RBC Hgb Hct Plt Count Lymphocytes # PT INR ABG pH 7.26 L ABG pCO2 56 H ABG pO2 >400 H ABG HCO3 26 H ABG Total CO2 27 H ABG O2 Saturation 99.4 H ABG Hematocrit ABG Potassium ABG Ionized Calcium ABG Glucose ABG Lactic Acid Hemoglobin Chloride 114 H BUN Creatinine 0.36 L Glucose 103 H POC Glucose (mg/dL) 153 H Calcium 6.7 L Ionized Calcium Lisa 4.2 L Magnesium 2.6 H AST 46 H Total Protein 4.9 L Albumin 3.0 L Arterial Blood Potassium Arterial Blood Glucose Crossmatch 10/11/23 10/11/23 10/11/23 17:02 17:48 18:09 RBC 3.29 L Hgb 9.6 L Hct 29.6 L Plt Count 118 L Lymphocytes # PT INR ABG pH ABG pCO2 ABG pO2 ABG HCO3 ABG Total CO2 ABG O2 Saturation ABG Hematocrit ABG Potassium ABG Ionized Calcium ABG Glucose ABG Lactic Acid Hemoglobin Chloride BUN Creatinine Glucose POC Glucose (mg/dL) 176 H 232 H Calcium Ionized Calcium Lisa Magnesium AST Total Protein Albumin Arterial Blood Potassium Arterial Blood Glucose Crossmatch 10/11/23 10/11/23 10/11/23 18:35 19:22 20:08 RBC Hgb Hct Plt Count Lymphocytes # PT INR ABG pH 7.29 L ABG pCO2 48 H ABG pO2 ABG HCO3 ABG Total CO2 25 H ABG O2 Saturation 97.9 H ABG Hematocrit ABG Potassium ABG Ionized Calcium ABG Glucose ABG Lactic Acid Hemoglobin Chloride BUN Creatinine Glucose POC Glucose (mg/dL) 198 H 195 H Calcium Ionized Calcium Lisa Magnesium AST Total Protein Albumin Arterial Blood Potassium Arterial Blood Glucose Crossmatch 10/11/23 10/11/23 10/11/23 21:05 21:07 22:18 RBC 2.90 L Hgb 8.9 L Hct 25.5 L Plt Count 116 L Lymphocytes # 0.7 L PT INR ABG pH ABG pCO2 ABG pO2 ABG HCO3 ABG Total CO2 ABG O2 Saturation ABG Hematocrit ABG Potassium ABG Ionized Calcium ABG Glucose ABG Lactic Acid Hemoglobin Chloride BUN Creatinine Glucose POC Glucose (mg/dL) 187 H 171 H Calcium Ionized Calcium Lisa Magnesium AST Total Protein Albumin Arterial Blood Potassium Arterial Blood Glucose Crossmatch 10/11/23 10/12/23 10/12/23 22:59 00:02 00:55 RBC Hgb Hct Plt Count Lymphocytes # PT INR ABG pH ABG pCO2 ABG pO2 ABG HCO3 ABG Total CO2 ABG O2 Saturation ABG Hematocrit ABG Potassium ABG Ionized Calcium ABG Glucose ABG Lactic Acid Hemoglobin Chloride BUN Creatinine Glucose POC Glucose (mg/dL) 155 H 156 H 145 H Calcium Ionized Calcium Lisa Magnesium AST Total Protein Albumin Arterial Blood Potassium Arterial Blood Glucose Crossmatch 10/12/23 10/12/23 10/12/23 01:03 01:16 02:00 RBC Hgb Hct Plt Count Lymphocytes # PT INR ABG pH ABG pCO2 ABG pO2 ABG HCO3 ABG Total CO2 25 H ABG O2 Saturation 97.4 H ABG Hematocrit ABG Potassium ABG Ionized Calcium ABG Glucose ABG Lactic Acid Hemoglobin Chloride BUN Creatinine Glucose POC Glucose (mg/dL) 150 H 144 H Calcium Ionized Calcium Lisa Magnesium AST Total Protein Albumin Arterial Blood Potassium Arterial Blood Glucose Crossmatch 10/12/23 10/12/23 10/12/23 02:58 04:00 04:01 RBC 3.05 L Hgb 8.5 L Hct 26.3 L Plt Count 129 L Lymphocytes # PT INR ABG pH ABG pCO2 ABG pO2 ABG HCO3 ABG Total CO2 ABG O2 Saturation ABG Hematocrit ABG Potassium ABG Ionized Calcium ABG Glucose ABG Lactic Acid Hemoglobin Chloride BUN Creatinine Glucose POC Glucose (mg/dL) 116 H 123 H Calcium Ionized Calcium Lisa Magnesium AST Total Protein Albumin Arterial Blood Potassium Arterial Blood Glucose Crossmatch 10/12/23 10/12/23 10/12/23 04:01 06:26 07:08 RBC Hgb Hct Plt Count Lymphocytes # PT INR ABG pH ABG pCO2 ABG pO2 ABG HCO3 ABG Total CO2 ABG O2 Saturation ABG Hematocrit ABG Potassium ABG Ionized Calcium ABG Glucose ABG Lactic Acid Hemoglobin Chloride 109 H BUN Creatinine 0.38 L Glucose 110 H POC Glucose (mg/dL) 185 H 180 H Calcium 7.5 L Ionized Calcium Lisa 4.4 L Magnesium AST 52 H Total Protein 5.3 L Albumin 3.4 L Arterial Blood Potassium Arterial Blood Glucose Crossmatch 10/12/23 10/12/23 10/12/23 08:04 09:56 11:15 RBC Hgb Hct Plt Count Lymphocytes # PT INR ABG pH ABG pCO2 ABG pO2 ABG HCO3 ABG Total CO2 ABG O2 Saturation ABG Hematocrit ABG Potassium ABG Ionized Calcium ABG Glucose ABG Lactic Acid Hemoglobin Chloride BUN Creatinine Glucose POC Glucose (mg/dL) 157 H 119 H 134 H Calcium Ionized Calcium Lisa Magnesium AST Total Protein Albumin Arterial Blood Potassium Arterial Blood Glucose Crossmatch 10/12/23 10/12/23 10/12/23 12:09 13:47 14:50 RBC 2.80 L Hgb 8.1 L Hct 24.5 L Plt Count 107 L Lymphocytes # PT INR ABG pH ABG pCO2 ABG pO2 ABG HCO3 ABG Total CO2 ABG O2 Saturation ABG Hematocrit ABG Potassium ABG Ionized Calcium ABG Glucose ABG Lactic Acid Hemoglobin Chloride BUN Creatinine Glucose POC Glucose (mg/dL) 130 H 154 H Calcium Ionized Calcium Lisa Magnesium AST Total Protein Albumin Arterial Blood Potassium Arterial Blood Glucose Crossmatch 10/12/23 10/12/23 10/12/23 14:54 16:43 18:08 RBC Hgb Hct Plt Count Lymphocytes # PT INR ABG pH ABG pCO2 ABG pO2 ABG HCO3 ABG Total CO2 ABG O2 Saturation ABG Hematocrit ABG Potassium ABG Ionized Calcium ABG Glucose ABG Lactic Acid Hemoglobin Chloride BUN Creatinine Glucose POC Glucose (mg/dL) 159 H 141 H 141 H Calcium Ionized Calcium Lisa Magnesium AST Total Protein Albumin Arterial Blood Potassium Arterial Blood Glucose Crossmatch 10/12/23 10/12/23 10/12/23 18:59 19:57 21:07 RBC Hgb Hct Plt Count Lymphocytes # PT INR ABG pH ABG pCO2 ABG pO2 ABG HCO3 ABG Total CO2 ABG O2 Saturation ABG Hematocrit ABG Potassium ABG Ionized Calcium ABG Glucose ABG Lactic Acid Hemoglobin Chloride BUN Creatinine Glucose POC Glucose (mg/dL) 141 H 115 H 126 H Calcium Ionized Calcium Lisa Magnesium AST Total Protein Albumin Arterial Blood Potassium Arterial Blood Glucose Crossmatch 10/12/23 10/12/2310/12/24 22:11 23:51 04:03 RBC Hgb Hct Plt Count Lymphocytes # PT INR ABG pH ABG pCO2 ABG pO2 ABG HCO3 ABG Total CO2 ABG O2 Saturation ABG Hematocrit ABG Potassium ABG Ionized Calcium ABG Glucose ABG Lactic Acid Hemoglobin Chloride BUN Creatinine Glucose POC Glucose (mg/dL) 125 H 130 H 173 H Calcium Ionized Calcium Lisa Magnesium AST Total Protein Albumin Arterial Blood Potassium Arterial Blood Glucose Crossmatch 10/13/23 10/13/23 10/13/23 04:06 04:06 05:52 RBC 2.72 L Hgb 7.7 L Hct 23.6 L Plt Count 110 L Lymphocytes # PT INR ABG pH ABG pCO2 ABG pO2 ABG HCO3 ABG Total CO2 ABG O2 Saturation ABG Hematocrit ABG Potassium ABG Ionized Calcium ABG Glucose ABG Lactic Acid Hemoglobin Chloride BUN 18 H Creatinine 0.39 L Glucose 152 H POC Glucose (mg/dL) 143 H Calcium 7.7 L Ionized Calcium Lisa 4.4 L Magnesium AST 58 H Total Protein 5.5 L Albumin Arterial Blood Potassium Arterial Blood Glucose Crossmatch Assessment and Plan Assessment: * Probable recurrent TIA, manifesting with loss of responsiveness, and right- sided weakness. Rule out carotid disease. * Coronary artery disease, status post bypass surgery * History of left subclavian steal, with left subclavian stenting * Hypertension * Hyperlipidemia * Diabetes * COPD * Peripheral neuropathy * Peripheral arterial disease * Ex tobacco use Plan: * Patient had 2 episodes of TIA, manifesting with unresponsiveness and right hemiparesis. Symptoms resolved shortly after. At present patient's NIH stroke scale is 0. * Patient is currently on aspirin and Plavix. Suggest switching from Plavix to Brilinta for recurrent TIA. We will defer to cardiothoracic surgery. * Shat carotid Doppler * EEG * CT head, rule out any CVA. * 2D echo from 07/10/2023 showed mildly increased septal wall thickness, hypokinetic lateral wall and inferior wall with EF of 35 to 40%. Normal left atrial size. Normal right ventricular size and function. * Postoperative AFSHAN showed improved ventricular function and no valvular abnormalities. 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 Nearly 2 cm segment of occlusion proximal left subc lavian artery. Correlate for any potential symptoms of subclavian steal on the left. Prominent atherosclerotic changes at the left carotid bifurcation. This results in a mild, less than 50% stenosis of the left ICA origin but with more severe 70% stenosis of the left upper carotid bulb. * Lipid panel with cholesterol 200, LDL 108, HDL 53, triglycerides 190. Patient on Repatha every 14 days. * Hemoglobin A1c 8.3. Recommend optimize control of diabetes to target A1c <7.0. * Dr. Harry Fry to resume neurology service in the morning. You for the consult. Addendum: CT head was performed, which revealed small punctate hyperdensity in the left aspect of the medulla which likely represents benign calcification but acute hemorrhage is not entirely excluded. Short-term follow-up recommended. I personally reviewed CT head, and appears calcification. Check stat MRI of the brain. Carotid ultrasound completed, results pending at this time. Time with Patient: Greater than 30
--- NOTE | 2023-10-13 13:43 | P.PN ---
Subjective Progress Note Date: 10/13/23 PROGRESS NOTE The patient is a 57-year-old female who is seen post CABG. She is followed on a regular basis by Dr. Cisneros and underwent cardiac catheterization that revealed a severely impaired low ventricle systolic function and her echocardiogram preoperatively showed an ejection fraction of 35 to 40%. She was also found to have left subclavian stenosis and underwent stenting of that vessel by Dr. Montero. She received a ALVAREZ to the diagonal, right radial to the LAD and SVG to the OM and RCA. The follow-up AFSHAN postoperatively showed an improvement in the systolic function. She is intubated and sedated, on no vasopressors and in sinus mechanism with good urinary output and no significant drainage from her mediastinal or chest tube. She has a history of peripheral neuropathy and diabetes with prior toe amputation. Her current risk factors are positive for hypertension, hyperlipidemia and diabetes mellitus. October 11: The patient is extubated, sitting up in the chair, in sinus mechanism. Hemo dynamically stable with no arrhythmia and no vasopressor. She had an episode of unresponsiveness yesterday lasting for about 5 minutes that subsequently resolved. She has a known history of carotid obstructive disease that has been managed conservatively. She feels better today. She denies any dizziness or palpitation. She has no nausea. Her urinary output is stable. October 12: The patient is feeling well this morning, she continues to be in sinus mechanism and hemodynamically stable. She had no episodes of atrial fibrillation. Her urinary output has been stable. She had no further episodes of unresponsiveness. She had transient right upper extremities weakness that resolved. She was evaluated by neurology. Medications: Amlodipine 2.5 mg daily, amiodarone 400 mg twice a day, atorvastatin 20 mg daily, Plavix 75 mg daily, metoprolol tartrate 12.5 mg twice a day, midodrine 5 mg 3 times daily PHYSICAL EXAMINATION: Blood pressure 119/60 heart rate 87 LUNGS: Clear to auscultation HEART: Regular rate and rhythm, S1, S2. No S3. Systolic ejection murmur ABDOMEN: Soft, nontender, no organomegaly EXTREMETIES: No edema LAB: Potassium 4.1, BUN 18, creatinine 0.39, hemoglobin 7.7 IMPRESSION: 1. Status post CABG, stable 2. History of peripheral vascular disease 3. Ischemic cardiomyopathy, no evidence of CHF at this point 4. An episode of unresponsiveness, etiology unclear, resolved, probable TIA with known carotid disease 5. Hyperlipidemia intolerant to statin on Repatha PLAN: 1. Continue present therapy 2. Increase physical activity and follow blood pressure to adjust the dose of beta-franky and if stable add LUCIO inhibitor because of the history of cardiomyopathy 3. Incentive spirometry 4. Observe closely for any recurrent episodes of unresponsiveness Objective - Vital Signs Vital signs: Vital Signs Temp 98.6 F 10/13/23 12:00 Pulse 87 10/13/23 12:00 Resp 16 10/13/23 12:00 BP 130/90 10/13/23 11:30 Pulse Ox 95 10/13/23 12:00 FiO2 40 10/11/23 18:45 Intake & Output 10/12/23 10/13/23 10/13/23 18:59 06:59 18:59 Intake Total 1818.687 596.399 590.886 Output Total 536 541 385 Balance 1282.687 55.399 205.886 Weight 74.1 kg 75.4 kg Intake: IV 1145 518 160 ACETAMINOPHEN IV (For NPO 0 ) 1,000 mg In Empty Bag 1 bag @ 400 mls/hr IVPB Q6HR BETSY Rx#:[id number] Albumin Human 25% 50 ml 50 In Empty Bag 1 bag @ 50 mls/hr IVPB ONCE ONE Rx#: [id number] Albumin Human 5% 250 ml 500 In Empty Bag 1 bag @ 250 mls/hr IVPB Q1HR PRN Rx#: [id number] Co/CI 40 Lactated Ringers 1,000 ml 480 390 130 @ 20 mls/hr IV .Q24H BETSY Rx#:[id number] Pressure Bags 75 78 30 ceFAZolin 2 gm In Sodium 50 Chloride 0.9% 50 ml @ 100 mls/hr IVPB Q8HR BETSY Rx# :[id number] Intake, IV Titration 313.687 78.399 29.886 Amount Amiodarone 450 mg In 250 Dextrose 5% in Water 250 ml @ 0.5 MG/MIN 16.667 mls/hr IV .Q15H BETSY Rx#: [id number] Insulin Regular 100 unit 39.087 38.389 In Sodium Chloride 0.9% 100 ml @ Per Protocol IV .Q0M BETSY Rx#:[id number] Nitroglycerin-D5w Pmx 50 24.6 mg In Dextrose/Water 1 250ml.bag @ 5 MCG/MIN 1.5 mls/hr IV .Q24H BETSY Rx#: [id number] Vasopressin 20 unit In 40.010 29.886 Sodium Chloride 0.9% 50 ml @ 0.04 UNITS/MIN 6.12 mls/hr IV .Q8H20M BETSY Rx# :[id number] Oral 360 120 Blood Product 281 Rc Pheresis As-3 Unit 281 [id number] Output: Chest Tube Drainage 268 326 180 Chest Tube Left 30 26 10 Chest Tube Right 58 140 110 Mediastinal Chest Tube x2 180 160 60 Urine 268 215 205 Other: Voiding Method Indwelling Catheter Indwelling Catheter Indwelling Catheter ABP, PAP, CO, CI - Last Documented Arterial Blood Pressure 119/62 Pulmonary Artery Pressure 41/41 Cardiac Output 4.4 Cardiac Index 2.6 - Labs CBC & Chem 7: 10/13/23 04:06 10/13/23 04:06 Labs: Abnormal Lab Results - Last 24 Hours (Table) 10/03/23 10/11/23 10/12/23 Range/Units 10:30 13:03 13:47 RBC (3.80-5.40) m/uL Hgb (11.4-16.0) gm/dL Hct (34.0-46.0) % Plt Count (150-450) k/uL ABG pH 7.30 L (7.35-7.45) ABG pCO2 51 H (35-45) mmHg ABG pO2 >420 H (83-108) mmHg ABG O2 Saturation 99.2 H (94-97) % ABG Hematocrit 19 L* (34.0-46.0) % ABG Potassium 4.6 H (3.4-4.5) mmol/L ABG Ionized Calcium 4.0 L (4.5-5.3) mg/dL ABG Glucose 139 H (75-99) mg/dL ABG Lactic Acid 2.2 H* (0.5-1.6) mmol/L Hemoglobin 6.3 L* (11.4-16.0) gm/dL BUN (7-17) mg/dL Creatinine (0.52-1.04) mg/dL Glucose (74-99) mg/dL POC Glucose (mg/dL) 154 H (70-110) mg/dL Calcium (8.4-10.2) mg/dL Ionized Calcium Lisa (4.5-5.3) mg/dL AST (14-36) U/L Total Protein (6.3-8.2) g/dL Arterial Blood Potassium 4.6 H (3.4-4.5) mmol/L Arterial Blood Glucose 139 H (75-99) mg/dL Crossmatch See Detail 10/12/23 10/12/23 10/12/23 Range/Units 14:50 14:54 16:43 RBC 2.80 L (3.80-5.40) m/uL Hgb 8.1 L (11.4-16.0) gm/dL Hct 24.5 L (34.0-46.0) % Plt Count 107 L (150-450) k/uL ABG pH (7.35-7.45) ABG pCO2 (35-45) mmHg ABG pO2 (83-108) mmHg ABG O2 Saturation (94-97) % ABG Hematocrit (34.0-46.0) % ABG Potassium (3.4-4.5) mmol/L ABG Ionized Calcium (4.5-5.3) mg/dL ABG Glucose (75-99) mg/dL ABG Lactic Acid (0.5-1.6) mmol/L Hemoglobin (11.4-16.0) gm/dL BUN (7-17) mg/dL Creatinine (0.52-1.04) mg/dL Glucose (74-99) mg/dL POC Glucose (mg/dL) 159 H 141 H (70-110) mg/dL Calcium (8.4-10.2) mg/dL Ionized Calcium Lisa (4.5-5.3) mg/dL AST (14-36) U/L Total Protein (6.3-8.2) g/dL Arterial Blood Potassium (3.4-4.5) mmol/L Arterial Blood Glucose (75-99) mg/dL Crossmatch 10/12/23 10/12/23 10/12/23 Range/Units 18:08 18:59 19:57 RBC (3.80-5.40) m/uL Hgb (11.4-16.0) gm/dL Hct (34.0-46.0) % Plt Count (150-450) k/uL ABG pH (7.35-7.45) ABG pCO2 (35-45) mmHg ABG pO2 (83-108) mmHg ABG O2 Saturation (94-97) % ABG Hematocrit (34.0-46.0) % ABG Potassium (3.4-4.5) mmol/L ABG Ionized Calcium (4.5-5.3) mg/dL ABG Glucose (75-99) mg/dL ABG Lactic Acid (0.5-1.6) mmol/L Hemoglobin (11.4-16.0) gm/dL BUN (7-17) mg/dL Creatinine (0.52-1.04) mg/dL Glucose (74-99) mg/dL POC Glucose (mg/dL) 141 H 141 H 115 H (70-110) mg/dL Calcium (8.4-10.2) mg/dL Ionized Calcium Lisa (4.5-5.3) mg/dL AST (14-36) U/L Total Protein (6.3-8.2) g/dL Arterial Blood Potassium (3.4-4.5) mmol/L Arterial Blood Glucose (75-99) mg/dL Crossmatch 10/12/23 10/12/23 10/12/23 Range/Units 21:07 22:11 23:51 RBC (3.80-5.40) m/uL Hgb (11.4-16.0) gm/dL Hct (34.0-46.0) % Plt Count (150-450) k/uL ABG pH (7.35-7.45) ABG pCO2 (35-45) mmHg ABG pO2 (83-108) mmHg ABG O2 Saturation (94-97) % ABG Hematocrit (34.0-46.0) % ABG Potassium (3.4-4.5) mmol/L ABG Ionized Calcium (4.5-5.3) mg/dL ABG Glucose (75-99) mg/dL ABG Lactic Acid (0.5-1.6) mmol/L Hemoglobin (11.4-16.0) gm/dL BUN (7-17) mg/dL Creatinine (0.52-1.04) mg/dL Glucose (74-99) mg/dL POC Glucose (mg/dL) 126 H 125 H 130 H (70-110) mg/dL Calcium (8.4-10.2) mg/dL Ionized Calcium Lisa (4.5-5.3) mg/dL AST (14-36) U/L Total Protein (6.3-8.2) g/dL Arterial Blood Potassium (3.4-4.5) mmol/L Arterial Blood Glucose (75-99) mg/dL Crossmatch 10/13/23 10/13/23 10/13/23 Range/Units 04:03 04:06 04:06 RBC 2.72 L (3.80-5.40) m/uL Hgb 7.7 L (11.4-16.0) gm/dL Hct 23.6 L (34.0-46.0) % Plt Count 110 L (150-450) k/uL ABG pH (7.35-7.45) ABG pCO2 (35-45) mmHg ABG pO2 (83-108) mmHg ABG O2 Saturation (94-97) % ABG Hematocrit (34.0-46.0) % ABG Potassium (3.4-4.5) mmol/L ABG Ionized Calcium (4.5-5.3) mg/dL ABG Glucose (75-99) mg/dL ABG Lactic Acid (0.5-1.6) mmol/L Hemoglobin (11.4-16.0) gm/dL BUN 18 H (7-17) mg/dL Creatinine 0.39 L (0.52-1.04) mg/dL Glucose 152 H (74-99) mg/dL POC Glucose (mg/dL) 173 H (70-110) mg/dL Calcium 7.7 L (8.4-10.2) mg/dL Ionized Calcium Lisa 4.4 L (4.5-5.3) mg/dL AST 58 H (14-36) U/L Total Protein 5.5 L (6.3-8.2) g/dL Arterial Blood Potassium (3.4-4.5) mmol/L Arterial Blood Glucose (75-99) mg/dL Crossmatch 10/13/23 10/13/23 Range/Units 05:52 11:20 RBC (3.80-5.40) m/uL Hgb (11.4-16.0) gm/dL Hct (34.0-46.0) % Plt Count (150-450) k/uL ABG pH (7.35-7.45) ABG pCO2 (35-45) mmHg ABG pO2 (83-108) mmHg ABG O2 Saturation (94-97) % ABG Hematocrit (34.0-46.0) % ABG Potassium (3.4-4.5) mmol/L ABG Ionized Calcium (4.5-5.3) mg/dL ABG Glucose (75-99) mg/dL ABG Lactic Acid (0.5-1.6) mmol/L Hemoglobin (11.4-16.0) gm/dL BUN (7-17) mg/dL Creatinine (0.52-1.04) mg/dL Glucose (74-99) mg/dL POC Glucose (mg/dL) 143 H 244 H (70-110) mg/dL Calcium (8.4-10.2) mg/dL Ionized Calcium Lisa (4.5-5.3) mg/dL AST (14-36) U/L Total Protein (6.3-8.2) g/dL Arterial Blood Potassium (3.4-4.5) mmol/L Arterial Blood Glucose (75-99) mg/dL Crossmatch
--- NOTE | 2023-10-13 13:46 | P.PN ---
Subjective Progress Note Date: 10/13/23 This is a 57-year-old patient, follows with Dr. Dewitt. Chronic medical conditions include COPD, diabetes, hyperlipidemia, hypertension, osteoarthritis, peripheral neuropathy, subclavian blockage, prior COVID infection in 2022 left great toe amputation. August 07, 2023: Underwent cardiac catheterization by Dr. Montero. Underwent stenting of occluded subclavian with stent. Also has known severe triple-vessel coronary artery disease. Today patient underwent coronary bypass. Four-vessel. LA clip. Postprocedure in the ICU. Intubated. FiO2 40 and PEEP of 5. Patient has 3 mediastinal 1 left and 1 right chest tube. Drips include Precedex 0.4 mics, IV amiodarone, insulin drip at 2.5. Units an hour. Patient sedated 10/11. Patient seen and examined. Currently sitting upright in the chair, chest tubes are in place. 10/12. Patient seen and examined. Patient blood pressure was borderline low last night, had to be started on midodrine and vasopressin. Patient also had an episode last night where she was staring in space and was unresponsive to verbal stimuli. Neurology has been consulted. Patient is currently off insulin drip, will start Levemir 10 units twice daily REVIEW OF SYSTEMS: CONSTITUTIONAL: No fever, no malaise,. CARDIOVASCULAR: No chest pain, no palpitations, no syncope. PULMONARY: No shortness of breath, no cough, GASTROINTESTINAL: No diarrhea, no nausea, no vomiting, no abdominal pain. NEUROLOGICAL: No headaches, no weakness, PHYSICAL EXAMINATION: GENERAL: The patient is alert and oriented x3, not in any acute distress. Well developed, well nourished. HEENT: Pupils are round and equally reacting to light. EOMI. No scleral icterus. No conjunctival pallor. Normocephalic, atraumatic. No pharyngeal erythema. No thyromegaly. CARDIOVASCULAR: S1 and S2 present. No murmurs, rubs, or gallops. PULMONARY: Diminished breath sound the bases bilaterally, sternotomy surgical incision seen, bilateral chest tube seen ABDOMEN: Soft, nontender, nondistended, normoactive bowel sounds. No palpable organomegaly. MUSCULOSKELETAL: No joint swelling or deformity. EXTREMITIES: No cyanosis, clubbing, or pedal edema. NEUROLOGICAL: Gross neurological examination did not reveal any focal deficits. SKIN: No rashes. Assessment and plan Multivessel coronary artery disease status post four-vessel bypass surgery Post thoracotomy, currently extubated to 2 L of oxygen by nasal cannula CHF with impaired LV function with a preop left ventricle ejection fraction of 35 to 40% along with segmental wall motion abnormalities. 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 Continue same treatment. Continue with symptomatic treatment. Resume home medication. Monitor labs and vitals. DVT and GI prophylaxis. Further recommendations as per clinical course of the patient Dictation was produced using [employer] dictation software. please excuse any gramm atical, word or spelling errors. Objective - Vital Signs Vital signs: Vital Signs Temp 98 F 10/13/23 00:00 Pulse 76 10/13/23 08:15 Resp 20 10/13/23 08:15 BP 98/59 10/13/23 06:15 Pulse Ox 89 L 10/13/23 08:08 FiO2 40 10/11/23 18:45 Intake & Output 10/12/23 10/13/23 10/13/23 18:59 06:59 18:59 Intake Total 1818.687 596.399 36 Output Total 536 541 5 Balance 1282.687 55.399 31 Weight 74.1 kg 75.4 kg Intake: IV 1145 518 36 ACETAMINOPHEN IV (For NPO 0 ) 1,000 mg In Empty Bag 1 bag @ 400 mls/hr IVPB Q6HR BETSY Rx#:[id number] Albumin Human 25% 50 ml 50 In Empty Bag 1 bag @ 50 mls/hr IVPB ONCE ONE Rx#: [id number] Albumin Human 5% 250 ml 500 In Empty Bag 1 bag @ 250 mls/hr IVPB Q1HR PRN Rx#: [id number] Co/CI 40 Lactated Ringers 1,000 ml 480 390 30 @ 20 mls/hr IV .Q24H BETSY Rx#:[id number] Pressure Bags 75 78 6 ceFAZolin 2 gm In Sodium 50 Chloride 0.9% 50 ml @ 100 mls/hr IVPB Q8HR BETSY Rx# :[id number] Intake, IV Titration 313.687 78.399 Amount Amiodarone 450 mg In 250 Dextrose 5% in Water 250 ml @ 0.5 MG/MIN 16.667 mls/hr IV .Q15H BETSY Rx#: [id number] Insulin Regular 100 unit 39.087 38.389 In Sodium Chloride 0.9% 100 ml @ Per Protocol IV .Q0M BETSY Rx#:[id number] Nitroglycerin-D5w Pmx 50 24.6 mg In Dextrose/Water 1 250ml.bag @ 5 MCG/MIN 1.5 mls/hr IV .Q24H BETSY Rx#: [id number] Vasopressin 20 unit In 40.010 Sodium Chloride 0.9% 50 ml @ 0.04 UNITS/MIN 6.12 mls/hr IV .Q8H20M BETSY Rx# :[id number] Oral 360 Output: Chest Tube Drainage 268 326 Chest Tube Left 30 26 Chest Tube Right 58 140 Mediastinal Chest Tube x2 180 160 Urine 268 215 5 Other: Voiding Method Indwelling Catheter Indwelling Catheter ABP, PAP, CO, CI - Last Documented Arterial Blood Pressure 96/50 Pulmonary Artery Pressure 41/41 Cardiac Output 4.4 Cardiac Index 2.6 - Labs CBC & Chem 7: 10/13/23 04:06 10/13/23 04:06 Labs: Abnormal Lab Results - Last 24 Hours (Table) 10/11/23 10/12/23 10/12/23 Range/Units 13:03 09:56 11:15 RBC (3.80-5.40) m/uL Hgb (11.4-16.0) gm/dL Hct (34.0-46.0) % Plt Count (150-450) k/uL ABG pH 7.30 L (7.35-7.45) ABG pCO2 51 H (35-45) mmHg ABG pO2 >420 H (83-108) mmHg ABG O2 Saturation 99.2 H (94-97) % ABG Hematocrit 19 L* (34.0-46.0) % ABG Potassium 4.6 H (3.4-4.5) mmol/L ABG Ionized Calcium 4.0 L (4.5-5.3) mg/dL ABG Glucose 139 H (75-99) mg/dL ABG Lactic Acid 2.2 H* (0.5-1.6) mmol/L Hemoglobin 6.3 L* (11.4-16.0) gm/dL BUN (7-17) mg/dL Creatinine (0.52-1.04) mg/dL Glucose (74-99) mg/dL POC Glucose (mg/dL) 119 H 134 H (70-110) mg/dL Calcium (8.4-10.2) mg/dL Ionized Calcium Lisa (4.5-5.3) mg/dL AST (14-36) U/L Total Protein (6.3-8.2) g/dL Arterial Blood Potassium 4.6 H (3.4-4.5) mmol/L Arterial Blood Glucose 139 H (75-99) mg/dL 10/12/23 10/12/23 10/12/23 Range/Units 12:09 13:47 14:50 RBC 2.80 L (3.80-5.40) m/uL Hgb 8.1 L (11.4-16.0) gm/dL Hct 24.5 L (34.0-46.0) % Plt Count 107 L (150-450) k/uL ABG pH (7.35-7.45) ABG pCO2 (35-45) mmHg ABG pO2 (83-108) mmHg ABG O2 Saturation (94-97) % ABG Hematocrit (34.0-46.0) % ABG Potassium (3.4-4.5) mmol/L ABG Ionized Calcium (4.5-5.3) mg/dL ABG Glucose (75-99) mg/dL ABG Lactic Acid (0.5-1.6) mmol/L Hemoglobin (11.4-16.0) gm/dL BUN (7-17) mg/dL Creatinine (0.52-1.04) mg/dL Glucose (74-99) mg/dL POC Glucose (mg/dL) 130 H 154 H (70-110) mg/dL Calcium (8.4-10.2) mg/dL Ionized Calcium Lisa (4.5-5.3) mg/dL AST (14-36) U/L Total Protein (6.3-8.2) g/dL Arterial Blood Potassium (3.4-4.5) mmol/L Arterial Blood Glucose (75-99) mg/dL 10/12/23 10/12/23 10/12/23 Range/Units 14:54 16:43 18:08 RBC (3.80-5.40) m/uL Hgb (11.4-16.0) gm/dL Hct (34.0-46.0) % Plt Count (150-450) k/uL ABG pH (7.35-7.45) ABG pCO2 (35-45) mmHg ABG pO2 (83-108) mmHg ABG O2 Saturation (94-97) % ABG Hematocrit (34.0-46.0) % ABG Potassium (3.4-4.5) mmol/L ABG Ionized Calcium (4.5-5.3) mg/dL ABG Glucose (75-99) mg/dL ABG Lactic Acid (0.5-1.6) mmol/L Hemoglobin (11.4-16.0) gm/dL BUN (7-17) mg/dL Creatinine (0.52-1.04) mg/dL Glucose (74-99) mg/dL POC Glucose (mg/dL) 159 H 141 H 141 H (70-110) mg/dL Calcium (8.4-10.2) mg/dL Ionized Calcium Lisa (4.5-5.3) mg/dL AST (14-36) U/L Total Protein (6.3-8.2) g/dL Arterial Blood Potassium (3.4-4.5) mmol/L Arterial Blood Glucose (75-99) mg/dL 10/12/23 10/12/23 10/12/23 Range/Units 18:59 19:57 21:07 RBC (3.80-5.40) m/uL Hgb (11.4-16.0) gm/dL Hct (34.0-46.0) % Plt Count (150-450) k/uL ABG pH (7.35-7.45) ABG pCO2 (35-45) mmHg ABG pO2 (83-108) mmHg ABG O2 Saturation (94-97) % ABG Hematocrit (34.0-46.0) % ABG Potassium (3.4-4.5) mmol/L ABG Ionized Calcium (4.5-5.3) mg/dL ABG Glucose (75-99) mg/dL ABG Lactic Acid (0.5-1.6) mmol/L Hemoglobin (11.4-16.0) gm/dL BUN (7-17) mg/dL Creatinine (0.52-1.04) mg/dL Glucose (74-99) mg/dL POC Glucose (mg/dL) 141 H 115 H 126 H (70-110) mg/dL Calcium (8.4-10.2) mg/dL Ionized Calcium Lisa (4.5-5.3) mg/dL AST (14-36) U/L Total Protein (6.3-8.2) g/dL Arterial Blood Potassium (3.4-4.5) mmol/L Arterial Blood Glucose (75-99) mg/dL 10/12/23 10/12/23 10/13/23 Range/Units 22:11 23:51 04:03 RBC (3.80-5.40) m/uL Hgb (11.4-16.0) gm/dL Hct (34.0-46.0) % Plt Count (150-450) k/uL ABG pH (7.35-7.45) ABG pCO2 (35-45) mmHg ABG pO2 (83-108) mmHg ABG O2 Saturation (94-97) % ABG Hematocrit (34.0-46.0) % ABG Potassium (3.4-4.5) mmol/L ABG Ionized Calcium (4.5-5.3) mg/dL ABG Glucose (75-99) mg/dL ABG Lactic Acid (0.5-1.6) mmol/L Hemoglobin (11.4-16.0) gm/dL BUN (7-17) mg/dL Creatinine (0.52-1.04) mg/dL Glucose (74-99) mg/dL POC Glucose (mg/dL) 125 H 130 H 173 H (70-110) mg/dL Calcium (8.4-10.2) mg/dL Ionized Calcium Lisa (4.5-5.3) mg/dL AST (14-36) U/L Total Protein (6.3-8.2) g/dL Arterial Blood Potassium (3.4-4.5) mmol/L Arterial Blood Glucose (75-99) mg/dL 10/13/23 10/13/23 10/13/23 Range/Units 04:06 04:06 05:52 RBC 2.72 L (3.80-5.40) m/uL Hgb 7.7 L (11.4-16.0) gm/dL Hct 23.6 L (34.0-46.0) % Plt Count 110 L (150-450) k/uL ABG pH (7.35-7.45) ABG pCO2 (35-45) mmHg ABG pO2 (83-108) mmHg ABG O2 Saturation (94-97) % ABG Hematocrit (34.0-46.0) % ABG Potassium (3.4-4.5) mmol/L ABG Ionized Calcium (4.5-5.3) mg/dL ABG Glucose (75-99) mg/dL ABG Lactic Acid (0.5-1.6) mmol/L Hemoglobin (11.4-16.0) gm/dL BUN 18 H (7-17) mg/dL Creatinine 0.39 L (0.52-1.04) mg/dL Glucose 152 H (74-99) mg/dL POC Glucose (mg/dL) 143 H (70-110) mg/dL Calcium 7.7 L (8.4-10.2) mg/dL Ionized Calcium Lisa 4.4 L (4.5-5.3) mg/dL AST 58 H (14-36) U/L Total Protein 5.5 L (6.3-8.2) g/dL Arterial Blood Potassium (3.4-4.5) mmol/L Arterial Blood Glucose (75-99) mg/dL
--- NOTE | 2023-10-13 14:00 | CT ---
EXAMINATION TYPE: CT brain wo con DATE OF EXAM: 10/13/2023 COMPARISON: None HISTORY: TIA, episodes of unresponsiveness, Rt arm weakness, hx LT carotid stenosis CT DLP: 119.4 mGycm Automated exposure control for dose reduction was used. FINDINGS: The ventricles, basal cisterns and sulci of the opacities within normal limits and there is no mass e ffect or shift of midline structures. There is a tiny focal density in the left aspect of the medulla Could represent benign calcification although acute hemorrhage is not excluded and short-term follow- up is recommended. Intraorbital contents appear normal symmetric. The visualized paranasal sinuses and mastoid air cells are well aerated. IMPRESSION: SMALL PUNCTATE HYPERDENSITY IN THE LEFT ASPECT OF THE MEDULLA WHICH LIKELY REPRESENTS BENIGN CALCIFIC ATION BUT ACUTE HEMORRHAGE IS NOT ENTIRELY EXCLUDED. SHORT-TERM FOLLOW-UP IS RECOMMENDED.
[2023-10-13 17:17] LABS: Glucose,Whole Blood 207 mg/dL (70-110)
[2023-10-13 20:14] LABS: Glucose,Whole Blood 230 mg/dL (70-110)
[2023-10-13] MEDS: INSULIN DETEMIR (LEVEMIR) 100 UNIT/ML SYR SQ SCH (20:39)
[2023-10-14 05:55] LABS: Basophils % (A) 1 %; Eosinophils # (A) 0.3 k/uL (0-0.7); Eosinophils % (A) 4 %; HCT 28.1 % (34.0-46.0); Lymphocytes # (A) 2.5 k/uL (1.0-4.8); Lymphocytes % (A) 32 %; MCH 30.1 pg (25.0-35.0); MCHC 34.4 g/dL (31.0-37.0); MCV 87.5 fL (80.0-100.0); Mean Platelet Volume 8.5; Monocytes # (A) 0.3 k/uL (0-1.0); Monocytes % (A) 4 %; Neutrophils # (A) 4.5 k/uL (1.3-7.7); Neutrophils % (A) 58 %; Platelet Count 148 k/uL (150-450); RBC 3.22 m/uL (3.80-5.40); WBC 7.8 k/uL (3.8-10.6)
[2023-10-14 05:59] LABS: ALT 125 U/L (4-34); AST 154 U/L (14-36); African American GFR (CKD) >90 (>60 ml/min/1.73 sqM); Albumin 3.6 g/dL (3.5-5.0); Alkaline Phosphatase 93 U/L (38-126); Blood Urea Nitrogen 22 mg/dL (7-17); Calcium 8.3 mg/dL (8.4-10.2); Carbon Dioxide 26 mmol/L (22-30); Glucose 143 mg/dL (74-99); Non-African American GFR(CKD) >90 (>60 ml/min/1.73 sqM); Total Bilirubin 0.7 mg/dL (0.2-1.3); Total Protein 5.7 g/dL (6.3-8.2)
[2023-10-14 06:01] LABS: HGB 9.7 gm/dL (11.4-16.0)
[2023-10-14 06:02] LABS: Anion Gap 6 mmol/L; Chloride 105 mmol/L (98-107); Potassium 3.9 mmol/L (3.5-5.1); Sodium 137 mmol/L (137-145)
[2023-10-14 06:10] LABS: Glucose,Whole Blood 173 mg/dL (70-110)
[2023-10-14] MEDS: POTASSIUM CHLORIDE ER 20 MEQ TAB.ER PO SCH (06:43)
--- NOTE | 2023-10-14 08:07 | US ---
EXAMINATION TYPE: US carotid duplex BILAT DATE OF EXAM: 10/13/2023 COMPARISON: CT 2023 CLINICAL INDICATION: Female, 57 years old with history of TIA, episodes of unresponsiveness; TECHNIQUE: Carotid duplex ultrasound examination. Indirect Doppler criteria was utilized. FINDINGS: EXAM MEASUREMENTS: RIGHT: Peak Systolic Velocity (PSV) cm/sec -----Could not be assessed due to the dressing RIGHT: End Diastole cm/sec -----Could not be assessed due to dressing LEFT: Peak Systolic Velocity (PSV) cm/sec ----- Left CCA: 103.0 ----- Left ICA: 233.0 ----- Left ECA: 182.0 ICA/CCA ratio: 2.3 LEFT: End Diastole cm/sec ----- Left CCA: 24.0 ----- Left ICA: 60.5 ----- Left ECA: 0.0 VERTEBRALS (direction of flow): Right Vertebral: Left Vertebral: Antegrade Rhythm: Normal Bilingual Sales Consultant notes: Exam done portable Right neck covered by bandage, right carotid not scanned Left ICA/CCA ratio 2.3 IMPRESSION: Measurements suggest a moderate to severe proximal left ICA stenosis. The right side could not be ass essed due to overlying bandaging. Criteria for Assigning % of Stenosis / Diameter reduction (Estimation based on the indirect measurements of the internal carotid artery velocities (ICA PSV). 1. Normal (no stenosis)=ICA PSV < 125 cm/s: ratio < 2.0: ICA EDV<40 cm/s. 2. Less than 50% stenosis=ICA PSV < 125 cm/s: ratio < 2.0: ICA EDV<40 cm/s. 3. 50 to 69% stenosis=ICA PSV of 125 to 230 cm/s: ration 2.0 ? 4.0: ICA EDV 40-100 cm/s. 4. Greater than 70% stenosis to near occlusion= ICA PSV > 230 cm/s: ratio > 4.0: ICA EDV > 100 cm/s. 5. Near occlusion= ICA PSV velocities may be low or undetectable: variable ratio and ICA EDV. 6. Total occlusion=unable to detect flow.
--- NOTE | 2023-10-14 08:21 | P.PN ---
Subjective Progress Note Date: 10/14/23 Principal diagnosis: Coronary artery disease. Previous medical history of myocardial infarction, ischemic cardiomyopathy/heart failure with reduced ejection fraction, hypertension, hyperlipidemia, diabetes mellitus with peripheral neuropathy and right great toe amputation, peripheral arterial disease with recent left subclavian stent, left internal carotid artery stenosis, osteoarthritis, previous tobacco dependence, moderate COPD, COVID in 2022 POD #3 coronary artery bypass grafting x 4 vessels, left internal mammary artery to the diagonal artery, radial artery to the left anterior descending artery, reverse saphenous vein graft to the obtuse marginal artery, reverse saphenous vein graft to the right coronary artery, endoscopic harvest of the left radial artery and right greater saphenous vein, ligation of the left atrial appendage using a 35 mm AtriClip, epiaortic ultrasound, intraoperative transesophageal echocardiogram, graft flow measurements using the [employer] system Postoperative acute blood loss anemia and thrombocytopenia, expected given hemodilution and cardiopulmonary bypass pump Acute episode unresponsiveness x2, eitiology unclear but probable TIA per neurology, not unexpected given patient's known history of carotid stenosis The patient was seen and examined this morning with Dr. Nance sitting up in recliner in the intensive care unit in no acute distress eating breakfast. Currently in sinus rhythm, blood pressure remains soft but stable, remains on midodrine, IV vasopressin was discontinued. Does complain of expected postoperative chest discomfort, especially with taking a deep breath and coughing, better this morning after removal of left chest tube yesterday. Currently on room air with oxygen saturation in the high 90s. No further episodes of unresponsiveness. Neuro was consulted yesterday, patient did go down for CT of the brain which showed a small hyperdensity in the left aspect of the medulla, likely benign calcification versus acute hemorrhage. MRI ordered which surgeon feels is unnecessary as it will not change her treatment or prognosis. Carotid Dopplers were also taken, patient did have carotid Dopplers done in June demonstrating left ICA 80 to 99% which looked more like 50 to 70% on neck CTA in July, patient is being followed by vascular surgery in the outpatient setting with recommendations for continued monitoring for now. Labs/chest x-ray reviewed. Right internal jugular cordis, right radial arterial line, mediastinal/right chest tubes present. Patient has been ambulatory in the hallway with assistance. No other new concerns. Objective - Vital Signs Vital signs: Vital Signs Temp 98.3 F 10/14/23 00:00 Pulse 81 10/14/23 07:00 Resp 26 H 10/14/23 07:00 BP 101/63 10/14/23 07:00 Pulse Ox 91 L 10/14/23 07:00 FiO2 40 10/11/23 18:45 Intake & Output 10/13/23 10/14/23 10/14/23 18:59 06:59 18:59 Intake Total 335.004 5986 Output Total 855 530 Balance -108.114 552 Weight 72.9 kg Intake: IV 316 302 Lactated Ringers 1,000 ml 250 260 @ 20 mls/hr IV .Q24H [facility] Rx#:[id number] Pressure Bags 66 42 Intake, IV Titration 29.886 Amount Vasopressin 20 unit In 29.886 Sodium Chloride 0.9% 50 ml @ 0.04 UNITS/MIN 6.12 mls/hr IV .Q8H20M [facility] Rx# :[id number] Oral 120 780 Blood Product 281 Rc Pheresis As-3 Unit 281 [id number] Output: Chest Tube Drainage 300 160 Chest Tube Left 10 Chest Tube Right 200 90 Mediastinal Chest Tube x2 90 70 Urine 555 370 Other: Voiding Method Indwelling Catheter Indwelling Catheter ABP, PAP, CO, CI - Last Documented Arterial Blood Pressure 124/69 Pulmonary Artery Pressure 41/41 Cardiac Output 4.4 Cardiac Index 2.6 - Exam CONSTITUTIONAL: Appears comfortable, cooperative, no acute distress RESPIRATORY: Lungs sounds diminished bilaterally. Respirations even, nonlabored. Currently on room air with oxygen saturation 95%. Able to achieve 1250 mL on incentive spirometry. Strong productive cough. CARDIOVASCULAR: S1, S2 present. Regular rate and rhythm, sinus rhythm on telemetry. Sternum stable. Palpable peripheral pulses bilaterally. No edema present. No calf pain or tenderness noted. Heart hugger in place with patient demonstrating appropriate use. Antiembolism stockings, SCDs present. GASTROINTESTINAL: Abdomen soft, nontender, nondistended. Active bowel sounds present 4 quadrants. Tolerating diet. Positive flatus GENITOURINARY: Siegel present draining clear, yellow urine. Output overnight 15-25 mL per hour, 350 mL output after Lasix given yesterday, 925 mL in the last 24 hours INTEGUMENTARY: Skin is warm and dry with evidence of good perfusion. Anterior chest incision well approximated and covered with dry intact dressing. Left radial artery harvest site as well as right lower extremity EVH site well approximated without redness or drainage. NEUROLOGIC: Cranial nerves II through XII intact MUSKULOSKELETAL: Able to move all extremities, strength equal bilaterally PSYCHIATRIC: Alert and oriented to person place and time, appropriate affect, intact judgment and insight INVASIVE LINES AND TUBES: Mediastinal/right pleural chest tubes present and connected to wall suction, no air leaks present. Mediastinal tube with 70 mL serosanguineous drainage overnight, 150 mL in the last 24 hours. Right pleural chest tube with 90 mL serosanguineous drainage overnight, 300 mL in the last 24 hours. A/V epicardial pacemaker wires present, grounded. Right internal jugular cordis, right radial arterial line present - Allied health notes Allied health notes reviewed: nursing - Labs CBC & Chem 7: 10/14/23 05:33 10/14/23 05:33 Labs: Abnormal Lab Results - Last 24 Hours (Table) 10/03/23 10/13/23 10/13/23 Range/Units 10:30 11:20 17:16 RBC (3.80-5.40) m/uL Hgb (11.4-16.0) gm/dL Hct (34.0-46.0) % Plt Count (150-450) k/uL BUN (7-17) mg/dL Glucose (74-99) mg/dL POC Glucose (mg/dL) 244 H 207 H (70-110) mg/dL Calcium (8.4-10.2) mg/dL AST (14-36) U/L ALT (4-34) U/L Total Protein (6.3-8.2) g/dL Crossmatch See Detail 10/13/23 10/14/23 10/14/23 Range/Units 20:12 05:33 05:33 RBC 3.22 L (3.80-5.40) m/uL Hgb 9.7 L D (11.4-16.0) gm/dL Hct 28.1 L (34.0-46.0) % Plt Count 148 L (150-450) k/uL BUN 22 H (7-17) mg/dL Glucose 143 H (74-99) mg/dL POC Glucose (mg/dL) 230 H (70-110) mg/dL Calcium 8.3 L (8.4-10.2) mg/dL AST 154 H (14-36) U/L ALT 125 H (4-34) U/L Total Protein 5.7 L (6.3-8.2) g/dL Crossmatch 10/14/23 Range/Units 06:09 RBC (3.80-5.40) m/uL Hgb (11.4-16.0) gm/dL Hct (34.0-46.0) % Plt Count (150-450) k/uL BUN (7-17) mg/dL Glucose (74-99) mg/dL POC Glucose (mg/dL) 173 H (70-110) mg/dL Calcium (8.4-10.2) mg/dL AST (14-36) U/L ALT (4-34) U/L Total Protein (6.3-8.2) g/dL Crossmatch - Imaging and Cardiology Chest x-ray: image reviewed CT Scan - head: report reviewed, image reviewed Brain CT, carotid Dopplers reviewed Assessment and Plan Assessment: Coronary artery disease with previous myocardial infarction, status post four- vessel CABG Ischemic cardiomyopathy/heart failure with reduced ejection fraction, EF 35-40% preop, improved postoperative Hypertension Hyperlipidemia, treated with Repatha, cholesterol 200, LDL 108, triglycerides 190 Diabetes mellitus with peripheral neuropathy and right great toe amputation, hemoglobin A1c 8.3% Peripheral arterial disease with recent left subclavian stent Left internal carotid artery stenosis, left ICA 80-99% on carotid duplex, 50-70% on neck CTA, being followed by vascular surgery in the outpatient setting Osteoarthritis Previous tobacco dependence Moderate COPD, COVID in 2022 Postoperative acute blood loss anemia and thrombocytopenia, expected Acute episode unresponsiveness x2, eitiology unclear but probable TIA per neurology, not unexpected given patient's known history of carotid stenosis Plan: Continue to maximize medical therapy with aspirin, low-dose statin (as long as she is able to tolerate), Plavix, beta-franky. Will increase beta-franky therapy as tolerated. Continue to use Plavix, and DO NOT switch to Brilinta Continue amiodarone for A-fib prophylaxis, patient has had no atrial fibrillation up to this point Continue midodrine added for blood pressure support Encourage incentive spirometry use 10 times every hour while awake, bronchodilators per pulmonology Will monitor daily labs and x-rays. Electrolyte replacement per protocol. Will give 20 mg IV push Lasix today Increase activity, ambulate as tolerated. PT/OT/cardiac rehab consulted GI/DVT prophylaxis Daily weights Insulin management per internal medicine Pain control per current medication regimen Discontinue Cordis, arterial line Will discontinue epicardial pacemaker wires, patient to remain on bedrest for 1 hour post wire removal Will discontinue mediastinal chest tube, continue right chest tube for another 24 hours, monitor and record output Discontinue Siegel, may bladder scan and straight cath for greater than 300 mL residual Continue to monitor and record strict accurate intake and output Monitor for further episode of unresponsiveness. No MRI necessary as it will not change patient's prognosis or treatment plan More recommendations to follow as patient progresses
[2023-10-14] MEDS: FUROSEMIDE 10 MG/ML 2 ML VIAL IV ONE (08:36)
--- NOTE | 2023-10-14 09:10 | XR ---
EXAMINATION TYPE: XR chest 1V portable DATE OF EXAM: 10/14/2023 Comparison: 10/13/2023 Clinical History: 57-year-old female post cardiac surgery Findings: Median sternotomy wires and post-CABG clips. Heart borderline enlarged. Mild interstitial density in the mid and lower lungs but with improving aeration compared to prior exam. Right-sided chest tube re darling in place. Right IJ sheath in place. No appreciable pneumothorax. Impression: Residual mild interstitial densities in the lower lungs. Aeration is improving from prior.
[2023-10-14 12:16] LABS: Glucose,Whole Blood 161 mg/dL (70-110)
--- NOTE | 2023-10-14 14:19 | P.PN ---
Subjective Progress Note Date: 10/14/23 This is a 57-year-old patient, follows with Dr. Dewitt. Chronic medical conditions include COPD, diabetes, hyperlipidemia, hypertension, osteoarthritis, peripheral neuropathy, subclavian blockage, prior COVID infection in 2022 left great toe amputation. August 07, 2023: Underwent cardiac catheterization by Dr. Montero. Underwent stenting of occluded subclavian with stent. Also has known severe triple-vessel coronary artery disease. Today patient underwent coronary bypass. Four-vessel. LA clip. Postprocedure in the ICU. Intubated. FiO2 40 and PEEP of 5. Patient has 3 mediastinal 1 left and 1 right chest tube. Drips include Precedex 0.4 mics, IV amiodarone, insulin drip at 2.5. Units an hour. Patient sedated 10/11. Patient seen and examined. Currently sitting upright in the chair, chest tubes are in place. 10/12. Patient seen and examined. Patient blood pressure was borderline low last night, had to be started on midodrine and vasopressin. Patient also had an episode last night where she was staring in space and was unresponsive to verbal stimuli. Neurology has been consulted. Patient is currently off insulin drip, will start Levemir 10 units twice daily 10/14/2023 Patient is seen in follow-up in the ICU status post CABG REVIEW OF SYSTEMS: CONSTITUTIONAL: No fever, no malaise,. CARDIOVASCULAR: No chest pain, no palpitations, no syncope. PULMONARY: No shortness of breath, no cough, GASTROINTESTINAL: No diarrhea, no nausea, no vomiting, no abdominal pain. NEUROLOGICAL: No headaches, no weakness, PHYSICAL EXAMINATION: GENERAL: The patient is alert and oriented x3, not in any acute distress. Well developed, well nourished. HEENT: Pupils are round and equally reacting to light. EOMI. No scleral icterus. No conjunctival pallor. Normocephalic, atraumatic. No pharyngeal erythema. No thyromegaly. CARDIOVASCULAR: S1 and S2 present. No murmurs, rubs, or gallops. PULMONARY: Diminished breath sound the bases bilaterally, sternotomy surgical incision seen, bilateral chest tube seen ABDOMEN: Soft, nontender, nondistended, normoactive bowel sounds. No palpable organomegaly. MUSCULOSKELETAL: No joint swelling or deformity. EXTREMITIES: No cyanosis, clubbing, or pedal edema. NEUROLOGICAL: Gross neurological examination did not reveal any focal deficits. SKIN: No rashes. Assessment: Multivessel coronary artery disease status post four-vessel bypass surgery Post thoracotomy, currently extubated to 2 L of oxygen by nasal cannula CHF with impaired LV function with a preop left ventricle ejection fraction of 35 to 40% along with segmental wall motion abnormalities. 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 Continue with sliding scale and long-acting and will adjust and monitor Accu-Cheks before meals and at bedtime as well as 2 AM. Will slightly increase long-acting today as blood sugars have been slightly more elevated overnight. Encouraged incentive spirometer use at least 10 times every hour while awake Patient had a few episodes of unresponsiveness with concerns of possible TIA undergoing thorough neurological workup. Brain CT was done showing small punctate hyperdensity in the left aspect of the medulla which likely represents benign calcification but acute hemorrhage is not excluded recommending short- term follow-up. MRI along with carotid Dopplers are ordered and pending. We will continue to follow with cardiothoracic surgery during hospitalization. Thank you kindly for this consultation. The impression and plan of care has been dictated by Daisy Jaime, Nurse Practitioner as directed. Dr. Srinivas MD I have performed a history and examination and MDM of this patient, discussed th e same with the dictator, and agree with the dictator's assessment and plan as written ,documented as a scribe. Based on total visit time, I have performed more than 50% of the visit. Objective - Vital Signs Vital signs: Vital Signs Temp 98.3 F 10/14/23 00:00 Pulse 86 10/14/23 08:21 Resp 26 H 10/14/23 07:00 BP 101/63 10/14/23 07:00 Pulse Ox 92 L 10/14/23 08:12 FiO2 40 10/11/23 18:45 Intake & Output 10/13/23 10/14/23 10/14/23 18:59 06:59 18:59 Intake Total 869.290 4572 Output Total 855 530 Balance -108.114 552 Weight 72.9 kg Intake: IV 316 302 Lactated Ringers 1,000 ml 250 260 @ 20 mls/hr IV .Q24H [facility] Rx#:[id number] Pressure Bags 66 42 Intake, IV Titration 29.886 Amount Vasopressin 20 unit In 29.886 Sodium Chloride 0.9% 50 ml @ 0.04 UNITS/MIN 6.12 mls/hr IV .Q8H20M [facility] Rx# :[id number] Oral 120 780 Blood Product 281 Rc Pheresis As-3 Unit 281 [id number] Output: Chest Tube Drainage 300 160 Chest Tube Left 10 Chest Tube Right 200 90 Mediastinal Chest Tube x2 90 70 Urine 555 370 Other: Voiding Method Indwelling Catheter Indwelling Catheter ABP, PAP, CO, CI - Last Documented Arterial Blood Pressure 124/69 Pulmonary Artery Pressure 41/41 Cardiac Output 4.4 Cardiac Index 2.6 - Labs CBC & Chem 7: 10/14/23 05:33 10/14/23 05:33 Labs: Abnormal Lab Results - Last 24 Hours (Table) 10/03/23 10/13/23 10/13/23 Range/Units 10:30 11:20 17:16 RBC (3.80-5.40) m/uL Hgb (11.4-16.0) gm/dL Hct (34.0-46.0) % Plt Count (150-450) k/uL BUN (7-17) mg/dL Glucose (74-99) mg/dL POC Glucose (mg/dL) 244 H 207 H (70-110) mg/dL Calcium (8.4-10.2) mg/dL AST (14-36) U/L ALT (4-34) U/L Total Protein (6.3-8.2) g/dL Crossmatch See Detail 10/13/23 10/14/23 10/14/23 Range/Units 20:12 05:33 05:33 RBC 3.22 L (3.80-5.40) m/uL Hgb 9.7 L D (11.4-16.0) gm/dL Hct 28.1 L (34.0-46.0) % Plt Count 148 L (150-450) k/uL BUN 22 H (7-17) mg/dL Glucose 143 H (74-99) mg/dL POC Glucose (mg/dL) 230 H (70-110) mg/dL Calcium 8.3 L (8.4-10.2) mg/dL AST 154 H (14-36) U/L ALT 125 H (4-34) U/L Total Protein 5.7 L (6.3-8.2) g/dL Crossmatch 10/14/23 Range/Units 06:09 RBC (3.80-5.40) m/uL Hgb (11.4-16.0) gm/dL Hct (34.0-46.0) % Plt Count (150-450) k/uL BUN (7-17) mg/dL Glucose (74-99) mg/dL POC Glucose (mg/dL) 173 H (70-110) mg/dL Calcium (8.4-10.2) mg/dL AST (14-36) U/L ALT (4-34) U/L Total Protein (6.3-8.2) g/dL Crossmatch
[2023-10-14] MEDS: MAGNESIUM HYDROXIDE 2,400 MG/30 ML CUP PO PRN (14:32)
--- NOTE | 2023-10-14 14:49 | P.PN ---
Subjective Progress Note Date: 10/14/23 Principal diagnosis: POD #3 coronary artery bypass grafting x 4 vessels, left internal mammary artery to the diagonal artery, radial artery to the left anterior descending artery, reverse saphenous vein graft to the obtuse marginal artery, reverse saphenous vein graft to the right coronary artery This is a 57-year-old female patient underwent four-vessel bypass surgery and the patient underwent ALVAREZ to diagonal, right radial to LAD, saphenous vein graft to OM and RCA. The patient is currently postop, intubated on mechanical ventilator in the intensive care unit. She is on propofol which is running at 20 mcg/kg/min. She is adequately sedated for now. The patient is on a mechanical ventilator assist-control mode with a tidal volume of 400, rate of 14, FiO2 was 100% with a PEEP of 5. Show a pH of 7.26 with a pCO2 of 56 and pO2 of more than 400. FiO2 was dropped down to 40% and the patient's rate is brought up to 24. She is hemodynamically stable. She is chronic and pulmonary artery pressure of 33/20 and her cardiac output is had 4.4 with an index of 2.4. She is currently on amiodarone drip running at 1 mg/min and she is also on nitroglycerin drip at 5 mcg/min. No other inotropes at this point. Urine output is in order 45 cc an hour. The patient has 2 mediastinal chest tubes, and right in the left lower chest tube. Output from the left lower chest tube is 0. Output from the mediastinal chest tubes is 50 and output from the right pleural chest tube is 0. No evidence of any air leak. Chest x-ray that was done postop showed adequate positioning of the lines and tubes. The NG tube was advanced. No evidence of any pneumothorax. All of the chest tubes are in good location. Blood work showed a hemoglobin of 8.4, normal coagulation profile, BUN 12 with a creatinine of 0.36 and a sodium level of 142, the calcium level was at 6.7 and the patient was given IV calcium. LFTs are normal. Blood sugars are adequate at 145. The patient is currently on sliding scale insulin coverage. Her current temperature is 35.8 and the patient is receiving external warming. In terms of her history, the patient is known to have coronary artery disease. 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 She did have a dry gangrene of the left great toe with secondary sepsis earlier hospitalization that was amputated. She also has had a previous history of left subclavian stenosis requiring stenting. She is a chronic smoker and she is also known to have COPD. Her preoperative LV function was an ejection fraction of 35 to 40%. She did have segmental wall motion abnormalities related to her underlying coronary artery disease. On 10/12/2023, patient is being seen for a follow-up. The patient is currently postop day #1. The patient was weaned off the mechanical ventilator and the patient was extubated without any major difficulties. This morning, the patient is on 2 L of oxygen by nasal cannula. Chest x-ray findings are essentially stable with consistent with postoperative changes. The patient is using incentive spirometer pulling approximately 500 cc. Cardiac output is 4.4 with an index of 2.6. The patient has a PA pressures of 34/13. The mediastinal chest tube is produced 450 cc overnight in the right lower has produced 110 in the left lower leg produced 10. The patient remains on insulin drip at 2.5 units an hour. The patient was treated with amiodarone drip and this will be switched to oral. Cardiac rhythm remains sinus. Blood work from today shows a WBC count of 7.7 with a hemoglobin 8.5 and a platelet count of 129. Rest of the electrolytes stable. BUN is at 14 with a creatinine of 0.8 and a sodium levels at 139 with a potassium level of 4. LFTs are normal. The patient is currently in normal sinus rhythm. She is ambulating. 10/13/2023, patient is being seen for a follow-up. Events from yesterday were noted. Noted the patient an episode where she had a brief right-sided weakness and another episode where she she briefly became absent. Suspect TIA in this patient note that the patient has a 70% carotid stenosis on the left at the level of the bulb. Meanwhile, the patient is postop day #2. The patient is doing well. No specific complaints. She has been in normal sinus rhythm. She is currently on 2 L of oxygen by nasal cannula. Chest x-ray showing some postsurgical changes some increased interstitial markings bilaterally. Left- sided chest tube has been removed. The mediastinal chest tube x 2 and right upper chest tubes are still in place. She is using incentive spirometer. She was given a dose of Lasix by the cardiothoracic team. No other complaints otherwise. Neurologically intact at this point in time. She is awake and alert. She is on aspirin. She is on Plavix. She was also started on metoprolol 12.5 mg p.o. twice a day. Insulin drip has been discontinued and the patient is currently on sliding scale insulin coverage. Patient was reevaluated today on 10/14/2023, she is now postoperative day #3, patient is doing quite well, she is on room air, not in any distress, hemodynamically stable not requiring any inotropes or any pressors. Yesterday she was on vasopressin which has been discontinued. Considering the patient had an episode of unresponsiveness yesterday, her CT of the brain showed a small hyperdensity in the left aspect of the middle not clear whether this is a benign calcification or acute hemorrhage MRI is pending. Pulmonary gonzalez the patient is doing great, she has no cough no wheezing no shortness of breath. Chest x-ray showed minimal residual interstitial densities in the lower lung soto, most likely atelectasis. CBC is relatively normal hemoglobin is 9.7 basic metabolic profile is normal and renal profile is normal Objective - Vital Signs Vital signs: Vital Signs Temp 98.4 F 10/14/23 12:00 Pulse 79 10/14/23 13:00 Resp 17 10/14/23 13:00 BP 130/97 10/14/23 13:00 Pulse Ox 94 L 10/14/23 13:00 FiO2 40 10/11/23 18:45 Intake & Output 10/13/23 10/14/23 10/14/23 18:59 06:59 18:59 Intake Total 132.048 6518 392 Output Total 855 530 715 Balance -108.114 552 -323 Weight 72.9 kg Intake: IV 316 302 92 Lactated Ringers 1,000 ml 250 260 80 @ 20 mls/hr IV .Q24H BETSY Rx#:[id number] Pressure Bags 66 42 12 Intake, IV Titration 29.886 Amount Vasopressin 20 unit In 29.886 Sodium Chloride 0.9% 50 ml @ 0.04 UNITS/MIN 6.12 mls/hr IV .Q8H20M BETSY Rx# :[id number] Oral 120 780 300 Blood Product 281 Rc Pheresis As-3 Unit 281 [id number] Output: Chest Tube Drainage 300 160 50 Chest Tube Left 10 Chest Tube Right 200 90 50 Mediastinal Chest Tube x2 90 70 0 Urine 555 370 665 Other: Voiding Method Indwelling Catheter Indwelling Catheter Indwelling Catheter ABP, PAP, CO, CI - Last Documented Arterial Blood Pressure 124/69 Pulmonary Artery Pressure 41/41 Cardiac Output 4.4 Cardiac Index 2.6 - Exam CONSTITUTIONAL: Reveals a 57-year-old female in no distress Head: Atraumatic, normocephalic. RESPIRATORY: Clear bilaterally no rhonchi no wheezes CARDIOVASCULAR: Normal S1-S2, no S3 gallop, no murmur. GASTROINTESTINAL: Abdomen soft, nontender, nondistended. INTEGUMENTARY: Skin is warm and dry with evidence of good perfusion. NEUROLOGIC: Alert and oriented x 3 no gross focal deficit MUSKULOSKELETAL: No deformities and no limitation range of motion PSYCHIATRIC: Normal mood affect and normal mental status examination INVASIVE LINES AND TUBES: Mediastinal/right pleural chest tubes present and connected to wall suction, no air leaks present. Mediastinal tube with 70 mL serosanguineous drainage overnight, 150 mL in the last 24 hours. Right pleural chest tube with 90 mL serosanguineous drainage overnight, 300 mL in the last 24 hours. - Labs CBC & Chem 7: 10/14/23 05:33 10/14/23 05:33 Labs: Abnormal Lab Results - Last 24 Hours (Table) 10/03/23 10/13/23 10/13/23 Range/Units 10:30 17:16 20:12 RBC (3.80-5.40) m/uL Hgb (11.4-16.0) gm/dL Hct (34.0-46.0) % Plt Count (150-450) k/uL BUN (7-17) mg/dL Glucose (74-99) mg/dL POC Glucose (mg/dL) 207 H 230 H (70-110) mg/dL Calcium (8.4-10.2) mg/dL AST (14-36) U/L ALT (4-34) U/L Total Protein (6.3-8.2) g/dL Crossmatch See Detail 10/14/23 10/14/23 10/14/23 Range/Units 05:33 05:33 06:09 RBC 3.22 L (3.80-5.40) m/uL Hgb 9.7 L D (11.4-16.0) gm/dL Hct 28.1 L (34.0-46.0) % Plt Count 148 L (150-450) k/uL BUN 22 H (7-17) mg/dL Glucose 143 H (74-99) mg/dL POC Glucose (mg/dL) 173 H (70-110) mg/dL Calcium 8.3 L (8.4-10.2) mg/dL AST 154 H (14-36) U/L ALT 125 H (4-34) U/L Total Protein 5.7 L (6.3-8.2) g/dL Crossmatch 10/14/23 Range/Units 12:14 RBC (3.80-5.40) m/uL Hgb (11.4-16.0) gm/dL Hct (34.0-46.0) % Plt Count (150-450) k/uL BUN (7-17) mg/dL Glucose (74-99) mg/dL POC Glucose (mg/dL) 161 H (70-110) mg/dL Calcium (8.4-10.2) mg/dL AST (14-36) U/L ALT (4-34) U/L Total Protein (6.3-8.2) g/dL Crossmatch Assessment and Plan Assessment: Impression: Status post four-vessel CABG postoperative day #3 History of ischemic cardiomyopathy and poor LV function with ejection fraction of 35 to 40% Benign essential hypertension Type 2 diabetes with peripheral neuropathy Peripheral vessel occlusive disease and recent left subclavian stent placement Moderate COPD Tobacco dependence syndrome Postoperative acute blood loss anemia, expected Acute episode of unresponsiveness x [address] of the brain, MRI is pending neurology consultation is pending Recommendation: Continue maximal medical therapy with statins, aspirin, and beta-blockers as well as Plavix Continue present supportive care measures Continue oral amiodarone Continue midodrine for low blood pressure Continue incentive spirometry Continue GI and DVT prophylaxis Discontinue unnecessary lines and catheters. Continue to monitor in the ICU for the next 24 hours Will continue to follow Time with Patient: Less than 30
[2023-10-14 16:46] LABS: Glucose,Whole Blood 187 mg/dL (70-110)
--- NOTE | 2023-10-14 18:23 | P.PN ---
Subjective PROGRESS NOTE The patient is a 57-year-old female who is seen post CABG. She is followed on a regular basis by Dr. Cisneros and underwent cardiac catheterization that revealed a severely impaired low ventricle systolic function and her echocardiogram preoperatively showed an ejection fraction of 35 to 40%. She was also found to have left subclavian stenosis and underwent stenting of that vessel by Dr. Montero. She received a ALVAREZ to the diagonal, right radial to the LAD and SVG to the OM and RCA. The follow-up AFSHAN postoperatively showed an improvement in the systolic function. She is intubated and sedated, on no vasopressors and in sinus mechanism with good urinary output and no significant drainage from her mediastinal or chest tube. She has a history of peripheral neuropathy and diabetes with prior toe amputation. Her current risk factors are positive for hypertension, hyperlipidemia and diabetes mellitus. October 11: The patient is extubated, sitting up in the chair, in sinus mechanism. Hemodynamically stable with no arrhythmia and no vasopressor. She had an episode of unresponsiveness yesterday lasting for about 5 minutes that s ubsequently resolved. She has a known history of carotid obstructive disease that has been managed conservatively. She feels better today. She denies any dizziness or palpitation. She has no nausea. Her urinary output is stable. October 12: The patient is feeling well this morning, she continues to be in sinus mechanism and hemodynamically stable. She had no episodes of atrial fibrillation. Her urinary output has been stable. She had no further episodes of unresponsiveness. She had transient right upper extremities weakness that resolved. She was evaluated by neurology. 10/13 patient seen and examined. Patient admits to some incisional chest pain and pain around her remaining chest tube. Denies any significant shortness breath. Tolerating diet. Remains in sinus rhythm. Medications: Amlodipine 2.5 mg daily, amiodarone 400 mg twice a day, atorvastatin 20 mg daily, Plavix 75 mg daily, metoprolol tartrate 12.5 mg twice a day, midodrine 5 mg 3 times daily PHYSICAL EXAMINATION: Blood pressure 119/60 heart rate 87 LUNGS: Clear to auscultation HEART: Regular rate and rhythm, S1, S2. No S3. Systolic ejection murmur ABDOMEN: Soft, nontender, no organomegaly EXTREMETIES: No edema LAB: Potassium 4.1, BUN 18, creatinine 0.39, hemoglobin 7.7 IMPRESSION: 1. Status post CABG, stable 2. History of peripheral vascular disease 3. Ischemic cardiomyopathy, no evidence of CHF at this point 4. An episode of unresponsiveness, etiology unclear, resolved, probable TIA with known carotid disease 5. Hyperlipidemia intolerant to statin on Repatha PLAN: 1. Continue present therapy 2. Increase physical activity and follow blood pressure to adjust the dose of beta-franky and if stable add LUCIO inhibitor because of the history of cardiomyopathy 3. Incentive spirometry 4. appears to be progressing well and continue with current regimen. Objective - Vital Signs Vital signs: Vital Signs Temp 98.4 F 10/14/23 12:00 Pulse 80 10/14/23 18:00 Resp 20 10/14/23 18:00 BP 122/67 10/14/23 18:00 Pulse Ox 91 L 10/14/23 18:00 FiO2 40 10/11/23 18:45 Intake & Output 10/13/23 10/14/23 10/14/23 18:59 06:59 18:59 Intake Total 822.658 5246 392 Output Total 855 530 865 Balance -108.114 552 -473 Weight 72.9 kg Intake: IV 316 302 92 Lactated Ringers 1,000 ml 250 260 80 @ 20 mls/hr IV .Q24H BETSY Rx#:[id number] Pressure Bags 66 42 12 Intake, IV Titration 29.886 Amount Vasopressin 20 unit In 29.886 Sodium Chloride 0.9% 50 ml @ 0.04 UNITS/MIN 6.12 mls/hr IV .Q8H20M BETSY Rx# :[id number] Oral 120 780 300 Blood Product 281 Rc Pheresis As-3 Unit 281 [id number] Output: Chest Tube Drainage 300 160 90 Chest Tube Left 10 Chest Tube Right 200 90 90 Mediastinal Chest Tube x2 90 70 0 Urine 555 370 775 Other: Voiding Method Indwelling Catheter Indwelling Catheter Indwelling Catheter ABP, PAP, CO, CI - Last Documented Arterial Blood Pressure 124/69 Pulmonary Artery Pressure 41/41 Cardiac Output 4.4 Cardiac Index 2.6 - Labs CBC & Chem 7: 10/14/23 05:33 10/14/23 05:33 Labs: Abnormal Lab Results - Last 24 Hours (Table) 10/03/23 10/13/23 10/14/23 Range/Units 10:30 20:12 05:33 RBC 3.22 L (3.80-5.40) m/uL Hgb 9.7 L D (11.4-16.0) gm/dL Hct 28.1 L (34.0-46.0) % Plt Count 148 L (150-450) k/uL BUN (7-17) mg/dL Glucose (74-99) mg/dL POC Glucose (mg/dL) 230 H (70-110) mg/dL Calcium (8.4-10.2) mg/dL AST (14-36) U/L ALT (4-34) U/L Total Protein (6.3-8.2) g/dL Crossmatch See Detail 10/14/23 10/14/23 10/14/23 Range/Units 05:33 06:09 12:14 RBC (3.80-5.40) m/uL Hgb (11.4-16.0) gm/dL Hct (34.0-46.0) % Plt Count (150-450) k/uL BUN 22 H (7-17) mg/dL Glucose 143 H (74-99) mg/dL POC Glucose (mg/dL) 173 H 161 H (70-110) mg/dL Calcium 8.3 L (8.4-10.2) mg/dL AST 154 H (14-36) U/L ALT 125 H (4-34) U/L Total Protein 5.7 L (6.3-8.2) g/dL Crossmatch 10/14/23 Range/Units 16:44 RBC (3.80-5.40) m/uL Hgb (11.4-16.0) gm/dL Hct (34.0-46.0) % Plt Count (150-450) k/uL BUN (7-17) mg/dL Glucose (74-99) mg/dL POC Glucose (mg/dL) 187 H (70-110) mg/dL Calcium (8.4-10.2) mg/dL AST (14-36) U/L ALT (4-34) U/L Total Protein (6.3-8.2) g/dL Crossmatch
--- NOTE | 2023-10-14 19:29 | P.PN ---
Subjective Progress Note Date: 10/14/23 I am seeing the patient for the first time during this admission. Please refer to Dr. Clark's notes for further details. It appears the patient has probable TIA manifesting with loss of responsiveness and right-sided weakness. CT of the head which showed small punctate hyperdensity in the left aspect of the medulla which likely represents benign calcification but acute hemorrhage is not entirely excluded. Short-term follow-up is recommended. Duplex is reported as measurement suggest moderate to severe proximal left ICA stenosis. The right side could not be assessed due to the overlying bandaging. Objective - Vital Signs Vital signs: Vital Signs Temp 98.4 F 10/14/23 12:00 Pulse 75 10/14/23 19:00 Resp 15 10/14/23 19:00 BP 97/61 10/14/23 19:00 Pulse Ox 94 L 10/14/23 19:00 FiO2 40 10/11/23 18:45 Intake & Output 10/14/23 10/14/23 10/15/23 06:59 18:59 06:59 Intake Total 1082 392 Output Total 530 865 0 Balance 552 -473 0 Weight 72.9 kg Intake: IV 302 92 Lactated Ringers 1,000 ml 260 80 @ 20 mls/hr IV .Q24H BETSY Rx#:[id number] Pressure Bags 42 12 Oral 780 300 Output: Chest Tube Drainage 160 90 Chest Tube Right 90 90 Mediastinal Chest Tube x2 70 0 Urine 370 775 0 Other: Voiding Method Indwelling Catheter Indwelling Catheter ABP, PAP, CO, CI - Last Documented Arterial Blood Pressure 124/69 Pulmonary Artery Pressure 41/41 Cardiac Output 4.4 Cardiac Index 2.6 - Exam General: Sitting in a recliner chair and is not in acute distress. Neuro: Patient is awake alert oriented to self place and time. She is following simple commands. No aphasia or neglect. Facial weakness. No dysarthria Motor is lifted all extremities above gravity equally. Sensation is normal to touch throughout. - Labs CBC & Chem 7: 10/14/23 05:33 10/14/23 05:33 Labs: Abnormal Lab Results - Last 24 Hours (Table) 10/03/23 10/13/23 10/14/23 Range/Units 10:30 20:12 05:33 RBC 3.22 L (3.80-5.40) m/uL Hgb 9.7 L D (11.4-16.0) gm/dL Hct 28.1 L (34.0-46.0) % Plt Count 148 L (150-450) k/uL BUN (7-17) mg/dL Glucose (74-99) mg/dL POC Glucose (mg/dL) 230 H (70-110) mg/dL Calcium (8.4-10.2) mg/dL AST (14-36) U/L ALT (4-34) U/L Total Protein (6.3-8.2) g/dL Crossmatch See Detail 10/14/23 10/14/23 10/14/23 Range/Units 05:33 06:09 12:14 RBC (3.80-5.40) m/uL Hgb (11.4-16.0) gm/dL Hct (34.0-46.0) % Plt Count (150-450) k/uL BUN 22 H (7-17) mg/dL Glucose 143 H (74-99) mg/dL POC Glucose (mg/dL) 173 H 161 H (70-110) mg/dL Calcium 8.3 L (8.4-10.2) mg/dL AST 154 H (14-36) U/L ALT 125 H (4-34) U/L Total Protein 5.7 L (6.3-8.2) g/dL Crossmatch 10/14/23 Range/Units 16:44 RBC (3.80-5.40) m/uL Hgb (11.4-16.0) gm/dL Hct (34.0-46.0) % Plt Count (150-450) k/uL BUN (7-17) mg/dL Glucose (74-99) mg/dL POC Glucose (mg/dL) 187 H (70-110) mg/dL Calcium (8.4-10.2) mg/dL AST (14-36) U/L ALT (4-34) U/L Total Protein (6.3-8.2) g/dL Crossmatch Assessment and Plan Assessment: * Probable recurrent TIA, manifesting with loss of responsiveness, and right- sided weakness. Has left ICA stenosis * Coronary artery disease, status post bypass surgery * History of left subclavian steal, with left subclavian stenting * Hypertension * Hyperlipidemia * Diabetes * COPD * Peripheral neuropathy * Peripheral arterial disease * Ex tobacco use Plan: * CT of the head which showed small punctate hyperdensity in the left aspect of the medulla which likely represents benign calcification but acute hemorrhage is not entirely excluded. Short-term follow-up is recommended. I reviewed the CT and I felt likely it is calcification and a very small pinpoint area. * I will get repeat CT head * Dr. Clark recommended MRI of the brain. * Carotid Duplex is reported as measurement suggest moderate to severe proximal left ICA stenosis. The right side could not be assessed due to the overlying bandaging. The left ICA stenosis upon reviewing prior CT angiography patient had left ICA significant stenosis. * Recommend vascular surgery team to be consulted to address the ICA stenosis. * Patient is currently on aspirin and Plavix. Per Dr. Clark Suggest switching from Plavix to Brilinta for recurrent TIA. We will defer to cardiothoracic surgery. * Patient is on Lipitor 20mg qhs and recommend going up to 40mg qhs. * EEG: Preliminary is no seizure or discharges * 2D echo from 07/10/2023 showed mildly increased septal wall thickness, hypokinetic lateral wall and inferior wall with EF of 35 to 40%. Normal left atrial size. Normal right ventricular size and function. * Postoperative AFSHAN showed improved ventricular function and no valvular abnormalities. 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 Nearly 2 cm segment of occlusion proximal left subclavian artery. Correlate for any potential symptoms of subclavian steal on the left. Prominent atherosclerotic changes at the left carotid bifurcation. This results in a mild, less than 50% stenosis of the left ICA origin but with more severe 70% stenosis of the left upper carotid bulb. * Lipid panel with cholesterol 200, LDL 108, HDL 53, triglycerides 190. Patient on Repatha every 14 days. * Hemoglobin A1c 8.3. Recommend optimize control of diabetes to target A1c <7.0. Time with Patient: Less than 30
[2023-10-14 20:35] LABS: Glucose,Whole Blood 212 mg/dL (70-110)
[2023-10-14] MEDS: INSULIN DETEMIR (LEVEMIR) 100 UNIT/ML SYR SQ SCH (20:49)
--- NOTE | 2023-10-14 22:07 | CT ---
EXAMINATION TYPE: CT brain wo con DATE OF EXAM: 10/14/2023 COMPARISON: 524 HISTORY: ? BRAIN BLEED OVER LEFT MEDULLA VS CALCIFICATION CT DLP: 1095.4 mGycm Automated exposure control for dose reduction was used. FINDINGS: Small focus of marked increased density is again seen in the left medulla which most likely represent s calcification. It appears more dense than on the prior study but is unchanged in size. The ventricles, basal cisterns and sulci over convexities are within normal limits and there is no ma ss effect or shift in midline structures. Intraorbital contents are normal and symmetric. Visualized paranasal sinuses and mastoid air cells are well aerated. IMPRESSION: SMALL FOCUS OF INCREASED DENSITY IN THE LEFT MEDULLA IS AGAIN SEEN UNCHANGED IN SIZE. IT APPEARS MORE DENSE ON THE CURRENT STUDY AND IS MOST LIKELY A TINY FOCUS OF PARENCHYMAL CALCIFICATION. NO NEW ABNO RMALITY SEEN.
--- NOTE | 2023-10-15 05:16 | EEG ---
ELECTROENCEPHALOGRAM REPORT CLINICAL HISTORY: This is a 57-year-old woman with episode of unresponsiveness. The video EEG is obtained to evaluate for seizure epileptiform activity. RELEVANT MEDICATIONS: The patient is not on any antiepileptic drugs. EEG TYPE: This is a routine 21-channel EEG with video using the 10/20 electrode placement system. DESCRIPTION: Wakefulness is only obtained. During awake state, the posterior-dominant rhythm consists of [id number] voltage of 8.5 to 9.5 hertz activity that is well modulated, well sustained. There is no physiological stage 2 sleep architecture. There is no focal slowing. There is a moderate amount of myogenic artifact over the right more than the left temporal lead. Interictal and ictal is none. ACTIVATION PROCEDURE: Photic stimulation did not evoke a posterior driving response. There is no abnormality during the photic stimulation. Hyperventilation is not performed. CLINICAL INTERPRETATION: This is a normal routine EEG. There is no focal slowing, epileptiform discharge, or seizure on the EEG. A normal routine EEG does not rule out underlying epilepsy. Clinical correlation is recommended. MMJAZIEL / JUJU: [id number] /
[2023-10-15 06:22] LABS: HCT 27.4 % (34.0-46.0); HGB 9.3 gm/dL (11.4-16.0); MCH 30.1 pg (25.0-35.0); MCHC 33.9 g/dL (31.0-37.0); MCV 88.8 fL (80.0-100.0); Platelet Count 161 k/uL (150-450); RBC 3.08 m/uL (3.80-5.40); WBC 6.3 k/uL (3.8-10.6)
[2023-10-15 06:36] LABS: ALT 118 U/L (4-34); AST 93 U/L (14-36); African American GFR (CKD) >90 (>60 ml/min/1.73 sqM); Albumin 3.1 g/dL (3.5-5.0); Alkaline Phosphatase 106 U/L (38-126); Anion Gap 3 mmol/L; Blood Urea Nitrogen 26 mg/dL (7-17); Carbon Dioxide 29 mmol/L (22-30); Chloride 108 mmol/L (98-107); Glucose 124 mg/dL (74-99); Magnesium 2.4 mg/dL (1.6-2.3); Non-African American GFR(CKD) >90 (>60 ml/min/1.73 sqM); Potassium 3.5 mmol/L (3.5-5.1); Sodium 140 mmol/L (137-145); Total Bilirubin 0.6 mg/dL (0.2-1.3); Total Protein 5.3 g/dL (6.3-8.2)
[2023-10-15 06:44] LABS: Glucose,Whole Blood 135 mg/dL (70-110)
[2023-10-15] MEDS: POTASSIUM CHLORIDE ER 20 MEQ TAB.ER PO SCH (07:00)
--- NOTE | 2023-10-15 07:21 | XR ---
EXAMINATION TYPE: XR chest 1V portable DATE OF EXAM: 10/15/2023 Comparison: 10/14/2023 Clinical History: 57-year-old female post cardiac surgery Findings: Median sternotomy wires and post-CABG clips. Left subclavian vascular stent noted just above the aort ic knob. Right-sided chest tube. Possible trace 2 mm right apical pneumothorax. Mild interstitial den sity is similar. Heart borderline in size. Impression: 1. Right-sided chest tube in place. Possible trace 2 mm right apical pneumothorax. 2. There may be ongoing mild pulmonary vascular congestion.
--- NOTE | 2023-10-15 07:33 | P.PN ---
Subjective Progress Note Date: 10/15/23 Principal diagnosis: Coronary artery disease. Previous medical history of myocardial infarction, ischemic cardiomyopathy/heart failure with reduced ejection fraction, hypertension, hyperlipidemia, diabetes mellitus with peripheral neuropathy and right great toe amputation, peripheral arterial disease with recent left subclavian stent, left internal carotid artery stenosis, osteoarthritis, previous tobacco dependence, moderate COPD, COVID in 2022 POD #4 coronary artery bypass grafting x 4 vessels, left internal mammary artery to the diagonal artery, radial artery to the left anterior descending artery, reverse saphenous vein graft to the obtuse marginal artery, reverse saphenous vein graft to the right coronary artery, endoscopic harvest of the left radial artery and right greater saphenous vein, ligation of the left atrial appendage using a 35 mm AtriClip, epiaortic ultrasound, intraoperative transesophageal echocardiogram, graft flow measurements using the [id number] system Postoperative acute blood loss anemia and thrombocytopenia, expected given hemodilution and cardiopulmonary bypass pump Acute episode unresponsiveness x2, eitiology unclear but probable TIA per neurology, not unexpected given patient's known history of carotid stenosis The patient was seen and examined this morning sitting up in recliner in the intensive care unit in no acute distress eating breakfast. Currently in sinus rhythm, blood pressure remains stable, remains on midodrine. Does complain of expected postoperative chest discomfort on the right side, especially with taking a deep breath and coughing. Currently on room air with oxygen saturation in the high 90s. No further episodes of unresponsiveness. EEG completed and was reported as normal. Repeat CT of brain was completed without significant change, area of increased density felt more likely to be calcification. Labs/chest x-ray reviewed. Right pleural chest tube present. Patient has been ambulatory in the hallway with assistance. No other new concerns. Objective - Vital Signs Vital signs: Vital Signs Temp 97.7 F 10/15/23 04:00 Pulse 77 10/15/23 07:00 Resp 12 10/15/23 07:00 BP 113/71 10/15/23 07:00 Pulse Ox 91 L 10/15/23 07:00 FiO2 40 10/11/23 18:45 Intake & Output 10/14/23 10/15/23 10/15/23 18:59 06:59 18:59 Intake Total 392 300 Output Total 865 380 Balance -473 -80 Weight 73.8 kg Intake: IV 92 Lactated Ringers 1,000 ml 80 @ 20 mls/hr IV .Q24H [facility] Rx#:[id number] Pressure Bags 12 Oral 300 300 Output: Chest Tube Drainage 90 80 Chest Tube Right 90 80 Mediastinal Chest Tube x2 0 Urine 775 300 Other: Voiding Method Indwelling Catheter Toilet ABP, PAP, CO, CI - Last Documented Arterial Blood Pressure 124/69 Pulmonary Artery Pressure 41/41 Cardiac Output 4.4 Cardiac Index 2.6 - Exam CONSTITUTIONAL: Appears comfortable, cooperative, no acute distress RESPIRATORY: Lungs sounds diminished bilaterally. Respirations even, nonlabored. Currently on room air with oxygen saturation 94%. Able to achieve 9988-9552 mL on incentive spirometry. Strong productive cough. CARDIOVASCULAR: S1, S2 present. Regular rate and rhythm, sinus rhythm on telemetry. Sternum stable. Palpable peripheral pulses bilaterally. No edema present. No calf pain or tenderness noted. Heart hugger in place with patient demonstrating appropriate use. Antiembolism stockings, SCDs present. GASTROINTESTINAL: Abdomen soft, nontender, nondistended. Active bowel sounds present 4 quadrants. Tolerating diet. Positive flatus GENITOURINARY: Siegel discontinued yesterday, patient continues to void clear, yellow urine. Output 1075 mL in the last 24 hours INTEGUMENTARY: Skin is warm and dry with evidence of good perfusion. Anterior chest incision well approximated and covered with dry intact dressing. Left radial artery harvest site as well as right lower extremity EVH site well approximated without redness or drainage. NEUROLOGIC: Cranial nerves II through XII intact MUSKULOSKELETAL: Able to move all extremities, strength equal bilaterally PSYCHIATRIC: Alert and oriented to person place and time, appropriate affect, intact judgment and insight INVASIVE LINES AND TUBES: Right pleural chest tube present and connected to wall suction, no air leaks present, 70 mL serosanguineous drainage overnight, 150 mL in the last 24 hours. - Allied health notes Allied health notes reviewed: nursing - Labs CBC & Chem 7: 10/15/23 05:47 10/15/23 05:47 Labs: Abnormal Lab Results - Last 24 Hours (Table) 10/03/23 10/14/23 10/14/23 Range/Units 10:30 12:14 16:44 RBC (3.80-5.40) m/uL Hgb (11.4-16.0) gm/dL Hct (34.0-46.0) % Chloride (98-107) mmol/L BUN (7-17) mg/dL Glucose (74-99) mg/dL POC Glucose (mg/dL) 161 H 187 H (70-110) mg/dL Calcium (8.4-10.2) mg/dL Magnesium (1.6-2.3) mg/dL AST (14-36) U/L ALT (4-34) U/L Total Protein (6.3-8.2) g/dL Albumin (3.5-5.0) g/dL Crossmatch See Detail 10/14/23 10/15/23 10/15/23 Range/Units 20:33 05:47 05:47 RBC 3.08 L (3.80-5.40) m/uL Hgb 9.3 L (11.4-16.0) gm/dL Hct 27.4 L (34.0-46.0) % Chloride 108 H (98-107) mmol/L BUN 26 H (7-17) mg/dL Glucose 124 H (74-99) mg/dL POC Glucose (mg/dL) 212 H (70-110) mg/dL Calcium 8.0 L (8.4-10.2) mg/dL Magnesium 2.4 H (1.6-2.3) mg/dL AST 93 H (14-36) U/L ALT 118 H (4-34) U/L Total Protein 5.3 L (6.3-8.2) g/dL Albumin 3.1 L (3.5-5.0) g/dL Crossmatch 10/15/23 Range/Units 06:40 RBC (3.80-5.40) m/uL Hgb (11.4-16.0) gm/dL Hct (34.0-46.0) % Chloride (98-107) mmol/L BUN (7-17) mg/dL Glucose (74-99) mg/dL POC Glucose (mg/dL) 135 H (70-110) mg/dL Calcium (8.4-10.2) mg/dL Magnesium (1.6-2.3) mg/dL AST (14-36) U/L ALT (4-34) U/L Total Protein (6.3-8.2) g/dL Albumin (3.5-5.0) g/dL Crossmatch - Imaging and Cardiology Chest x-ray: report reviewed, image reviewed Assessment and Plan Assessment: Coronary artery disease with previous myocardial infarction, status post four- vessel CABG Ischemic cardiomyopathy/heart failure with reduced ejection fraction, EF 35-40% preop, improved postoperative Hypertension Hyperlipidemia, treated with Repatha, cholesterol 200, LDL 108, triglycerides 190 Diabetes mellitus with peripheral neuropathy and right great toe amputation, hemoglobin A1c 8.3% Peripheral arterial disease with recent left subclavian stent Left internal carotid artery stenosis, left ICA 80-99% on carotid duplex, 50-70% on neck CTA, being followed by vascular surgery in the outpatient setting Osteoarthritis Previous tobacco dependence Moderate COPD, COVID in 2022 Postoperative acute blood loss anemia and thrombocytopenia, expected Acute episode unresponsiveness x2, eitiology unclear but probable TIA per neurology, not unexpected given patient's known history of carotid stenosis Plan: Continue to maximize medical therapy with aspirin, low-dose statin (as long as she is able to tolerate), Plavix, beta-franky. Will increase beta-franky therapy as tolerated. Continue to use Plavix, and DO NOT switch to Brilinta Continue amiodarone for A-fib prophylaxis, patient has had no atrial fibrillation up to this point Continue midodrine for blood pressure support. Will add low dose CCB for radial artery spasm prophylaxis, hold parameters placed on order Encourage incentive spirometry use 10 times every hour while awake, bronchodilators per pulmonology Will monitor daily labs and x-rays. Electrolyte replacement per protocol. Increase activity, ambulate as tolerated. PT/OT/cardiac rehab consulted GI/DVT prophylaxis Daily weights Insulin management per internal medicine Pain control per current medication regimen Will discontinue right chest tube Continue to monitor and record strict accurate intake and output Monitor for further episode of unresponsiveness. No MRI necessary as it will not change patient's prognosis or treatment plan Will place transfer orders for 3 S. cardiac stepdown unit, may transfer when bed available Discharge planning in progress. Anticipate discharge to home with home care in the next 48 hours More recommendations to follow as patient progresses
[2023-10-15] MEDS: FUROSEMIDE 10 MG/ML 2 ML VIAL IV ONE (10:41)
[2023-10-15] MEDS: amLODIPine 2.5 MG TAB PO SCH (11:48)
[2023-10-15 12:14] LABS: Glucose,Whole Blood 159 mg/dL (70-110)
--- NOTE | 2023-10-15 14:06 | P.PN ---
Subjective Progress Note Date: 10/15/23 Principal diagnosis: POD #4 coronary artery bypass grafting x 4 vessels, left internal mammary artery to the diagonal artery, radial artery to the left anterior descending artery, reverse saphenous vein graft to the obtuse marginal artery, reverse saphenous vein graft to the right coronary artery This is a 57-year-old female patient underwent four-vessel bypass surgery and the patient underwent ALVAREZ to diagonal, right radial to LAD, saphenous vein graft to OM and RCA. The patient is currently postop, intubated on mechanical ventilator in the intensive care unit. She is on propofol which is running at 20 mcg/kg/min. She is adequately sedated for now. The patient is on a mechanical ventilator assist-control mode with a tidal volume of 400, rate of 14, FiO2 was 100% with a PEEP of 5. Show a pH of 7.26 with a pCO2 of 56 and pO2 of more than 400. FiO2 was dropped down to 40% and the patient's rate is brought up to 24. She is hemodynamically stable. She is chronic and pulmonary artery pressure of 33/20 and her cardiac output is had 4.4 with an index of 2.4. She is currently on amiodarone drip running at 1 mg/min and she is also on nitroglycerin drip at 5 mcg/min. No other inotropes at this point. Urine output is in order 45 cc an hour. The patient has 2 mediastinal chest tubes, and right in the left lower chest tube. Output from the left lower chest tube is 0. Output from the mediastinal chest tubes is 50 and output from the right pleural chest tube is 0. No evidence of any air leak. Chest x-ray that was done postop showed adequate positioning of the lines and tubes. The NG tube was advanced. No evidence of any pneumothorax. All of the chest tubes are in good location. Blood work showed a hemoglobin of 8.4, normal coagulation profile, BUN 12 with a creatinine of 0.36 and a sodium level of 142, the calcium level was at 6.7 and the patient was given IV calcium. LFTs are normal. Blood sugars are adequate at 145. The patient is currently on sliding scale insulin coverage. Her current temperature is 35.8 and the patient is receiving external warming. In terms of her history, the patient is known to have coronary artery disease. 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 She did have a dry gangrene of the left great toe with secondary sepsis earlier hospitalization that was amputated. She also has had a previous history of left subclavian stenosis requiring stenting. She is a chronic smoker and she is also known to have COPD. Her preoperative LV function was an ejection fraction of 35 to 40%. She did have segmental wall motion abnormalities related to her underlying coronary artery disease. On 10/12/2023, patient is being seen for a follow-up. The patient is currently postop day #1. The patient was weaned off the mechanical ventilator and the patient was extubated without any major difficulties. This morning, the patient is on 2 L of oxygen by nasal cannula. Chest x-ray findings are essentially stable with consistent with postoperative changes. The patient is using incentive spirometer pulling approximately 500 cc. Cardiac output is 4.4 with an index of 2.6. The patient has a PA pressures of 34/13. The mediastinal chest tube is produced 450 cc overnight in the right lower has produced 110 in the left lower leg produced 10. The patient remains on insulin drip at 2.5 units an hour. The patient was treated with amiodarone drip and this will be switched to oral. Cardiac rhythm remains sinus. Blood work from today shows a WBC count of 7.7 with a hemoglobin 8.5 and a platelet count of 129. Rest of the electrolytes stable. BUN is at 14 with a creatinine of 0.8 and a sodium levels at 139 with a potassium level of 4. LFTs are normal. The patient is currently in normal sinus rhythm. She is ambulating. 10/13/2023, patient is being seen for a follow-up. Events from yesterday were noted. Noted the patient an episode where she had a brief right-sided weakness and another episode where she she briefly became absent. Suspect TIA in this patient note that the patient has a 70% carotid stenosis on the left at the level of the bulb. Meanwhile, the patient is postop day #2. The patient is doing well. No specific complaints. She has been in normal sinus rhythm. She is currently on 2 L of oxygen by nasal cannula. Chest x-ray showing some postsurgical changes some increased interstitial markings bilaterally. Left- sided chest tube has been removed. The mediastinal chest tube x 2 and right upper chest tubes are still in place. She is using incentive spirometer. She was given a dose of Lasix by the cardiothoracic team. No other complaints otherwise. Neurologically intact at this point in time. She is awake and alert. She is on aspirin. She is on Plavix. She was also started on metoprolol 12.5 mg p.o. twice a day. Insulin drip has been discontinued and the patient is currently on sliding scale insulin coverage. Patient was reevaluated today on 10/14/2023, she is now postoperative day #3, patient is doing quite well, she is on room air, not in any distress, hemodynamically stable not requiring any inotropes or any pressors. Yesterday she was on vasopressin which has been discontinued. Considering the patient had an episode of unresponsiveness yesterday, her CT of the brain showed a small hyperdensity in the left aspect of the middle not clear whether this is a benign calcification or acute hemorrhage MRI is pending. Pulmonary gonzalez the patient is doing great, she has no cough no wheezing no shortness of breath. Chest x-ray showed minimal residual interstitial densities in the lower lung soto, most likely atelectasis. CBC is relatively normal hemoglobin is 9.7 basic metabolic profile is normal and renal profile is normal Patient was dilated today on 10/15/2023, patient is now postoperative day #4. Sitting up in the recliner, patient denies any shortness of breath, no cough no wheezing, patient is on room air, with O2 saturation in the high 90s. On physical examination her lungs are clear. Her chest x-ray was reviewed. Right- sided pleural chest tube remains in place, radiologist reported a small tiny apical pneumothorax which I could not see and did not appreciate and I did not feel significant clinically significant, repeat CT of the brain today showed ba sically no change compared to previous CT of the brain. WBC is 6.3 hemoglobin 9.3 basic metabolic profile is normal renal profile is normal Objective - Vital Signs Vital signs: Vital Signs Temp 98.3 F 10/15/23 12:00 Pulse 81 10/15/23 12:26 Resp 13 10/15/23 12:00 BP 90/59 10/15/23 12:00 Pulse Ox 100 10/15/23 09:00 FiO2 40 10/11/23 18:45 Intake & Output 10/14/23 10/15/2324 18:59 06:59 18:59 Intake Total 392 300 275 Output Total 865 380 500 Balance -473 -80 -225 Weight 73.8 kg Intake: IV 92 Lactated Ringers 1,000 ml 80 @ 20 mls/hr IV .Q24H [facility] Rx#:[id number] Pressure Bags 12 Oral 300 300 275 Output: Chest Tube Drainage 90 80 Chest Tube Right 90 80 Mediastinal Chest Tube x2 0 Urine 775 300 500 Other: Voiding Method Indwelling Catheter Toilet Toilet ABP, PAP, CO, CI - Last Documented Arterial Blood Pressure 124/69 Pulmonary Artery Pressure 41/41 Cardiac Output 4.4 Cardiac Index 2.6 - Exam CONSTITUTIONAL: Reveals a 57-year-old female in no distress, on room air. Head: Atraumatic, normocephalic. RESPIRATORY: Clear bilaterally no rhonchi no wheezes CARDIOVASCULAR: Normal S1-S2, no S3 gallop, no murmur. GASTROINTESTINAL: Abdomen soft, nontender, nondistended. INTEGUMENTARY: Skin is warm and dry with evidence of good perfusion. NEUROLOGIC: Alert and oriented x 3 no gross focal deficit MUSKULOSKELETAL: No deformities and no limitation range of motion PSYCHIATRIC: Normal mood affect and normal mental status examination INVASIVE LINES AND TUBES: Right-sided pleural chest tube remains in place - Labs CBC & Chem 7: 10/15/23 05:47 10/15/23 05:47 Labs: Abnormal Lab Results - Last 24 Hours (Table) 10/03/23 10/14/23 10/14/23 Range/Units 10:30 16:44 20:33 RBC (3.80-5.40) m/uL Hgb (11.4-16.0) gm/dL Hct (34.0-46.0) % Chloride (98-107) mmol/L BUN (7-17) mg/dL Glucose (74-99) mg/dL POC Glucose (mg/dL) 187 H 212 H (70-110) mg/dL Calcium (8.4-10.2) mg/dL Magnesium (1.6-2.3) mg/dL AST (14-36) U/L ALT (4-34) U/L Total Protein (6.3-8.2) g/dL Albumin (3.5-5.0) g/dL Crossmatch See Detail 10/15/23 10/15/23 10/15/23 Range/Units 05:47 05:47 06:40 RBC 3.08 L (3.80-5.40) m/uL Hgb 9.3 L (11.4-16.0) gm/dL Hct 27.4 L (34.0-46.0) % Chloride 108 H (98-107) mmol/L BUN 26 H (7-17) mg/dL Glucose 124 H (74-99) mg/dL POC Glucose (mg/dL) 135 H (70-110) mg/dL Calcium 8.0 L (8.4-10.2) mg/dL Magnesium 2.4 H (1.6-2.3) mg/dL AST 93 H (14-36) U/L ALT 118 H (4-34) U/L Total Protein 5.3 L (6.3-8.2) g/dL Albumin 3.1 L (3.5-5.0) g/dL Crossmatch 10/15/23 Range/Units 12:12 RBC (3.80-5.40) m/uL Hgb (11.4-16.0) gm/dL Hct (34.0-46.0) % Chloride (98-107) mmol/L BUN (7-17) mg/dL Glucose (74-99) mg/dL POC Glucose (mg/dL) 159 H (70-110) mg/dL Calcium (8.4-10.2) mg/dL Magnesium (1.6-2.3) mg/dL AST (14-36) U/L ALT (4-34) U/L Total Protein (6.3-8.2) g/dL Albumin (3.5-5.0) g/dL Crossmatch Assessment and Plan Assessment: Impression: Status post four-vessel CABG postoperative day #4 History of ischemic cardiomyopathy and poor LV function with ejection fraction of 35 to 40% Benign essential hypertension Type 2 diabetes with peripheral neuropathy Peripheral vessel occlusive disease and recent left subclavian stent placement Moderate COPD Tobacco dependence syndrome Postoperative acute blood loss anemia, expected Acute episode of unresponsiveness x [address] of the brain, repeat CT of the brain showed no change Recommendation: Continue maximal medical therapy with statins, aspirin, and beta-blockers as well as Plavix Continue present supportive care measures Continue oral amiodarone Continue midodrine for low blood pressure Continue incentive spirometry Continue GI and DVT prophylaxis Will continue to follow Time with Patient: Less than 30
--- NOTE | 2023-10-15 14:08 | P.PN ---
Subjective Progress Note Date: 10/15/23 I am following up with patient and she stated she is doing well. She states she has underlying left carotid stenosis and had stent in August 2023. Denies of any new focal weakness, numbness. Objective - Vital Signs Vital signs: Vital Signs Temp 98.3 F 10/15/23 12:00 Pulse 81 10/15/23 12:26 Resp 13 10/15/23 12:00 BP 90/59 10/15/23 12:00 Pulse Ox 100 10/15/23 09:00 FiO2 40 10/11/23 18:45 Intake & Output 10/14/23 10/15/23 10/15/23 18:59 06:59 18:59 Intake Total 392 300 275 Output Total 865 380 500 Balance -473 -80 -225 Weight 73.8 kg Intake: IV 92 Lactated Ringers 1,000 ml 80 @ 20 mls/hr IV .Q24H [facility] Rx#:[id number] Pressure Bags 12 Oral 300 300 275 Output: Chest Tube Drainage 90 80 Chest Tube Right 90 80 Mediastinal Chest Tube x2 0 Urine 775 300 500 Other: Voiding Method Indwelling Catheter Toilet Toilet ABP, PAP, CO, CI - Last Documented Arterial Blood Pressure 124/69 Pulmonary Artery Pressure 41/41 Cardiac Output 4.4 Cardiac Index 2.6 - Exam General: Sitting in a recliner chair and is not in acute distress. Neuro: Patient is awake alert oriented to self place and time. She is following simple commands. No aphasia or neglect. Facial weakness. No dysarthria Motor is lifted all extremities above gravity equally. Sensation is normal to touch throughout. - Labs CBC & Chem 7: 10/15/23 05:47 10/15/23 05:47 Labs: Abnormal Lab Results - Last 24 Hours (Table) 10/03/23 10/14/23 10/14/23 Range/Units 10:30 16:44 20:33 RBC (3.80-5.40) m/uL Hgb (11.4-16.0) gm/dL Hct (34.0-46.0) % Chloride (98-107) mmol/L BUN (7-17) mg/dL Glucose (74-99) mg/dL POC Glucose (mg/dL) 187 H 212 H (70-110) mg/dL Calcium (8.4-10.2) mg/dL Magnesium (1.6-2.3) mg/dL AST (14-36) U/L ALT (4-34) U/L Total Protein (6.3-8.2) g/dL Albumin (3.5-5.0) g/dL Crossmatch See Detail 10/15/23 10/15/23 10/15/23 Range/Units 05:47 05:47 06:40 RBC 3.08 L (3.80-5.40) m/uL Hgb 9.3 L (11.4-16.0) gm/dL Hct 27.4 L (34.0-46.0) % Chloride 108 H (98-107) mmol/L BUN 26 H (7-17) mg/dL Glucose 124 H (74-99) mg/dL POC Glucose (mg/dL) 135 H (70-110) mg/dL Calcium 8.0 L (8.4-10.2) mg/dL Magnesium 2.4 H (1.6-2.3) mg/dL AST 93 H (14-36) U/L ALT 118 H (4-34) U/L Total Protein 5.3 L (6.3-8.2) g/dL Albumin 3.1 L (3.5-5.0) g/dL Crossmatch 10/15/23 Range/Units 12:12 RBC (3.80-5.40) m/uL Hgb (11.4-16.0) gm/dL Hct (34.0-46.0) % Chloride (98-107) mmol/L BUN (7-17) mg/dL Glucose (74-99) mg/dL POC Glucose (mg/dL) 159 H (70-110) mg/dL Calcium (8.4-10.2) mg/dL Magnesium (1.6-2.3) mg/dL AST (14-36) U/L ALT (4-34) U/L Total Protein (6.3-8.2) g/dL Albumin (3.5-5.0) g/dL Crossmatch Assessment and Plan Assessment: * Probable recurrent TIA, manifesting with loss of responsiveness, and right- sided weakness. Has left ICA stenosis * Coronary artery disease, status post bypass surgery * History of left subclavian steal, with left subclavian stenting * Hypertension * Hyperlipidemia * Diabetes * COPD * Peripheral neuropathy * Peripheral arterial disease * Ex tobacco use Plan: * CT of the head which showed small punctate hyperdensity in the left aspect of the medulla which likely represents benign calcification but acute hemorrhage is not entirely excluded. Short-term follow-up is recommended. I reviewed the CT and I felt likely it is calcification and a very small pinpoint area. * Repeat CT head: There is reported as small focus of increased density in the left medulla is again seen unchanged in size. It appears more dense on the current study and is most likely a tiny focus of parenchymal calcification. No new abnormality seen. I reviewed and felt seems more calcification. * Dr. Clark recommended MRI of the brain. * Carotid Duplex is reported as measurement suggest moderate to severe proximal left ICA stenosis. The right side could not be assessed due to the overlying bandaging. The left ICA stenosis upon reviewing prior CT angiography patient had left ICA significant stenosis. * Patient states she has hx of left carotid stenosis with stent in 08/2023 and recommend to follow-up with vascular team regarding this. * Recommend vascular surgery team to be consulted to address the ICA stenosis. * Patient is currently on aspirin and Plavix. Per Dr. Clark Suggest switching from Plavix to Brilinta for recurrent TIA. We will defer to cardiothoracic surgery. * Patient is on Lipitor 20mg qhs and recommend going up to 40mg qhs. * EEG: Is normal. There is no focal slowing, epileptiform discharges or seizure on the EEG. * 2D echo from 07/10/2023 showed mildly increased septal wall thickness, hypokinetic lateral wall and inferior wall with EF of 35 to 40%. Normal left atrial size. Normal right ventricular size and function. * Postoperative AFSHAN showed improved ventricular function and no valvular abnormalities. 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 Nearly 2 cm segment of occlusion proximal left subclavian artery. Correlate for any potential symptoms of subclavian steal on the left. Prominent atherosclerotic changes at the left carotid bifurcation. This results in a mild, less than 50% stenosis of the left ICA origin but with more severe 70% stenosis of the left upper carotid bulb. * Lipid panel with cholesterol 200, LDL 108, HDL 53, triglycerides 190. Patient on Repatha every 14 days. * Hemoglobin A1c 8.3. Recommend optimize control of diabetes to target A1c <7.0. Will follow-up sporadically. Time with Patient: Less than 30
--- NOTE | 2023-10-15 16:07 | P.PN ---
Subjective PROGRESS NOTE The patient is a 57-year-old female who is seen post CABG. She is followed on a regular basis by Dr. Cisneros and underwent cardiac catheterization that revealed a severely impaired low ventricle systolic function and her echocardiogram preoperatively showed an ejection fraction of 35 to 40%. She was also found to have left subclavian stenosis and underwent stenting of that vessel by Dr. Montero. She received a ALVAREZ to the diagonal, right radial to the LAD and SVG to the OM and RCA. The follow-up AFSHAN postoperatively showed an improvement in the systolic function. She is intubated and sedated, on no vasopressors and in sinus mechanism with good urinary output and no significant drainage from her mediastinal or chest tube. She has a history of peripheral neuropathy and diabetes with prior toe amputation. Her current risk factors are positive for hypertension, hyperlipidemia and diabetes mellitus. October 11: The patient is extubated, sitting up in the chair, in sinus mechanism. Hemodynamically stable with no arrhythmia and no vasopressor. She had an episode of unresponsiveness yesterday lasting for about 5 minutes that s ubsequently resolved. She has a known history of carotid obstructive disease that has been managed conservatively. She feels better today. She denies any dizziness or palpitation. She has no nausea. Her urinary output is stable. October 12: The patient is feeling well this morning, she continues to be in sinus mechanism and hemodynamically stable. She had no episodes of atrial fibrillation. Her urinary output has been stable. She had no further episodes of unresponsiveness. She had transient right upper extremities weakness that resolved. She was evaluated by neurology. 10/13 patient seen and examined. Patient admits to some incisional chest pain and pain around her remaining chest tube. Denies any significant shortness breath. Tolerating diet. Remains in sinus rhythm. 10/14 patient seen and examined. Norvasc has been on hold today secondary to borderline blood pressures. She denies any chest pain or pressure other than incision. Denies any significant shortness breath. He believes there is mild lower extremity edema however does not appear significant. Medications: Amlodipine 2.5 mg daily, amiodarone 400 mg twice a day, atorvastatin 20 mg daily, Plavix 75 mg daily, metoprolol tartrate 12.5 mg twice a day, midodrine 5 mg 3 times daily PHYSICAL EXAMINATION: Blood pressure 119/60 heart rate 87 LUNGS: Clear to auscultation HEART: Regular rate and rhythm, S1, S2. No S3. Systolic ejection murmur ABDOMEN: Soft, nontender, no organomegaly EXTREMETIES: No edema LAB: Potassium 4.1, BUN 18, creatinine 0.39, hemoglobin 7.7 IMPRESSION: 1. Status post CABG, stable 2. History of peripheral vascular disease 3. Ischemic cardiomyopathy, no evidence of CHF at this point 4. An episode of unresponsiveness, etiology unclear, resolved, probable TIA with known carotid disease 5. Hyperlipidemia intolerant to statin on Repatha PLAN: 1. Continue present therapy 2. Increase physical activity and follow blood pressure to adjust the dose of beta-franky and if stable add LUCIO inhibitor because of the history of cardiomyopathy 3. Incentive spirometry 4. continue with amiodarone for now however mild increase in liver enzymes and monitor closely. Objective - Vital Signs Vital signs: Vital Signs Temp 98.3 F 10/15/23 12:00 Pulse 81 10/15/23 12:26 Resp 13 10/15/23 12:00 BP 90/59 10/15/23 12:00 Pulse Ox 100 10/15/23 09:00 FiO2 40 10/11/23 18:45 Intake & Output 10/14/23 10/15/23 10/15/23 18:59 06:59 18:59 Intake Total 392 300 275 Output Total 865 380 500 Balance -473 -80 -225 Weight 73.8 kg Intake: IV 92 Lactated Ringers 1,000 ml 80 @ 20 mls/hr IV .Q24H [facility] Rx#:[id number] Pressure Bags 12 Oral 300 300 275 Output: Chest Tube Drainage 90 80 Chest Tube Right 90 80 Mediastinal Chest Tube x2 0 Urine 775 300 500 Other: Voiding Method Indwelling Catheter Toilet Toilet ABP, PAP, CO, CI - Last Documented Arterial Blood Pressure 124/69 Pulmonary Artery Pressure 41/41 Cardiac Output 4.4 Cardiac Index 2.6 - Labs CBC & Chem 7: 10/15/23 05:47 10/15/23 05:47 Labs: Abnormal Lab Results - Last 24 Hours (Table) 10/14/23 10/14/23 10/15/23 Range/Units 16:44 20:33 05:47 RBC 3.08 L (3.80-5.40) m/uL Hgb 9.3 L (11.4-16.0) gm/dL Hct 27.4 L (34.0-46.0) % Chloride (98-107) mmol/L BUN (7-17) mg/dL Glucose (74-99) mg/dL POC Glucose (mg/dL) 187 H 212 H (70-110) mg/dL Calcium (8.4-10.2) mg/dL Magnesium (1.6-2.3) mg/dL AST (14-36) U/L ALT (4-34) U/L Total Protein (6.3-8.2) g/dL Albumin (3.5-5.0) g/dL 10/15/23 10/15/23 10/15/23 Range/Units 05:47 06:40 12:12 RBC (3.80-5.40) m/uL Hgb (11.4-16.0) gm/dL Hct (34.0-46.0) % Chloride 108 H (98-107) mmol/L BUN 26 H (7-17) mg/dL Glucose 124 H (74-99) mg/dL POC Glucose (mg/dL) 135 H 159 H (70-110) mg/dL Calcium 8.0 L (8.4-10.2) mg/dL Magnesium 2.4 H (1.6-2.3) mg/dL AST 93 H (14-36) U/L ALT 118 H (4-34) U/L Total Protein 5.3 L (6.3-8.2) g/dL Albumin 3.1 L (3.5-5.0) g/dL
[2023-10-15 16:52] LABS: Glucose,Whole Blood 140 mg/dL (70-110)
[2023-10-15] MEDS: traMADol 50 MG TAB PO PRN (16:57)
--- NOTE | 2023-10-15 20:33 | P.PN ---
Subjective Progress Note Date: 10/15/23 This is a 57-year-old patient, follows with Dr. Dewitt. Chronic medical conditions include COPD, diabetes, hyperlipidemia, hypertension, osteoarthritis, peripheral neuropathy, subclavian blockage, prior COVID infection in 2022 left great toe amputation. August 07, 2023: Underwent cardiac catheterization by Dr. Montero. Underwent stenting of occluded subclavian with stent. Also has known severe triple-vessel coronary artery disease. Today patient underwent coronary bypass. Four-vessel. LA clip. Postprocedure in the ICU. Intubated. FiO2 40 and PEEP of 5. Patient has 3 mediastinal 1 left and 1 right chest tube. Drips include Precedex 0.4 mics, IV amiodarone, insulin drip at 2.5. Units an hour. Patient sedated 10/11. Patient seen and examined. Currently sitting upright in the chair, chest tubes are in place. 10/12. Patient seen and examined. Patient blood pressure was borderline low last night, had to be started on midodrine and vasopressin. Patient also had an episode last night where she was staring in space and was unresponsive to verbal stimuli. Neurology has been consulted. Patient is currently off insulin drip, will start Levemir 10 units twice daily 10/14/2023 Patient is seen in follow-up in the ICU status post CABG being closely monitored. Neurology was consulted as patient had 2 different episodes of staring off into space with concerns of possible TIA. CT brain was negative and undergoing further testing. Patient reports has been up and walking with phy sical therapy has had this once catheter out of the neck today and one of the chest tubes. Patient remains with an indwelling Siegel catheter along with 1 chest tube and discussing possibly removing in the next day or so. Blood sugars mildly elevated and will adjust insulins accordingly and continue to monitor with Accu-Cheks before meals and at bedtime. Encouraged oral intake and continued incentive spirometer use. 10/15/2023 Patient is seen in follow-up today after he was working with physical therapy up and down the hallway. Patient has had remaining chest tube removed and doing relatively well. Heart hugger is noted although patient has been reporting she is using a pillow for better support during a cough. Patient is on room air and denies worsening shortness of breath. Patient blood sugars improved on current regimen and will continue. Patient is a possible transfer out of the ICU with a bed on 3 S. becomes available. Discussing possible home with home care in the next 24 hours. Encouraged continued incentive spirometer use and increase activity as tolerated. REVIEW OF SYSTEMS: CONSTITUTIONAL: No fever, no malaise,. CARDIOVASCULAR: No chest pain, no palpitations, no syncope. PULMONARY: No worsening shortness of breath, occasional cough, GASTROINTESTINAL: No diarrhea, no nausea, no vomiting, no abdominal pain. NEUROLOGICAL: No headaches, no weakness PHYSICAL EXAMINATION: GENERAL: The patient is alert and oriented x3, not in any acute distress. Well developed, well nourished. HEENT: Pupils are round and equally reacting to light. EOMI. No scleral icterus. No conjunctival pallor. Normocephalic, atraumatic. No pharyngeal erythema. No thyromegaly. CARDIOVASCULAR: S1 and S2 present. No murmurs, rubs, or gallops. PULMONARY: Diminished breath sound the bases bilaterally, sternotomy surgical incision seen, heart hugger noted ABDOMEN: Soft, nontender, nondistended, normoactive bowel sounds. No palpable organomegaly. MUSCULOSKELETAL: No joint swelling or deformity. EXTREMITIES: No cyanosis, clubbing, or pedal edema. NEUROLOGICAL: Gross neurological examination did not reveal any focal deficits. SKIN: No rashes. Assessment: Multivessel coronary artery disease status post four-vessel bypass surgery Post thoracotomy, currently extubated and weaning FiO2 as tolerated. Currently on room air today continue incentive spirometer use at least 10 times every hour while awake CHF with impaired LV function with a preop left ventricle ejection fraction of 35 to 40% along with segmental wall motion abnormalities. Diabetes mellitus type 2, insulin-dependent with uncontrolled hyper and hypoglycemia. Currently appears better controlled on current regimen. 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 Plan is for possibly downgrade to the stepdown unit if a bed is available. Discussing possible discharge planning with home with home care tomorrow. Patient is a diabetic and reports she uses insulin along with oral diabetic agents. Continue with sliding scale and long-acting and will adjust and monitor Accu-Cheks before meals and at bedtime as well as 2 AM. Continue with current regimen. Encouraged incentive spirometer use at least 10 times every hour while awake Patient had a few episodes of unresponsiveness with concerns of possible TIA un dergoing thorough neurological workup. Brain CT was done showing small punctate hyperdensity in the left aspect of the medulla which likely represents benign calcification but acute hemorrhage is not excluded recommending short-term follow-up. MRI along with carotid Dopplers are ordered, likely TIA. No residual deficits noted. Patient reports does not have a history of CVA/TIA neurology is following We will continue to follow with cardiothoracic surgery during hospitalization. Thank you kindly for this consultation. The impression and plan of care has been dictated by Daisy Jaime, Nurse Practitioner as directed. Dr. Srinivas MD I have performed a history and examination and MDM of this patient, discussed the same with the dictator, and agree with the dictator's assessment and plan as written ,documented as a scribe. Based on total visit time, I have performed more than 50% of the visit. Objective - Vital Signs Vital signs: Vital Signs Temp 98.4 F 10/15/23 08:00 Pulse 82 10/15/23 09:06 Resp 21 10/15/23 09:00 BP 100/59 10/15/23 09:00 Pulse Ox 100 10/15/23 09:00 FiO2 40 10/11/23 18:45 Intake & Output 10/14/23 10/15/23 10/15/23 18:59 06:59 18:59 Intake Total 392 300 150 Output Total 865 380 0 Balance -473 -80 150 Weight 73.8 kg Intake: IV 92 Lactated Ringers 1,000 ml 80 @ 20 mls/hr IV .Q24H [facility] Rx#:[id number] Pressure Bags 12 Oral 300 300 150 Output: Chest Tube Drainage 90 80 Chest Tube Right 90 80 Mediastinal Chest Tube x2 0 Urine 775 300 0 Other: Voiding Method Indwelling Catheter Toilet Toilet ABP, PAP, CO, CI - Last Documented Arterial Blood Pressure 124/69 Pulmonary Artery Pressure 41/41 Cardiac Output 4.4 Cardiac Index 2.6 - Labs CBC & Chem 7: 10/15/23 05:47 10/15/23 05:47 Labs: Abnormal Lab Results - Last 24 Hours (Table) 10/03/23 10/14/23 10/14/23 Range/Units 10:30 12:14 16:44 RBC (3.80-5.40) m/uL Hgb (11.4-16.0) gm/dL Hct (34.0-46.0) % Chloride (98-107) mmol/L BUN (7-17) mg/dL Glucose (74-99) mg/dL POC Glucose (mg/dL) 161 H 187 H (70-110) mg/dL Calcium (8.4-10.2) mg/dL Magnesium (1.6-2.3) mg/dL AST (14-36) U/L ALT (4-34) U/L Total Protein (6.3-8.2) g/dL Albumin (3.5-5.0) g/dL Crossmatch See Detail 10/14/23 10/15/23 10/15/23 Range/Units 20:33 05:47 05:47 RBC 3.08 L (3.80-5.40) m/uL Hgb 9.3 L (11.4-16.0) gm/dL Hct 27.4 L (34.0-46.0) % Chloride 108 H (98-107) mmol/L BUN 26 H (7-17) mg/dL Glucose 124 H (74-99) mg/dL POC Glucose (mg/dL) 212 H (70-110) mg/dL Calcium 8.0 L (8.4-10.2) mg/dL Magnesium 2.4 H (1.6-2.3) mg/dL AST 93 H (14-36) U/L ALT 118 H (4-34) U/L Total Protein 5.3 L (6.3-8.2) g/dL Albumin 3.1 L (3.5-5.0) g/dL Crossmatch 10/15/23 Range/Units 06:40 RBC (3.80-5.40) m/uL Hgb (11.4-16.0) gm/dL Hct (34.0-46.0) % Chloride (98-107) mmol/L BUN (7-17) mg/dL Glucose (74-99) mg/dL POC Glucose (mg/dL) 135 H (70-110) mg/dL Calcium (8.4-10.2) mg/dL Magnesium (1.6-2.3) mg/dL AST (14-36) U/L ALT (4-34) U/L Total Protein (6.3-8.2) g/dL Albumin (3.5-5.0) g/dL Crossmatch
[2023-10-15 20:51] LABS: Glucose,Whole Blood 136 mg/dL (70-110)
[2023-10-16 06:21] LABS: Glucose,Whole Blood 127 mg/dL (70-110)
[2023-10-16 06:24] LABS: HCT 27.6 % (34.0-46.0); HGB 8.7 gm/dL (11.4-16.0); MCH 28.4 pg (25.0-35.0); MCHC 31.7 g/dL (31.0-37.0); MCV 89.5 fL (80.0-100.0); Mean Platelet Volume 8.1; Platelet Count 186 k/uL (150-450); RBC 3.08 m/uL (3.80-5.40); RDW 15.2 % (11.5-15.5); WBC 6.1 k/uL (3.8-10.6)
[2023-10-16 06:39] LABS: ALT 115 U/L (4-34); AST 76 U/L (14-36); African American GFR (CKD) >90 (>60 ml/min/1.73 sqM); Albumin 3.2 g/dL (3.5-5.0); Alkaline Phosphatase 113 U/L (38-126); Anion Gap 2 mmol/L; Blood Urea Nitrogen 25 mg/dL (7-17); Calcium 8.3 mg/dL (8.4-10.2); Carbon Dioxide 28 mmol/L (22-30); Chloride 107 mmol/L (98-107); Glucose 117 mg/dL (74-99); Non-African American GFR(CKD) >90 (>60 ml/min/1.73 sqM); Potassium 3.8 mmol/L (3.5-5.1); Sodium 137 mmol/L (137-145); Total Bilirubin 0.7 mg/dL (0.2-1.3); Total Protein 5.5 g/dL (6.3-8.2)
--- NOTE | 2023-10-16 07:19 | P.PN ---
Subjective Progress Note Date: 10/16/23 Principal diagnosis: Coronary artery disease. Previous medical history of myocardial infarction, ischemic cardiomyopathy/heart failure with reduced ejection fraction, hypertension, hyperlipidemia, diabetes mellitus with peripheral neuropathy and right great toe amputation, peripheral arterial disease with recent left subclavian stent, left internal carotid artery stenosis, osteoarthritis, previous tobacco dependence, moderate COPD, COVID in 2022 POD #5 coronary artery bypass grafting x 4 vessels, left internal mammary artery to the diagonal artery, radial artery to the left anterior descending artery, reverse saphenous vein graft to the obtuse marginal artery, reverse saphenous vein graft to the right coronary artery, endoscopic harvest of the left radial artery and right greater saphenous vein, ligation of the left atrial appendage using a 35 mm AtriClip, epiaortic ultrasound, intraoperative transesophageal echocardiogram, graft flow measurements using the [employer] system Postoperative acute blood loss anemia and thrombocytopenia, expected given hemodilution and cardiopulmonary bypass pump Acute episode unresponsiveness x2, eitiology unclear but probable TIA per neurology, not unexpected given patient's known history of carotid stenosis The patient was seen and examined this morning with Dr. Morillo sitting up in recliner in the intensive care unit in no acute distress eating breakfast. Currently in sinus rhythm, blood pressure remains stable, remains on midodrine. States pain is better controlled now that chest tubes have all been removed. Currently on room air with oxygen saturation in the high 90s. No further episodes of unresponsiveness. EEG completed and was reported as normal. Repeat CT of brain was completed without significant change, area of increased density felt more likely to be calcification. Labs/chest x-ray reviewed. Patient has been ambulatory in the hallway with assistance. Transfer orders placed for 3 S. cardiac stepdown unit yesterday, no bed available. No other new concerns. Objective - Vital Signs Vital signs: Vital Signs Temp 98.2 F 10/16/23 04:00 Pulse 62 10/16/23 04:00 Resp 18 10/16/23 04:00 BP 107/72 10/16/23 04:00 Pulse Ox 96 10/16/23 04:00 FiO2 40 10/11/23 18:45 Intake & Output 10/15/23 10/16/23 10/16/23 18:59 06:59 18:59 Intake Total 575 240 Output Total 700 250 Balance -125 -10 Weight 73.5 kg Intake: Oral 575 240 Output: Urine 700 250 Other: Voiding Method Toilet Toilet ABP, PAP, CO, CI - Last Documented Arterial Blood Pressure 124/69 Pulmonary Artery Pressure 41/41 Cardiac Output 4.4 Cardiac Index 2.6 - Exam CONSTITUTIONAL: Appears comfortable, cooperative, no acute distress RESPIRATORY: Lungs sounds diminished bilaterally. Respirations even, nonlabored. Currently on room air with oxygen saturation 96%. Able to achieve 1500 mL on incentive spirometry. Strong productive cough. CARDIOVASCULAR: S1, S2 present. Regular rate and rhythm, sinus rhythm on telemetry. Sternum stable. Palpable peripheral pulses bilaterally. No edema present. No calf pain or tenderness noted. Heart hugger in place with patient demonstrating appropriate use. Antiembolism stockings, SCDs present. GASTROINTESTINAL: Abdomen soft, nontender, nondistended. Active bowel sounds present 4 quadrants. Tolerating diet. Positive flatus GENITOURINARY: Continues to void clear, yellow urine. Output 950 mL in the last 24 hours INTEGUMENTARY: Skin is warm and dry with evidence of good perfusion. Anterior chest incision well approximated and covered with dry intact dressing. Left radial artery harvest site as well as right lower extremity EVH site well approximated without redness or drainage. NEUROLOGIC: Cranial nerves II through XII intact MUSKULOSKELETAL: Able to move all extremities, strength equal bilaterally PSYCHIATRIC: Alert and oriented to person place and time, appropriate affect, intact judgment and insight - Allied health notes Allied health notes reviewed: nursing - Labs CBC & Chem 7: 10/16/23 05:41 10/16/23 05:41 Labs: Abnormal Lab Results - Last 24 Hours (Table) 10/15/23 10/15/23 10/15/23 Range/Units 12:12 16:50 20:49 RBC (3.80-5.40) m/uL Hgb (11.4-16.0) gm/dL Hct (34.0-46.0) % BUN (7-17) mg/dL Glucose (74-99) mg/dL POC Glucose (mg/dL) 159 H 140 H 136 H (70-110) mg/dL Calcium (8.4-10.2) mg/dL AST (14-36) U/L ALT (4-34) U/L Total Protein (6.3-8.2) g/dL Albumin (3.5-5.0) g/dL 10/16/23 10/16/23 10/16/23 Range/Units 05:41 05:41 06:09 RBC 3.08 L (3.80-5.40) m/uL Hgb 8.7 L (11.4-16.0) gm/dL Hct 27.6 L (34.0-46.0) % BUN 25 H (7-17) mg/dL Glucose 117 H (74-99) mg/dL POC Glucose (mg/dL) 127 H (70-110) mg/dL Calcium 8.3 L (8.4-10.2) mg/dL AST 76 H (14-36) U/L ALT 115 H (4-34) U/L Total Protein 5.5 L (6.3-8.2) g/dL Albumin 3.2 L (3.5-5.0) g/dL - Imaging and Cardiology Chest x-ray: image reviewed Assessment and Plan Assessment: Coronary artery disease with previous myocardial infarction, status post four- vessel CABG Ischemic cardiomyopathy/heart failure with reduced ejection fraction, EF 35-40% preop, improved postoperative Hypertension Hyperlipidemia, treated with Repatha, cholesterol 200, LDL 108, triglycerides 190 Diabetes mellitus with peripheral neuropathy and right great toe amputation, hemoglobin A1c 8.3% Peripheral arterial disease with recent left subclavian stent Left internal carotid artery stenosis, left ICA 80-99% on carotid duplex, 50-70% on neck CTA, being followed by vascular surgery in the outpatient setting Osteoarthritis Previous tobacco dependence Moderate COPD, COVID in 2022 Postoperative acute blood loss anemia and thrombocytopenia, expected Acute episode unresponsiveness x2, eitiology unclear but probable TIA per neurology, not unexpected given patient's known history of carotid stenosis Plan: Continue to maximize medical therapy with aspirin, low-dose statin (as long as she is able to tolerate), Plavix, beta-franky. Will increase beta-franky therapy as tolerated. Continue to use Plavix, and DO NOT switch to Brilinta Continue amiodarone for A-fib prophylaxis, patient has had no atrial fibrillation up to this point Continue midodrine for blood pressure support. Continue low dose CCB for radial artery spasm prophylaxis with hold parameters Encourage incentive spirometry use 10 times every hour while awake, bronchodilators per pulmonology Will monitor daily labs and x-rays. Electrolyte replacement per protocol. Increase activity, ambulate as tolerated. PT/OT/cardiac rehab consulted GI/DVT prophylaxis Daily weights Insulin management per internal medicine Pain control per current medication regimen Continue to monitor and record strict accurate intake and output Monitor for further episode of unresponsiveness. No MRI necessary as it will not change patient's prognosis or treatment plan Transfer orders placed for 3 S. cardiac stepdown unit, may transfer when bed nura ilable Discharge planning in progress. Anticipate discharge to home with home care this afternoon versus tomorrow More recommendations to follow as patient progresses
--- NOTE | 2023-10-16 08:11 | XR ---
EXAMINATION TYPE: XR chest 2V DATE OF EXAM: 10/16/2023 COMPARISON: 10/15/2023 HISTORY: 57 year-old female post cardiac surgery TECHNIQUE: PA and lateral views FINDINGS: Median sternotomy wires are post-CABG clips. Heart upper limits of normal in size. Mild hyperinflatio n. Similar to improving mild interstitial prominence. Previous trace right apical pneumothorax no stefanie luke seen. There is a small pleural effusion seen on the lateral view. IMPRESSION: COPD with improvement in the mild pulmonary vascular congestion. The previous trace right apical pneu mothorax appears to have resolved. Small pleural effusion seen on the lateral view.
[2023-10-16] MEDS: POTASSIUM CHLORIDE ER 20 MEQ TAB.ER PO SCH (09:23)
[2023-10-16 09:53] VITALS: BP 123/64; RESP 20; TEMP 97.9
[2023-10-16 11:24] VITALS: PULSE 80
[2023-10-16 11:32] LABS: Glucose,Whole Blood 137 mg/dL (70-110)
--- NOTE | 2023-10-16 11:57 | P.PN ---
Subjective Progress Note Date: 10/16/23 Principal diagnosis: POD #5 coronary artery bypass grafting x 4 vessels, left internal mammary artery to the diagonal artery, radial artery to the left anterior descending artery, reverse saphenous vein graft to the obtuse marginal artery, reverse saphenous vein graft to the right coronary artery This is a 57-year-old female patient underwent four-vessel bypass surgery and the patient underwent ALVAREZ to diagonal, right radial to LAD, saphenous vein graft to OM and RCA. The patient is currently postop, intubated on mechanical ventilator in the intensive care unit. She is on propofol which is running at 20 mcg/kg/min. She is adequately sedated for now. The patient is on a mechanical ventilator assist-control mode with a tidal volume of 400, rate of 14, FiO2 was 100% with a PEEP of 5. Show a pH of 7.26 with a pCO2 of 56 and pO2 of more than 400. FiO2 was dropped down to 40% and the patient's rate is brought up to 24. She is hemodynamically stable. She is chronic and pulmonary artery pressure of 33/20 and her cardiac output is had 4.4 with an index of 2.4. She is currently on amiodarone drip running at 1 mg/min and she is also on nitroglycerin drip at 5 mcg/min. No other inotropes at this point. Urine output is in order 45 cc an hour. The patient has 2 mediastinal chest tubes, and right in the left lower chest tube. Output from the left lower chest tube is 0. Output from the mediastinal chest tubes is 50 and output from the right pleural chest tube is 0. No evidence of any air leak. Chest x-ray that was done postop showed adequate positioning of the lines and tubes. The NG tube was advanced. No evidence of any pneumothorax. All of the chest tubes are in good location. Blood work showed a hemoglobin of 8.4, normal coagulation profile, BUN 12 with a creatinine of 0.36 and a sodium level of 142, the calcium level was at 6.7 and the patient was given IV calcium. LFTs are normal. Blood sugars are adequate at 145. The patient is currently on sliding scale insulin coverage. Her current temperature is 35.8 and the patient is receiving external warming. In terms of her history, the patient is known to have coronary artery disease. 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 She did have a dry gangrene of the left great toe with secondary sepsis earlier hospitalization that was amputated. She also has had a previous history of left subclavian stenosis requiring stenting. She is a chronic smoker and she is also known to have COPD. Her preoperative LV function was an ejection fraction of 35 to 40%. She did have segmental wall motion abnormalities related to her underlying coronary artery disease. On 10/12/2023, patient is being seen for a follow-up. The patient is currently postop day #1. The patient was weaned off the mechanical ventilator and the patient was extubated without any major difficulties. This morning, the patient is on 2 L of oxygen by nasal cannula. Chest x-ray findings are essentially stable with consistent with postoperative changes. The patient is using incentive spirometer pulling approximately 500 cc. Cardiac output is 4.4 with an index of 2.6. The patient has a PA pressures of 34/13. The mediastinal chest tube is produced 450 cc overnight in the right lower has produced 110 in the left lower leg produced 10. The patient remains on insulin drip at 2.5 units an hour. The patient was treated with amiodarone drip and this will be switched to oral. Cardiac rhythm remains sinus. Blood work from today shows a WBC count of 7.7 with a hemoglobin 8.5 and a platelet count of 129. Rest of the electrolytes stable. BUN is at 14 with a creatinine of 0.8 and a sodium levels at 139 with a potassium level of 4. LFTs are normal. The patient is currently in normal sinus rhythm. She is ambulating. 10/13/2023, patient is being seen for a follow-up. Events from yesterday were noted. Noted the patient an episode where she had a brief right-sided weakness and another episode where she she briefly became absent. Suspect TIA in this patient note that the patient has a 70% carotid stenosis on the left at the level of the bulb. Meanwhile, the patient is postop day #2. The patient is doing well. No specific complaints. She has been in normal sinus rhythm. She is currently on 2 L of oxygen by nasal cannula. Chest x-ray showing some postsurgical changes some increased interstitial markings bilaterally. Left- sided chest tube has been removed. The mediastinal chest tube x 2 and right upper chest tubes are still in place. She is using incentive spirometer. She was given a dose of Lasix by the cardiothoracic team. No other complaints otherwise. Neurologically intact at this point in time. She is awake and alert. She is on aspirin. She is on Plavix. She was also started on metoprolol 12.5 mg p.o. twice a day. Insulin drip has been discontinued and the patient is currently on sliding scale insulin coverage. Patient was reevaluated today on 10/14/2023, she is now postoperative day #3, patient is doing quite well, she is on room air, not in any distress, hemodynamically stable not requiring any inotropes or any pressors. Yesterday she was on vasopressin which has been discontinued. Considering the patient had an episode of unresponsiveness yesterday, her CT of the brain showed a small hyperdensity in the left aspect of the middle not clear whether this is a benign calcification or acute hemorrhage MRI is pending. Pulmonary gonzalez the patient is doing great, she has no cough no wheezing no shortness of breath. Chest x-ray showed minimal residual interstitial densities in the lower lung soto, most likely atelectasis. CBC is relatively normal hemoglobin is 9.7 basic metabolic profile is normal and renal profile is normal Patient was dilated today on 10/15/2023, patient is now postoperative day #4. Sitting up in the recliner, patient denies any shortness of breath, no cough no wheezing, patient is on room air, with O2 saturation in the high 90s. On physical examination her lungs are clear. Her chest x-ray was reviewed. Right- sided pleural chest tube remains in place, radiologist reported a small tiny apical pneumothorax which I could not see and did not appreciate and I did not feel significant clinically significant, repeat CT of the brain today showed ba sically no change compared to previous CT of the brain. WBC is 6.3 hemoglobin 9.3 basic metabolic profile is normal renal profile is normal Patient was evaluated today on 10/16/2023, she is postoperative day #5. Patient is ambulating in the room, does not seem to be in any distress, she is on room air, O2 saturation is in the 90s. No further episodes of unresponsiveness. EEG was reported as normal. Repeat CT of the brain was showing no change. Novi to be an area of calcification that was initially concerning. Patient will likely be transferred to [facility] today. Pulmonary gonzalez she is doing good, chest x-ray is reassuring. CBC is relatively normal except for hemoglobin of 8.7 basic metabo lic profile is normal renal profile is normal Objective - Vital Signs Vital signs: Vital Signs Temp 97.9 F 10/16/23 08:30 Pulse 80 10/16/23 11:19 Resp 20 10/16/23 08:30 BP 123/64 10/16/23 08:30 Pulse Ox 98 10/16/23 08:30 FiO2 40 10/11/23 18:45 Intake & Output 10/15/23 10/16/23 10/16/23 18:59 06:59 18:59 Intake Total 575 240 Output Total 700 250 Balance -125 -10 Weight 73.5 kg Intake: Oral 575 240 Output: Urine 700 250 Other: Voiding Method Toilet Toilet Toilet # Bowel Movements 1 ABP, PAP, CO, CI - Last Documented Arterial Blood Pressure 124/69 Pulmonary Artery Pressure 41/41 Cardiac Output 4.4 Cardiac Index 2.6 - Exam CONSTITUTIONAL: Reveals a 57-year-old female in no distress, on room air. Head: Atraumatic, normocephalic. RESPIRATORY: Clear bilaterally no rhonchi no wheezes CARDIOVASCULAR: Normal S1-S2, no S3 gallop, no murmur. GASTROINTESTINAL: Abdomen soft, nontender, nondistended. INTEGUMENTARY: Skin is warm and dry with evidence of good perfusion. NEUROLOGIC: Alert and oriented x 3 no gross focal deficit MUSKULOSKELETAL: No deformities and no limitation range of motion PSYCHIATRIC: Normal mood affect and normal mental status examination INVASIVE LINES AND TUBES:, All removed - Labs CBC & Chem 7: 10/16/23 05:41 10/16/23 05:41 Labs: Abnormal Lab Results - Last 24 Hours (Table) 10/15/23 10/15/23 10/15/23 Range/Units 12:12 16:50 20:49 RBC (3.80-5.40) m/uL Hgb (11.4-16.0) gm/dL Hct (34.0-46.0) % BUN (7-17) mg/dL Glucose (74-99) mg/dL POC Glucose (mg/dL) 159 H 140 H 136 H (70-110) mg/dL Calcium (8.4-10.2) mg/dL AST (14-36) U/L ALT (4-34) U/L Total Protein (6.3-8.2) g/dL Albumin (3.5-5.0) g/dL 10/16/23 10/16/23 10/16/23 Range/Units 05:41 05:41 06:09 RBC 3.08 L (3.80-5.40) m/uL Hgb 8.7 L (11.4-16.0) gm/dL Hct 27.6 L (34.0-46.0) % BUN 25 H (7-17) mg/dL Glucose 117 H (74-99) mg/dL POC Glucose (mg/dL) 127 H (70-110) mg/dL Calcium 8.3 L (8.4-10.2) mg/dL AST 76 H (14-36) U/L ALT 115 H (4-34) U/L Total Protein 5.5 L (6.3-8.2) g/dL Albumin 3.2 L (3.5-5.0) g/dL 10/16/23 Range/Units 11:30 RBC (3.80-5.40) m/uL Hgb (11.4-16.0) gm/dL Hct (34.0-46.0) % BUN (7-17) mg/dL Glucose (74-99) mg/dL POC Glucose (mg/dL) 137 H (70-110) mg/dL Calcium (8.4-10.2) mg/dL AST (14-36) U/L ALT (4-34) U/L Total Protein (6.3-8.2) g/dL Albumin (3.5-5.0) g/dL Assessment and Plan Assessment: Impression: Status post four-vessel CABG postoperative day 5 History of ischemic cardiomyopathy and poor LV function with ejection fraction of 35 to 40% Benign essential hypertension Type 2 diabetes with peripheral neuropathy Peripheral vessel occlusive disease and recent left subclavian stent placement Moderate COPD Tobacco dependence syndrome Postoperative acute blood loss anemia, expected Acute episode of unresponsiveness x [address] of the brain, repeat CT of the brain showed no change Recommendation: Continue maximal medical therapy with statins, aspirin, and beta-blockers as well as Plavix Continue present supportive care measures Continue oral amiodarone Continue midodrine for low blood pressure Continue incentive spirometry Continue GI and DVT prophylaxis Transferred to 3 S. today. Possible discharge home in the next 24 hours Will continue to follow Time with Patient: Less than 30
--- NOTE | 2023-10-16 15:19 | P.DS ---
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 Consult: post cardiac surgery Do you want consulting provider notified?: Yes 10/13/23 08:28 Consult Physician Routine Consulting Provider: Gabrielle Clark Consult Reason/Comments: periods of unresponsiveness Do you want consulting provider notified?: Yes Primary care physician: [facility] Hospital Course: FINAL DIAGNOSIS: Coronary artery disease with previous myocardial infarction Ischemic cardiomyopathy/heart failure with reduced ejection fraction, EF 35-40% preop, improved postoperative Hypertension Hyperlipidemia, treated with Repatha, cholesterol 200, LDL 108, triglycerides 190 Diabetes mellitus with peripheral neuropathy and right great toe amputation, hemoglobin A1c 8.3% Peripheral arterial disease with recent left subclavian stent Left internal carotid artery stenosis, left ICA 80-99% on carotid duplex, 50-70% on neck CTA, being followed by vascular surgery in the outpatient setting Osteoarthritis Previous tobacco dependence Moderate COPD, FEV1 53% COVID in 2022 Postoperative acute blood loss anemia and thrombocytopenia, expected Acute episode unresponsiveness x2, eitiology unclear but probable TIA per neurology, not unexpected given patient's known history of carotid stenosis PRINCIPAL PROCEDURE: Coronary artery bypass grafting x 4 vessels, left internal mammary artery to the diagonal artery, radial artery to the left anterior descending artery, reverse saphenous vein graft to the obtuse marginal artery, reverse saphenous vein graft to the right coronary artery Endoscopic harvest of the left radial artery and right greater saphenous vein Ligation of the left atrial appendage using a 35 mm AtriClip Epiaortic ultrasound Intraoperative transesophageal echocardiogram Graft flow measurements using the [employer] system HISTORY OF PRESENT ILLNESS: This is a 57-year-old female who follows outpatient with Dr. Dewitt for primary care and Dr. Cisneros for cardiology. She underwent stress testing which found to be abnormal and was recommended to undergo heart catheterization. Heart catheterization revealed multivessel coronary artery disease, although the patient claimed to be asymptomatic with no chest pain or shortness of breath. The patient was referred to Dr. Aguero from cardiothoracic surgery. She was recommended to undergo elective surgical myocardial revascularization. The usual perioperative course was discussed in detail with the patient and her family, all risks and benefits were explained, all questions were answered, and consent was obtained to proceed with surgery. The patient was discharged for surgery at the earliest possible date after having a stent placed to her left subclavian artery. HOSPITAL COURSE: The patient was brought to the hospital on 10/11/23, taken to the preoperative area, prepared in the usual fashion, and subsequently taken to the operating room where Dr. Aguero performed four-vessel CABG. Upon completion of surgery the patient was transferred to the cardiovascular intensive care unit where she was recovered and monitored hemodynamically. She was extubated, all lines, tubes, and drips were discontinued when appropriate, and transfer orders were placed for 3 S. cardiac stepdown unit, however there was no bed availability and the patient remained on ICU as a stepdown patient until discharge. She did have 2 brief episodes of unresponsiveness felt to be TIAs per neurology with quick recovery and no intervention necessary. Her oxygen was titrated down, she continued to work with physical and occupational therapy, she was tolerating oral diet, her pain was controlled, and she was ready to be dis charged to home [facility] on [facility] day #5. She received written and verbal instruction regarding her medications, activity restrictions, signs and symptoms requiring physician notification, and follow-up appointments. Patient Condition at Discharge: Stable Plan - Discharge Summary Discharge Rx Participant: No New Discharge Prescriptions: New Amiodarone [Cordarone] 200 mg PO BID #15 tab Metoprolol Tartrate [Lopressor] 12.5 mg PO BID #60 tab Pantoprazole [Protonix] 40 mg PO AC-BRKFST #30 tab Sennosides-Docusate Sodium [Senokot-S] 2 each PO HS PRN tab PRN Reason: Constipation Atorvastatin [Lipitor] 20 mg PO HS #30 tab Midodrine [ProAmatine] 10 mg PO AC-TID #90 tab Acetaminophen Tab [Tylenol] 650 mg PO Q4HR PRN tab PRN Reason: Fever And/ Or Pain Continue traMADol HCL [Ultram] 50 mg PO BID PRN PRN Reason: Pain Gabapentin 600 mg PO BID Insulin Detemir (Levemir) [Levemir] 16 unit SQ HS Cholecalciferol [Vitamin D3 (25 Mcg = 1000 Iu)] 50 mcg PO DAILY #0 Clopidogrel [Plavix] 75 mg PO DAILY #90 tab metFORMIN HCL 1,000 mg PO BID #0 Tirzepatide [Mounjaro] 5 mg SQ PICKETT Evolocumab [Repatha Sureclick] 140 mg SQ Q14D Aspirin [Adult Low Dose Aspirin EC] 81 mg PO DAILY Albuterol Inhaler [Ventolin Hfa Inhaler] 2 puff INHALATION BID Fluticasone/Umeclidin/Vilanter [Trelegy Ellipta 200-62.5-25] 1 puff INHALATION DAILY Discontinued Metoprolol Succinate (ER) [Toprol XL] 25 mg PO DAILY Isosorbide Mononitrate ER [Imdur] 30 mg PO DAILY Losartan [Cozaar] 25 mg PO DAILY Discharge Medication List traMADol HCL [Ultram] 50 mg PO BID PRN 05/04/21 [History] Aspirin [Adult Low Dose Aspirin EC] 81 mg PO DAILY 07/05/23 [History] Cholecalciferol [Vitamin D3 (25 Mcg = 1000 Iu)] 50 mcg PO DAILY #0 07/05/23 [History] Evolocumab [Repatha Sureclick] 140 mg SQ Q14D 07/05/23 [History] Gabapentin 600 mg PO BID 07/05/23 [History] Insulin Detemir (Levemir) [Levemir] 16 unit SQ HS 07/05/23 [History] Tirzepatide [Mounjaro] 5 mg SQ PICKETT 07/05/23 [History] Albuterol Inhaler [Ventolin Hfa Inhaler] 2 puff INHALATION BID 08/05/23 [History] Fluticasone/Umeclidin/Vilanter [Trelegy Ellipta 200-62.5-25] 1 puff INHALATION DAILY 08/05/23 [History] Clopidogrel [Plavix] 75 mg PO DAILY #90 tab 08/08/23 [Rx] metFORMIN HCL 1,000 mg PO BID #0 08/08/23 [Rx] Acetaminophen Tab [Tylenol] 650 mg PO Q4HR PRN tab 10/16/23 [Rx] Amiodarone [Cordarone] 200 mg PO BID #15 tab 10/16/23 [Rx] Atorvastatin [Lipitor] 20 mg PO HS #30 tab 10/16/23 [Rx] Metoprolol Tartrate [Lopressor] 12.5 mg PO BID #60 tab 10/16/23 [Rx] Midodrine [ProAmatine] 10 mg PO AC-TID #90 tab 10/16/23 [Rx] Pantoprazole [Protonix] 40 mg PO AC-BRKFST #30 tab 10/16/23 [Rx] Sennosides-Docusate Sodium [Senokot-S] 2 each PO HS PRN tab 10/16/23 [Rx] Follow up Appointment(s)/Referral(s): Anna Downing NPC [Nurse Practitioner] - 10/22/23 12:00 pm (You will be seen in the surgeon's office behind the hospital in [facility], [address] Office phone number is ) [facility] ,Cardiac [NON-STAFF] - 4 Weeks (You will receive a phone call in approximately 4-6 weeks for evaluation for cardiac rehab) Jamal Dewitt DO [Primary Care Provider] - 1 Week (Office will call with appointment) Boone Fry DO [Doctor of Osteopathic Medicine] - 11/06/23 8:30 am Harry Aguero MD [STAFF PHYSICIAN] - 11/08/23 9:30 am [facility] [NON-STAFF] - 1-2 Days ([facility] will call you to arrange a visit; you should be seen the day after discharge, then 2-3 times per week until you start cardiac rehab) Zeke Cisneros MD [STAFF PHYSICIAN] - 1 Week (Office will call with appointment time) Ambulatory/Diagnostic Orders: Complete Blood Count w/diff [LAB.AMB] Time Frame: 3 Days, Location: None Selected Comprehensive Metabolic Panel [LAB.AMB] Time Frame: 3 Days, Location: None Selected Activity/Diet/Wound Care/Special Instructions: DISCHARGE INSTRUCTIONS: 1. No driving for 4 weeks, or until physician gives their ok. 2. The patient should sleep in their own bed, no medical bed needed. 3. Stairs are not an issue. If the bedroom is upstairs, it is advised that the patient go up at night and down in the morning for the first week. Go slowly, using handrail and take 1 step at a time. 4. HELLEN hose are to be worn for 30 days post surgery or until physician discontinues. 5. Heart hugger is to be worn 100% of the time until physician discontinues.(except when showering) 6. No lifting, pushing, or pulling more than 10 pounds for 12 weeks. The phys ician will advise of any restriction changes. 7. The patient is expected to continue the prescribed walking program. 8. Continue pain control per as needed orders. 9. Continue with incentive spirometry and splinting/heart hugger until otherwise directed by the physician. 10. Must shower daily using liquid antibacterial soap 11. Routine sternal incision care. No powders, lotions, ointments on incisions. No dressings are necessary on incisions unless they are draining. Dermabond tape is to remain on sternal incision until surgeon follow-up. 12. Please call surgeon/BLADDER TIER for temp greater than 101 F or purulent drainage from incisions. 13. You should weigh yourself daily, record and bring log with you to follow up appointments. 14. All prescriptions given by surgeon for 30 days. Refills need to be filled through stewarding supervisor/primary care physician. 15. A Red armband has been placed on the patient. It should be worn for 30 days post discharge from surgery and will be removed by the cardiac surgeons. If an ER visit is necessary, please make sure the number on the Red armband is called before going to ER. 16. You have been referred to and are expected to begin Cardiac Rehab in [facility] oximately 4-6 weeks. 17. Quitting smoking is the most important step you can take to improve your health. For additional information and assistance to quit smoking, please call the [place] tobacco quit line (8-513-TPZF-NOW/ ) or online: https://www.[place].gov/[facility]/dsky-hx-ktksvmw/chronicdiseases/tobacco/how-to-qu it-tobacco HOME HEALTH SERVICES TO PROVIDE: RN SKILLED HOME CARE SERVICES FOR POST-OP SURGICAL PATIENTS WITH THE FOLLOWING: Coronary Artery Bypass Surgery (CABG), Mitral Valve Replacement/Repair ( MVR), Aortic Valve Replacement/Repair (AVR) RN TO CONTINUE EDUCATION FROM ``ROAD TO A HEALTH HEART PATIENT EDUCATION MANUAL (GIVEN TO PATIENT IN THE HOSPITAL) MEDICATION RECONCILIATION WITH EDUCATION NEEDED ON FIRST HOME VISIT EMPHASIZE IMPORTANCE OF WEARING BREAST SUPPORT/HEART HUGGER ENCOURAGE USE OF INCENTIVE SPIROMETER 10 X EVERY HOUR WHILE AWAKE ENCOURAGE UTILIZATION OF LOWER EXTREMITY COMPRESSION STOCKINGS/HELLEN HOSE and ELEVATE LEGS ABOVE LEVEL OF HEART WHILE AT REST. ENCOURAGE AMBULATION 3-5x/day INCREASING TOLERATES, WHILE AVOIDING EXTREMES IN TEMPERATURE FREQUENCY: RN TO OPEN THE PATIENT WITHIN 24 HOURS OF DISCHARGE FROM THE HOSPITAL WITH TELEHEALTH INSTALLED AT [facility], RN TO VISIT 2-3 X A WEEK FOR 4 WEEKS ESTABLISHED BY PATIENT NEEDS. LABORATORY: CBC, CMP TO BE DRAWN ON THE THIRD DAY HOME, (RAN STAT) FAX RESULTS TO [phone]. TELEHEALTH PARAMETERS: WEIGHT: NOTIFY MD OF WEIGHT GAIN OF 2 LBS IN 24 HOURS OR 5 LBS IN ONE WEEK HR: NOTIFY MD OF HR <55 BPM OR HR>100 BPM BP: NOTIFY MD IF BP <90/55 OR BP>140/100 O2 SAT: NOTIFY MD IF PO2<93% ON ROOM AIR SEND TELEHEALTH REPORT TO DOCUMENTATION CLERK AND CARDIOVASCULAR SURGEON THE FIRST WEEK OF CARE AND THEN BI-WEEKLY. PLEASE ADDITIONALLY COMMUNICATE ANY ABNORMALS AND NEW FINDINGS TO THE SURGEONS OFFICE. Discharge Disposition: HOME WITH HOME HEALTH SERVICES
== END 2023-10-16 15:47 | disposition home health service (06) | DRG 236 ==
LOC: 2ORMAIN 05:37 → 2SICU 14:51
PROVIDERS: ADMIT Surgery; ATTEND Surgery
PROC: 02100AW Bypass Coronary Artery, One Artery from Aorta with Autologous Arterial Tissue, Open Approach (ICD-10-PCS; principal; 2023-10-11 08:00)
PROC: 021109W Bypass Coronary Artery, Two Arteries from Aorta with Autologous Venous Tissue, Open Approach (ICD-10-PCS; principal; 2023-10-11 08:00)
PROC: 4A1305C Monitoring of Arterial Flow, Coronary, Open Approach (ICD-10-PCS; principal; 2023-10-11 08:00)
PROC: 03BC4ZZ Excision of Left Radial Artery, Percutaneous Endoscopic Approach (ICD-10-PCS; principal; 2023-10-11 08:00)
PROC: 5A1221Z Performance of Cardiac Output, Continuous (ICD-10-PCS; principal; 2023-10-11 08:00)
PROC: 02100A9 Bypass Coronary Artery, One Artery from Left Internal Mammary with Autologous Arterial Tissue, Open Approach (ICD-10-PCS; principal; 2023-10-11 08:00)
PROC: 06BP4ZZ Excision of Right Saphenous Vein, Percutaneous Endoscopic Approach (ICD-10-PCS; principal; 2023-10-11 08:00)
PROC: 02L70CK Occlusion of Left Atrial Appendage with Extraluminal Device, Open Approach (ICD-10-PCS; principal; 2023-10-11 08:00)
PROC: B24BZZ4 Ultrasonography of Heart with Aorta, Transesophageal (ICD-10-PCS; 2023-10-11 08:00)
PROC: 30243N1 Transfusion of Nonautologous Red Blood Cells into Central Vein, Percutaneous Approach (ICD-10-PCS; 2023-10-11 08:00)
DX: I25.10 Atherosclerotic heart disease of native coronary artery without angina pectoris (principal); D62 Acute posthemorrhagic anemia; I50.22 Chronic systolic (congestive) heart failure; G45.9 Transient cerebral ischemic attack, unspecified; D69.6 Thrombocytopenia, unspecified; E11.649 Type 2 diabetes mellitus with hypoglycemia without coma; E11.42 Type 2 diabetes mellitus with diabetic polyneuropathy; E11.51 Type 2 diabetes mellitus with diabetic peripheral angiopathy without gangrene; I11.0 Hypertensive heart disease with heart failure; E11.65 Type 2 diabetes mellitus with hyperglycemia; I70.8 Atherosclerosis of other arteries; J43.9 Emphysema, unspecified; J44.89 Other specified chronic obstructive pulmonary disease; Z95.820 Peripheral vascular angioplasty status with implants and grafts; Z89.419 Acquired absence of unspecified great toe; Z79.4 Long term (current) use of insulin; Z28.310 Unvaccinated for COVID-19; I67.2 Cerebral atherosclerosis; I25.84 Coronary atherosclerosis due to calcified coronary lesion; I25.5 Ischemic cardiomyopathy; I25.2 Old myocardial infarction; E78.5 Hyperlipidemia, unspecified; M19.012 Primary osteoarthritis, left shoulder; M19.011 Primary osteoarthritis, right shoulder; M17.0 Bilateral primary osteoarthritis of knee; M47.812 Spondylosis without myelopathy or radiculopathy, cervical region; M47.814 Spondylosis without myelopathy or radiculopathy, thoracic region; M47.815 Spondylosis without myelopathy or radiculopathy, thoracolumbar region; M47.817 Spondylosis without myelopathy or radiculopathy, lumbosacral region; M50.30 Other cervical disc degeneration, unspecified cervical region; Z79.82 Long term (current) use of aspirin; Z79.02 Long term (current) use of antithrombotics/antiplatelets; Z79.51 Long term (current) use of inhaled steroids; Z79.84 Long term (current) use of oral hypoglycemic drugs; Z79.85 Long-term (current) use of injectable non-insulin antidiabetic drugs; Z79.899 Other long term (current) drug therapy; Z87.891 Personal history of nicotine dependence; Z86.16 Personal history of COVID-19; Z71.3 Dietary counseling and surveillance; Z88.8 Allergy status to other drugs, medicaments and biological substances
CPT/HCPCS: 70450; 71045; 71046; 80053; 82330; 82805; 83735; 85025; 85027; 85520; 85610; 85730; 86850; 86891; 86900; 86901; 86920; 93880; 94002; 94640; 95816